=== PATIENT | female | born 1980 | race Caucasian/White ===

== ENCOUNTER 2016-07-14 12:12 | Emergency (ER) | payer OTHER ==
[2016-07-14 12:19] VITALS: BMI 37.7
[2016-07-14] MEDS ORDERED: AZITHROMYCIN 250 MG TABLET (FP) ONE (13:01)
[2016-07-14] MEDS ORDERED: ALBUTEROL SO4 2.5/IPRATROPIUM 0.5 INH SOL 3 ML VIAL.NEB. NEB ONE ×6 (13:28→14:53)
[2016-07-14] MEDS ORDERED: AZITHROMYCIN 250 MG TABLET (FP) PO ONE (13:28)
[2016-07-14] MEDS ORDERED: predniSONE 20 MG TABLET (UD) PO ONE (13:28)
[2016-07-14] MEDS ORDERED: predniSONE 20 MG TABLET (UD) ONE (13:31)
--- NOTE | 2016-07-14 13:31 | PDOC ---
History of Present Illness - General Chief Complaint: Shortness of Breath Stated Complaint: CHEST, SOB Time Seen by Provider: 07/14/16 12:35 History Source: Patient Exam Limitations: No Limitations - History of Present Illness Initial Comments: 07/14/16 13:27 Patient came to emergency department for evaluation of one week's coughing, she fevers and chills, and wheezing. States suffers from asthma ran out of inhaler some months ago. Was hoping the cold would improved but in fact has progressively become worse. Patient states has a moist nonproductive cough. 07/14/16 13:27 Timing/Duration: reports: constant, changing over time, getting worse Severity: reports: mild, moderate Associated Symptoms: reports: denies symptoms, cough, fever/chills, headache, nasal congestion, nasal drainage, shortness of breath Past History - Travel Traveled outside of the country in the last 30 days: No Close contact w/someone who was outside of country & ill: No - Past Medical History Allergies/Adverse Reactions: Allergies Allergy/AdvReac Type Severity Reaction Status Date / Time Penicillins Allergy Mild Swelling/it Verified 07/14/16 12:15 miguel Home Medications: Ambulatory Orders NK [No Known Home Medication] 07/14/16 Asthma: Yes Suicide Attempt (Hx): No - Surgical History Orthopedic Surgery: Yes (LT KNEE SX) - Reproductive History Cervical CA: No Dysfunctional Uterine Bleeding: No Ectopic : No Endometrial CA: No Polycystic Ovaries: No Spontaneous : 0 - Immunization History Td Vaccination: Yes TDAP Vaccination: Yes Immunization Up to Date: Yes - Psycho/Social/Smoking Cessation Hx Anxiety: No Suicidal Ideation: No Smoking Status: No Smoking History: Never smoked Have you smoked in the past 12 months: No Number of Cigarettes Smoked Daily: 0 Cigars Per Day: 0 Information on smoking cessation initiated: No Hx Alcohol Use: No Drug/Substance Use Hx: No Substance Use Type: None Hx Substance Use Treatment: No Review of Systems - Review of Systems Able to Perform ROS?: Yes Is the patient limited American proficient: Yes Constitutional: Yes: Symptoms Reported, See HPI, Chills, Fever, Loss of Appetite , Malaise HEENTM: Yes: Symptoms Reported, See HPI, Nose Congestion, Throat Pain Respiratory: Yes: Symptoms reported, See HPI, Cough, Shortness of Breath, Wheezing Cardiac (ROS): No: Symptoms Reported ABD/GI: Yes: See HPI. No: Symptoms Reported Musculoskeletal: Yes: Symptoms Reported, See HPI Integumentary: No: Symptoms Reported Neurological: Yes: Symptoms reported, See HPI, Headache All Other Systems: Reviewed and Negative *Physical Exam - Vital Signs Last Vital Signs Temp Pulse Resp BP Pulse Ox 98.3 F 85 20 113/81 97 07/14/16 12:15 07/14/16 12:15 07/14/16 12:15 07/14/16 12:15 07/14/16 12:15 - Physical Exam General Appearance: Yes: Nourished, Appropriately Dressed, Apparent Distress HEENT: positive: EOMI, BRITTANY, TMs Normal, Pharynx Normal, Tonsillar Erythema, Rhinorrhea, Sinus Tenderness. negative: Normal ENT Inspection Neck: positive: Supple. negative: Tender Respiratory/Chest: positive: Chest Tender, Rhonchi (course expiratory inspiratory rales), Wheezing (course inspiratory and expiratory wheezes bilaterally with poor air movement.). 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 Patient is outside window for Tamiflu treatment. Medical Decision Making - Medical Decision Making 07/14/16 14:43 Not much improvement after 2 duo nebs, prednisone and Zithromax approximately one hour ago. Will obtain chest x-ray and reevaluate 07/14/16 14:44 07/14/16 15:25 07/14/16 15:41 07/14/16 16;00 Continues course heavy cough with bilateral congestion and wheezing. Has received 3 DuoNeb's, prednisone, and Zithromax. Chest x-ray read is negative for infiltrates however patient is not improving therefore we will moved to main emergency department for further evaluation and possible admission for bronchitis/early pneumonia. case turned over to Miranda Hollingsworth NP evaluation and treatment. 07/14/16 18:31 *DC/Admit/Observation/Transfer Diagnosis at time of Disposition: Bronchitis - Discharge Dispostion Condition at time of disposition: Stable - Referrals Referrals: Brian Johns MD [Primary Care Provider] -
[2016-07-14] MEDS ORDERED: IBUPROFEN 600 MG TABLET (FP) PO ONE (13:55)
[2016-07-14 15:37] VITALS: TEMP 98.5
[2016-07-14 16:10] LABS: BASOPHIL 0.3 % (0-2.0); EOSINOPHIL 0.2 % (0-4.5); MCH 28.9 pg (25.7-33.7); MCHC 33.1 g/dl (32.0-36.0); MEAN CELL VOLUME 87.5 fl (80-96); MEAN PLT VOLUME 9.2 fl (7.5-11.1); NEUTROPHILS 89.6 % (42.8-82.8); PLATELET COUNT 200 K/MM3 (134-434); RDW 13.1 % (11.6-15.6); WHITE BLOOD COUNT 9.7 K/mm3 (4.0-10.0)
[2016-07-14 16:12] LABS: URINE APPEARANCE CLEAR; URINE BILIRUBIN NEGATIVE (NEGATIVE); URINE COLOR LTYELLOW; URINE GLUCOSE (UA) NEGATIVE (NEGATIVE); URINE KETONE NEGATIVE (NEGATIVE); URINE NITRITE NEGATIVE (NEGATIVE); URINE PROTEIN NEGATIVE (NEGATIVE); URINE UROBILINOGEN NEGATIVE E.U./dl (0.2-1.0)
[2016-07-14 16:13] LABS: URINE BLOOD 3+ (NEGATIVE); URINE LEUK ESTERASE 1+ (NEGATIVE)
[2016-07-14 16:15] LABS: URINE BACTERIA RARE /hpf (NONE SEEN); URINE MUCUS RARE; URINE RBC 18 /hpf (0-3); URINE WBC 5 /hpf (3-5)
[2016-07-14 16:38] LABS: ALK PHOS 84 U/L (45-117); ANION GAP 6 (8-16); BILIRUBIN,TOTAL 0.5 mg/dL (0.2-1.0); CALCIUM 8.2 mg/dL (8.5-10.1); CO2 27 mmol/L (21-32); CREATININE 0.5 mg/dL (0.55-1.02); GLUCOSE,RANDOM 117 mg/dL (74-106); SGOT/AST 17 U/L (15-37); SGPT/ALT 26 U/L (12-78); TOT PROT 7.1 g/dl (6.4-8.2)
[2016-07-14] MEDS ORDERED: guaiFENesin/CODEINE 10 ML UNIT-DOSE CUPS PO ONE (18:02)
--- NOTE | 2016-07-14 18:02 | PDOC ---
*Physical Exam - Vital Signs Last Vital Signs Temp Pulse Resp BP Pulse Ox 98.5 F 90 20 113/81 98 07/14/16 15:36 07/14/16 15:36 07/14/16 12:15 07/14/16 12:15 07/14/16 15:36 - Physical Exam Respiratory/Chest: positive: Accessory Muscle Use (intercostal), Wheezing ( scattered bilateral on expiration). negative: Decreased Breath Sounds Cardiovascular: positive: Tachycardia (116) ED Treatment Course - LABORATORY CBC & Chemistry Diagram: 07/14/16 16:00 07/14/16 16:00 - ADDITIONAL ORDERS Additional order review: Laboratory Results 07/14/16 07/14/16 07/14/16 16:00 16:00 16:00 Sodium 140 Potassium 3.5 Chloride 107 Carbon Dioxide 27 Anion Gap 6 L BUN 7 D Creatinine 0.5 L D Creat Clearance w eGFR > 60 Random Glucose 117 H Lactic Acid 1.635 Calcium 8.2 L Total Bilirubin 0.5 D AST 17 ALT 26 Alkaline Phosphatase 84 Total Protein 7.1 Albumin 4.0 Urine Color Ltyellow Urine Appearance Clear Urine pH 6.0 Ur Specific [place] 1.003 Urine Protein Negative Urine Glucose (UA) Negative Urine Ketones Negative Urine Blood 3+ H Urine Nitrite Negative Urine Bilirubin Negative Urine Urobilinogen Negative Ur Leukocyte Esterase 1+ H Urine RBC 18 Urine WBC 5 Ur Epithelial Cells Rare Urine Bacteria Rare Urine Mucus Rare 07/14/16 16:00 Influenza Types A,B Antigen (SONDRA) - Final Nasopharyngeal Swab - Final 07/14/16 16:00 RBC 4.57 MCV 87.5 MCHC 33.1 RDW 13.1 MPV 9.2 Neutrophils % 89.6 H D Lymphocytes % 8.2 D Monocytes % 1.7 L Eosinophils % 0.2 D Basophils % 0.3 - Medications Given in the ED: ED Medications Discontinued Medications Generic Name Dose Route Start Last Admin Trade Name Freq PRN Reason Stop Dose Admin Albuterol/Ipratropium 1 amp 07/14/16 13:28 07/14/16 13:33 Duoneb - NEB 07/14/16 13:29 1 amp ONCE ONE Administration Albuterol/Ipratropium 1 amp 07/14/16 13:33 07/14/16 13:48 Duoneb - NEB 07/14/16 13:34 1 amp ONCE ONE Administration Albuterol/Ipratropium 1 amp 07/14/16 14:43 07/14/16 14:45 Duoneb - NEB 07/14/16 14:44 1 amp ONCE ONE Administration Azithromycin 500 mg 07/14/16 13:28 07/14/16 13:30 Zithromax - PO 07/14/16 13:29 500 mg ONCE ONE Administration Prednisone 60 mg 07/14/16 13:28 07/14/16 13:33 Deltasone - PO 07/14/16 13:29 60 mg ONCE ONE Administration Medical Decision Making - Medical Decision Making 07/14/16 18:01 Received from fast track secondary to continual coughing wheezing and difficulty speaking full sentences secondary to the above. Patient had steroids DuoNeb lab work with no improvement. Patient's peak flow to my arrival was 260 at best of 3 . patient complaining of bronchial inflammation causing difficulty speaking and continual coughing. Pt will be given a dose robitussin and codeine 07/14/16 18:59 Patient states coughing has subsided moderately but still feels short of breath with minimal exertion. Patient revitalized and pulse is 107 while at rest O2 sat 97% on room air. Patient concerning for PE. Patient added for d-dimer. Will sign out. *DC/Admit/Observation/Transfer Diagnosis at time of Disposition: Bronchitis - Discharge Dispostion Disposition: HOME Condition at time of disposition: Stable - Prescriptions Prescriptions: Prednisone [Deltasone -] 20 mg PO DAILY #10 tablet Guaifenesin AC [Robitussin AC] 10 ml PO HS #60 ml MDD 10 Albuterol Sulfate Inhaler - [Ventolin HFA Inhaler -] 2 inh PO Q4H #1 inh - Referrals Referrals: Brian Johns MD [Primary Care Provider] - - Patient Instructions Printed Discharge Instructions: DI for Asthma -- Adult Additional Instructions: Your Discharge Instructions: You must call primary care physician within 24 hours to arrange follow-up. Return to the Emergency Department with any new, persistent or worsening symptoms, for fever, chills, SOB, dizziness or any other concerning changes that may occur. - Post Discharge Activity Work/School Note: Back to Work
[2016-07-14] MEDS ORDERED: guaiFENesin/CODEINE 10 ML UNIT-DOSE CUPS ONE (18:11)
--- NOTE | 2016-07-14 19:32 | PDOC ---
*Physical Exam - Vital Signs Last Vital Signs Temp Pulse Resp BP Pulse Ox 98.5 F 107 H 20 113/81 97 07/14/16 15:36 07/14/16 18:57 07/14/16 12:15 07/14/16 12:15 07/14/16 18:57 ED Treatment Course - LABORATORY CBC & Chemistry Diagram: 07/14/16 16:00 07/14/16 16:00 - ADDITIONAL ORDERS Additional order review: Laboratory Results 07/14/16 07/14/16 07/14/16 16:00 16:00 16:00 Sodium 140 Potassium 3.5 Chloride 107 Carbon Dioxide 27 Anion Gap 6 L BUN 7 D Creatinine 0.5 L D Creat Clearance w eGFR > 60 Random Glucose 117 H Lactic Acid 1.635 Calcium 8.2 L Total Bilirubin 0.5 D AST 17 ALT 26 Alkaline Phosphatase 84 Total Protein 7.1 Albumin 4.0 Urine Color Ltyellow Urine Appearance Clear Urine pH 6.0 Ur Specific [place] 1.003 Urine Protein Negative Urine Glucose (UA) Negative Urine Ketones Negative Urine Blood 3+ H Urine Nitrite Negative Urine Bilirubin Negative Urine Urobilinogen Negative Ur Leukocyte Esterase 1+ H Urine RBC 18 Urine WBC 5 Ur Epithelial Cells Rare Urine Bacteria Rare Urine Mucus Rare 07/14/16 16:00 Influenza Types A,B Antigen (SONDRA) - Final Nasopharyngeal Swab - Final 07/14/16 16:00 RBC 4.57 MCV 87.5 MCHC 33.1 RDW 13.1 MPV 9.2 Neutrophils % 89.6 H D Lymphocytes % 8.2 D Monocytes % 1.7 L Eosinophils % 0.2 D Basophils % 0.3 - Medications Given in the ED: ED Medications Discontinued Medications Generic Name Dose Route Start Last Admin Trade Name Freq PRN Reason Stop Dose Admin Albuterol/Ipratropium 1 amp 07/14/16 13:28 07/14/16 13:33 Duoneb - NEB 07/14/16 13:29 1 amp ONCE ONE Administration Albuterol/Ipratropium 1 amp 07/14/16 13:33 07/14/16 13:48 Duoneb - NEB 07/14/16 13:34 1 amp ONCE ONE Administration Albuterol/Ipratropium 1 amp 07/14/16 14:43 07/14/16 14:45 Duoneb - NEB 07/14/16 14:44 1 amp ONCE ONE Administration Azithromycin 500 mg 07/14/16 13:28 07/14/16 13:30 Zithromax - PO 07/14/16 13:29 500 mg ONCE ONE Administration Guaifenesin/Codeine Phosphate 10 ml 07/14/16 18:02 07/14/16 18:13 Robitussin Ac - PO 07/14/16 18:03 10 ml ONCE ONE Administration Prednisone 60 mg 07/14/16 13:28 07/14/16 13:33 Deltasone - PO 07/14/16 13:29 60 mg ONCE ONE Administration Medical Decision Making - Medical Decision Making 07/14/16 19:31 Patient was endorsed to me by TEE Orellana Seen and evaluated still c/o SOB. P/E Lungs clear. 07/14/16 21:22 PF 250 poor effort ambulatory with distress 07/14/16 21:32 Selected Entries 07/14/16 21:30 Pulse Rate [ 97 H Apical] Blood Pressure 105/60 [Right Arm] O2 Sat by Pulse 94 L Oximetry (%) I discussed the physical exam findings, ancillary test results and final diagnoses with the patient. I answered all of the patient's questions. The patient was satisfied with the care received and felt comfortable with the discharge plan and treatment plan. The Patient agrees to follow up with the primary care physician within 24-72 hours. Though he was doing the work in the 90 minute consciousness asthma he is regular and then with half an hour her not more year and was read by you know what kind of solids was well worse N latex every day come back of her exactly know that we'll u *DC/Admit/Observation/Transfer Diagnosis at time of Disposition: Bronchitis - Discharge Dispostion Disposition: HOME Condition at time of disposition: Stable - Prescriptions Prescriptions: Prednisone [Deltasone -] 20 mg PO DAILY #10 tablet Guaifenesin AC [Robitussin AC] 10 ml PO HS #60 ml MDD 10 Albuterol Sulfate Inhaler - [Ventolin HFA Inhaler -] 2 inh PO Q4H #1 inh - Referrals Referrals: Brian Johns MD [Primary Care Provider] - - Patient Instructions Printed Discharge Instructions: DI for Asthma -- Adult Additional Instructions: Your Discharge Instructions: You must call primary care physician within 24 hours to arrange follow-up. Return to the Emergency Department with any new, persistent or worsening symptoms, for fever, chills, SOB, dizziness or any other concerning changes that may occur. - Post Discharge Activity Work/School Note: Back to Work
[2016-07-14 21:31] VITALS: BP 105/60; PULSE 97
== END 2016-07-14 21:43 | disposition home or self-care (01) ==
LOC: JERFT 12:12 → JER 12:12
PROC: 3E0F7GC Introduction of Other Therapeutic Substance into Respiratory Tract, Via Natural or Artificial Opening (ICD-10-PCS; principal; 2016-07-14)
PROC: 3E0F7GC Introduction of Other Therapeutic Substance into Respiratory Tract, Via Natural or Artificial Opening (ICD-10-PCS; 2016-07-14)
PROC: 3E0F7GC Introduction of Other Therapeutic Substance into Respiratory Tract, Via Natural or Artificial Opening (ICD-10-PCS; 2016-07-14)
DX: J20.9 Acute bronchitis, unspecified (principal)
CPT/HCPCS: 36415; 71020-TC; 80053; 81003; 81015; 83605; 85025; 85379; 87040; 87804; 94640; 99282-25

== ENCOUNTER 2017-03-06 07:30 | Inpatient (IN) | payer OTHER ==
[2017-03-05 13:31] VITALS: BMI 36.3
--- NOTE | 2017-03-06 08:36 | HP ---
History & Physical Update - History History: No Change - Physical Physical: No Change - Assessment Assessment: No Change - Plan Plan: No Change Currently as noted:: Morbid Obesity- laparoscopic possible open vertical sleeve gastrectomy
[2017-03-06] MEDS ORDERED: PNEUMOC 13-VAL CONJ-DIP CRM/PF 0.5 ML DISP.SYRIN IM ONE (08:39)
[2017-03-06] MEDS ORDERED: LIDOCAINE HCL/PF 2% SDV 5ML VIAL ONE (10:49)
[2017-03-06] MEDS ORDERED: PROPOFOL 20 ML ONE (10:49)
[2017-03-06] MEDS ORDERED: ROCURONIUM BROMIDE 50 MG/5 ML VIAL ONE (10:49)
[2017-03-06] MEDS ORDERED: CLINDAMYCIN PHOSPHATE 600 MG/4 ML VIAL ONE ×2 (11:00→11:03)
[2017-03-06] MEDS ORDERED: CLINDAMYCIN PHOSPHATE 900 MG/6 ML VIAL IVPB ONE (11:05)
[2017-03-06] MEDS ORDERED: BUPIVACAINE HCL/PF 0.5% (5MG/ML) 10 ML VIAL IJ ONE (11:27)
[2017-03-06] MEDS ORDERED: KETOROLAC TROMETHAMINE 30 MG/1 ML VIAL ONE (11:52)
[2017-03-06] MEDS ORDERED: GLYCOPYRROLATE 0.2 MG/1 ML VIAL ONE (11:52)
[2017-03-06] MEDS ORDERED: DEXAMETHASONE SOD PHOSPHATE 4 MG/1 ML VIAL ONE (11:52)
[2017-03-06] MEDS ORDERED: NEOSTIGMINE METHYLSULFATE 0.5 MG/ML - 10 ML MDV ONE (11:53)
[2017-03-06] MEDS ORDERED: BUPIVACAINE HCL/PF 0.5% (5MG/ML) 10 ML VIAL ONE (12:05)
--- NOTE | 2017-03-06 12:23 | OP ---
Operative Note - Note: Operative Date: 03/06/17 Pre-Operative Diagnosis: Morbid obesity Operation: Laparoscopic vertical sleeve gastrectomy, EGD, wedge liver biopsy Findings: No leak/obstruction Hepatomegaly Post-Operative Diagnosis: Other (Morbid obesity, hepatomegaly) Surgeon: Ebenezer Manning Steam Table Associate: Sin Jones Anesthesia: General Specimens Removed: Greater curvature of the stomach, wedge liver biopsy Estimated Blood Loss (mls): 30 Drains & Tubes with Location: 36 Fr Bougie Operative Report Dictated: Yes
[2017-03-06] MEDS ORDERED: HYDROmorphone HCL CARPU-JECT 1 MG/1 ML DISP.SYRIN IVPB PRN (12:24)
[2017-03-06] MEDS ORDERED: MIDAZOLAM HCL 2 MG/2 ML SINGLE DOSE VIAL ONE (12:28)
[2017-03-06] MEDS ORDERED: SODIUM CHLORIDE 1,000 ML IV SCH (12:30)
[2017-03-06] MEDS ORDERED: ONDANSETRON 4 MG/2 ML VIAL IVPB SCH (12:30)
[2017-03-06] MEDS ORDERED: METOCLOPRAMIDE HCL INJECTION 10 MG/2 ML VIAL IVPB SCH (12:30)
[2017-03-06] MEDS ORDERED: ACETAMINOPHEN 1000 MG/100 ML VIAL (NON FORMULARY) IVPB SCH (12:30)
[2017-03-06] MEDS ORDERED: PROMETHAZINE HCL 25 MG/1 ML VIAL IVPUSH PRN (12:39)
[2017-03-06] MEDS ORDERED: ONDANSETRON 4 MG/2 ML VIAL IVPUSH PRN (12:39)
[2017-03-06] MEDS ORDERED: oxyCODONE HCL 5 MG TABLET PO PRN (12:39)
[2017-03-06 13:08] LABS: MCH 29.8 pg (25.7-33.7); MCHC 33.3 g/dl (32.0-36.0); MEAN CELL VOLUME 89.6 fl (80-96); MEAN PLT VOLUME 9.8 fl (7.5-11.1); PLATELET COUNT 222 K/MM3 (134-434); WHITE BLOOD COUNT 9.5 K/mm3 (4.0-10.0)
--- NOTE | 2017-03-06 13:26 | SPEC ---
DATE OF OPERATION: 03/06/2017 SURGEON: Ebenezer Manning MD SEARCH ENGINE MARKETING MANAGER: Sin Jones MD PREOPERATIVE DIAGNOSIS: Morbid obesity. POSTOPERATIVE DIAGNOSIS: Morbid obesity and hepatomegaly. PROCEDURE: Laparoscopic vertical sleeve gastrectomy, upper endoscopy, wedge liver biopsy of the left lobe of the liver. SPECIMEN: Greater curvature of the stomach, liver biopsy of the left lobe of the liver. ESTIMATED BLOOD LOSS: 30 mL. TUBES: A 36-[place] bougie. DRAINS: None. ANESTHESIA: General endotracheal. REASON FOR PROCEDURE: This is a 36-year-old female who presents to the office for weight loss options. After describing different options she decided to proceed with laparoscopic vertical sleeve gastrectomy possible open. The risks and benefits of the procedure were explained. These included bleeding, infection, hernia, ND, DVT, PE, injury to surrounding structures including the liver, colon, bowel, spleen, esophagus, vessel injury, nerve injury, weight regain, gastric leak, staple line leak, sleeve leak, obstruction, vitamin deficiency, hair loss, and as some of the possible complications. The patient understood and signed informed consent. DESCRIPTION OF PROCEDURE: The patient was placed supine on the operating room table. The patient underwent general endotracheal intubation. A Stewart catheter was inserted. The arms were brought out at 90 degrees and secured. A footboard was placed and the legs were secured laterally with padding. The abdomen was prepped and draped in the usual sterile fashion. A timeout was performed. An incision was made in the left upper quadrant and a Veress needle inserted. Pneumoperitoneum was established. Subsequently, the Veress needle was removed and a 12-mm trocar was placed. The laparoscopic camera was then inserted and inspection of the abdominal cavity was performed. An incision was then made in the supraumbilical area and a 15-mm trocar was placed under direct visualization. A 5-mm trocar was then placed in the right upper quadrant and a 5-mm trocar was placed below the left subcostal margin. A stab wound was made in the subxiphoid area and a Nat clamp inserted and removed to dilate the tract. A Roselyn liver retractor was inserted. The post was secured at the bedside by the nursing staff. The patient was placed in steep reverse Trendelenburg position and the Roselyn liver retractor was used to secure the liver towards the anterior abdominal wall. The pylorus was identified and 6 cm proximal to it, the lesser sac was entered using the LigaSure device. All lateral attachments to the greater curvature of the stomach, including the short gastric vessels, were ligated using the LigaSure device toward the gastrosplenic and gastrophrenic ligaments. Once this was done in its entirety, it was confirmed that all tubes within the nasal or oropharyngeal cavity, including a temperature probe, was removed by Anesthesia. The bougie was then inserted by Anesthesia. Transection of the stomach was then begun staying adjacent to the bougie but away from the angularis. Transection of the stomach was performed near the portion of the stomach where the lesser sac was entered. Two laparoscopic Endo-JOHAN black jennifer were used at this location. Laparoscopic Endo JOHAN purple staple loads were then used for the remainder of the transection until the greater curvature of the stomach was fully transected. This was done staying close to the bougie. Care was taken to stay away from the angle of His cephalad. The staple line was then inspected. Hemostasis was identified. A leak test was then performed. It was clamped distally to the staple line. Irrigation solution was placed in the left upper quadrant and air was insufflated by Anesthesia into the sleeve. No leaks were identified. No obstruction was identified. This was done through the entirety of the staple line. At this point, the irrigation solution was suctioned and again , hemostasis was noted. A wedge liver biopsy was then performed. The left lobe of the liver was identified and a portion of the edge was grasped. Using electrocautery, a wedge of the liver was excised. This was removed and sent off the field as specimen. Hemostasis at the site of the wedge liver biopsy was attained using electrocautery. The 15-mm supraumbilical trocar was then removed and the greater curvature specimen removed from the site using a sponge stick rand. The specimen was inspected and a Veress needle inserted. The specimen insufflated adequately and no leak was identified. The staple line was noted to be intact. At the end of the case a further leak test was performed with an upper endoscopy. The entirety of the sleeve was inspected and noted to be fully intact, no leak or obstruction was noted. The endoscope was slowly removed from the patient's mouth. A Matt-Honorio device was then used to temporarily close the fascia with a 0 Vicryl suture at the site. The 15-mm trocar was then reinserted and the 12-mm trocar in the left upper quadrant was removed. The fascia at this site was then closed using the Matt-Honorio device with a 0 Vicryl suture. Again, hemostasis was noted. The Roselyn liver retractor was then removed under direct visualization. Pneumoperitoneum was desufflated and the fascial sutures were secured. Hemostasis was noted at all incision sites and Marcaine was injected at all incision sites. All incision sites were closed using 4-0 Biosyn. Sterile dressings were applied. The patient tolerated the procedure well and was transferred to the recovery room in stable condition with the Stewart catheter intact. Cassidy SCOTT/[id number] MTDD
[2017-03-06] MEDS: METOCLOPRAMIDE HCL INJECTION 10 MG/2 ML VIAL IVPB SCH ×3 (13:30→21:06)
[2017-03-06 13:38] LABS: ALBUMIN 3.9 g/dl (3.4-5.0); ANION GAP 8 (8-16); CALCIUM 8.8 mg/dL (8.5-10.1); CO2 27 mmol/L (21-32); CREATININE 0.5 mg/dL (0.55-1.02); GLUCOSE,RANDOM 104 mg/dL (74-106); SGOT/AST 76 U/L (15-37); SGPT/ALT 75 U/L (12-78)
[2017-03-06 13:40] LABS: ALK PHOS 81 U/L (45-117); BILIRUBIN,TOTAL 1.3 mg/dL (0.2-1.0)
[2017-03-06] MEDS: ACETAMINOPHEN 1000 MG/100 ML VIAL (NON FORMULARY) IVPB SCH ×2 (14:00→20:09)
[2017-03-06] MEDS: SODIUM CHLORIDE 1,000 ML IV SCH (14:00)
[2017-03-06] MEDS ORDERED: HYDROmorphone HCL CARPU-JECT 2 MG/1 ML DISP.SYRIN ONE (14:57)
[2017-03-06] MEDS: HYDROmorphone HCL CARPU-JECT 1 MG/1 ML DISP.SYRIN IVPB PRN (15:00)
[2017-03-06] MEDS: ONDANSETRON 4 MG/2 ML VIAL IVPB SCH ×2 (19:30→22:59)
[2017-03-06] MEDS ORDERED: ENOXAPARIN NA (PORCINE) 40 MG/0.4 ML DISP.SYRIN SQ SCH (22:00)
[2017-03-06] MEDS ORDERED: FAMOTIDINE 20 MG/50 ML IVPB 50 ML IVPB SCH (22:00)
[2017-03-06] MEDS: FAMOTIDINE 20 MG/50 ML IVPB 50 ML IVPB SCH (22:10)
[2017-03-06] MEDS: ENOXAPARIN NA (PORCINE) 40 MG/0.4 ML DISP.SYRIN SQ SCH (22:11)
[2017-03-07] MEDS: ACETAMINOPHEN 1000 MG/100 ML VIAL (NON FORMULARY) IVPB SCH ×2 (01:01→06:11)
[2017-03-07] MEDS: ONDANSETRON 4 MG/2 ML VIAL IVPB SCH ×7 (01:13→21:58)
[2017-03-07] MEDS: METOCLOPRAMIDE HCL INJECTION 10 MG/2 ML VIAL IVPB SCH ×4 (03:52→21:54)
[2017-03-07 08:19] LABS: MCH 29.8 pg (25.7-33.7); MCHC 33.7 g/dl (32.0-36.0); MEAN CELL VOLUME 88.2 fl (80-96); MEAN PLT VOLUME 10.5 fl (7.5-11.1); PLATELET COUNT 211 K/MM3 (134-434); RDW 12.5 % (11.6-15.6); WHITE BLOOD COUNT 7.6 K/mm3 (4.0-10.0)
[2017-03-07] MEDS: HYDROmorphone HCL CARPU-JECT 1 MG/1 ML DISP.SYRIN IVPB PRN ×2 (08:34→19:32)
[2017-03-07 08:37] LABS: ALBUMIN 3.2 g/dl (3.4-5.0); ANION GAP 10 (8-16); CALCIUM 7.8 mg/dL (8.5-10.1); CO2 24 mmol/L (21-32); CREATININE 0.5 mg/dL (0.55-1.02); GLUCOSE,RANDOM 88 mg/dL (74-106); SGOT/AST 40 U/L (15-37); SGPT/ALT 58 U/L (12-78)
[2017-03-07 08:39] LABS: ALK PHOS 64 U/L (45-117); BILIRUBIN,TOTAL 0.8 mg/dL (0.2-1.0); TOT PROT 5.8 g/dl (6.4-8.2)
[2017-03-07] MEDS: ENOXAPARIN NA (PORCINE) 40 MG/0.4 ML DISP.SYRIN SQ SCH ×2 (10:07→21:54)
[2017-03-07] MEDS: FAMOTIDINE 20 MG/50 ML IVPB 50 ML IVPB SCH ×2 (10:07→21:54)
--- NOTE | 2017-03-07 11:51 | DS ---
Physical Examination Vital Signs: Vital Signs Temperature 98.6 F 03/07/17 06:00 Pulse Rate 72 03/07/17 06:00 Respiratory Rate 18 03/07/17 09:00 Blood Pressure 109/63 03/07/17 06:00 O2 Sat by Pulse Oximetry (%) 99 03/07/17 09:00 Constitutional: Yes: No Distress Eyes: Yes: WNL Neck: Yes: Supple Cardiovascular: Yes: Regular Rate and Rhythm Respiratory: Yes: CTA Bilaterally Gastrointestinal: Yes: Soft Wound/Incision: Yes: Dressing Dry and Intact Neurological: Yes: Alert, Oriented Labs: CBC, BMP 03/07/17 06:00 03/07/17 06:00 Discharge Summary Reason For Visit: OBESITY MORBID Morbid obesity, hepatomegaly Procedures: Principal: Laparoscopic vertical sleeve gastrectomy, wedge liver biopsy Condition: Stable - Instructions Diet, Activity, Other Instructions: [facility] Ebenezer Manning M.D. [address] [place] [address], [address] [facility] [address] [facility] [place] [address] Robotic, Bariatric and General Surgery Postoperative Instructions for Bariatric Surgery Activity: Resume normal everyday activity as tolerated. You may walk and climb stairs without any limitation. We encourage you to walk as often as you can Do not lift anything more than 10 pounds for 8 weeks. At that time, you can return to full activity, including the gym, without limitation. Do not drive a motor vehicle while taking prescribes narcotic pain medication. Wound Care: If you have a bandage in place, leave it on for 3 days. At that time you may remove the outer bandage. If there are strips of tape on the skin after removing the outer bandage, leave them in place. They will fall off by themselves. Do not remove them. If there is clear glue on the skin after removing the outer bandage, leave it in place. Do not pick at it or peel it off. You may shower after taking the outer bandage off, 3 days after your surgery. If incisions become red, warm or open, please call the office. Diet: Continue a sugar-free, non-carbonated Clear liquid diet three times a day for the first week-Stage I diet. In addition, you should drink 8 ounces of water every hour. When drinking, sips should be slow and steady, not large and quick. After the first week, call the office to be advanced to the next dietary stage. Do not advance stages until instructed. Your diet will be advanced over the phone each week. Medications/Pain Management: You may resume previous medications unless told otherwise. The pills may be swallowed whole or broken if scored. You may take the prescribed narcotic pain medication as needed. If the narcotic medication is not needed for pain control, you may take Tylenol. Avoid all other pain medications including Advil, Ibuprofen, Motrin, Aspirin, Naprosyn, Aleve, Celebrex. You will receive Pepcid. Please take this twice a day as prescribed. Dizziness,Headaches/Gas Pain: Make sure you are getting enough fluids daily. Patients on diuretics or water pills may need medication adjusted. Some fluids such as broth or Gatorade may help. Gas pains are common in the first few weeks after surgery. At times they can be worse than surgical pain. Walking can help. You can also use Mylanta, Maalox, or Gas-X. Vomiting/Nausea: This may occur if you eat too fast, don't chew, or eat too much. Go back to fluids. If the vomiting or nausea persists, call the office. Constipation/Diarrhea: You may experience a change in bowel habits. Many things affect this, including a decrease in food intake, not enough fluid and taking pain medication. Some people experience diarrhea after the barium swallow in x-ray. If either persist, call the office. Follow up: Call the office at [phone] for an appointment 2 weeks after your surgical procedure. Disposition: HOME - Home Medications Comprehensive Discharge Medication List: Ambulatory Orders Ibuprofen [Motrin -] 400 mg PO PRN PRN 03/05/17 Famotidine [Pepcid] 20 mg PO BID #60 tablet 03/06/17 Oxycodone HCl/Acetaminophen [Percocet 5-325 mg Tablet] 1 - 2 tab PO Q6H #28 tab MDD 4 03/06/17
[2017-03-07] MEDS: SODIUM CHLORIDE 1,000 ML IV SCH ×2 (12:38→13:32)
[2017-03-07] MEDS: oxyCODONE HCL 5 MG TABLET PO PRN ×3 (12:39→23:17)
[2017-03-07] MEDS: ACETAMINOPHEN 325 MG TABLET (FP) PO PRN ×3 (12:39→23:17)
--- NOTE | 2017-03-07 13:12 | PN ---
Progress Note (short form) - Note Progress Note: POD 1 Pain controlled No nausea Vital Signs Period Temp Pulse Resp BP Sys/Boucher Pulse Ox Last 24 Hr 98.1 F-98.8 F 68-89 14-22 109-161/60-76 99-100 Abd soft, incisional tenderness CBC,CMP WBC 7.6 K/mm3 (4.0-10.0) 03/07/17 06:00 RBC 3.96 M/mm3 (3.60-5.2) 03/07/17 06:00 Hgb 11.8 GM/dL (10.7-15.3) D 03/07/17 06:00 Hct 34.9 % (32.4-45.2) D 03/07/17 06:00 MCV 88.2 fl (80-96) 03/07/17 06:00 MCH 29.8 pg (25.7-33.7) 03/07/17 06:00 MCHC 33.7 g/dl (32.0-36.0) 03/07/17 06:00 RDW 12.5 % (11.6-15.6) 03/07/17 06:00 Plt Count 211 K/MM3 (134-434) 03/07/17 06:00 MPV 10.5 fl (7.5-11.1) 03/07/17 06:00 Sodium 141 mmol/L (136-145) 03/07/17 06:00 Potassium 3.8 mmol/L (3.5-5.1) 03/07/17 06:00 Chloride 107 mmol/L (98-107) 03/07/17 06:00 Carbon Dioxide 24 mmol/L (21-32) 03/07/17 06:00 Anion Gap 10 (8-16) 03/07/17 06:00 BUN 6 mg/dL (7-18) L D 03/07/17 06:00 Creatinine 0.5 mg/dL (0.55-1.02) L 03/07/17 06:00 Creat Clearance w eGFR > 60 (>60) 03/07/17 06:00 Random Glucose 88 mg/dL (74-106) 03/07/17 06:00 Calcium 7.8 mg/dL (8.5-10.1) L 03/07/17 06:00 Total Bilirubin 0.8 mg/dL (0.2-1.0) D 03/07/17 06:00 AST 40 U/L (15-37) H D 03/07/17 06:00 ALT 58 U/L (12-78) D 03/07/17 06:00 Alkaline Phosphatase 64 U/L (45-117) D 03/07/17 06:00 Total Protein 5.8 g/dl (6.4-8.2) L 03/07/17 06:00 Albumin 3.2 g/dl (3.4-5.0) L 03/07/17 06:00 Serum , Qual Negative 03/06/17 08:12 UGI- no leak/obstruction Clears OOB
--- NOTE | 2017-03-07 16:12 | PATH ---
Surgical Pathology Report Patient Name: DELMY ALVAREZ [facility] Rec. #: [id number] /Age/Gender: 1980 (Age: 36) / F Account: [id number] Location: 4 W TELEMETRY U Taken: 03/06/2017 Received: 03/06/2017 Reported: 03/07/2017 Physicians: Ebenezer Manning M.D. Specimen(s) Received A: STOMACH, GREATER CURVATURE B: LIVER BIOPSY Clinical History Morbid obesity Final Diagnosis A. STOMACH, GREATER CURVATURE, LAPAROSCOPIC VERTICAL SLEEVE RESECTION: PORTION OF STOMACH WITH PATCHY MILD CHRONIC GASTRITIS. IMMUNOSTAIN FOR H. PYLORI IS NEGATIVE FOR ORGANISMS. B. LIVER, WEDGE, BIOPSY: STEATOSIS (~25-30%), MINIMAL INFLAMMATORY ACTIVITY. MILD PERIVENULAR AND FOCAL MINIMAL PORTAL FIBROSIS (LIMITED ASSESSMENT IN THE SUBCAPSULAR LIVER TISSUE). SEE COMMENT. Comment: Although the tissue is subcapsular, the liver architecture appears preserved. The portal tracts show only focal minimal inflammation comprised of lymphocytes and histiocytes. No increased plasma cells are noted. No significant interface activity is seen. No significant bile duct injury is noted; focal ductular proliferation is seen. No portal granulomas are present. The lobules show patchy minimal inflammation comprised of lymphocytes, scattered eosinophils and neutrophils. No acidophil bodies are seen. No significant hepatocyte ballooning is seen. No Angie hyalin is identified. No lobular granulomas are seen. There is mixed macro- and microvesicular steatosis, present on approximately ~25-30% of the biopsy material. Trichrome stain highlights mild perivenular and focal minimal portal fibrosis. Iron stain shows no siderosis. Overall, the histologic findings are consistent steatosis (~25-30%) and minimal inflammatory activity; focal mild perivenular, and focal mild portal fibrosis (stage 0-1 of 4) with limited fibrosis assessment in the subcapsular liver tissue. The etiology of steatohepatitis may include alcohol and non-alcohol related liver injury, such as drugs/toxins and metabolic conditions. Clinical and serological correlations are suggested. Electronically Signed Chapo Barrios M.D. Gross Description A. Received in formalin, labeled "greater curvature of stomach" is a 91 gram, 16.0 x 4.0 x 3.3 cm. portion of stomach with a stapled margin of resection. The serosa is meraz-merrill with minimal attached fat. The mucosa is meraz-pink with normal folds. No mucosal masses are identified. Telecom Analyst sections are submitted in one cassette. B. Received in formalin labeled "liver biopsy" is a 1.5 x 1.2 x 0.4 cm meraz-brown, irregular portion of soft tissue. The specimen is bisected and entirely submitted in one cassette. 03/06/2017 [facility]
--- NOTE | 2017-03-07 17:15 | PN ---
Progress Note (short form) - Note Progress Note: Anesthesia postop note 36y/o F s/p GA for Gastric Sleeve POD#1, vss, aaox3, pain well controlled. No anesthesia complications.
[2017-03-08] MEDS: ONDANSETRON 4 MG/2 ML VIAL IVPB SCH ×3 (03:00→09:07)
[2017-03-08] MEDS: METOCLOPRAMIDE HCL INJECTION 10 MG/2 ML VIAL IVPB SCH ×3 (03:00→10:54)
[2017-03-08] MEDS: oxyCODONE HCL 5 MG TABLET PO PRN (07:33)
[2017-03-08] MEDS: ACETAMINOPHEN 325 MG TABLET (FP) PO PRN (07:33)
[2017-03-08 08:46] VITALS: BP 119/68; PULSE 78; TEMP 98.1
[2017-03-08] MEDS: ENOXAPARIN NA (PORCINE) 40 MG/0.4 ML DISP.SYRIN SQ SCH (09:06)
[2017-03-08] MEDS: FAMOTIDINE 20 MG/50 ML IVPB 50 ML IVPB SCH (09:07)
[2017-03-08] MEDS: SODIUM CHLORIDE 1,000 ML IV SCH (11:43)
[2017-03-08] MEDS: HYDROmorphone HCL CARPU-JECT 1 MG/1 ML DISP.SYRIN IVPB PRN (12:04)
== END 2017-03-08 12:41 | disposition home or self-care (01) | DRG 403 ==
LOC: JSAMEDAYSX 08:02 → EDSTATUS 10:30 → J4W 16:35
PROVIDERS: ADMIT Surgery; ATTEND Surgery
PROC: 0FB24ZX Excision of Left Lobe Liver, Percutaneous Endoscopic Approach, Diagnostic (ICD-10-PCS; 2017-03-06)
PROC: 0DB64Z3 Excision of Stomach, Percutaneous Endoscopic Approach, Vertical (ICD-10-PCS; principal; 2017-03-06 09:30)
DX: E66.01 Morbid (severe) obesity due to excess calories (principal); R16.0 Hepatomegaly, not elsewhere classified; Z68.36 Body mass index [BMI] 36.0-36.9, adult
CPT/HCPCS: 36415; 74241-TC; 80053; 84703; 85027; 86850; 86900; 86901; 88305-TC; 88307-TC; 94010; 94760

== ENCOUNTER 2018-09-18 11:18 | Emergency (ER) | payer OTHER ==
[2018-09-18 12:24] VITALS: BP 115/61; PULSE 64; TEMP 98.7; BMI 24.6
--- NOTE | 2018-09-18 13:46 | PDOC ---
History of Present Illness - General Chief Complaint: Ear Problem Stated Complaint: LT EAR PAIN Time Seen by Provider: 09/18/18 13:16 History Source: Patient Exam Limitations: No Limitations - History of Present Illness Initial Comments: 09/18/18 13:38 Patient here with complaints of left ear pain 3 days. Denies fever, denies drainage from ears, states uses Q-tips to clean her ears. Has taken no medication for relief of pain. States is severed with URI for the past few days and child is at home sick with same. Timing/Duration: unsure Severity: mild, moderate Associated Symptoms: reports: denies symptoms Past History - Travel Traveled outside of the country in the last 30 days: No Close contact w/someone who was outside of country & ill: No - Past Medical History Allergies/Adverse Reactions: Allergies Allergy/AdvReac Type Severity Reaction Status Date / Time Penicillins Allergy Mild Swelling/it Verified 09/18/18 12:22 miguel Home Medications: Ambulatory Orders Pseudoephedrine HCl 30 mg PO Q6H PRN #14 tablet 09/18/18 Anemia: No Asthma: Yes Cancer: No Cardiac Disorders: No CVA: No COPD: No CHF: No Dementia: No Diabetes: No GI Disorders: No Disorders: No HTN: No Hypercholesterolemia: No Liver Disease: No Seizures: No Thyroid Disease: No - Surgical History Orthopedic Surgery: Yes (LT KNEE SX) - Reproductive History Cervical CA: No Dysfunctional Uterine Bleeding: No Ectopic : No Endometrial CA: No Polycystic Ovaries: No Spontaneous : 0 - Immunization History Td Vaccination: Yes TDAP Vaccination: Yes Immunization Up to Date: Yes - Suicide/Smoking/Psychosocial Hx Smoking Status: No Smoking History: Never smoked Have you smoked in the past 12 months: No Number of Cigarettes Smoked Daily: 0 Cigars Per Day: 0 Hx Alcohol Use: No Drug/Substance Use Hx: No Substance Use Type: Alcohol Hx Substance Use Treatment: No Review of Systems - Review of Systems Able to Perform ROS?: Yes Is the patient limited Vietnamese proficient: Yes Constitutional: Yes: See HPI. No: Symptoms Reported, Fever, Malaise HEENTM: Yes: Symptoms Reported, See HPI, Nose Congestion Respiratory: Yes: See HPI. No: Symptoms reported ABD/GI: No: Symptoms Reported All Other Systems: Reviewed and Negative *Physical Exam - Vital Signs Last Vital Signs Temp Pulse Resp BP Pulse Ox 98.7 F 64 18 115/61 99 09/18/18 12:22 09/18/18 12:22 09/18/18 12:22 09/18/18 12:22 09/18/18 12:22 - Physical Exam General Appearance: Yes: Nourished, Appropriately Dressed. No: Apparent Distress HEENT: positive: BRITTANY, Rhinorrhea. negative: TMs Normal (bilateral ear congestion with fluid however no erythema or bulging. Landmarks easily visualized), Pharyngeal Erythema (with posterior sinus drainage looking white and clear in color), Tonsillar Exudate, Tonsillar Erythema, Sinus Tenderness Neck: positive: Supple. negative: Tender, Lymphadenopathy (R), Lymphadenopathy (L) Respiratory/Chest: positive: Lungs Clear, Normal Breath Sounds Extremity: positive: Normal Capillary Refill, Normal Inspection Integumentary: positive: Normal Color, Dry, Warm, Pale Neurologic: positive: car groomer II-XII NML intact, Fully Oriented, Alert, Normal Mood/ Affect, Normal Response Moderate Sedation - Procedure Monitoring Vital Signs: Procedure Monitoring Vital Signs Temperature 98.7 F 09/18/18 12:22 Pulse Rate 64 09/18/18 12:22 Respiratory Rate 18 09/18/18 12:22 Blood Pressure 115/61 09/18/18 12:22 O2 Sat by Pulse Oximetry (%) 99 09/18/18 12:22 *DC/Admit/Observation/Transfer Diagnosis at time of Disposition: Common cold virus - Discharge Dispostion Disposition: HOME Condition at time of disposition: Stable Decision to Admit order: No - Prescriptions Prescriptions: Pseudoephedrine HCl 30 mg PO Q6H PRN #14 tablet PRN Reason: decongestant - Referrals Referrals: Dakota Leon MD [Primary Care Provider] - - Patient Instructions Printed Discharge Instructions: DI for Nasal Congestion Additional Instructions: Rest, drink lots of fluids: Teas, water, soups Saltwater gargles. Consider humidifier in room at night Steamy showers/seem to face break up mucus Avoid contact with allergens, exposure to pollens, close windows on a windy day Lots of handwashing and good hygiene Continue [id number] medications for symptomatic relief- may use allergic eyedrops for itching I Continue antihistamines daily until pollen season is over; Zyrtec, Claritin, Cait during the daytime and Benadryl at nighttime as will make sleepy Tylenol or Motrin for fever and pain Followup with private physician in one to 2 days as needed Consider following up with an plant facilities technician/advanced practice professional for skin testing and possible allergy shots Return to emergency department for worsened symptoms, fevers, dehydration - Post Discharge Activity
== END 2018-09-18 14:13 | disposition home or self-care (01) ==
LOC: JERFT 11:18
DX: J00 Acute nasopharyngitis [common cold] (principal)
CPT/HCPCS: 99281-25

== ENCOUNTER 2018-10-14 11:27 | Emergency (ER) | payer OTHER ==
[2018-10-14 11:39] VITALS: BP 119/67; PULSE 70; TEMP 98.2; BMI 24.6
--- NOTE | 2018-10-14 12:31 | PDOC ---
History of Present Illness - General Chief Complaint: Urinary Problem Stated Complaint: URINARY PROBLEM Time Seen by Provider: 10/14/18 11:52 - History of Present Illness Initial Comments: 10/14/18 12:29 37-year-old female without comorbidities presents for evaluation of dysuria frequency and urgency times one day without systemic symptoms. She is also unsure if she is and she would like to find out. She states she is about 3 days late for her menstrual cycle Past History - Past Medical History Allergies/Adverse Reactions: Allergies Allergy/AdvReac Type Severity Reaction Status Date / Time Penicillins Allergy Mild Swelling/it Verified 10/14/18 12:17 miguel Home Medications: Ambulatory Orders Nitrofurantoin Monohyd/M-Cryst [Macrobid -] 100 mg PO BID #14 capsule 10/14/18 No122/Iron/Folic Acid [ Multi Tablet] 1 each PO DAILY #30 tablet 10/14/18 Anemia: No Asthma: Yes Cancer: No Cardiac Disorders: No CVA: No COPD: No CHF: No Dementia: No Diabetes: No GI Disorders: No Disorders: No HTN: No Hypercholesterolemia: No Liver Disease: No Seizures: No Thyroid Disease: No - Surgical History Orthopedic Surgery: Yes (LT KNEE SX) - Reproductive History Cervical CA: No Dysfunctional Uterine Bleeding: No Ectopic : No Endometrial CA: No Polycystic Ovaries: No Spontaneous : 0 - Immunization History Td Vaccination: Yes TDAP Vaccination: Yes Immunization Up to Date: Yes - Suicide/Smoking/Psychosocial Hx Smoking Status: No Smoking History: Never smoked Have you smoked in the past 12 months: No Number of Cigarettes Smoked Daily: 0 Cigars Per Day: 0 Information on smoking cessation initiated: No Hx Alcohol Use: No Drug/Substance Use Hx: No Substance Use Type: Alcohol Hx Substance Use Treatment: No Review of Systems - Review of Systems Constitutional: No: Fever : Yes: Burning, Dysuria, Frequency, Urgency *Physical Exam - Vital Signs Last Vital Signs Temp Pulse Resp BP Pulse Ox 98.2 F 70 18 119/67 100 10/14/18 11:37 10/14/18 11:37 10/14/18 11:37 10/14/18 11:37 10/14/18 11:37 - Physical Exam Comments: 10/14/18 12:30 HEAD: NC/AT EYES: Conjuntiva clear Ears: Canals and TM's normal NOSE: No d/c THROAT: Moist mucous membrances, oral pharanx clear, uvula midline NECK: Supple without adenopathy CARDIAC: S1 S2 LUNGS: CTA Full and Equal breath sounds ABDOMEN: Soft NT ND no CVAT MS: Full ROM in all joints without edema NEUROLOGIC: No gross sensory or motor deficits, NVID SKIN: Normal color and temperature no lesions or rashes Medical Decision Making - Medical Decision Making 10/14/18 13:21 Macrobid for UTI and prental vit written and sent to pharmacy, OB f/u discussed *DC/Admit/Observation/Transfer Diagnosis at time of Disposition: Urinary tract infection, - Discharge Dispostion Disposition: HOME Condition at time of disposition: Stable Decision to Admit order: No - Referrals Referrals: Dakota Leon MD [Primary Care Provider] - Nathan Gaines MD [Staff Physician] - - Patient Instructions Printed Discharge Instructions: Medications and , Urinary Tract Infection, DI for Urinary Tract Infection (UTI) Additional Instructions: Your test was positive. Return to the emergency room for worsening symptoms. You also have a urinary tract infection. Please take the antibiotics and finish the entire course as directed and given you a prescription for vitamin which is at your pharmacy and an antibiotic. Follow-up with OB/ UNDERLINER in one to 2 days for further evaluation and treatment of your and urinary tract infection - Post Discharge Activity
[2018-10-14 12:59] LABS: URINE APPEARANCE Clear; URINE BILIRUBIN Negative (NEGATIVE); URINE COLOR Yellow; URINE GLUCOSE (UA) Negative (NEGATIVE); URINE KETONE Negative (NEGATIVE); URINE LEUK ESTERASE 2+ (NEGATIVE); URINE NITRITE Negative (NEGATIVE); URINE PROTEIN 1+ (NEGATIVE); URINE UROBILINOGEN 0.2 mg/dL (0.2-1.0)
[2018-10-14 13:50] LABS: EPI CELLS 0.5 /HPF (0-5/HPF); URINE BACTERIA 64.8 /hpf (NEGATIVE); URINE WBC 62.5 /hpf (0-5)
[2018-10-14 13:51] LABS: URINE CASTS 7.89 /hpf (0-8)
== END 2018-10-14 13:30 | disposition home or self-care (01) ==
LOC: JERFT 11:27
DX: N39.0 Urinary tract infection, site not specified (principal); Z33.1 Pregnant state, incidental; J45.909 Unspecified asthma, uncomplicated
CPT/HCPCS: 81003; 84703; 87086; 87186; 99281-25

== ENCOUNTER 2018-10-26 14:29 | Emergency (ER) | payer OTHER ==
[2018-10-26 14:36] VITALS: BP 117/56; PULSE 60; TEMP 98.9; BMI 24.0
[2018-10-26] MEDS ORDERED: SODIUM CHLORIDE 1,000 ML IV STA (15:25)
[2018-10-26] MEDS ORDERED: ACETAMINOPHEN 1000 MG/100 ML VIAL (NON FORMULARY) IVPB ONE (15:25)
[2018-10-26] MEDS ORDERED: ONDANSETRON 4 MG/2 ML VIAL IVPUSH ONE (15:25)
--- NOTE | 2018-10-26 15:25 | PDOC ---
History of Present Illness - General Chief Complaint: Pain, Acute Stated Complaint: ABDOMINAL PAIN Time Seen by Provider: 10/26/18 15:21 History Source: Patient Exam Limitations: No Limitations Past History - Travel Traveled outside of the country in the last 30 days: No Close contact w/someone who was outside of country & ill: No - Past Medical History Allergies/Adverse Reactions: Allergies Allergy/AdvReac Type Severity Reaction Status Date / Time Penicillins Allergy Mild Swelling/it Verified 10/26/18 22:51 miguel Home Medications: Ambulatory Orders Nitrofurantoin Monohyd/M-Cryst [Macrobid -] 100 mg PO BID #14 capsule 10/14/18 No122/Iron/Folic Acid [ Multi Tablet] 1 each PO DAILY #30 tablet 10/14/18 Mag Hydrox/Al Hydrox/Simeth [Mylanta Suspension -] 30 ml PO Q6H #1 bottle Ranitidine HCl [Zantac] 150 mg PO BID PRN #20 tablet 10/26/18 Anemia: No Asthma: Yes Cancer: No Cardiac Disorders: No CVA: No COPD: No CHF: No Dementia: No Diabetes: No GI Disorders: No Disorders: No HTN: No Hypercholesterolemia: No Liver Disease: No Seizures: No Thyroid Disease: No - Surgical History Orthopedic Surgery: Yes (LT KNEE SX) - Reproductive History Cervical CA: No Dysfunctional Uterine Bleeding: No Ectopic : No Endometrial CA: No Polycystic Ovaries: No Spontaneous : 0 - Immunization History Td Vaccination: Yes TDAP Vaccination: Yes Immunization Up to Date: Yes - Suicide/Smoking/Psychosocial Hx Smoking Status: No Smoking History: Never smoked Have you smoked in the past 12 months: No Number of Cigarettes Smoked Daily: 0 Cigars Per Day: 0 Hx Alcohol Use: No Drug/Substance Use Hx: No Substance Use Type: Alcohol Hx Substance Use Treatment: No Review of Systems - Review of Systems Able to Perform ROS?: Yes Comments:: 10/26/18 19:01 CONSTITUTIONAL: Absent: fever, chills, diaphoresis, generalized weakness, malaise, loss of appetite HEENT: Absent: rhinorrhea, nasal congestion, throat pain, throat swelling, difficulty swallowing, mouth swelling, ear pain, eye pain, visual Changes CARDIOVASCULAR: Absent: chest pain, loss of consciousness, palpitations, irregular heart rate, peripheral edema RESPIRATORY: Absent: cough, shortness of breath, dyspnea with exertion, orthopnea, wheezing, stridor, hemoptysis GASTROINTESTINAL: Present: upper abdominal pain, nausea, vomiting Absent: abdominal distension, diarrhea, constipation, melena, hematochezia GENITOURINARY: Absent: dysuria, frequency, urgency, hesitancy, hematuria, flank pain, genital pain MUSCULOSKELETAL: Absent: myalgia, arthralgia, joint swelling SKIN: Absent: rash, itching, pallor HEMATOLOGIC/IMMUNOLOGIC: Absent: easy bleeding, easy bruising, lymphadenopathy, frequent infections ENDOCRINE: Absent: unexplained weight gain, unexplained weight loss, heat intolerance, cold intolerance NEUROLOGIC: Absent: headache, focal weakness or paresthesias, dizziness, unsteady gait, seizure, mental status changes, bladder or bowel incontinence PSYCHIATRIC: Absent: anxiety, depression, suicidal or homicidal ideation, hallucinations. Is the patient limited Italian proficient: No *Physical Exam - Vital Signs Last Vital Signs Temp Pulse Resp BP Pulse Ox 98.9 F 60 20 117/56 L 100 10/26/18 14:30 10/26/18 14:30 10/26/18 14:30 10/26/18 14:30 10/26/18 14:30 - Physical Exam Comments: 10/26/18 19:02 GENERAL: Well developed, well nourished. Awake and alert. No acute distress. HEENT: Normocephalic, atraumatic. PERRLA, EOMI. No conjunctival pallor. Sclera are non- icteric. Moist mucous membranes. Oropharynx is clear. NECK: Supple. Full ROM. No JVD. Carotid pulses 2+ and symmetric, without bruits. No thyromegaly. No lymphadenopathy. CARDIOVASCULAR: Regular rate and rhythm. No murmurs, rubs, or gallops. Distal pulses are 2+ and symmetric. PULMONARY: No evidence of respiratory distress. Lungs clear to auscultation bilaterally. No wheezing, rales or rhonchi. ABDOMINAL: Diffuse abdominal discomfort, with TTP at the LUQ and epigastric region. Soft. Non-distended. No rebound or guarding. No organomegaly. Normoactive bowel sounds. MUSCULOSKELETAL Normal range of motion at all joints. No bony deformities or tenderness. No CVA tenderness. EXTREMITIES: No cyanosis. No clubbing. No edema. No calf tenderness. SKIN: Warm and dry. Normal capillary refill. No rashes. No jaundice. NEUROLOGICAL: Alert, awake, appropriate. Cranial nerves 2-12 intact. No deficits to light touch and temperature in face, upper extremities and lower extremities. No motor deficits in the in face, upper extremities and lower extremities. Normoreflexic in the upper and lower extremities. Normal speech. Toes are down- going bilaterally. Gait is normal without ataxia. PSYCHIATRIC: Cooperative. Good eye contact. Appropriate mood and affect. ED Treatment Course - LABORATORY CBC & Chemistry Diagram: 10/26/18 17:30 10/26/18 17:30 Medical Decision Making - Medical Decision Making 10/26/18 19:02 The patient is a 38-year-old female, , currently 5 weeks by dates who presents to the emergency department today for abdominal pain, nausea and vomiting. Patient states she has history of reflux. She was given omeprazole by her doctor for her reflux. She took a today with no relief of her symptoms. She states that the pain is mostly in the upper left side. Also admits to nausea and vomiting. Denies lightheadedness, dizziness, fevers, chills, diarrhea, constipation, frequency, urgency and vaginal bleeding A/P: Left upper quadrant pain On exam patient is tender to palpation of the left upper quadrant/epigastric region. Given location of pain and history of reflux suspects an acute gastritis IV fluids, medications given Labs drawn No leukocytosis or gross electrolyte abnormalities Transvaginal ultrasound shows an IUP at this time Urine sent to the lab at this time. Currently pending results Sign out given to TEE Mary. Patient currently pending urine results. Distal dependent on urine and if antibiotics are needed. Otherwise recommend Maalox and symptomatic treatment for reflux. *DC/Admit/Observation/Transfer Diagnosis at time of Disposition: GERD (gastroesophageal reflux disease), Early stage of - Discharge Dispostion Disposition: HOME Condition at time of disposition: Stable - Referrals Referrals: Dakota Leon MD [Primary Care Provider] - - Patient Instructions Printed Discharge Instructions: Common Discomforts and Bodily Changes During Additional Instructions: drink plenty of fluids follow up with your shirt hemmer as soon as possible. Additional Instructions: * Please call your personal physician to report your Emergency Department visit and to report your progress, if any. * If there is no improvement in symptoms in 2 days call your physician. * Return to the Emergency Department for any worsening symptoms. - Post Discharge Activity Forms/Work/School Notes: Back to Work
[2018-10-26] MEDS ORDERED: ACETAMINOPHEN INJECTION 100 ML IVPB ONE (15:59)
[2018-10-26] MEDS ORDERED: ONDANSETRON 4 MG/2 ML VIAL ONE (15:59)
[2018-10-26 17:45] LABS: BASO % 0.8 % (0-2.0); EOS % 1.6 % (0-4.5); HEMATOCRIT 33.5 % (32.4-45.2); HEMOGLOBIN 11.2 GM/dL (10.7-15.3); MCH 28.2 pg (25.7-33.7); MCHC 33.5 g/dl (32.0-36.0); MEAN CELL VOLUME 84.1 fl (80-96); MEAN PLT VOLUME 9.3 fl (7.5-11.1); MONO % 4.4 % (3.8-10.2); NEUT % 74.2 % (42.8-82.8); PLATELET COUNT 231 K/MM3 (134-434); RBC 3.98 M/mm3 (3.60-5.2); RDW 15.6 % (11.6-15.6); WHITE BLOOD COUNT 7.9 K/mm3 (4.0-10.0)
[2018-10-26 18:27] LABS: ALBUMIN 3.8 g/dl (3.4-5.0); ALK PHOS 60 U/L (45-117); ANION GAP 7 MMOL/L (8-16); BILIRUBIN,TOTAL 0.4 mg/dL (0.2-1); BLOOD UREA NITROGEN 6 mg/dL (7-18); CALCIUM 9.1 mg/dL (8.5-10.1); CHLORIDE 105 mmol/L (98-107); CO2 25 mmol/L (21-32); CREATININE 0.5 mg/dL (0.55-1.3); GLUCOSE,RANDOM 80 mg/dL (74-106); SGOT/AST 36 U/L (15-37); SGPT/ALT 33 U/L (13-61); SODIUM 138 mmol/L (136-145); TOT PROT 7.1 g/dl (6.4-8.2)
[2018-10-26 19:32] LABS: EPI CELLS 5.8 /HPF (0-5/HPF); URINE APPEARANCE CLEAR; URINE BILIRUBIN NEGATIVE (NEGATIVE); URINE CASTS 3 /lpf (0-8); URINE COLOR YELLOW; URINE GLUCOSE (UA) NEGATIVE (NEGATIVE); URINE KETONE 1+ (NEGATIVE); URINE LEUK ESTERASE TRACE (NEGATIVE); URINE NITRITE NEGATIVE (NEGATIVE); URINE PROTEIN NEGATIVE (NEGATIVE); URINE RBC 1 /hpf (0-4); URINE UROBILINOGEN 0.2 mg/dL (0.2-1.0); URINE WBC 3 /hpf (0-5)
--- NOTE | 2018-10-26 20:22 | PDOC ---
*Physical Exam - Vital Signs Last Vital Signs Temp Pulse Resp BP Pulse Ox 98.9 F 60 20 117/56 L 100 10/26/18 14:30 10/26/18 14:30 10/26/18 14:30 10/26/18 14:30 10/26/18 14:30 - Physical Exam General Appearance: Yes: Appropriately Dressed ED Treatment Course - LABORATORY CBC & Chemistry Diagram: 10/26/18 17:30 10/26/18 17:30 - ADDITIONAL ORDERS Additional order review: Laboratory Results 10/26/18 10/26/18 10/26/18 18:40 17:30 17:30 Sodium 138 Potassium 4.0 Chloride 105 Carbon Dioxide 25 Anion Gap 7 L BUN 6 L Creatinine 0.5 L Creat Clearance w eGFR 138.83 Random Glucose 80 Calcium 9.1 Total Bilirubin 0.4 AST 36 ALT 33 Alkaline Phosphatase 60 Total Protein 7.1 Albumin 3.8 Beta HCG, Quant 04043.0 Urine Color Yellow Urine Appearance Clear Urine pH 7.0 Ur Specific [place] 1.018 Urine Protein Negative Urine Glucose (UA) Negative Urine Ketones 1+ H Urine Blood Negative Urine Nitrite Negative Urine Bilirubin Negative Urine Urobilinogen 0.2 Ur Leukocyte Esterase Trace Urine WBC (Auto) 3 Urine RBC (Auto) 1 Urine Casts (Auto) 3 U Epithel Cells (Auto) 5.8 Urine Bacteria (Auto) 138.0 Blood Type O POSITIVE Antibody Screen Negative 10/26/18 17:30 RBC 3.98 MCV 84.1 MCHC 33.5 RDW 15.6 D MPV 9.3 D Neutrophils % 74.2 Lymphocytes % 19.0 D Monocytes % 4.4 D Eosinophils % 1.6 D Basophils % 0.8 - Medications Given in the ED: ED Medications Discontinued Medications Generic Name Dose Route Start Last Admin Trade Name Freq PRN Reason Stop Dose Admin Acetaminophen 1,000 mg 10/26/18 15:25 10/26/18 16:01 Ofirmev Injection - IVPB 10/26/18 15:26 1,000 mg ONCE ONE Administration Sodium Chloride 1,000 mls @ 1,000 mls/hr 10/26/18 15:25 10/26/18 16:01 Normal Saline - IV 10/26/18 16:24 1,000 mls/hr ASDIR STA Administration Ondansetron HCl 4 mg 10/26/18 15:25 10/26/18 16:01 Zofran Injection IVPUSH 10/26/18 15:26 4 mg ONCE ONE Administration Medical Decision Making - Medical Decision Making 10/26/18 20:19 no abdominal pain at this time. TVUS no IUP. no lower abdominal pain. patient is pending OB/guyn outpatient appointment. will d/c home. *DC/Admit/Observation/Transfer Diagnosis at time of Disposition: Early stage of GERD (gastroesophageal reflux disease) Qualifiers: Esophagitis presence: without esophagitis Qualified Code(s): K21.9 - Gastro- esophageal reflux disease without esophagitis - Discharge Dispostion Disposition: HOME - Referrals Referrals: Dakota Leon MD [Primary Care Provider] - - Patient Instructions Printed Discharge Instructions: Common Discomforts and Bodily Changes During Additional Instructions: drink plenty of fluids follow up with your staff development nurse as soon as possible. Additional Instructions: * Please call your personal physician to report your Emergency Department visit and to report your progress, if any. * If there is no improvement in symptoms in 2 days call your physician. * Return to the Emergency Department for any worsening symptoms. - Post Discharge Activity Forms/Work/School Notes: Back to Work
== END 2018-10-26 22:01 | disposition home or self-care (01) ==
LOC: JER 14:29
PROC: 3E033NZ Introduction of Analgesics, Hypnotics, Sedatives into Peripheral Vein, Percutaneous Approach (ICD-10-PCS; principal; 2018-10-26)
PROC: 3E033GC Introduction of Other Therapeutic Substance into Peripheral Vein, Percutaneous Approach (ICD-10-PCS; 2018-10-26)
DX: O26.891 Other specified pregnancy related conditions, first trimester (principal); O99.611 Diseases of the digestive system complicating pregnancy, first trimester; K21.9 Gastro-esophageal reflux disease without esophagitis; Z3A.01 Less than 8 weeks gestation of pregnancy
CPT/HCPCS: 36415; 76817-TC; 80053; 81003; 84702; 85025; 86850; 86900; 86901; 87086; 87186; 96374; 96375; 99282-25; J0131; J7030

== ENCOUNTER 2018-10-26 22:18 | Emergency (ER) | payer OTHER ==
--- NOTE | 2018-10-26 22:46 | PDOC ---
History of Present Illness - General Stated Complaint: ABDOMINAL PAIN Time Seen by Provider: 10/26/18 22:30 - History of Present Illness Initial Comments: 10/26/18 23:18 38F G4, currently at 6w3d by LMP and TVUS and GERD s/p gastric sleeve placed in 2017, returns to to the ED with repeat burning epigastric pain and nausea since noon today. She was seen earlier today in our ED, lab work, TVUS, beta hcg were done, felt much better with fluids and tylenol. After going home, she had dinner around 8-9pm which brought back the same pain. She didn't try taking any medication for that. Denies shortness of breath, leg swelling or pain, recent surgeries or travel. Has a prescription form omeprazole for her chronic GERD, took one this morning. Past History - Past Medical History Allergies/Adverse Reactions: Allergies Allergy/AdvReac Type Severity Reaction Status Date / Time Penicillins Allergy Mild Swelling/it Verified 10/26/18 22:51 miguel Home Medications: Ambulatory Orders Nitrofurantoin Monohyd/M-Cryst [Macrobid -] 100 mg PO BID #14 capsule 10/14/18 No122/Iron/Folic Acid [ Multi Tablet] 1 each PO DAILY #30 tablet 10/14/18 Mag Hydrox/Al Hydrox/Simeth [Mylanta Suspension -] 30 ml PO Q6H #1 bottle Ranitidine HCl [Zantac] 150 mg PO BID PRN #20 tablet 10/26/18 Anemia: No Asthma: Yes Cancer: No Cardiac Disorders: No CVA: No COPD: No CHF: No Dementia: No Diabetes: No GI Disorders: No Disorders: No HTN: No Hypercholesterolemia: No Liver Disease: No Seizures: No Thyroid Disease: No - Surgical History Orthopedic Surgery: Yes (LT KNEE SX) - Reproductive History Cervical CA: No Dysfunctional Uterine Bleeding: No Ectopic : No Endometrial CA: No Polycystic Ovaries: No Spontaneous : 0 - Immunization History Td Vaccination: Yes TDAP Vaccination: Yes Immunization Up to Date: Yes - Suicide/Smoking/Psychosocial Hx Smoking Status: No Smoking History: Never smoked Have you smoked in the past 12 months: No Number of Cigarettes Smoked Daily: 0 Cigars Per Day: 0 Hx Alcohol Use: No Drug/Substance Use Hx: No Substance Use Type: Alcohol Hx Substance Use Treatment: No Review of Systems - Review of Systems Able to Perform ROS?: Yes Is the patient limited Kinyarwanda proficient: No Constitutional: No: Symptoms Reported HEENTM: No: Symptoms Reported Respiratory: No: Symptoms reported Cardiac (ROS): No: Symptoms Reported ABD/GI: Yes: See HPI : No: Symptoms Reported Musculoskeletal: No: Symptoms Reported Integumentary: No: Symptoms Reported Neurological: No: Symptoms reported All Other Systems: Reviewed and Negative *Physical Exam - Physical Exam General Appearance: Yes: Nourished, Appropriately Dressed. No: Apparent Distress HEENT: positive: EOMI, BRITTANY, Normal ENT Inspection Respiratory/Chest: positive: Lungs Clear, Normal Breath Sounds. negative: Chest Tender, Respiratory Distress Cardiovascular: positive: Regular Rhythm, Regular Rate, S1, S2 Gastrointestinal/Abdominal: positive: Normal Bowel Sounds, Tender (epigastric only), Flat, Soft Musculoskeletal: positive: Normal Inspection. negative: CVA Tenderness Integumentary: positive: Normal Color, Dry, Warm Neurologic: positive: Fully Oriented, Alert, Normal Mood/Affect, Normal Response , Motor Strength 5/5 Medical Decision Making - Medical Decision Making 10/26/18 23:36 GERD vs PE vs dyspepsia vs gallstone cholic This patient had complete relief from treatement in our ed eralier (tylenol and fluids) and the symptoms reappeared after she had dinner. This makes GERD/dyspesia/gallstone likely. Bedside U/S negative for stones, jurado's sign, stranding and thickened anterior wall. Will give maalox and zantaxc and reassess, likely discharge. *DC/Admit/Observation/Transfer Diagnosis at time of Disposition: GERD (gastroesophageal reflux disease) - Discharge Dispostion Disposition: HOME Condition at time of disposition: Fair Decision to Admit order: No - Prescriptions Prescriptions: Mag Hydrox/Al Hydrox/Simeth [Mylanta Suspension -] 30 ml PO Q6H #1 bottle Ranitidine HCl [Zantac] 150 mg PO BID PRN #20 tablet PRN Reason: Dyspepsia - Referrals - Patient Instructions Printed Discharge Instructions: GERD Diet, DI for Gastroesophageal Reflux Disease (GERD), Heartburn -- Overview Additional Instructions: pressure control supervisor prescription at the pharmacy. Follow up with your toy painter if symptoms do not resolve, which in that case could be due to a gastric ulcer. Come back to the emergency department for any new, worsening or concerning symptom. - Post Discharge Activity
[2018-10-26] MEDS ORDERED: FAMOTIDINE 20 MG/50 ML IVPB 20 MG/50 ML MG IVPB ONE (22:48)
[2018-10-26] MEDS ORDERED: MAG HYDROX/AL HYDROX/SIMETH 30 ML UNIT-DOSE CUP PO ONE (22:48)
[2018-10-26 22:52] VITALS: TEMP 97.8; BMI 24.0
[2018-10-26] MEDS ORDERED: RANITIDINE HCL 150 MG TABLET (FP) PO ONE (23:08)
[2018-10-26] MEDS ORDERED: RANITIDINE HCL 150 MG TABLET (FP) ONE (23:29)
[2018-10-26] MEDS ORDERED: MAG HYDROX/AL HYDROX/SIMETH 30 ML UNIT-DOSE CUP ONE (23:29)
--- NOTE | 2018-10-27 00:02 | PDOC ---
*Physical Exam - Vital Signs Last Vital Signs Temp Pulse Resp BP Pulse Ox 97.8 F 61 18 137/71 99 10/26/18 22:18 10/26/18 22:18 10/26/18 22:18 10/26/18 22:18 10/26/18 22:18 ED Treatment Course - Medications Given in the ED: ED Medications Discontinued Medications Generic Name Dose Route Start Last Admin Trade Name Freq PRN Reason Stop Dose Admin Al Hydroxide/Mg Hydroxide 30 ml 10/26/18 22:48 10/26/18 23:33 Mylanta Oral Suspension - PO 10/26/18 22:49 30 ml ONCE ONE Administration Famotidine/Sodium Chloride 20 mg in 50 mls @ 100 mls/hr 10/26/18 22:48 23:33 Pepcid 20 Mg Premixed Ivpb - IVPB 10/26/18 23:17 Not Given ONCE ONE Ranitidine HCl 300 mg 10/26/18 23:08 10/26/18 23:33 Zantac - PO 10/26/18 23:09 300 mg ONCE ONE Administration *DC/Admit/Observation/Transfer Diagnosis at time of Disposition: GERD (gastroesophageal reflux disease) - Discharge Dispostion Disposition: HOME Condition at time of disposition: Fair Decision to Admit order: No - Prescriptions Prescriptions: Mag Hydrox/Al Hydrox/Simeth [Mylanta Suspension -] 30 ml PO Q6H #1 bottle Ranitidine HCl [Zantac] 150 mg PO BID PRN #20 tablet PRN Reason: Dyspepsia - Referrals Referrals: ON STAFF,NOT [Primary Care Provider] - Sukhwinder Head MD [Staff Physician] - - Patient Instructions Printed Discharge Instructions: Heartburn -- Overview, DI for Gastroesophageal Reflux Disease (GERD), GERD Diet Additional Instructions: safety deposit supervisor prescription at the pharmacy. Follow up with your train starter if symptoms do not resolve, which in that case could be due to a gastric ulcer. Come back to the emergency department for any new, worsening or concerning symptom. - Post Discharge Activity
[2018-10-27 00:28] VITALS: BP 135/75; PULSE 65
== END 2018-10-27 00:20 | disposition home or self-care (01) ==
LOC: JER 22:18
DX: O26.891 Other specified pregnancy related conditions, first trimester (principal); O99.611 Diseases of the digestive system complicating pregnancy, first trimester; K29.50 Unspecified chronic gastritis without bleeding; K21.9 Gastro-esophageal reflux disease without esophagitis; Z3A.01 Less than 8 weeks gestation of pregnancy
CPT/HCPCS: 99282-25

== ENCOUNTER 2018-11-14 17:33 | Emergency (ER) | payer OTHER ==
[2018-11-14 17:42] VITALS: BMI 24.6
--- NOTE | 2018-11-14 17:52 | PDOC ---
History of Present Illness - General Chief Complaint: Vaginal Bleeding Stated Complaint: 8 W PREG/VAG BLEEDING Time Seen by Provider: 11/14/18 17:51 History Source: Patient - History of Present Illness Initial Comments: 11/14/18 18:09 The patient is a 38 year old female at a self-reported 7-8 weeks gestation and a PMH of GERD who presents to the ED c/o acute onset of vaginal bleeding. States she noticed the bleeding this afternoon following sexual intercourse with her . Mild associated abdominal cramping. No fevers/chills. Last OB-Clinic Office Assistant evaluation two weeks previous at which time there were no concerning findings. Has previously scheduled ultrasound on 12/03/18. The patient denies chest pain, shortness of breath, fevers, nausea/vomiting, diarrhea/constipation. Allergy: Penicillin As per EMR, patient is O+ Positive Blood Type. Past History - Past Medical History Allergies/Adverse Reactions: Allergies Allergy/AdvReac Type Severity Reaction Status Date / Time Penicillins Allergy Mild Swelling/it Verified 11/14/18 17:36 miguel Home Medications: Ambulatory Orders Nitrofurantoin Monohyd/M-Cryst [Macrobid -] 100 mg PO BID #14 capsule 10/14/18 No122/Iron/Folic Acid [ Multi Tablet] 1 each PO DAILY #30 tablet 10/14/18 Mag Hydrox/Al Hydrox/Simeth [Mylanta Suspension -] 30 ml PO Q6H #1 bottle Ranitidine HCl [Zantac] 150 mg PO BID PRN #20 tablet 10/26/18 Anemia: No Asthma: Yes Cancer: No Cardiac Disorders: No CVA: No COPD: No CHF: No Dementia: No Diabetes: No GI Disorders: No Disorders: No HTN: No Hypercholesterolemia: No Liver Disease: No Seizures: No Thyroid Disease: No - Surgical History Orthopedic Surgery: Yes (LT KNEE SX) - Reproductive History Cervical CA: No Dysfunctional Uterine Bleeding: No Ectopic : No Endometrial CA: No Polycystic Ovaries: No Spontaneous : 0 - Immunization History Td Vaccination: Yes TDAP Vaccination: Yes Immunization Up to Date: Yes - Suicide/Smoking/Psychosocial Hx Smoking Status: No Smoking History: Never smoked Have you smoked in the past 12 months: No Number of Cigarettes Smoked Daily: 0 Cigars Per Day: 0 Hx Alcohol Use: No Drug/Substance Use Hx: No Substance Use Type: Alcohol Hx Substance Use Treatment: No Review of Systems - Review of Systems Constitutional: No: Chills, Fever HEENTM: No: Recent change in vision Respiratory: No: Cough, Shortness of Breath Cardiac (ROS): No: Chest Pain, Lightheadedness, Palpitations, Syncope ABD/GI: Yes: Abdominal cramping. No: Constipated, Diarrhea, Nausea, Vomiting : Yes: Other (vaginal bleeding). No: Burning, Dysuria *Physical Exam - Vital Signs Last Vital Signs Temp Pulse Resp BP Pulse Ox 98 F 70 16 122/65 98 11/14/18 17:37 11/14/18 17:37 11/14/18 17:37 11/14/18 17:37 11/14/18 17:37 - Physical Exam General Appearance: Yes: Nourished, Appropriately Dressed HEENT: positive: Normal Voice, Hearing Grossly Normal Neck: positive: Trachea midline, Supple Respiratory/Chest: positive: Lungs Clear, Normal Breath Sounds Cardiovascular: positive: S1, S2. negative: JVD, Murmur Vascular Pulses: Dorsalis-Pedis (R): 2+, Doralis-Pedis (L): 2+ Female Pelvic Exam: positive: other (Open cervical os, with possible extruding tissue; no blood in vaginal vault; Bimanual: (-) CMT, non tender adenxa) Extremity: positive: Normal Capillary Refill, Normal Inspection Integumentary: positive: Normal Color, Dry, Warm Neurologic: positive: Fully Oriented, Alert ED Treatment Course - LABORATORY CBC & Chemistry Diagram: 11/14/18 18:47 Medical Decision Making - Medical Decision Making 11/14/18 18:39 38 year old female @ self reported 7-8 weeks gestation with post coital vaginal bleeding. VS unremarkable. Bedside pelvic exam shows open cervical os with possible tissue. Abdominal bedside U/S shows IUP +/- FHR. Frontal diagnosis: SAB vs Threatened AB. Less likely ovarian torsion, ectopic . Will obtain B-HCG, basic labs and TVUS. Patient requesting STI testing and oral consent for HIV test. Rhogam not indicated for vaginal bleed during as EMR indicates and patient confirms she is O positive. Reassess. 11/14/18 20:23 TVUS shows IUP w/no noted cardiac activity UA: 1+ blood, 1+ leukocyte esterase, 51 bacteria - given presumed demise + as per EMR, patient has E. Coli and Strep Agalactice with varying susceptibilities but no mutual susceptibilty (patient PCN allergic) will refrain from treating Asx bacteruria of . Urine Cx pending, order placed in EMR for follow-up call if Urine Cx positive HIV negative; order placed in EMR for f/u call with STI test results 11/14/18 20:34 Patient counseled on the importance of f/u within 48 with wash oil pump operator helper for repeat TVUS as well as repeat UA. Patient discharged home with return precautions. I discussed the physical exam findings, ancillary test results and final diagnoses with the patient. I answered all of the patient's questions. The patient was satisfied with the care received and felt comfortable with the discharge plan and treatment plan. The patient will return to the Emergency Department with any new, persistent or worsening symptoms. *DC/Admit/Observation/Transfer Diagnosis at time of Disposition: Vaginal bleeding - Discharge Dispostion Disposition: HOME Condition at time of disposition: Fair Decision to Admit order: No - Referrals Referrals: Dakota Leon MD [Primary Care Provider] - Иван Wiggins MD [Staff Physician] - - Patient Instructions Printed Discharge Instructions: Dealing With Miscarriage, DI for Miscarriage Additional Instructions: You were evaluated today for your vaginal bleeding. An ultrasound of your uterus showed possible demise. You must be evaluated by your OB-Clinic Office Assistant in the next 48 hours for repeat ultrasound and repeat test of your urine. You are being provided a copy of your ultrasound, please take this copy with you to your OB-Clinic Office Assistant appointment. Your care is not complete until you are evaluated by your OB-Clinic Office Assistant. Return immediately to the Emergency Department if you are unable to be evaluated by your wash oil pump operator helper and for any new/worsening/concerning symptoms. - Post Discharge Activity
[2018-11-14 18:51] LABS: BASO % 0.8 % (0-2.0); HEMATOCRIT 35.5 % (32.4-45.2); HEMOGLOBIN 11.7 GM/dL (10.7-15.3); LYMPH % 36.8 % (8-40); MCH 27.8 pg (25.7-33.7); MCHC 32.8 g/dl (32.0-36.0); MEAN CELL VOLUME 84.8 fl (80-96); MEAN PLT VOLUME 9.2 fl (7.5-11.1); MONO % 5.6 % (3.8-10.2); NEUT % 54.8 % (42.8-82.8); PLATELET COUNT 210 K/MM3 (134-434); RBC 4.19 M/mm3 (3.60-5.2); RDW 16.4 % (11.6-15.6); WHITE BLOOD COUNT 6.1 K/mm3 (4.0-10.0)
[2018-11-14 18:54] LABS: EPI CELLS 2.1 /HPF (0-5/HPF); PH,URINE 6.5 (5.0-8.0); URINE APPEARANCE CLEAR; URINE BILIRUBIN NEGATIVE (NEGATIVE); URINE CASTS 2 /lpf (0-8); URINE COLOR YELLOW; URINE GLUCOSE (UA) NEGATIVE (NEGATIVE); URINE KETONE NEGATIVE (NEGATIVE); URINE LEUK ESTERASE 1+ (NEGATIVE); URINE NITRITE NEGATIVE (NEGATIVE); URINE PROTEIN NEGATIVE (NEGATIVE); URINE RBC 5 /hpf (0-4); URINE UROBILINOGEN 0.2 mg/dL (0.2-1.0); URINE WBC 9 /hpf (0-5)
--- NOTE | 2018-11-14 18:54 | PDOC ---
Documentation entered by Verena Ch SCRIBE, acting as scribe for Martine Barksdale MD. Martine Barksdale MD: This documentation has been prepared by the Jing nunez Xhesika, SCRIBE, under my direction and personally reviewed by me in its entirety. I confirm that the documentation accurately reflects all work, treatment, procedures, and medical decision making performed by me. Attending Attestation - Resident Resident Name: KashifMisa - ED Attending Attestation I have performed the following: I have examined & evaluated the patient, The case was reviewed & discussed with the resident, I agree w/resident's findings & plan, Exceptions are as noted - HPI HPI: 11/14/18 18:24 The patient is a 38 year old female, , 8 weeks with no significant past medical history who presents to our ED for onset vaginal bleeding. The patient states the vaginal bleeding started this afternoon after having sexual intercourse with her . The patient states she endorses lower abdominal cramping and back pain, secondary to her symptoms. The patient denies chest pain, shortness of breath or dizziness. The patient denies fever, chills, nausea, diarrhea or constipation. Allergy:penicillins Surgical History: L knee Surgery Social History: Occasional alcohol use PCP: Dakota Tran - Physicial Exam PE: 11/14/18 18:08 GENERAL: The patient is in no acute distress. ENT: Ears normal, nares patent, oropharynx clear without exudates. Moist mucous membranes. NECK: Normal range of motion, supple LUNGS: Breath sounds equal, clear to auscultation bilaterally. No wheezes, and no crackles. HEART:Regular rate and rhythm, normal S1 and S2 without murmur, rub or gallop. ABDOMEN: Soft, nontender, normoactive bowel sounds. PELVIC: please see resident note EXTREMITIES: Normal range of motion, no edema. NEUROLOGICAL: Cranial nerves II through XII grossly intact. Normal speech. No focal neurological deficits. SKIN: Warm, Dry, normal turgor, no rashes or lesions noted. - Medical Decision Making 11/14/18 18:51 38 yo , approximately 7 weeks presenting to the ER due to complaint of post coital vaginal bleeding No dizziness or lightheadedness 11/14/18 18:51 Will do: Labs US 11/14/18 18:54 Laboratory Tests 10/26/18 17:30 Blood Type O POSITIVE Antibody Screen Negative 11/14/18 19:56 Laboratory Tests 11/14/18 11/14/18 11/14/18 18:47 18:47 18:47 WBC 6.1 Hgb 11.7 Hct 35.5 Plt Count 210 Beta HCG, Quant 23776.2 HIV 1&2 Antibody Screen Negative HIV P24 Antigen Negative 11/14/18 20:23 U/S Abnormal appearing intrauterine gestational sac possibly containing a yolk sac or pole at 6 weeks and 1 day. No cardiac activity is noted. Findings are suspicious for demise. Nabothian cysts in the cervix which appears closed. Small complex right ovarian cyst. Left maternal ovary appears normal. Inevitable AB Follow up with OB Pt given vaginal bleeding return precautions Clinical Impression: inevitable , initial presentation
[2018-11-14 21:12] VITALS: BP 118/67; PULSE 82; TEMP 98.1
== END 2018-11-14 21:10 | disposition home or self-care (01) ==
LOC: SUPCPDRO 17:33 → JER 17:33
DX: O26.891 Other specified pregnancy related conditions, first trimester (principal); Z3A.01 Less than 8 weeks gestation of pregnancy; N93.9 Abnormal uterine and vaginal bleeding, unspecified
CPT/HCPCS: 36415; 76817-TC; 81003; 84702; 85025; 87086; 87389; 87491; 87591; 99283-25

== ENCOUNTER 2018-11-23 17:05 | Emergency (ER) | payer OTHER ==
--- NOTE | 2018-11-23 18:21 | PDOC ---
Rapid Medical Evaluation Chief Complaint: Vaginal Bleeding Time Seen by Provider: 11/23/18 18:16 Medical Evaluation: Allergies Allergy/AdvReac Type Severity Reaction Status Date / Time Penicillins Allergy Mild Swelling/it Verified 11/23/18 18:15 miguel 11/23/18 18:17 I have performed a brief in-person evaluation of this patient. The patient presents with a chief complaint of: @12wks and found to have missed Ab by OB and found to have no FH on U/S. sent by OB to have U/S done today but started having vaginal bleeding worsening today and soaking 2 pads. Denies dizziness, palpitation, SOB Pertinent physical exam findings: A&O x 3 in NAD I have ordered the following: CBC, CMP, beta hcg, T&S The patient will proceed to the ED for further evaluation. Discharge Disposition - Diagnosis Vaginal bleeding during - Discharge Dispostion Condition at time of disposition: Stable - Referrals - Patient Instructions - Post Discharge Activity
[2018-11-23 18:26] VITALS: BMI 25.4
[2018-11-23 19:51] LABS: BASO % 0.9 % (0-2.0); EOS % 3.6 % (0-4.5); HEMATOCRIT 36.1 % (32.4-45.2); HEMOGLOBIN 12.1 GM/dL (10.7-15.3); LYMPH % 35.4 % (8-40); MCH 28.4 pg (25.7-33.7); MCHC 33.5 g/dl (32.0-36.0); MEAN CELL VOLUME 84.8 fl (80-96); MEAN PLT VOLUME 9.1 fl (7.5-11.1); MONO % 6.3 % (3.8-10.2); NEUT % 53.8 % (42.8-82.8); PLATELET COUNT 251 K/MM3 (134-434); RBC 4.26 M/mm3 (3.60-5.2); RDW 16.2 % (11.6-15.6); WHITE BLOOD COUNT 6.1 K/mm3 (4.0-10.0)
--- NOTE | 2018-11-23 20:23 | PDOC ---
History of Present Illness - General Chief Complaint: Vaginal Bleeding Stated Complaint: BLEEDING Time Seen by Provider: 11/23/18 18:16 History Source: Patient - History of Present Illness Initial Comments: 11/23/18 20:23 38 year old [id number] @12wks and found to have missed Ab in [place] TODAY reports that she was seen by nitroglycerin distributor at [address] [place] [address] advised to return to the ED if vaginal bleeding. patient reports vaginal bleeding since 3 pm now spotting. patient also reports cramping . denies NV, fever/ chills, urinary symptoms 11/23/18 20:24 Past History - Past Medical History Allergies/Adverse Reactions: Allergies Allergy/AdvReac Type Severity Reaction Status Date / Time Penicillins Allergy Mild Swelling/it Verified 11/23/18 18:15 miguel Home Medications: Ambulatory Orders Ferrous Sulfate [Iron] 325 mg PO DAILY 11/23/18 Anemia: No Asthma: Yes Cancer: No Cardiac Disorders: No CVA: No COPD: No CHF: No Dementia: No Diabetes: No GI Disorders: No Disorders: No HTN: No Hypercholesterolemia: No Liver Disease: No Seizures: No Thyroid Disease: No - Surgical History Orthopedic Surgery: Yes (LT KNEE SX) - Reproductive History Cervical CA: No Dysfunctional Uterine Bleeding: No Ectopic : No Endometrial CA: No Polycystic Ovaries: No Spontaneous : 0 - Immunization History Td Vaccination: Yes TDAP Vaccination: Yes Immunization Up to Date: Yes - Suicide/Smoking/Psychosocial Hx Smoking Status: No Smoking History: Never smoked Have you smoked in the past 12 months: No Number of Cigarettes Smoked Daily: 0 Cigars Per Day: 0 Hx Alcohol Use: No Drug/Substance Use Hx: No Substance Use Type: Alcohol Hx Substance Use Treatment: No Review of Systems - Review of Systems Able to Perform ROS?: Yes Is the patient limited Bangladeshi proficient: No ABD/GI: Yes: Other (vaginal bleeding) *Physical Exam - Vital Signs Last Vital Signs Temp Pulse Resp BP Pulse Ox 98.4 F 75 18 135/75 98 11/23/18 18:16 11/23/18 18:16 11/23/18 18:16 11/23/18 18:16 11/23/18 18:16 - Physical Exam General Appearance: Yes: Appropriately Dressed Respiratory/Chest: positive: Lungs Clear, Normal Breath Sounds Cardiovascular: positive: Regular Rhythm, Regular Rate Female Pelvic Exam: positive: normal external exam, vaginal bleeding (in vault. no CMT/ adnexal tenderness) Gastrointestinal/Abdominal: positive: Normal Bowel Sounds, Soft. negative: Tender Extremity: positive: Normal Capillary Refill, Normal Inspection, Normal Range of Motion Integumentary: positive: Normal Color, Dry, Warm Neurologic: positive: Fully Oriented, Alert, Normal Mood/Affect ED Treatment Course - LABORATORY CBC & Chemistry Diagram: 11/23/18 19:32 11/23/18 19:32 - ADDITIONAL ORDERS Additional order review: 11/23/18 19:32 RBC 4.26 MCV 84.8 MCHC 33.5 RDW 16.2 H MPV 9.1 Neutrophils % 53.8 Lymphocytes % 35.4 Monocytes % 6.3 Eosinophils % 3.6 Basophils % 0.9 - RADIOLOGY Radiology Studies Ordered: Category Date Time Status TRANSVAGINAL US PREG [US] Stat Ultrasound 11/23/18 19:37 Stop Req Progress Note - Progress Note Progress Note: Miscarriage P: cbc cmp ua Beta HC outpatient veterinary science teacher follow up. *DC/Admit/Observation/Transfer Diagnosis at time of Disposition: Miscarriage - Discharge Dispostion Disposition: HOME Condition at time of disposition: Stable - Referrals Referrals: Dakota Leon MD [Primary Care Provider] - - Patient Instructions Printed Discharge Instructions: Miscarriage Additional Instructions: Return to the emergency room if you're soaking through 2 pads per hour, severe abdominal pain, fever, or worsening symptoms. Please follow-up with the SENIOR RUBY DEVELOPER on as planned. Drink plenty of fluids. - Post Discharge Activity Forms/Work/School Notes: Back to Work
[2018-11-23 20:45] LABS: ALBUMIN 3.8 g/dl (3.4-5.0); BILIRUBIN,TOTAL 0.2 mg/dL (0.2-1); CALCIUM 8.8 mg/dL (8.5-10.1); CREATININE 0.5 mg/dL (0.55-1.3); POTASSIUM 3.7 mmol/L (3.5-5.1); TOT PROT 6.6 g/dl (6.4-8.2)
[2018-11-23 21:37] VITALS: BP 130/70; PULSE 70; TEMP 98.2
== END 2018-11-23 21:38 | disposition home or self-care (01) ==
LOC: JER 17:05
DX: O26.891 Other specified pregnancy related conditions, first trimester (principal); O02.1 Missed abortion; Z3A.12 12 weeks gestation of pregnancy
CPT/HCPCS: 36415; 80053; 84702; 85025; 86850; 86900; 86901; 99282-25

== ENCOUNTER 2019-01-17 15:48 | Emergency (ER) | payer OTHER ==
[2019-01-17 16:07] VITALS: TEMP 98.2; BMI 24.4
--- NOTE | 2019-01-17 17:37 | PDOC ---
History of Present Illness - General Chief Complaint: Pain Stated Complaint: ABD PAIN History Source: Patient Exam Limitations: No Limitations - History of Present Illness Initial Comments: 01/17/19 17:23 Patient is a 38 y.o old female out in pool epigastric pain since 1:30 pm after eating british virgin islander fries, (+) diarrhea, no nausea, no vomiting. Had this pain in and after gastric sleeve surgery. She is on omeprazole, but has not had this meds for few months. States she had the same problem with 3 months ago but had a miscarriage and with eating greasy foods and soda. Pain is constant, stabbing 10/10 radiates to the back. LMP 12/22/18 PMD: [facility]: will see one on 01/19/19 PMHX: as above PSOCHX: neg etoh, drug, cig ALL: PCN GENERAL/CONSTITUTIONAL: No fever or chills. No weakness. No weight change. HEAD, EYES, EARS, NOSE AND THROAT: No change in vision. No ear pain or discharge. No sore throat. CARDIOVASCULAR: No chest pain or shortness of breath. RESPIRATORY: No cough, wheezing, or hemoptysis. GASTROINTESTINAL: No nausea, vomiting, diarrhea or constipation. No rectal bleeding. GENITOURINARY: No dysuria, frequency, or change in urination. MUSCULOSKELETAL: No joint or muscle swelling or pain. No neck or back pain. SKIN AND BREASTS: No rash or easy bruising. NEUROLOGIC: No headache, vertigo, loss of consciousness, or loss of sensation. PSYCHIATRIC: No depression or anxiety. ENDOCRINE: No increased thirst. No abnormal weight change. HEMATOLOGIC/LYMPHATIC: No anemia, easy bleeding, or history of blood clots. ALLERGIC/IMMUNOLOGIC: No hives or skin allergy. No latex allergy. GENERAL: The patient is awake, alert, and fully oriented, in mild distress. HEAD: Normal with no signs of trauma. EYES: Pupils equal, round and reactive to light, extraocular movements intact, sclera anicteric, conjunctiva clear. ENT: Ears normal, nares patent, oropharynx clear without exudates. Moist mucous membranes. NECK: Normal range of motion, supple without lymphadenopathy, JVD, or masses. LUNGS: Breath sounds equal, clear to auscultation bilaterally. No wheezes, and no crackles. HEART: Regular rate and rhythm, normal S1 and S2 without murmur, rub. ABDOMEN: Soft, (+) tenderness epigastrum and LUQ, normoactive bowel sounds. No guarding, no rebound. No masses. EXTREMITIES: Normal range of motion, no edema. No clubbing or cyanosis. No cords, erythema, or tenderness. NEUROLOGICAL: Cranial nerves II through XII grossly intact. Normal speech, normal gait. PSYCH: Normal mood, normal affect. SKIN: Warm, Dry, normal turgor, no rashes or lesions noted. Past History - Past Medical History Allergies/Adverse Reactions: Allergies Allergy/AdvReac Type Severity Reaction Status Date / Time Penicillins Allergy Mild Swelling/it Verified 01/17/19 16:06 miguel Home Medications: Ambulatory Orders Omeprazole 20 mg PO PRN PRN 01/17/19 Anemia: No Asthma: Yes Cancer: No Cardiac Disorders: No CVA: No COPD: No CHF: No Dementia: No Diabetes: No GI Disorders: No Disorders: No HTN: No Hypercholesterolemia: No Liver Disease: No Seizures: No Thyroid Disease: No - Surgical History Orthopedic Surgery: Yes (LT KNEE SX) - Reproductive History (#): 4 Para: 3 Cervical CA: No Dysfunctional Uterine Bleeding: No Ectopic : No Endometrial CA: No Polycystic Ovaries: No Therapeutic (s) & number: No Tubal Ligation: No Spontaneous : 0 - Immunization History Td Vaccination: Yes TDAP Vaccination: Yes Immunization Up to Date: Yes - Suicide/Smoking/Psychosocial Hx Smoking Status: No Smoking History: Never smoked Have you smoked in the past 12 months: No Number of Cigarettes Smoked Daily: 0 Cigars Per Day: 0 Hx Alcohol Use: No Drug/Substance Use Hx: No Substance Use Type: Alcohol Hx Substance Use Treatment: No *Physical Exam - Vital Signs Last Vital Signs Temp Pulse Resp BP Pulse Ox 98.2 F 66 18 119/66 99 01/17/19 16:04 01/17/19 16:04 01/17/19 16:04 01/17/19 16:04 01/17/19 16:04 ED Treatment Course - LABORATORY CBC & Chemistry Diagram: 01/17/19 18:30 01/17/19 18:30 Medical Decision Making - Medical Decision Making 01/17/19 17:23 Patient is a 38 y.o old female out in pool epigastric pain since 1:30 pm after eating [place] island[place] fries, (+) diarrhea, no nausea, no vomiting. Had this pain in and after gastric sleeve surgery. She is on omeprazole, but has not had this meds for few months. States she had the same problem with 3 months ago but had a miscarriage and with eating greasy foods and soda. Pain is constant, stabbing 10/10 radiates to the back. Patient Full Name: KIM BROCK Patient Accession No: [id number] Patient : 1980 Reason for Exam: epigastric pain,elevated liver enzymes Referring Physician: Patient Name: DELMY ALVAREZ THIS IS A PRELIMINARY REPORT FROM IMAGING MANAGER E LEARNING EXAM: Right upper quadrant ultrasound IMAGES: 36 DATE OF EXAM: 2019-01-17 20:10:21 REASON FOR EXAM: Epigastric pain and elevated liver enzymes COMPARISON: None. FINDINGS: 3 mm gallbladder polyp. No sonographic evidence for cholelithiasis or acute cholecystitis. No evidence of biliary obstruction. Limited evaluation of the pancreatic head and body is grossly unremarkable. The liver is unremarkable and without enlargement. The right kidney is within normal limits without hydronephrosis. THIS DOCUMENT HAS BEEN ELECTRONICALLY SIGNED Jeremi See MD 01/17/2019 21:36 EST M.D. Please call Imaging Orthodontist Small Business Owner [phone] ([phone]) with questions. INTERPRETING RADIOLOGIST: Jeremi See MD Electronically Signed: Jan 17, 2019 09:38PM EDT I discussed the physical exam findings, ancillary test results and final diagnoses with the patient. I answered all of the patient's questions. The patient was satisfied with the care received and felt comfortable with the discharge plan and treatment plan. The Patient agrees to follow up with the primary care physician within 24-72 hours. *DC/Admit/Observation/Transfer Diagnosis at time of Disposition: Epigastric abdominal pain - Discharge Dispostion Disposition: HOME Condition at time of disposition: Stable - Referrals Referrals: Kranthi Guzmán MD [Primary Care Provider] - - Patient Instructions Printed Discharge Instructions: DI for Epigastric Pain Additional Instructions: Your Discharge Instructions: You must call primary care physician within 24 hours to arrange follow-up. Return to the Emergency Department with any new, persistent or worsening symptoms, for fever, chills, SOB, dizziness or any other concerning changes that may occur. We have provided to with copies of your lab work and your ultrasound to present to the gastroenterologists. - Post Discharge Activity
[2019-01-17] MEDS ORDERED: ONDANSETRON 4 MG/2 ML VIAL IVPUSH ONE (17:38)
[2019-01-17] MEDS ORDERED: FAMOTIDINE 20 MG/50 ML IVPB 20 MG/50 ML MG IVPB ONE ×2 (17:38→17:53)
[2019-01-17] MEDS ORDERED: SODIUM CHLORIDE 0.9% 500 ML INFUS.BAG IV ONE (17:38)
[2019-01-17] MEDS ORDERED: KETOROLAC TROMETHAMINE 30 MG/1 ML VIAL IVPUSH ONE (17:38)
[2019-01-17] MEDS ORDERED: KETOROLAC TROMETHAMINE 30 MG/1 ML VIAL ONE (17:53)
[2019-01-17] MEDS ORDERED: ONDANSETRON 4 MG/2 ML VIAL ONE (17:53)
[2019-01-17 18:49] LABS: HEMATOCRIT 37.4 % (32.4-45.2); HEMOGLOBIN 12.8 GM/dL (10.7-15.3); MCH 29.5 pg (25.7-33.7); MCHC 34.1 g/dl (32.0-36.0); MEAN CELL VOLUME 86.6 fl (80-96); PLATELET COUNT 253 K/MM3 (134-434); RBC 4.32 M/mm3 (3.60-5.2); WHITE BLOOD COUNT 9.3 K/mm3 (4.0-10.0)
[2019-01-17 19:12] LABS: ALBUMIN 4.4 g/dl (3.4-5.0); BILIRUBIN,TOTAL 0.5 mg/dL (0.2-1); CALCIUM 8.7 mg/dL (8.5-10.1); CREATININE 0.6 mg/dL (0.55-1.3); POTASSIUM 4.2 mmol/L (3.5-5.1); TOT PROT 7.8 g/dl (6.4-8.2)
[2019-01-17] MEDS ORDERED: LIDOCAINE VISCOUS 2% ORAL/TOP 20 ML UNIT-DOSE CUP MM ONE (21:53)
[2019-01-17] MEDS ORDERED: MAG HYDROX/AL HYDROX/SIMETH 30 ML UNIT-DOSE CUP PO ONE (21:53)
[2019-01-17] MEDS ORDERED: LIDOCAINE VISCOUS 2% ORAL/TOP 20 ML UNIT-DOSE CUP ONE (22:12)
[2019-01-17] MEDS ORDERED: MAG HYDROX/AL HYDROX/SIMETH 30 ML UNIT-DOSE CUP ONE (22:13)
[2019-01-17 22:26] VITALS: BP 137/79; PULSE 76
== END 2019-01-17 22:24 | disposition home or self-care (01) ==
LOC: JER 15:48
PROC: 3E033GC Introduction of Other Therapeutic Substance into Peripheral Vein, Percutaneous Approach (ICD-10-PCS; principal; 2019-01-17)
PROC: 3E0333Z Introduction of Anti-inflammatory into Peripheral Vein, Percutaneous Approach (ICD-10-PCS; 2019-01-17)
PROC: 3E033GC Introduction of Other Therapeutic Substance into Peripheral Vein, Percutaneous Approach (ICD-10-PCS; 2019-01-17)
DX: R10.13 Epigastric pain (principal)
CPT/HCPCS: 36415; 76705-TC; 80053; 82150; 83690; 84703; 85027; 96365; 96375; 99283-25

== ENCOUNTER 2019-01-20 05:59 | Inpatient (IN) | payer OTHER ==
[2019-01-20] MEDS ORDERED: LACTATED RINGERS SOLUTION 1,000 ML/1,000 ML INFUS.BAG IV STA ×2 (07:41→08:45)
[2019-01-20] MEDS ORDERED: FAMOTIDINE 20 MG/50 ML IVPB 20 MG/50 ML MG IVPB ONE ×2 (07:41→08:18)
[2019-01-20] MEDS ORDERED: ONDANSETRON 4 MG/2 ML VIAL IVPUSH ONE (07:42)
[2019-01-20] MEDS ORDERED: morphine CARPU-JECT 4 MG/1 ML DISP.SYRIN IVPUSH ONE ×2 (07:42→10:42)
[2019-01-20 08:11] LABS: BASO % 0.5 % (0-2.0); EOS % 0.6 % (0-4.5); HEMOGLOBIN 11.6 GM/dL (10.7-15.3); LYMPH % 14.8 % (8-40); MCH 29.4 pg (25.7-33.7); MCHC 34.1 g/dl (32.0-36.0); MEAN CELL VOLUME 86.2 fl (80-96); MEAN PLT VOLUME 9.4 fl (7.5-11.1); NEUT % 77.1 % (42.8-82.8); PLATELET COUNT 211 K/MM3 (134-434); RBC 3.94 M/mm3 (3.60-5.2); RDW 13.9 % (11.6-15.6); WHITE BLOOD COUNT 7.8 K/mm3 (4.0-10.0)
[2019-01-20] MEDS ORDERED: ONDANSETRON 4 MG/2 ML VIAL ONE (08:18)
[2019-01-20] MEDS ORDERED: morphine SULFATE 4 MG/ML VIAL ONE ×2 (08:18→10:44)
[2019-01-20 08:34] LABS: ALBUMIN 3.8 g/dl (3.4-5.0); ALK PHOS 246 U/L (45-117); ANION GAP 5 MMOL/L (8-16); BILIRUBIN,TOTAL 1.7 mg/dL (0.2-1); BLOOD UREA NITROGEN 6.7 mg/dL (7-18); CALCIUM 8.6 mg/dL (8.5-10.1); CHLORIDE 109 mmol/L (98-107); CO2 27 mmol/L (21-32); CREATININE 0.6 mg/dL (0.55-1.3); GLUCOSE,RANDOM 91 mg/dL (74-106); LIPASE > 30000 U/L (73-393); POTASSIUM 3.7 mmol/L (3.5-5.1); SGOT/AST 673 U/L (15-37); SGPT/ALT 687 U/L (13-61); SODIUM 141 mmol/L (136-145); TOT PROT 6.8 g/dl (6.4-8.2)
--- NOTE | 2019-01-20 09:24 | PDOC ---
Documentation entered by Sherice Neves SCRIBE, acting as scribe for Robert Guillen MD. Robert Guillen MD: This documentation has been prepared by the Pura nunez Adrianna, SCRIBE, under my direction and personally reviewed by me in its entirety. I confirm that the documentation accurately reflects all work, treatment, procedures, and medical decision making performed by me. History of Present Illness - General Chief Complaint: Pain Stated Complaint: abdominal pain Time Seen by Provider: 01/20/19 07:26 - History of Present Illness Initial Comments: Patient is a 38 Y F with no past medical history, presents with epigastric and right-sided abdominal pain since last night. Pain is intermittent, stabbing, sharp, 10\10, radiates to the right side of the low back, with associated nausea and chills. LBM was yesterday and normal. Patient was seen in [facility] 3 days ago for the same complaint, and followed up with Dr. Head without any relief of symptoms. Denies vomit, fever, diarrhea. Allergy: Penicillins Surgical History: Gastric sleeve (2 years ago at [facility] with Dr. Manning), L knee Surgery Social History: Occasional EtOH use PCP: Dakota Tran 01/20/19 08:32 Past History - Past Medical History Allergies/Adverse Reactions: Allergies Allergy/AdvReac Type Severity Reaction Status Date / Time Penicillins Allergy Mild Swelling/it Verified 01/20/19 06:59 miguel Home Medications: Ambulatory Orders Omeprazole 20 mg PO PRN PRN 01/17/19 Anemia: No Asthma: Yes Cancer: No Cardiac Disorders: No CVA: No COPD: No CHF: No Dementia: No Diabetes: No GI Disorders: No Disorders: No HTN: No Hypercholesterolemia: No Liver Disease: No Seizures: No Thyroid Disease: No - Surgical History Orthopedic Surgery: Yes (LT KNEE SX) - Reproductive History (#): 4 Para: 3 Cervical CA: No Dysfunctional Uterine Bleeding: No Ectopic : No Endometrial CA: No Polycystic Ovaries: No Therapeutic (s) & number: No Tubal Ligation: No Spontaneous : 0 - Immunization History Td Vaccination: Yes TDAP Vaccination: Yes Immunization Up to Date: Yes - Suicide/Smoking/Psychosocial Hx Smoking Status: No Smoking History: Never smoked Have you smoked in the past 12 months: No Number of Cigarettes Smoked Daily: 0 Cigars Per Day: 0 Information on smoking cessation initiated: No Hx Alcohol Use: Yes (social) Drug/Substance Use Hx: No Substance Use Type: Alcohol Hx Substance Use Treatment: No Review of Systems - Review of Systems Comments:: CONSTITUTIONAL: +Chills. No fever, no fatigue EYES: No visual changes ENT: No ear pain, no sore throat CARDIOVASCULAR: No chest pain, no palpitations RESPIRATORY: No cough, no SOB GI: +Epigastric and right-sided abdominal pain. +Nausea. No vomiting, no constipation, no diarrhea GENITOURINARY: No dysuria, no frequency, no hematuria MUSKULOSKELETAL: +Right-sided low back pain. No joint pain, no myalgias SKIN: No rash NEURO: No headache 01/20/19 08:32 *Physical Exam - Vital Signs Last Vital Signs Temp Pulse Resp BP Pulse Ox 97.9 F 72 18 127/78 100 01/20/19 06:00 01/20/19 06:00 01/20/19 06:00 01/20/19 06:00 01/20/19 06:00 - Physical Exam Comments: CONSTITUTIONAL: Well-appearing; well-nourished; in no apparent distress HEAD: Normocephalic; atraumatic EYES: PERRL; EOM intact. No sclera icterus. ENMT: +Dry mucous membranes. External appears normal; normal oropharynx NECK: Supple; non-tender; no cervical lymphadenopathy CARD: Normal S1, S2; no murmurs, rubs, or gallops RESP: Normal chest excursion with respiration; breath sounds clear and equal bilaterally; no wheezes, rhonchi, or rales ABD: +Extensive epigastric and right-sided abdominal pain, which is most severe in the epigastric region. +Voluntary guarding. +Decreased bowel sounds. Soft, non-distended; no palpable organomegaly, no palpable hernias EXT: Normal ROM in all four extremities; non-tender to palpation; distal pulses intact SKIN: Warm, dry, no rash NEURO: No focal neurological deficiencies. 01/20/19 08:32 ED Treatment Course - LABORATORY CBC & Chemistry Diagram: 01/20/19 07:55 01/20/19 07:55 - ADDITIONAL ORDERS Additional order review: Laboratory Results 01/20/19 07:55 Sodium 141 Potassium 3.7 Chloride 109 H Carbon Dioxide 27 Anion Gap 5 L BUN 6.7 L Creatinine 0.6 Est GFR (CKD-EPI)AfAm 134.96 Est GFR (CKD-EPI)NonAf 116.44 Random Glucose 91 Calcium 8.6 Total Bilirubin 1.7 H Direct Bilirubin 1.0 H AST 673 H ALT 687 H Alkaline Phosphatase 246 H Total Protein 6.8 Albumin 3.8 Lipase > 99619 H 01/20/19 07:55 RBC 3.94 MCV 86.2 MCHC 34.1 RDW 13.9 MPV 9.4 Neutrophils % 77.1 D Lymphocytes % 14.8 D Monocytes % 7.0 Eosinophils % 0.6 D Basophils % 0.5 - RADIOLOGY Radiology Studies Ordered: Category Date Time Status ABDOMEN & PELVIS CT WITH CONTR [CT] Stat CT Scan 01/20/19 08:29 Ordered Radiograph Interpretation: EXAM#: TYPE/EXAM: RESULT: [id number] US/ABDOMEN US -LIMITED HISTORY PROVIDED: Right upper quadrant pain. IMPRESSION: Slightly thickened gallbladder with trace pericholecystic fluid and biliary sludge. No definite evidence of cholelithiasis. Positive Dickens's sign suggesting acute cholecystitis. Clinical correlation and follow-up HIDA scan recommended. Please see above discussion. Reported By: Norman Condon MD 01/20/19 12:45 EXAM#: TYPE/EXAM: RESULT: [id number] CT/ABDOMEN PELVIS CT WITH CONTR HISTORY PROVIDED: Right sided abdominal pain. IMPRESSION: 1. Thick walled gallbladder with pericholecystic fluid. The possibility of acute cholecystitis cannot be excluded and follow-up studies are now recommended. 2. Large right ovarian cyst and free pelvic fluid. 3. No evidence of acute appendicitis. Reported By: Norman Condon MD 01/20/19 14:21 - Medications Given in the ED: ED Medications Discontinued Medications Generic Name Dose Route Start Last Admin Trade Name Freq PRN Reason Stop Dose Admin Lactated Ringer's 1,000 ml in 1,000 mls @ 1,000 mls/hr 01/20/19 07:41 08:25 Lactated Ringers Solution IV 01/20/19 08:40 1,000 mls/hr ONCE STA Administration Famotidine/Sodium Chloride 20 mg in 50 mls @ 100 mls/hr 01/20/19 07:41 08:25 Pepcid 20 Mg Premixed Ivpb - IVPB 01/20/19 08:10 100 mls/hr ONCE ONE Administration Morphine Sulfate 4 mg 01/20/19 07:42 01/20/19 08:25 Morphine Injection - IVPUSH 01/20/19 07:43 4 mg ONCE ONE Administration Ondansetron HCl 4 mg 01/20/19 07:42 01/20/19 08:25 Zofran Injection IVPUSH 01/20/19 07:43 4 mg ONCE ONE Administration - Consult/PCP Time Called: 09:25 (spoke with Dr. Silveira concerning patient) Case discussed with personal care physician: Selena Silveira Case Discussed with Personal Care Physician Not on Staff:: 9:30 am- paged Dr. El. 10:25am- spoke with Dr. El. Case discussed with consulting physician: Sukhwinder Head (9:11am-paged. 9:53am- spoke with Dr. Head. ) Medical Decision Making - Medical Decision Making 01/20/19 09:23 Patient is a 38-year-old female who presents with severe epigastric and right- sided abdominal pain. Patient is afebrile and nontoxic appearing on initial evaluation with maximum point tenderness in the epigastrium. I suspect pancreatitis. CBC is within normal limit. CMP reveals transaminitis with elevated bilirubin and alkaline phosphatase, as well as elevated lipase. Gallstone pancreatitis is suspected. We'll continue to resuscitate with IV fluids. Will obtain CT of abdomen and pelvis with by mouth and IV contrast. Will consult GI and surgery. *DC/Admit/Observation/Transfer Diagnosis at time of Disposition: Acute gallstone pancreatitis, Choledocholithiasis - Discharge Dispostion Condition at time of disposition: Fair Decision to Admit order: Yes - Referrals - Patient Instructions - Post Discharge Activity - Attestations Physician Attestion: 01/20/19 09:22 The documentation was prepared by the scribe under my direct supervision. I have reviewed the documentation which correctly represents the findings, medical decision-making and critical action taken by me.
[2019-01-20 09:26] LABS: INR 1.01 (0.83-1.09); PROTHROMBIN TIME (PATIENT) 11.9 SEC (9.7-13.0)
[2019-01-20 10:30] LABS: PH,URINE 5.5 (5.0-8.0); URINE APPEARANCE CLEAR; URINE BILIRUBIN NEGATIVE (NEGATIVE); URINE COLOR YELLOW; URINE GLUCOSE (UA) NEGATIVE (NEGATIVE); URINE KETONE NEGATIVE (NEGATIVE); URINE LEUK ESTERASE NEGATIVE (NEGATIVE); URINE NITRITE NEGATIVE (NEGATIVE); URINE PROTEIN NEGATIVE (NEGATIVE)
[2019-01-20] MEDS ORDERED: LACTATED RINGERS SOLUTION 1,000 ML/1,000 ML INFUS.BAG IV SCH (11:15)
--- NOTE | 2019-01-20 16:10 | CONSULT ---
Consult Consult Specialty:: Surgery Reason for Consultation:: gallstone pancreatitis - History of Present Illness Chief Complaint: abdominal pain History of Present Illness: Patient is a 38 Y F with history of laparoscopic sleeve gastrectomy, presents with epigastric and right-sided abdominal pain since last night. Pain is intermittent, stabbing, sharp, 10\10, radiates to the right side of the low back, with associated nausea and chills. Patient was seen in [facility] 3 days ago for the same complaint, and followed up with Dr. Head without any relief of symptoms. Denies vomit, fever, diarrhea. Noted to have elevated pancreatic enzymes and abnormal LFT's. - History Source History Provided By: Patient - Past Medical History [employer]: Yes: Other ...LMP: 12/16/18 - Past Surgical History Additional Surgical History: sleeve gastrectomy - Alcohol/Substance Use Hx Alcohol Use: Yes (social) History of Substance Use: reports: None - Smoking History Smoking history: Never smoked Have you smoked in the past 12 months: No Aproximately how many cigarettes per day: 0 - Social History Usual Living Arrangement: With Spouse Home Medications - Allergies Allergies/Adverse Reactions: Allergies Allergy/AdvReac Type Severity Reaction Status Date / Time Penicillins Allergy Mild Swelling/it Verified 01/20/19 06:59 miguel - Home Medications Home Medications: Ambulatory Orders Omeprazole 20 mg PO PRN PRN 01/17/19 Review of Systems - Review of Systems Neck: reports: No Symptoms Cardiovascular: reports: No Symptoms Respiratory: reports: No Symptoms Gastrointestinal: reports: Abdominal Pain Physical Exam Vital Signs: Vital Signs Temperature 98.5 F 01/20/19 10:04 Pulse Rate 55 L 01/20/19 10:04 Respiratory Rate 18 01/20/19 06:00 Blood Pressure 129/68 01/20/19 10:04 O2 Sat by Pulse Oximetry (%) 100 01/20/19 10:04 Constitutional: Yes: Well Nourished, No Distress Eyes: Yes: Conjunctiva Clear HENT: Yes: Normocephalic Neck: Yes: Supple Cardiovascular: Yes: Regular Rate and Rhythm Respiratory: Yes: CTA Bilaterally Gastrointestinal: Yes: Soft, Tenderness, Epigastrium ...Rectal Exam: Yes: Deferred Renal/: Yes: WNL Musculoskeletal: Yes: WNL Extremities: Yes: WNL Edema: No Integumentary: Yes: WNL Neurological: Yes: Alert, Oriented Labs: CBC, BMP 01/20/19 07:55 01/20/19 07:55 Imaging - Results Cat Scan: Report Reviewed, Image Reviewed Ultrasound: Report Reviewed, Image Reviewed Problem List - Problems (1) Acute gallstone pancreatitis Assessment/Plan: Mildly dilated CBD on US MRCP to r/o choledocholithiasis monitor LFT's and pancreatic enzymes Advised cholecystectomy during this hospital stay Code(s): K85.10 - BILIARY ACUTE PANCREATITIS WITHOUT NECROSIS OR INFECTION
[2019-01-20] MEDS ORDERED: ONDANSETRON 4 MG/2 ML VIAL IVPUSH PRN (17:40)
[2019-01-20] MEDS: DEXTROSE 5%-0.45% SALINE 1,000 ML IV SCH (18:26)
[2019-01-20 20:52] VITALS: BMI 24.2
[2019-01-20] MEDS: HEPARIN NA (PORCINE) 5,000 UNITS/ML 1ML VIAL SQ SCH (22:00)
[2019-01-20] MEDS: MORPHINE SULFATE 2 MG/ML VIAL IVPUSH PRN (23:49)
--- NOTE | 2019-01-20 23:56 | PN ---
Progress Note, Physician - Current Medication List Current Medications: Active Medications Heparin Sodium (Porcine) (Heparin -) 5,000 unit SQ BID VERA Last Admin: 01/20/19 22:00 Dose: 5,000 unit Dextrose/Sodium Chloride (D5-1/2ns -) 1,000 mls @ 75 mls/hr IV ASDIR VERA Last Admin: 01/20/19 18:26 Dose: 75 mls/hr Metronidazole (Flagyl 500mg Premixed Ivpb -) 500 mg in 100 mls @ 100 mls/hr IVPB Q8H-IV VERA Last Admin: 01/20/19 18:26 Dose: 100 mls/hr Levofloxacin (Levaquin 500 Mg Premixed Ivpb -) 500 mg in 100 mls @ 100 mls/hr IVPB DAILY [facility]; Protocol Morphine Sulfate (Morphine Sulfate) 4 mg IVPUSH Q6H PRN PRN Reason: pain 4-10 Last Admin: 01/20/19 23:49 Dose: 4 mg Ondansetron HCl (Zofran Injection) 4 mg IVPUSH Q6H PRN PRN Reason: NAUSEA AND/OR VOMITING - Objective Vital Signs: Vital Signs Temperature 98.4 F 01/20/19 20:29 Pulse Rate 60 01/20/19 20:29 Respiratory Rate 18 01/20/19 20:29 Blood Pressure 119/69 01/20/19 20:29 O2 Sat by Pulse Oximetry (%) 99 01/20/19 20:29 Labs: CBC, BMP 01/20/19 07:55 01/20/19 07:55 INR, PTT INR 1.01 (0.83-1.09) 01/20/19 07:55
--- NOTE | 2019-01-20 23:56 | HP ---
Admitting History and Physical - Past Medical History [employer]: Yes: Other ...LMP: 12/22/18 ...: No - Smoking History Smoking history: Never smoked Have you smoked in the past 12 months: No Aproximately how many cigarettes per day: 0 - Alcohol/Substance Use Hx Alcohol Use: Yes (social) History of Substance Use: reports: None Home Medications - Allergies Allergies/Adverse Reactions: Allergies Allergy/AdvReac Type Severity Reaction Status Date / Time Penicillins Allergy Mild Swelling/it Verified 01/20/19 06:59 miguel - Home Medications Home Medications: Ambulatory Orders Omeprazole 20 mg PO PRN PRN 01/17/19 Physical Examination Vital Signs: Vital Signs Temperature 98.4 F 01/20/19 20:29 Pulse Rate 60 01/20/19 20:29 Respiratory Rate 18 01/20/19 20:29 Blood Pressure 119/69 01/20/19 20:29 O2 Sat by Pulse Oximetry (%) 99 01/20/19 20:29 Labs: CBC, BMP 01/20/19 07:55 01/20/19 07:55 Problem List - Problems (1) Acute gallstone pancreatitis Code(s): K85.10 - BILIARY ACUTE PANCREATITIS WITHOUT NECROSIS OR INFECTION
[2019-01-21 07:25] LABS: BASO % 0.5 % (0-2.0); EOS % 3.1 % (0-4.5); HEMATOCRIT 27.9 % (32.4-45.2); HEMOGLOBIN 9.4 GM/dL (10.7-15.3); LYMPH % 39.1 % (8-40); MCH 29.1 pg (25.7-33.7); MCHC 33.7 g/dl (32.0-36.0); MEAN CELL VOLUME 86.5 fl (80-96); MEAN PLT VOLUME 9.7 fl (7.5-11.1); MONO % 8.9 % (3.8-10.2); NEUT % 48.4 % (42.8-82.8); RBC 3.23 M/mm3 (3.60-5.2); RDW 13.8 % (11.6-15.6); WHITE BLOOD COUNT 3.5 K/mm3 (4.0-10.0)
[2019-01-21 07:44] LABS: ALBUMIN 2.8 g/dl (3.4-5.0); BILIRUBIN,TOTAL 0.6 mg/dL (0.2-1); CREATININE 0.5 mg/dL (0.55-1.3); POTASSIUM 3.6 mmol/L (3.5-5.1)
--- NOTE | 2019-01-21 07:45 | CON.GI ---
Consult Consult Specialty:: GI Referred by:: Dr. Selena Silveira Reason for Consultation:: Gallstone Pancreatitis - History of Present Illness Chief Complaint: Epigastric pain with nausea History of Present Illness: Patient is a 38 y/o female with no significant past medical history. Patient presented to ER after worsening epigastric pain radiating to RUQ accompanied with nausea. Patient states that "for years" she would have intermittent epigastric pain that would worsen with food but would be alleviated with OTC GI medication. Patient had gastric sleeve done in 02/2017 and then developed heartburn soon after surgery, she was started on Omeprazole. On Friday patient states she had a meal with hot sauce and a few sips of liquir and then complain of burning epigastric pain radiating to RUQ accompanied with nausea. Patient states having dysphagia as well. She says while in ER had 2 episodes of non- bloody diarrhea accompanied with chills, denies night awakening or recent travel. Recently antibiotic use of Ciprofloxacin. CT scan in ER shows thickened wall gallbladder with pericholecystic fluid. Abdominal US shows mildly dilated CBD at 8mm with silightly thickened gallbladder with trace pericholecystic fluid and biliary sludge. Labs from ER show no leukocytosis noted, markedly elevated LFTs, Total Bili 1.7 and Direct Bili 1.0, Lipase >30, 000. Denies blood in stool, melena, or abnormal weight loss. 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 ...LMP: 12/22/18 ...: No - Past Surgical History Past Surgical History: Yes: Bariatric Surgery (gastric sleeve 02/2017), Additional Surgical History: sleeve gastrectomy - Alcohol/Substance Use Hx Alcohol Use: Yes (social) History of Substance Use: reports: None - Smoking History Smoking history: Never smoked Have you smoked in the past 12 months: No Aproximately how many cigarettes per day: 0 - Social History Usual Living Arrangement: With Spouse ADL: Independent History of Recent Travel: No Home Medications - Allergies Allergies/Adverse Reactions: Allergies Allergy/AdvReac Type Severity Reaction Status Date / Time Penicillins Allergy Mild Swelling/it Verified 01/20/19 06:59 miguel - Home Medications Home Medications: Ambulatory Orders Omeprazole 20 mg PO PRN PRN 01/17/19 Review of Systems - Review of Systems Constitutional: reports: No Symptoms Eyes: reports: No Symptoms HENT: reports: Difficult Swallowing Neck: reports: No Symptoms Cardiovascular: reports: No Symptoms Respiratory: reports: No Symptoms Gastrointestinal: reports: Abdominal Pain, Diarrhea, Nausea Genitourinary: reports: No Symptoms Breasts: reports: No Symptoms Reported Musculoskeletal: reports: No Symptoms Integumentary: reports: No Symptoms Neurological: reports: No Symptoms Endocrine: reports: No Symptoms Hematology/Lymphatic: reports: No Symptoms Psychiatric: reports: No Symptoms Physical Exam-GI Vital Signs: Vital Signs Temperature 98.4 F 01/20/19 20:29 Pulse Rate 60 01/20/19 20:29 Respiratory Rate 18 01/20/19 20:29 Blood Pressure 119/69 01/20/19 20:29 O2 Sat by Pulse Oximetry (%) 99 01/20/19 20:29 Constitutional: Yes: No Distress, Calm Eyes: Yes: Conjunctiva Clear HENT: Yes: Atraumatic Cardiovascular: Yes: Regular Rate and Rhythm Respiratory: Yes: Regular, CTA Bilaterally Gastrointestinal Inspection: Yes: WNL. No: Ascites, Distention, Hernia, Scars, Other ...Auscultate: Yes: Normoactive Bowel Sounds. No: Hyperactive Bowel Sounds, Hypoactive Bowel Sounds, No Bowel Sounds, Other ...Palpate: Yes: Soft, Tenderness (RUQ and LUQ), Tenderness, Epigastium. No: Firm/Rigid, Guarding, Hepatomegaly, Mass, Pulsatile Mass, Splenomegaly, Tenderness, Rebound, Other ...Percussion: Yes: Tympanitic. No: Dullness, Fluid Wave, Other Neurological: Yes: Alert, Oriented Psychiatric: Yes: Alert, Oriented Labs: INR, PTT INR 1.01 (0.83-1.09) 01/20/19 07:55 Active Medications Generic Name Dose Route Start Last Admin Trade Name Freq PRN Reason Stop Dose Admin Heparin Sodium (Porcine) 5,000 unit 01/20/19 22:00 01/20/19 22:00 Heparin - SQ 5,000 unit BID VERA Administration Dextrose/Sodium Chloride 1,000 mls @ 75 mls/hr 01/20/19 17:45 01/20/19 18:26 D5-1/2ns - IV 75 mls/hr ASDIR VERA Administration Metronidazole 500 mg in 100 mls @ 100 mls/hr 01/20/19 18:00 01/21/19 02:43 Flagyl 500mg Premixed Ivpb - IVPB 100 mls/hr Q8H-IV VERA Administration Levofloxacin 500 mg in 100 mls @ 100 mls/hr 01/21/19 10:00 Levaquin 500 Mg Premixed Ivpb - IVPB DAILY [facility]A Protocol Morphine Sulfate 4 mg 01/20/19 17:39 01/20/19 23:49 Morphine Sulfate IVPUSH 4 mg Q6H PRN Administration pain 4-10 Ondansetron HCl 4 mg 01/20/19 17:40 Zofran Injection IVPUSH Q6H PRN NAUSEA AND/OR VOMITING Imaging - Results Cat Scan: Report Reviewed Ultrasound: Report Reviewed MRI: Pending Problem List - Problems (1) Acute gallstone pancreatitis Assessment/Plan: >pending ABdominal MRI result >possible ERCP pending MRI results >Surgery recommendations reviewed and appreciated >NPO >IV hydration >continue Levaquin and Metronidazole Code(s): K85.10 - BILIARY ACUTE PANCREATITIS WITHOUT NECROSIS OR INFECTION (2) Choledocholithiasis Assessment/Plan: >pending Abdominal MRI result >possible ERCP pending MRI results >Surgery recommendations reviewed and appreciated Code(s): K80.50 - CALCULUS OF BILE DUCT W/O CHOLANGITIS OR CHOLECYST W/O OBST
[2019-01-21] MEDS: MORPHINE SULFATE 2 MG/ML VIAL IVPUSH PRN ×2 (07:59→22:15)
[2019-01-21 08:23] LABS: PLATELET COUNT 164 K/MM3 (134-434)
[2019-01-21] MEDS: HEPARIN NA (PORCINE) 5,000 UNITS/ML 1ML VIAL SQ SCH ×2 (09:47→22:15)
[2019-01-21] MEDS: DEXTROSE 5%-0.45% SALINE 1,000 ML IV SCH ×2 (10:18→17:56)
[2019-01-21] MEDS ORDERED: ACETAMINOPHEN/CAFFEINE/BUTALBITAL 1 TAB PO ONE (10:45)
--- NOTE | 2019-01-21 19:34 | PN ---
Progress Note, Physician Chief Complaint: abdominal pain History of Present Illness: Abdominal painis less. MRCP - mildy dilated CBD without filling defect. - Current Medication List Current Medications: Active Medications Heparin Sodium (Porcine) (Heparin -) 5,000 unit SQ BID [facility]A Last Admin: 01/21/19 09:47 Dose: Not Given Dextrose/Sodium Chloride (D5-1/2ns -) 1,000 mls @ 75 mls/hr IV ASDIR VERA Last Admin: 01/21/19 17:56 Dose: Not Given Metronidazole (Flagyl 500mg Premixed Ivpb -) 500 mg in 100 mls @ 100 mls/hr IVPB Q8H-IV [facility] Last Admin: 01/21/19 17:42 Dose: 100 mls/hr Levofloxacin (Levaquin 500 Mg Premixed Ivpb -) 500 mg in 100 mls @ 100 mls/hr IVPB DAILY [facility]; Protocol Last Admin: 01/21/19 09:46 Dose: 100 mls/hr Morphine Sulfate (Morphine Sulfate) 4 mg IVPUSH Q6H PRN PRN Reason: pain 4-10 Last Admin: 01/21/19 07:59 Dose: 4 mg Ondansetron HCl (Zofran Injection) 4 mg IVPUSH Q6H PRN PRN Reason: NAUSEA AND/OR VOMITING - Objective Vital Signs: Vital Signs Temperature 98.6 F 01/21/19 10:00 Pulse Rate 69 01/21/19 10:00 Respiratory Rate 20 01/21/19 10:00 Blood Pressure 104/69 01/21/19 10:00 O2 Sat by Pulse Oximetry (%) 100 01/21/19 09:00 Constitutional: Yes: No Distress Eyes: Yes: Conjunctiva Clear HENT: Yes: Normocephalic Neck: Yes: Supple Cardiovascular: Yes: Regular Rate and Rhythm Respiratory: Yes: CTA Bilaterally Gastrointestinal: Yes: Soft, Tenderness, Epigastrium (mild) ...Rectal Exam: Yes: Deferred Labs: CBC, BMP 01/21/19 06:43 01/21/19 06:43 INR, PTT INR 1.01 (0.83-1.09) 01/20/19 07:55 Problem List - Problems (1) Acute gallstone pancreatitis Assessment/Plan: For laparoscopic cholecystectomy in am Code(s): K85.10 - BILIARY ACUTE PANCREATITIS WITHOUT NECROSIS OR INFECTION
--- NOTE | 2019-01-21 22:36 | PN ---
Progress Note, Physician History of Present Illness: Pt still complains of epigastric pain - Current Medication List Current Medications: Active Medications Heparin Sodium (Porcine) (Heparin -) 5,000 unit SQ BID [facility] Last Admin: 01/21/19 22:15 Dose: Not Given Dextrose/Sodium Chloride (D5-1/2ns -) 1,000 mls @ 75 mls/hr IV ASDIR VERA Last Admin: 01/21/19 17:56 Dose: Not Given Metronidazole (Flagyl 500mg Premixed Ivpb -) 500 mg in 100 mls @ 100 mls/hr IVPB Q8H-IV [facility]A Last Admin: 01/21/19 17:42 Dose: 100 mls/hr Levofloxacin (Levaquin 500 Mg Premixed Ivpb -) 500 mg in 100 mls @ 100 mls/hr IVPB DAILY [facility]; Protocol Last Admin: 01/21/19 09:46 Dose: 100 mls/hr Morphine Sulfate (Morphine Sulfate) 4 mg IVPUSH Q6H PRN PRN Reason: pain 4-10 Last Admin: 01/21/19 22:15 Dose: 4 mg Ondansetron HCl (Zofran Injection) 4 mg IVPUSH Q6H PRN PRN Reason: NAUSEA AND/OR VOMITING - Objective Vital Signs: Vital Signs Temperature 98.4 F 01/21/19 20:24 Pulse Rate 53 L 01/21/19 20:24 Respiratory Rate 20 01/21/19 20:24 Blood Pressure 129/69 01/21/19 20:24 O2 Sat by Pulse Oximetry (%) 100 01/21/19 20:28 Eyes: Yes: WNL HENT: Yes: WNL Neck: Yes: WNL, Supple Cardiovascular: Yes: WNL, Regular Rate and Rhythm Respiratory: Yes: WNL, Regular, CTA Bilaterally Gastrointestinal: Yes: Normal Bowel Sounds, Other ((+) epigastric tenderness on palpation (-) guarding/rebound) Labs: CBC, BMP 01/21/19 06:43 01/21/19 06:43 INR, PTT INR 1.01 (0.83-1.09) 01/20/19 07:55 Problem List - Problems (1) Acute gallstone pancreatitis Assessment/Plan: Cont IVF Cont IV antibxs Amylase/lipase/LFT's are decreasing Cont to monitor Pt is medically cleared for lap choley in am Code(s): K85.10 - BILIARY ACUTE PANCREATITIS WITHOUT NECROSIS OR INFECTION
[2019-01-22] MEDS: DEXTROSE 5%-0.45% SALINE 1,000 ML IV SCH ×2 (02:08→14:45)
[2019-01-22] MEDS ORDERED: PANTOPRAZOLE SODIUM 40 MG VIAL IVPB ONE (03:30)
[2019-01-22] MEDS ORDERED: PANTOPRAZOLE SODIUM 40 MG VIAL IVPUSH ONE ×3 (03:30→13:00)
[2019-01-22 07:51] LABS: BASO % 0.7 % (0-2.0); EOS % 2.9 % (0-4.5); HEMATOCRIT 30.4 % (32.4-45.2); HEMOGLOBIN 10.4 GM/dL (10.7-15.3); LYMPH % 34.4 % (8-40); MCH 29.4 pg (25.7-33.7); MCHC 34.1 g/dl (32.0-36.0); MEAN CELL VOLUME 86.3 fl (80-96); MEAN PLT VOLUME 9.6 fl (7.5-11.1); MONO % 7.5 % (3.8-10.2); NEUT % 54.5 % (42.8-82.8); RBC 3.52 M/mm3 (3.60-5.2); RDW 13.4 % (11.6-15.6); WHITE BLOOD COUNT 3.3 K/mm3 (4.0-10.0)
[2019-01-22 08:14] LABS: ALBUMIN 3.4 g/dl (3.4-5.0); BILIRUBIN,TOTAL 0.6 mg/dL (0.2-1); CALCIUM 8.6 mg/dL (8.5-10.1); CREATININE 0.5 mg/dL (0.55-1.3); POTASSIUM 3.5 mmol/L (3.5-5.1); TOT PROT 5.9 g/dl (6.4-8.2)
[2019-01-22 08:32] LABS: PLATELET COUNT 192 K/MM3 (134-434)
[2019-01-22] MEDS ORDERED: PROPOFOL 20 ML ONE (08:45)
[2019-01-22] MEDS ORDERED: MIDAZOLAM HCL 2 MG/2 ML SINGLE DOSE VIAL ONE (08:45)
[2019-01-22] MEDS ORDERED: ROCURONIUM BROMIDE 50 MG/5 ML SYRINGE ONE (08:45)
[2019-01-22] MEDS ORDERED: fentaNYL CITRATE 250 MCG/5 ML VIAL ONE (08:45)
[2019-01-22] MEDS ORDERED: DEXAMETHASONE SOD PHOSPHATE 4 MG/1 ML VIAL ONE (08:46)
[2019-01-22] MEDS ORDERED: LIDOCAINE HCL/PF 2% SDV 5ML VIAL ONE (08:46)
--- NOTE | 2019-01-22 08:58 | PN ---
Progress Note, Physician History of Present Illness: GI FOLLOW UP NOTE Patient examined and case discussed with Dr Head Patient states having nausea but states abdominal pain is improving. She had 2 episodes of non-bloody diarrhea yesterday and 1 episode this morning. Patient is NPO sceduled for cholecystectomy this morning. - Current Medication List Current Medications: Active Medications Heparin Sodium (Porcine) (Heparin -) 5,000 unit SQ BID [facility] Last Admin: 01/21/19 22:15 Dose: Not Given Dextrose/Sodium Chloride (D5-1/2ns -) 1,000 mls @ 75 mls/hr IV ASDIR VERA Last Admin: 01/22/19 02:08 Dose: 75 mls/hr Metronidazole (Flagyl 500mg Premixed Ivpb -) 500 mg in 100 mls @ 100 mls/hr IVPB Q8H-IV [facility] Last Admin: 01/22/19 08:49 Dose: 100 mls/hr Levofloxacin (Levaquin 500 Mg Premixed Ivpb -) 500 mg in 100 mls @ 100 mls/hr IVPB DAILY [facility]; Protocol Last Admin: 01/21/19 09:46 Dose: 100 mls/hr Morphine Sulfate (Morphine Sulfate) 4 mg IVPUSH Q6H PRN PRN Reason: pain 4-10 Last Admin: 01/21/19 22:15 Dose: 4 mg Ondansetron HCl (Zofran Injection) 4 mg IVPUSH Q6H PRN PRN Reason: NAUSEA AND/OR VOMITING Last Admin: 01/22/19 08:19 Dose: 4 mg - Objective Vital Signs: Vital Signs Temperature 98.4 F 01/22/19 08:49 Pulse Rate 62 01/22/19 08:49 Respiratory Rate 18 01/22/19 08:49 Blood Pressure 127/82 01/22/19 08:49 O2 Sat by Pulse Oximetry (%) 100 01/21/19 20:28 Constitutional: Yes: No Distress, Calm Eyes: Yes: Conjunctiva Clear HENT: Yes: Atraumatic Cardiovascular: Yes: Regular Rate and Rhythm Respiratory: Yes: Regular, CTA Bilaterally Gastrointestinal: Yes: Normal Bowel Sounds, Soft, Tenderness (RUQ, LUQ), Tenderness, Epigastrium Neurological: Yes: Alert, Oriented Psychiatric: Yes: Alert, Oriented Labs: CBC, BMP 01/22/19 07:15 01/22/19 07:15 INR, PTT INR 1.01 (0.83-1.09) 01/20/19 07:55 Problem List - Problems (1) Acute gallstone pancreatitis Assessment/Plan: -NPO -scheduled for cholecystectomy this morning -IV hydration -Lipase 208, Amylase 139 -LFTs improving showing down trend Code(s): K85.10 - BILIARY ACUTE PANCREATITIS WITHOUT NECROSIS OR INFECTION
[2019-01-22] MEDS ORDERED: BUPIVACAINE HCL/PF 0.5% (5MG/ML) 10 ML VIAL ONE (09:29)
[2019-01-22] MEDS ORDERED: BUPIVACAINE HCL/PF 0.5% (5MG/ML) 10 ML VIAL IJ ONE ×2 (10:20→10:30)
[2019-01-22] MEDS ORDERED: GLYCOPYRROLATE 0.2 MG/1 ML VIAL ONE (10:52)
[2019-01-22] MEDS ORDERED: NEOSTIGMINE METHYLSULFATE 0.5 MG/ML - 10 ML MDV ONE (10:52)
--- NOTE | 2019-01-22 11:04 | OP ---
Operative Note - Note: Operative Date: 01/22/19 Pre-Operative Diagnosis: gallstone pancreatitis Operation: laparoscopic cholecystectomy Findings: mildly edematous and distended GB and prominent CBD Post-Operative Diagnosis: Same as Pre-op Surgeon: Chriss El Mails Supervisor: Yareli Knox Anesthesia: General Specimens Removed: gallbladder Estimated Blood Loss (mls): 5 Operative Report Dictated: Yes
[2019-01-22] MEDS ORDERED: oxyCODONE HCL 5 MG TABLET PO PRN (11:20)
[2019-01-22] MEDS ORDERED: PANTOPRAZOLE 20 MG TABLET (FP) PO PRN (11:20)
--- NOTE | 2019-01-22 11:25 | SURG ---
Surgery Missileman Note Missileman: Yareli Knox PA-C Date of Service: 01/22/19 Diagnosis: gallstone pancreatitis Procedure: laparoscopic cholecystectomy I was present for the entirety of the operative procedure. For further detail, please refer to operative report. Visit type - Case Type Case Type: ED Admission - Emergency Emergency Visit: Yes ED Registration Date: 01/20/19 Care time: The patient presented to the Emergency Department on the above date and was hospitalized for further evaluation of their emergent condition. - New patient This patient is new to me today: Yes Date on this admission: 01/22/19
[2019-01-22] MEDS ORDERED: LIDOCAINE HCL 2% JELLY (5 ML/TUBE) ONE (11:37)
[2019-01-22] MEDS ORDERED: ONDANSETRON 4 MG/2 ML VIAL ONE (13:07)
[2019-01-22] MEDS ORDERED: ONDANSETRON 4 MG/2 ML VIAL IVPUSH ONE (13:12)
[2019-01-22] MEDS: oxyCODONE HCL 5 MG TABLET PO PRN (14:44)
[2019-01-22] MEDS: ACETAMINOPHEN 325 MG TABLET (FP) PO PRN (17:58)
--- NOTE | 2019-01-22 20:49 | OP ---
DATE OF OPERATION: 01/22/2019 PROCEDURE: Laparoscopic cholecystectomy. PREOPERATIVE DIAGNOSIS: Gallstone pancreatitis. POSTOPERATIVE DIAGNOSIS: Gallstone pancreatitis. SURGEON: Chriss El M.D. TRAIL CONSTRUCTION WORKER: Varsha Lino ANESTHESIA: General endotracheal anesthesia FINDINGS ON PROCEDURE: This is a 38-year-old female who presents with 3-day history of epigastric pain radiating to the back, associated with nausea upon evaluation in ED. Patient was found to have elevated pancreatic enzymes and abnormal liver function tests. So patient was admitted with admitting diagnosis of gallstone pancreatitis. Ultrasound revealed gallbladder with sludge, possible polyps, and 8-mm common bile duct. MRCP, CT scan showed no evidence of inflamed pancreas or dilated common bile duct. The MRCP did not show any filling defect in the common bile duct. So patient was admitted and started on antibiotics and bowel rest, and with monitoring of pancreatic enzymes and the LFT's. With a downward trend and normalization of the lipase levels, patient was then advised cholecystectomy. Prior to discharge, consent was obtained after discussing the risks, benefits, and alternatives of the procedure. DESCRIPTION OF PROCEDURE: Patient was brought to the operating room and placed in supine position. General endotracheal anesthesia was administered. The abdomen was prepped and draped in the usual sterile fashion. Using 0.5% Marcaine, local anesthesia was administered to the proposed incision sites. The peritoneal cavity was entered using the Optiview technique with a 5-mm umbilical incision using a 5-mm, 0-degree scope inserted in a 5-mm umbilical port. Pneumoperitoneum was established. Patient was then placed in the reverse Trendelenburg, left side down position. A 12-mm bladeless trocar was inserted into the subxiphoid region to the right of the midline. The two other 5-mm ports were inserted at the midclavicular and anterior axillary lines in the right subcostal region. The gallbladder was noted to be mildly edematous and distended. The gallbladder fundus was grasped and retracted superiorly, and the infundibulum was retracted inferolaterally. The visceral peritoneum covering the hepatocystic triangle was then explored using the hook dissector connected to monopolar cautery, and a window was created behind the presumed cystic artery in between the other. Prior to that, the proximal gallbladder bed was lifted from its liver attachment, and a window was created behind the cystic artery close to the gallbladder wall, to create the critical view of safety. Cystic duct and cystic artery were carefully isolated using the [place] dissector. This was followed by applying 3 clips at the cystic duct and cystic artery, followed by transection leaving 2 clips at the cystic duct and cystic artery stump. The gallbladder was then transected on its side in antegrade fashion using the hook dissector connected to monopolar cautery. The small amount of blood in the Morison pouch and the right hepatic gutter was suctioned. The gallbladder was placed in endobag and extracted via the subxiphoid port. Pneumoperitoneum was evacuated, and the ports were removed. The wounds were closed with 1 [id number] Vicryl 0 suture for the fascia of the subxiphoid port and subcuticular Biosyn 4 sutures for the skin. Wound closure was reinforced with Dermabond. Patient was successfully extubated and transferred to the post anesthesia care unit in satisfactory condition. Estimated blood loss was about 5 mL. Wound class clean, contaminated. The patient was already on Levaquin and Flagyl upon admission. Cassidy [id number] MTDD
--- NOTE | 2019-01-22 21:42 | PN ---
Progress Note, Physician - Current Medication List Current Medications: Active Medications Acetaminophen (Tylenol -) 650 mg PO Q6H PRN PRN Reason: PAIN OR FEVER Last Admin: 01/22/19 17:58 Dose: 650 mg Heparin Sodium (Porcine) (Heparin -) 5,000 unit SQ BID [facility]A Dextrose/Sodium Chloride (D5-1/2ns -) 1,000 mls @ 75 mls/hr IV ASDIR VERA Last Admin: 01/22/19 14:45 Dose: Not Given Metronidazole (Flagyl 500mg Premixed Ivpb -) 500 mg in 100 mls @ 100 mls/hr IVPB Q8H-IV [facility] Last Admin: 01/22/19 17:55 Dose: 100 mls/hr Levofloxacin (Levaquin 500 Mg Premixed Ivpb -) 500 mg in 100 mls @ 100 mls/hr IVPB DAILY [facility]; Protocol Ondansetron HCl (Zofran Injection) 4 mg IVPUSH Q6H PRN PRN Reason: NAUSEA AND/OR VOMITING Oxycodone HCl (Roxicodone -) 5 mg PO Q4H PRN PRN Reason: PAIN LEVEL 1-5 Last Admin: 01/22/19 14:44 Dose: 5 mg Oxycodone HCl (Roxicodone -) 10 mg PO Q4H PRN PRN Reason: PAIN LEVEL 6-10 Pantoprazole Sodium (Protonix -) 20 mg PO PRN PRN PRN Reason: GERD - Objective Vital Signs: Vital Signs Temperature 98 F 01/22/19 13:25 Pulse Rate 66 01/22/19 13:25 Respiratory Rate 16 01/22/19 13:25 Blood Pressure 108/64 01/22/19 13:25 O2 Sat by Pulse Oximetry (%) 100 01/22/19 13:25 Labs: CBC, BMP 01/22/19 07:15 01/22/19 07:15 INR, PTT INR 1.01 (0.83-1.09) 01/20/19 07:55 Problem List - Problems (1) Acute gallstone pancreatitis Code(s): K85.10 - BILIARY ACUTE PANCREATITIS WITHOUT NECROSIS OR INFECTION
[2019-01-23] MEDS: HEPARIN NA (PORCINE) 5,000 UNITS/ML 1ML VIAL SQ SCH ×3 (01:03→21:13)
[2019-01-23] MEDS: oxyCODONE HCL 5 MG TABLET PO PRN ×3 (01:04→17:02)
[2019-01-23] MEDS: ONDANSETRON 4 MG/2 ML VIAL IVPUSH PRN ×3 (01:04→20:02)
[2019-01-23] MEDS: DEXTROSE 5%-0.45% SALINE 1,000 ML IV SCH ×4 (01:06→15:00)
[2019-01-23] MEDS: ACETAMINOPHEN 325 MG TABLET (FP) PO PRN ×2 (02:28→09:11)
[2019-01-23] MEDS ORDERED: MAG HYDROX/AL HYDROX/SIMETH 30 ML UNIT-DOSE CUP PO ONE (09:15)
--- NOTE | 2019-01-23 13:46 | PN ---
Progress Note, Physician Chief Complaint: abdominal pain History of Present Illness: patient is s/p laparoscopic cholecsytectomy Pod # 1 Had 2 episodes of vomiting this am. Tolerated regular diet for lunch and is not nauseated. C/O heartburn - Current Medication List Current Medications: Active Medications Acetaminophen (Tylenol -) 650 mg PO Q6H PRN PRN Reason: PAIN OR FEVER Last Admin: 01/23/19 09:11 Dose: 650 mg Heparin Sodium (Porcine) (Heparin -) 5,000 unit SQ BID [facility] Last Admin: 01/23/19 09:13 Dose: 5,000 unit Dextrose/Sodium Chloride (D5-1/2ns -) 1,000 mls @ 75 mls/hr IV ASDIR VERA Last Admin: 01/23/19 12:35 Dose: Not Given Metronidazole (Flagyl 500mg Premixed Ivpb -) 500 mg in 100 mls @ 100 mls/hr IVPB Q8H-IV [facility] Last Admin: 01/23/19 09:12 Dose: 100 mls/hr Levofloxacin (Levaquin 500 Mg Premixed Ivpb -) 500 mg in 100 mls @ 100 mls/hr IVPB DAILY [facility]; Protocol Last Admin: 01/23/19 09:12 Dose: 100 mls/hr Ondansetron HCl (Zofran Injection) 4 mg IVPUSH Q6H PRN PRN Reason: NAUSEA AND/OR VOMITING Last Admin: 01/23/19 10:47 Dose: 4 mg Oxycodone HCl (Roxicodone -) 5 mg PO Q4H PRN PRN Reason: PAIN LEVEL 1-5 Last Admin: 01/23/19 09:11 Dose: 5 mg Oxycodone HCl (Roxicodone -) 10 mg PO Q4H PRN PRN Reason: PAIN LEVEL 6-10 Pantoprazole Sodium (Protonix -) 20 mg PO PRN PRN PRN Reason: GERD Last Admin: 01/23/19 09:10 Dose: 20 mg - Objective Vital Signs: Vital Signs Temperature 98.2 F 01/23/19 06:00 Pulse Rate 58 L 01/23/19 09:34 Respiratory Rate 16 01/23/19 09:34 Blood Pressure 113/68 01/23/19 09:34 O2 Sat by Pulse Oximetry (%) 100 01/22/19 21:00 Constitutional: Yes: Calm Gastrointestinal: Yes: Soft, Tenderness (over subxyphoid port site, dressing intact, no RUQ tenderness) Labs: INR, PTT INR 1.01 (0.83-1.09) 01/20/19 07:55 Problem List - Problems (1) Acute gallstone pancreatitis Assessment/Plan: Doing well May d/c home today if LABS are WNL or LFT's continues to be on downward trend F/U at the office in 2 weeks. Code(s): K85.10 - BILIARY ACUTE PANCREATITIS WITHOUT NECROSIS OR INFECTION
[2019-01-23 13:54] LABS: BASO % 0.4 % (0-2.0); EOS % 0.6 % (0-4.5); HEMATOCRIT 28.9 % (32.4-45.2); HEMOGLOBIN 9.9 GM/dL (10.7-15.3); MCH 29.4 pg (25.7-33.7); MCHC 34.2 g/dl (32.0-36.0); MEAN PLT VOLUME 9.6 fl (7.5-11.1); PLATELET COUNT 175 K/MM3 (134-434); RBC 3.35 M/mm3 (3.60-5.2); RDW 13.8 % (11.6-15.6); WHITE BLOOD COUNT 4.3 K/mm3 (4.0-10.0)
[2019-01-23 14:23] LABS: ALBUMIN 3.1 g/dl (3.4-5.0); BILIRUBIN,TOTAL 1.5 mg/dL (0.2-1); CALCIUM 7.9 mg/dL (8.5-10.1); CREATININE 0.6 mg/dL (0.55-1.3); TOT PROT 5.7 g/dl (6.4-8.2)
[2019-01-23 14:39] LABS: BLOOD UREA NITROGEN 2.8 mg/dL (7-18)
--- NOTE | 2019-01-23 19:11 | PN ---
Progress Note, Physician History of Present Illness: Pt w/ some epigastric pain - Current Medication List Current Medications: Active Medications Acetaminophen (Tylenol -) 650 mg PO Q6H PRN PRN Reason: PAIN OR FEVER Last Admin: 01/23/19 09:11 Dose: 650 mg Heparin Sodium (Porcine) (Heparin -) 5,000 unit SQ BID [facility] Last Admin: 01/23/19 09:13 Dose: 5,000 unit Metronidazole (Flagyl 500mg Premixed Ivpb -) 500 mg in 100 mls @ 100 mls/hr IVPB Q8H-IV [facility] Last Admin: 01/23/19 17:54 Dose: 100 mls/hr Levofloxacin (Levaquin 500 Mg Premixed Ivpb -) 500 mg in 100 mls @ 100 mls/hr IVPB DAILY [facility]; Protocol Last Admin: 01/23/19 09:12 Dose: 100 mls/hr Dextrose/Sodium Chloride (D5-1/2ns -) 1,000 mls @ 125 mls/hr IV ASDIR VERA Last Admin: 01/23/19 15:00 Dose: 125 mls/hr Ondansetron HCl (Zofran Injection) 4 mg IVPUSH Q6H PRN PRN Reason: NAUSEA AND/OR VOMITING Last Admin: 01/23/19 10:47 Dose: 4 mg Oxycodone HCl (Roxicodone -) 5 mg PO Q4H PRN PRN Reason: PAIN LEVEL 1-5 Last Admin: 01/23/19 17:02 Dose: 5 mg Oxycodone HCl (Roxicodone -) 10 mg PO Q4H PRN PRN Reason: PAIN LEVEL 6-10 Pantoprazole Sodium (Protonix -) 20 mg PO PRN PRN PRN Reason: GERD Last Admin: 01/23/19 09:10 Dose: 20 mg - Objective Vital Signs: Vital Signs Temperature 98.4 F 01/23/19 14:00 Pulse Rate 64 01/23/19 14:00 Respiratory Rate 18 01/23/19 14:00 Blood Pressure 118/65 01/23/19 14:00 O2 Sat by Pulse Oximetry (%) 100 01/23/19 09:00 Neck: Yes: WNL, Supple Cardiovascular: Yes: WNL, Regular Rate and Rhythm Respiratory: Yes: WNL, Regular, CTA Bilaterally Gastrointestinal: Yes: Normal Bowel Sounds, Soft, Other ((+) incisional tenderness on palpation) Labs: CBC, BMP 01/23/19 13:20 01/23/19 13:20 INR, PTT INR 1.01 (0.83-1.09) 01/20/19 07:55 Problem List - Problems (1) Acute gallstone pancreatitis Assessment/Plan: S/P lap choely Increased abnormalities in labs NPO Increase IVF Cont IV antibxs Amylase/lipase/LFT's increased Code(s): K85.10 - BILIARY ACUTE PANCREATITIS WITHOUT NECROSIS OR INFECTION
[2019-01-24] MEDS: DEXTROSE 5%-0.45% SALINE 1,000 ML IV SCH (01:43)
[2019-01-24 07:26] LABS: HEMATOCRIT 29.4 % (32.4-45.2); HEMOGLOBIN 9.9 GM/dL (10.7-15.3); MCH 29.4 pg (25.7-33.7); MCHC 33.6 g/dl (32.0-36.0); MEAN CELL VOLUME 87.3 fl (80-96); MEAN PLT VOLUME 9.9 fl (7.5-11.1); PLATELET COUNT 185 K/MM3 (134-434); RBC 3.37 M/mm3 (3.60-5.2); WHITE BLOOD COUNT 3.6 K/mm3 (4.0-10.0)
[2019-01-24 08:06] LABS: BILIRUBIN,DIRECT 0.2 mg/dL (0.0-0.2); BILIRUBIN,TOTAL 0.4 mg/dL (0.2-1); CALCIUM 8.1 mg/dL (8.5-10.1); CREATININE 0.5 mg/dL (0.55-1.3); POTASSIUM 3.2 mmol/L (3.5-5.1); TOT PROT 5.4 g/dl (6.4-8.2)
[2019-01-24 08:49] LABS: BLOOD UREA NITROGEN 1.4 mg/dL (7-18)
[2019-01-24] MEDS: HEPARIN NA (PORCINE) 5,000 UNITS/ML 1ML VIAL SQ SCH ×2 (09:16→21:00)
--- NOTE | 2019-01-24 13:57 | PN ---
Progress Note, Physician Chief Complaint: gallstone pancreatitis, s/p laparoscopic cholecystectomy History of Present Illness: Had elevation of pancreatic liver enzymes yesterday Currently NPO and denies pain Had BM yesterday and feels hungry - Current Medication List Current Medications: Active Medications Acetaminophen (Tylenol -) 650 mg PO Q6H PRN PRN Reason: PAIN OR FEVER Last Admin: 01/23/19 09:11 Dose: 650 mg Heparin Sodium (Porcine) (Heparin -) 5,000 unit SQ BID [facility] Last Admin: 01/24/19 09:16 Dose: 5,000 unit Metronidazole (Flagyl 500mg Premixed Ivpb -) 500 mg in 100 mls @ 100 mls/hr IVPB Q8H-IV [facility] Last Admin: 01/24/19 09:15 Dose: 100 mls/hr Levofloxacin (Levaquin 500 Mg Premixed Ivpb -) 500 mg in 100 mls @ 100 mls/hr IVPB DAILY [facility]; Protocol Last Admin: 01/24/19 09:16 Dose: 100 mls/hr Potassium Chloride (Potassium Chloride 10 Meq Premix Ivpb -) 10 meq in 100 mls @ 100 mls/hr IVPB Q60M VERA Stop: 01/24/19 15:59 Potassium Chloride/Dextrose/Sod Cl (D5-1/2ns+20 Meq Kcl -) 20 meq in 1,000 mls @ 42 mls/hr IV ASDIR VERA Ondansetron HCl (Zofran Injection) 4 mg IVPUSH Q6H PRN PRN Reason: NAUSEA AND/OR VOMITING Last Admin: 01/23/19 20:02 Dose: 4 mg Oxycodone HCl (Roxicodone -) 5 mg PO Q4H PRN PRN Reason: PAIN LEVEL 1-5 Last Admin: 01/23/19 17:02 Dose: 5 mg Oxycodone HCl (Roxicodone -) 10 mg PO Q4H PRN PRN Reason: PAIN LEVEL 6-10 Pantoprazole Sodium (Protonix -) 20 mg PO PRN PRN PRN Reason: GERD Last Admin: 01/23/19 09:10 Dose: 20 mg - Objective Vital Signs: Vital Signs Temperature 98.1 F 01/24/19 10:00 Pulse Rate 67 01/24/19 10:00 Respiratory Rate 18 01/24/19 10:00 Blood Pressure 119/71 01/24/19 10:00 O2 Sat by Pulse Oximetry (%) 99 01/24/19 09:00 Constitutional: Yes: No Distress Eyes: Yes: Conjunctiva Clear Cardiovascular: Yes: Regular Rate and Rhythm Respiratory: Yes: CTA Bilaterally Gastrointestinal: Yes: Soft, Tenderness, Epigastrium Labs: CBC, BMP 01/24/19 06:45 01/24/19 06:45 INR, PTT INR 1.01 (0.83-1.09) 01/20/19 07:55 Problem List - Problems (1) Acute gallstone pancreatitis Assessment/Plan: Patient may have passed sludge resume clear liquid diet and advance as tolerated f/u liver function test and pancreatic enzymes in am If above remain abnormal, will repeat MRCP Code(s): K85.10 - BILIARY ACUTE PANCREATITIS WITHOUT NECROSIS OR INFECTION
[2019-01-24] MEDS: KCL 10 MEQ IVPB 10 MEQ/100 ML INFUS.BAG IVPB SCH ×3 (14:00→17:36)
[2019-01-24] MEDS: D5-1/2NS+20 MEQ KCL - 20 MEQ/1,000 ML INFUS.BAG IV SCH (14:05)
--- NOTE | 2019-01-24 20:50 | PN ---
Progress Note, Physician History of Present Illness: No new complaints - Current Medication List Current Medications: Active Medications Acetaminophen (Tylenol -) 650 mg PO Q6H PRN PRN Reason: PAIN OR FEVER Last Admin: 01/23/19 09:11 Dose: 650 mg Heparin Sodium (Porcine) (Heparin -) 5,000 unit SQ BID VERA Last Admin: 01/24/19 09:16 Dose: 5,000 unit Metronidazole (Flagyl 500mg Premixed Ivpb -) 500 mg in 100 mls @ 100 mls/hr IVPB Q8H-IV VERA Last Admin: 01/24/19 17:36 Dose: 100 mls/hr Levofloxacin (Levaquin 500 Mg Premixed Ivpb -) 500 mg in 100 mls @ 100 mls/hr IVPB DAILY VERA; Protocol Last Admin: 01/24/19 09:16 Dose: 100 mls/hr Potassium Chloride/Dextrose/Sod Cl (D5-1/2ns+20 Meq Kcl -) 20 meq in 1,000 mls @ 42 mls/hr IV ASDIR VERA Last Admin: 01/24/19 14:05 Dose: 42 mls/hr Ondansetron HCl (Zofran Injection) 4 mg IVPUSH Q6H PRN PRN Reason: NAUSEA AND/OR VOMITING Last Admin: 01/23/19 20:02 Dose: 4 mg Oxycodone HCl (Roxicodone -) 5 mg PO Q4H PRN PRN Reason: PAIN LEVEL 1-5 Last Admin: 01/23/19 17:02 Dose: 5 mg Oxycodone HCl (Roxicodone -) 10 mg PO Q4H PRN PRN Reason: PAIN LEVEL 6-10 Pantoprazole Sodium (Protonix -) 20 mg PO PRN PRN PRN Reason: GERD Last Admin: 01/23/19 09:10 Dose: 20 mg - Objective Vital Signs: Vital Signs Temperature 98.3 F 01/24/19 18:00 Pulse Rate 59 L 01/24/19 18:00 Respiratory Rate 18 01/24/19 18:00 Blood Pressure 115/69 01/24/19 18:00 O2 Sat by Pulse Oximetry (%) 99 01/24/19 09:00 Neck: Yes: WNL, Supple Cardiovascular: Yes: WNL, Regular Rate and Rhythm Respiratory: Yes: WNL, Regular, CTA Bilaterally Gastrointestinal: Yes: Soft, Other ((+) incisional tenderness on palpation) Labs: CBC, BMP 01/24/19 06:45 01/24/19 06:45 INR, PTT INR 1.01 (0.83-1.09) 01/20/19 07:55 Problem List - Problems (1) Acute gallstone pancreatitis Assessment/Plan: S/P lena sanders Check labs in am Advance diet Cont IVF Cont IV antibxs Code(s): K85.10 - BILIARY ACUTE PANCREATITIS WITHOUT NECROSIS OR INFECTION
[2019-01-25] MEDS: D5-1/2NS+20 MEQ KCL - 20 MEQ/1,000 ML INFUS.BAG IV SCH (06:59)
[2019-01-25 07:21] LABS: BASO % 0.6 % (0-2.0); EOS % 4.4 % (0-4.5); HEMATOCRIT 30.3 % (32.4-45.2); HEMOGLOBIN 10.1 GM/dL (10.7-15.3); LYMPH % 34.2 % (8-40); MCH 29.3 pg (25.7-33.7); MCHC 33.4 g/dl (32.0-36.0); MEAN CELL VOLUME 87.8 fl (80-96); MEAN PLT VOLUME 9.6 fl (7.5-11.1); MONO % 8.8 % (3.8-10.2); PLATELET COUNT 190 K/MM3 (134-434); RBC 3.45 M/mm3 (3.60-5.2); RDW 13.7 % (11.6-15.6); WHITE BLOOD COUNT 2.7 K/mm3 (4.0-10.0)
[2019-01-25 07:37] LABS: CALCIUM 8.3 mg/dL (8.5-10.1); CREATININE 0.5 mg/dL (0.55-1.3); POTASSIUM 3.6 mmol/L (3.5-5.1)
[2019-01-25 07:43] LABS: ALBUMIN 3.3 g/dl (3.4-5.0); BILIRUBIN,DIRECT 0.2 mg/dL (0.0-0.2); BILIRUBIN,TOTAL 0.4 mg/dL (0.2-1); TOT PROT 5.8 g/dl (6.4-8.2)
[2019-01-25 07:51] LABS: BLOOD UREA NITROGEN 1.8 mg/dL (7-18)
[2019-01-25] MEDS: HEPARIN NA (PORCINE) 5,000 UNITS/ML 1ML VIAL SQ SCH (09:59)
[2019-01-25] MEDS: ACETAMINOPHEN 325 MG TABLET (FP) PO PRN (11:33)
[2019-01-25 13:46] VITALS: BP 117/66; PULSE 61; TEMP 97.9
--- NOTE | 2019-01-25 17:36 | PATH ---
Surgical Pathology Report Patient Name: DELMY ALVAREZ Med. Rec. #: [id number] /Age/Gender: 1980 (Age: 38) / F Account: [id number] Location: [facility] MED/SURG Taken: 01/22/2019 Received: 01/22/2019 Reported: 01/25/2019 Physicians: Selena Silveira M.D. Specimen(s) Received GALLBLADDER Clinical History Acute gallstones Final Diagnosis GALLBLADDER, LAPAROSCOPIC CHOLECYSTECTOMY: CHRONIC CHOLECYSTITIS, CHOLESTEROLOSIS, ADENOMYOSIS, AND CHOLELITHIASIS. Electronically Signed Liza Yancey M.D. Gross Description Received in formalin, labeled "gallbladder," is a 6.5 x 2.3 x 2.0 cm. gallbladder with a 0.2 cm. in length portion of cystic duct attached. The outer surface is meraz-pink and varies from smooth to shaggy. The lumen contains green, tenacious bile. There are 4 meraz choleliths present averaging 0.1 cm in greatest dimension. The mucosa is green with gold cholesterol stippling. The fundus displays submucosal cystic spaces. The wall of the gallbladder measures 0.1 cm. in thickness. Mold Filling Operator sections are submitted in 2 cassettes as follows: 1-cystic duct margin and customer development representative mucosa; 2-fundus. /01/22/2019 [facility]01/22/2019
== END 2019-01-25 14:50 | disposition home or self-care (01) | DRG 263 ==
LOC: JER 05:59 → JERBED 09:56 → J7W 20:04
PROVIDERS: ADMIT Internal Medicine; ATTEND Internal Medicine
PROC: 0FT44ZZ Resection of Gallbladder, Percutaneous Endoscopic Approach (ICD-10-PCS; principal; 2019-01-22 09:30)
DX: K85.10 Biliary acute pancreatitis without necrosis or infection (principal); K80.50 Calculus of bile duct without cholangitis or cholecystitis without obstruction; Z98.84 Bariatric surgery status; R10.13 Epigastric pain; R94.5 Abnormal results of liver function studies; R11.0 Nausea
CPT/HCPCS: 36415; 74177-TC; 74181-TC; 76705-TC; 80048; 80053; 80076; 81003; 82150; 82248; 83690; 84703; 85025; 85027; 85610; 86850; 86900; 86901; 87086; 88304-TC; 94760; 99284-25; J1644

== ENCOUNTER 2019-08-08 07:30 | Emergency (ER) | payer OTHER ==
[2019-08-08 07:36] VITALS: TEMP 98.2; BMI 24.4
--- NOTE | 2019-08-08 08:02 | PDOC ---
History of Present Illness - General Chief Complaint: Vaginal Sxs Stated Complaint: VAGINAL SXS Time Seen by Provider: 08/08/19 07:58 - History of Present Illness Initial Comments: 08/08/19 08:01 HPI: 38 y/o F with no chronic medical problems presenting with vaginal itching that started 2 days ago in the morning. Later that afternoon her symptoms got worse and included external and internal vaginal itchiness. She tried OTC vagisil with no improvement. She also now complains of burning on urination and clear vaginal discharge. She reports chills, but no fever. She also now has BL low back pain. LMP 07/18/19 and sexually active with ; reports hx of UTI but no STIs. Denies fever, chest pain, SOB, abd pain, n/v. PMHx: as noted above ROS: as noted SHx: Denies tobacco use; occasional alcohol use; no rec drugs Allergies: NKDA ROS: GENERAL/CONSTITUTIONAL: No fever; +chills. No weakness. HEAD, EYES, EARS, NOSE AND THROAT: No change in vision. No ear pain or discharge. No sore throat. CARDIOVASCULAR: No chest pain or shortness of breath RESPIRATORY: No cough, wheezing, or hemoptysis. GASTROINTESTINAL: No nausea, vomiting, diarrhea or constipation. GENITOURINARY: No dysuria, frequency, or change in urination. MUSCULOSKELETAL:+back pain SKIN: No rash NEUROLOGIC: No headache, vertigo, loss of consciousness, or change in strength/ sensation. ENDOCRINE: No increased thirst. No abnormal weight change HEMATOLOGIC/LYMPHATIC: No anemia, easy bleeding, or history of blood clots. ALLERGIC/IMMUNOLOGIC: No hives or skin allergy. PE: GENERAL: Awake, alert, and fully oriented, no acute distress HEAD: No signs of trauma, normocephalic, atraumatic EYES: EOMI, sclera anicteric, conjunctiva clear ENT: Auricles normal inspection, hearing grossly normal, nares patent, oropharynx clear without exudates. Moist mucosa NECK: Normal ROM, no lymphadenopathy LUNGS: No increased work of breathing, symmetrical chest rise, clear to auscultation bilaterally, no wheezes, crackles or rhonchi HEART: Regular rate, regular rhythm, normal S1 and S2, no murmur, peripheral pulses 2+ and equal bilaterally. ABDOMEN: Soft, nondistended, nontender, normoactive bowel sounds. No guarding, no rebound. No masses. +BL CVAT MUSCULOSKELETAL: FROM NEUROLOGICAL: Cranial nerves II through XII grossly intact. Normal speech, normal gait, no focal sensorimotor deficits SKIN: Warm, Dry, normal turgor, no rashes or lesions noted Past History - Past Medical History Allergies/Adverse Reactions: Allergies Allergy/AdvReac Type Severity Reaction Status Date / Time Penicillins Allergy Mild Swelling/it Verified 08/08/19 07:35 miguel Home Medications: Ambulatory Orders Omeprazole 20 mg PO PRN PRN 01/17/19 Acetaminophen [Tylenol .Regular Strength -] 650 mg PO Q6H PRN #90 tablet Sulfamethoxazole/Trimethoprim [Bactrim Ds -] 1 tab PO BID #14 tablet 08/08/19 Anemia: No Asthma: Yes Cancer: No Cardiac Disorders: No CVA: No COPD: No CHF: No Dementia: No Diabetes: No GI Disorders: No Disorders: No HTN: No Hypercholesterolemia: No Liver Disease: No Seizures: No Thyroid Disease: No - Surgical History Orthopedic Surgery: Yes (LT KNEE SX) - Reproductive History (#): 4 Para: 3 Cervical CA: No Dysfunctional Uterine Bleeding: No Ectopic : No Endometrial CA: No Polycystic Ovaries: No Therapeutic (s) & number: No Tubal Ligation: No Spontaneous : 0 - Immunization History Td Vaccination: Yes TDAP Vaccination: Yes Immunization Up to Date: Yes - Psycho Social/Smoking Cessation Hx Smoking Status: No Smoking History: Never smoked Have you smoked in the past 12 months: No Number of Cigarettes Smoked Daily: 0 Cigars Per Day: 0 Hx Alcohol Use: Yes (social) Drug/Substance Use Hx: No Substance Use Type: None Hx Substance Use Treatment: No *Physical Exam - Vital Signs Last Vital Signs Temp Pulse Resp BP Pulse Ox 98.2 F 63 18 104/66 99 08/08/19 07:33 08/08/19 07:33 08/08/19 07:33 08/08/19 07:33 08/08/19 07:33 Medical Decision Making - Medical Decision Making 08/08/19 08:26 38 y/o F with no chronic medical problems presenting with vaginal itching that started 2 days ago in the morning associated with burning on urination and BL low back pain. VSS, AF. PE with BL CVAT -ua, ucx, gc urine, vaginal cx 08/08/19 09:48 will treat with 1 time dose fluc for empiric candidiasis coverage ua consistent with uti; will give 1st dose bactrim here and DC with 7 days worth discussed results with patient and will followup with pcp; all questions asnwered Discharge - Discharge Information Problems reviewed: Yes Clinical Impression/Diagnosis: Vaginal itching UTI (urinary tract infection) Qualifiers: Urinary tract infection type: site unspecified Hematuria presence: with hematuria Qualified Code(s): N39.0 - Urinary tract infection, site not specified ; R31.9 - Hematuria, unspecified Condition: Stable Disposition: HOME - Additional Discharge Information Prescriptions: Sulfamethoxazole/Trimethoprim [Bactrim Ds -] 1 tab PO BID #14 tablet - Follow up/Referral Referrals: Kranthi Guzmán MD [Primary Care Provider] - Shawnee Stephens MD [Staff Physician] - - Patient Discharge Instructions Patient Printed Discharge Instructions: DI for Vaginal Itching, DI for Urinary Tract Infection (UTI) Additional Instructions: Additional Instructions: Please return to the emergency department with any new or worsening symptoms or concerns including fever, worsening pain, persistent vomiting. Please follow up with your primary care physician in 1 week. A referral for a Street Vendor has been provided, please schedule an appointment within 2-3 days for re-evaluation. You may taken over the counter ibuprofen or tyelnol as needed for pain control; see packaging for instructions Please take Bactrim antibiotics twice a day for 1 week and followup with your doctor - Post Discharge Activity
--- NOTE | 2019-08-08 08:48 | PDOC ---
Attending Attestation - Resident Resident Name: Seun Carbajal - ED Attending Attestation I have performed the following: I have examined & evaluated the patient, The case was reviewed & discussed with the resident, I agree w/resident's findings & plan, Exceptions are as noted - HPI HPI: 08/08/19 08:45 38 F with no PMH presents to ED with vaginal itching and pain x 2 days. Pt reports hat she has had yeast infections in the past. This feels similar. Pt used OTC vagisil with no improvement. Endorses some burning with urination and white vaginal discharge. No F/C. Denies abdominal pain/flank pain. Pt is sexually active with only. No h/o STDs. - Physicial Exam PE: 08/08/19 08:47 "GENERAL: Awake, alert, and fully oriented, in no acute distress. HEAD: No signs of trauma EYES: PERRLA, EOMI, sclera anicteric, conjunctiva clear ENT: Auricles normal inspection, hearing grossly normal, nares patent, oropharynx clear without exudates. Moist mucosa NECK: Nontender, no stepoffs, Normal ROM, supple, no lymphadenopathy, JVD, or masses LUNGS: Breath sounds equal, clear to auscultation bilaterally. No wheezes, and no crackles HEART: Regular rate and rhythm, normal S1 and S2, no murmurs, rubs or gallops ABDOMEN: Soft, nontender, normoactive bowel sounds. No guarding, no rebound. No masses EXTREMITIES: Normal range of motion, no edema. No clubbing or cyanosis. No cords, erythema, or tenderness NEUROLOGICAL: Cranial nerves II through XII intact. 5/5 strength and sensation in all extremities, Normal speech, normal gait, normal cerebellar function SKIN: Warm, Dry, normal turgor, no rashes or lesions noted. : + copious white discharge, no CMT, no adnexal masses/tenderness - Medical Decision Making 08/08/19 08:47 38 F with vaginal itching and burning. Found to have copious white discharge. Likely candidiasis. - GC/CT - UA/UCx - Diflucan 08/08/19 10:02 UA consistent with UTI Will tx with keflex based on prior sensitivities Pt is well appearing, with normal vitals. Clinically stable for DC at this time. I discussed the physical exam findings, ancillary test results and final diagnoses with the patient. I answered all of the patient's questions. The patient was satisfied with the care received and felt comfortable with the discharge plan and treatment plan. The patient agrees to follow up with the primary care physician within 24-72 hours.
[2019-08-08 09:21] LABS: EPI CELLS 1.9 /HPF (0-5/HPF); HYALINE CASTS 8 /lpf (0-8); URINE APPEARANCE CLOUDY; URINE BACTERIA 107.2 /hpf (NEGATIVE); URINE BILIRUBIN NEGATIVE (NEGATIVE); URINE COLOR YELLOW; URINE GLUCOSE (UA) NEGATIVE (NEGATIVE); URINE KETONE NEGATIVE (NEGATIVE); URINE LEUK ESTERASE 3+ (NEGATIVE); URINE NITRITE NEGATIVE (NEGATIVE); URINE PROTEIN NEGATIVE (NEGATIVE); URINE RBC 11 /hpf (0-4); URINE UROBILINOGEN 0.2 mg/dL (0.2-1.0); URINE WBC 165 /hpf (0-5)
[2019-08-08] MEDS ORDERED: FLUCONAZOLE 150 MG TABLET PO ONE ×2 (09:41→09:46)
[2019-08-08] MEDS ORDERED: SULFAMETHOXAZOLE/TRIMETHOPRIM 800MG/160MG D.S. TABLET PO ONE (09:43)
[2019-08-08] MEDS ORDERED: SULFAMETHOXAZOLE/TRIMETHOPRIM 800MG/160MG D.S. TABLET ONE (09:46)
[2019-08-08 10:02] VITALS: BP 110/70; PULSE 64
[2019-08-08 15:01] LABS: YEAST RARE (NEGATIVE)
== END 2019-08-08 09:58 | disposition home or self-care (01) ==
LOC: JER 07:30
DX: N39.0 Urinary tract infection, site not specified (principal)
CPT/HCPCS: 36415; 81003; 84703; 87070; 87077; 87086; 87205; 87491; 87591; 99282-25

== ENCOUNTER 2019-08-30 13:43 | Emergency (ER) | payer OTHER ==
[2019-08-30 13:55] VITALS: BP 114/61; PULSE 80; TEMP 98; BMI 25.4
--- NOTE | 2019-08-30 13:57 | PDOC ---
Rapid Medical Evaluation Medical Evaluation: Allergies Allergy/AdvReac Type Severity Reaction Status Date / Time Penicillins Allergy Mild Swelling/it Verified 08/08/19 07:35 miguel I have performed a brief in-person evaluation of this patient. The patient presents with a chief complaint of: tingling of tongue/lips and face from 4 AM; states lower lip was swollen this AM but went away after taking Motrin; denies use of new meds/products; denies other complaints; hx of asthma, GERD Pertinent physical exam findings: In nad, no angioedema, oropharynx unremarkable , no focal deficits I have ordered the following: Labs The patient will proceed to the ED for further evaluation. 08/30/19 13:53
[2019-08-30 16:43] LABS: HEMATOCRIT 29.4 % (32.4-45.2); HEMOGLOBIN 9.5 GM/dL (10.7-15.3); MEAN CELL VOLUME 76.3 fl (80-96); RBC 3.86 M/mm3 (3.60-5.2); WHITE BLOOD COUNT 5.4 K/mm3 (4.0-10.0)
[2019-08-30 16:44] LABS: BASO % 0.8 % (0-2.0); EOS % 2.1 % (0-4.5); LYMPH % 32.3 % (8-40); MCH 24.6 pg (25.7-33.7); MCHC 32.3 g/dl (32.0-36.0); MEAN PLT VOLUME 8.8 fl (7.5-11.1); MONO % 6.9 % (3.8-10.2); NEUT % 57.9 % (42.8-82.8); PLATELET COUNT 218 K/MM3 (134-434); RDW 15.2 % (11.6-15.6)
[2019-08-30] MEDS ORDERED: FOLIC ACID INJECTION - 1 MG, THIAMINE HCL 100 MG, MULTIVIT INJECTION ADULT 10 ML in SOD... IVPB ONE (16:50)
[2019-08-30 17:12] LABS: ALBUMIN 3.6 g/dl (3.4-5.0); ALK PHOS 73 U/L (45-117); ANION GAP 9 MMOL/L (8-16); BILIRUBIN,TOTAL 0.4 mg/dL (0.2-1); BLOOD UREA NITROGEN 12.3 mg/dL (7-18); CHLORIDE 108 mmol/L (98-107); CO2 22 mmol/L (21-32); CREATININE 0.6 mg/dL (0.55-1.3); GLUCOSE,RANDOM 106 mg/dL (74-106); SGOT/AST 14 U/L (15-37); SGPT/ALT 16 U/L (13-61); SODIUM 140 mmol/L (136-145); TOT PROT 6.7 g/dl (6.4-8.2)
--- NOTE | 2019-08-30 19:30 | PDOC ---
History of Present Illness - General Stated Complaint: NAUSEA/FACE NUMBNESS Time Seen by Provider: 08/30/19 13:53 - History of Present Illness Initial Comments: 08/30/19 19:28 38-year-old female without comorbidities presents for evaluation of headache and lip swelling x1 day. She states she drank with some friends yesterday and developed the symptoms overnight. She states her lip swelling went away with some Motrin however her headache remains she also complains of intermittent nausea Past History - Past Medical History Allergies/Adverse Reactions: Allergies Allergy/AdvReac Type Severity Reaction Status Date / Time Penicillins Allergy Mild Swelling/it Verified 08/30/19 13:55 miguel Home Medications: Ambulatory Orders Omeprazole 40 mg PO PRN PRN 01/17/19 Acetaminophen [Tylenol .Regular Strength -] 650 mg PO Q6H PRN #90 tablet Cephalexin Monohydrate [Keflex -] 500 mg PO Q8H 10 Days #30 capsule 08/08/19 Anemia: No Asthma: Yes Cancer: No Cardiac Disorders: No CVA: No COPD: No CHF: No Dementia: No Diabetes: No GI Disorders: No Disorders: No HTN: No Hypercholesterolemia: No Liver Disease: No Seizures: No Thyroid Disease: No - Surgical History Orthopedic Surgery: Yes (LT KNEE SX) - Reproductive History (#): 4 Para: 3 Cervical CA: No Dysfunctional Uterine Bleeding: No Ectopic : No Endometrial CA: No Polycystic Ovaries: No Therapeutic (s) & number: No Tubal Ligation: No Spontaneous : 0 - Immunization History Td Vaccination: Yes TDAP Vaccination: Yes Immunization Up to Date: Yes - Psycho Social/Smoking Cessation Hx Smoking Status: No Smoking History: Never smoked Have you smoked in the past 12 months: No Number of Cigarettes Smoked Daily: 0 Cigars Per Day: 0 Information on smoking cessation initiated: No Hx Alcohol Use: Yes (social) Drug/Substance Use Hx: No Substance Use Type: None Hx Substance Use Treatment: No Review of Systems - Review of Systems Constitutional: No: Fever ABD/GI: Yes: Nausea. No: Vomiting Neurological: Yes: Headache *Physical Exam - Vital Signs Last Vital Signs Temp Pulse Resp BP Pulse Ox 98 F 80 18 114/61 98 08/30/19 13:52 08/30/19 13:52 08/30/19 13:52 08/30/19 13:52 08/30/19 13:52 - Physical Exam 08/30/19 19:29 GENERAL: The patient is awake, alert, and fully oriented, in no acute distress. HEAD: Normal with no signs of trauma. EYES: sclera anicteric, conjunctiva clear. ENT: Ears normal tympanic membranes normal oropharynx clear uvula midline NECK: Normal range of motion LUNGS: Breath sounds equal, clear to auscultation bilaterally. No wheezes, and no crackles. HEART: S1 and S2 without murmur, rub or gallop. ABDOMEN: Soft, nontender, normoactive bowel sounds. No guarding, no rebound. No masses. EXTREMITIES: Normal range of motion, no edema. No clubbing or cyanosis. No cords, erythema, or tenderness. NEUROLOGICAL: Cranial nerves II through XII grossly intact. PSYCH: Normal mood, normal affect. SKIN: Warm, Dry, normal turgor, no rashes or lesions noted. ED Treatment Course - LABORATORY CBC & Chemistry Diagram: 08/30/19 16:23 08/30/19 16:09 - ADDITIONAL ORDERS Additional order review: Laboratory Results 08/30/19 08/30/19 16:23 16:09 Sodium 140 Potassium 4.0 Chloride 108 H Carbon Dioxide 22 Anion Gap 9 BUN 12.3 Creatinine 0.6 Est GFR (CKD-EPI)AfAm 134.96 Est GFR (CKD-EPI)NonAf 116.44 Random Glucose 106 Calcium 9.0 Total Bilirubin 0.4 AST 14 L ALT 16 Alkaline Phosphatase 73 Total Protein 6.7 Albumin 3.6 Urine HCG, Qual Negative Alcohol, Quantitative < 3 08/30/19 16:23 RBC 3.86 MCV 76.3 L MCHC 32.3 RDW 15.2 MPV 8.8 Neutrophils % 57.9 Lymphocytes % 32.3 Monocytes % 6.9 Eosinophils % 2.1 Basophils % 0.8 Medical Decision Making - Medical Decision Making 08/30/19 19:29 Symptoms resolved after IV fluids and hydration follow-up with primary care physician diagnosis is adverse effects of alcohol Discharge - Discharge Information Problems reviewed: Yes Clinical Impression/Diagnosis: Headache, Adverse effect of alcohol product Condition: Stable Disposition: HOME - Admission No - Follow up/Referral Referrals: Kranthi Guzmán MD [Primary Care Provider] - - Patient Discharge Instructions Additional Instructions: Maintain hydration with Pedialyte. Return to the emergency room for worsening or return of symptoms. Tylenol and Motrin for headaches as directed. Without fail follow-up with your primary care physician in 1 to 2 days for further evaluation and treatment options. - Post Discharge Activity
== END 2019-08-30 19:44 | disposition home or self-care (01) ==
LOC: JERFT 13:43
PROC: 3E033GC Introduction of Other Therapeutic Substance into Peripheral Vein, Percutaneous Approach (ICD-10-PCS; principal; 2019-08-30)
DX: T51.91XA Toxic effect of unspecified alcohol, accidental (unintentional), initial encounter (principal); R51 Headache; Y92.89 Other specified places as the place of occurrence of the external cause
CPT/HCPCS: 36415; 80053; 80307; 84703; 85025; 96365; 96366; 99284-25; J7030

== ENCOUNTER 2020-02-21 22:15 | Emergency (ER) | payer OTHER ==
[2020-02-21 22:25] VITALS: BP 115/64; PULSE 79; TEMP 98.5; BMI 26.4
--- NOTE | 2020-02-21 22:33 | PDOC ---
History of Present Illness - General Chief Complaint: Vaginal Bleeding Stated Complaint: 7 WKS /BLEEDING Time Seen by Provider: 02/21/20 22:28 History Source: Patient - History of Present Illness Initial Comments: 02/22/20 00:04 39-year-old female complaining of lower abdominal cramping and vaginal spotting for the last 2 to 3 days. Patient reports today is worse than the other days. Patient is G6, P3 most recent miscarriage in October 2019. Denies nausea, vomiting, diarrhea, urinary symptoms. LMP December 2019 Past History - Medical History Allergies/Adverse Reactions: Allergies Allergy/AdvReac Type Severity Reaction Status Date / Time Penicillins Allergy Mild Swelling/it Verified 02/21/20 22:22 miguel Home Medications: Ambulatory Orders Omeprazole 40 mg PO PRN PRN 01/17/19 Acetaminophen [Tylenol .Regular Strength -] 650 mg PO Q6H PRN #90 tablet 01/25/19 Anemia: No Asthma: Yes Cancer: No Cardiac Disorders: No CVA: No COPD: No CHF: No Dementia: No Diabetes: No GI Disorders: No Disorders: No HTN: No Hypercholesterolemia: No Liver Disease: No Seizures: No Thyroid Disease: No - Surgical History Orthopedic Surgery: Yes (LT KNEE SX) - Reproductive History Is Patient Now?: Yes (#): 5 Para: 3 Cervical CA: No Dysfunctional Uterine Bleeding: No Ectopic : No Endometrial CA: No Polycystic Ovaries: No Therapeutic (s) & number: No Tubal Ligation: No Spontaneous : 0 - Immunization History Td Vaccination: Yes TDAP Vaccination: Yes Immunization Up to Date: Yes - Psycho-Social/Smoking History Smoking Status: No Smoking History: Never smoked Have you smoked in the past 12 months: No Number of Cigarettes Smoked Daily: 0 Cigars Per Day: 0 - Substance Abuse Hx (Audit-C & DAST Scrn) How often the patient has a drink containing alcohol: Never Score: In Men: 4 or > Positive; In Women: 3 or > Positive: 0 Screen Result (Pos requires Nsg. Audit-10AR): Negative *Physical Exam - Vital Signs Last Vital Signs Temp Pulse Resp BP Pulse Ox 98.5 F 79 18 115/64 99 02/21/20 22:22 02/21/20 22:22 02/21/20 22:22 02/21/20 22:22 02/21/20 22:22 - Physical Exam General Appearance: Yes: Appropriately Dressed Respiratory/Chest: positive: Lungs Clear, Normal Breath Sounds Cardiovascular: positive: Regular Rhythm, Regular Rate Female Pelvic Exam: positive: normal external exam, cervical os closed, adnexal tenderness, vaginal bleeding (in vault) Gastrointestinal/Abdominal: positive: Normal Bowel Sounds, Soft. negative: Tender Musculoskeletal: positive: Normal Inspection. negative: CVA Tenderness Extremity: positive: Normal Capillary Refill, Normal Inspection, Normal Range of Motion Integumentary: positive: Normal Color, Dry, Warm Neurologic: positive: Fully Oriented, Alert, Normal Mood/Affect ED Treatment Course - LABORATORY CBC & Chemistry Diagram: 02/21/20 22:33 - RADIOLOGY Radiology Studies Ordered: Category Date Time Status TRANSVAGINAL US PREG [US] Stat Ultrasound 02/21/20 22:29 Ordered ED Progress Note - Progress Note Progress Note: 02/22/20 04:24 A: vaginal bleeding. PL labs type and screen beta hcg TVUS Discharge - Discharge Information Problems reviewed: Yes Clinical Impression/Diagnosis: Vaginal bleeding affecting early , Threatened in early Disposition: HOME - Follow up/Referral Referrals: Kranthi Guzmán MD [Primary Care Provider] - Bina England MD [Staff Physician] - Call tomorrow - Patient Discharge Instructions Patient Printed Discharge Instructions: DI for Vaginal Bleeding Additional Instructions: Please follow-up with your instructor ground services as soon as possible Return to the ER if you are soaking 2 pads per hour, severe abdominal pain, or worsening symptoms. - Post Discharge Activity
[2020-02-21 22:57] LABS: EOS % 2.4 % (0-4.5); HEMATOCRIT 35.8 % (32.4-45.2); HEMOGLOBIN 11.8 GM/dL (10.7-15.3); LYMPH % 41.1 % (8-40); MCH 27.4 pg (25.7-33.7); MCHC 32.9 g/dl (32.0-36.0); MEAN PLT VOLUME 9.3 fl (7.5-11.1); MONO % 7.6 % (3.8-10.2); NEUT % 47.9 % (42.8-82.8); PLATELET COUNT 241 K/MM3 (134-434); RBC 4.31 M/mm3 (3.60-5.2); RDW 13.4 % (11.6-15.6); WHITE BLOOD COUNT 5.7 K/mm3 (4.0-10.0)
[2020-02-22] MEDS ORDERED: ACETAMINOPHEN 325 MG TABLET (FP) PO ONE (00:07)
[2020-02-22] MEDS ORDERED: ACETAMINOPHEN 325 MG TABLET (FP) ONE (00:15)
[2020-02-22 02:02] LABS: URINE APPEARANCE Clear; URINE BILIRUBIN Negative (NEGATIVE); URINE COLOR Yellow; URINE GLUCOSE (UA) Negative (NEGATIVE); URINE KETONE Negative (NEGATIVE); URINE LEUK ESTERASE Negative (NEGATIVE); URINE NITRITE Negative (NEGATIVE); URINE PROTEIN Negative (NEGATIVE); URINE UROBILINOGEN 0.2 mg/dL (0.2-1.0)
[2020-02-22 02:08] LABS: EPI CELLS 20.4 /uL (0-25.1); HYALINE CASTS 0.89 /uL (0-3.1); URINE BACTERIA 1015.5 /uL (0-1359); URINE WBC 4.4 /uL (0-25.8)
--- NOTE | 2020-02-22 03:05 | PDOC ---
*Physical Exam - Vital Signs Last Vital Signs Temp Pulse Resp BP Pulse Ox 98.5 F 79 18 115/64 99 02/21/20 22:22 02/21/20 22:22 02/21/20 22:22 02/21/20 22:22 02/21/20 22:22 ED Treatment Course - LABORATORY CBC & Chemistry Diagram: 02/21/20 22:33 - ADDITIONAL ORDERS Additional order review: Laboratory Results 02/22/20 02/21/20 02/21/20 01:48 22:33 22:33 Beta HCG, Quant 3662.7 Urine Color Yellow Urine Appearance Clear Urine pH 6.0 Ur Specific [place] 1.025 Urine Protein Negative Urine Glucose (UA) Negative Urine Ketones Negative Urine Blood 3+ H Urine Nitrite Negative Urine Bilirubin Negative Urine Urobilinogen 0.2 Ur Leukocyte Esterase Negative Urine WBC (Auto) 4.4 Urine RBC (Auto) 75.0 Urine Casts (Auto) 0.89 U Epithel Cells (Auto) 20.4 Urine Bacteria (Auto) 1015.5 Blood Type O POSITIVE Antibody Screen Negative 02/21/20 22:33 RBC 4.31 MCV 83.0 MCHC 32.9 RDW 13.4 MPV 9.3 Neutrophils % 47.9 D Lymphocytes % 41.1 H D Monocytes % 7.6 Eosinophils % 2.4 Basophils % 1.0 - Medications Given in the ED: ED Medications Discontinued Medications Generic Name Dose Route Start Last Admin Trade Name Sharla PRN Reason Stop Dose Admin Acetaminophen 650 mg 02/22/20 00:07 02/22/20 00:18 Tylenol - PO 02/22/20 00:08 650 mg ONCE ONE Administration Medical Decision Making - Medical Decision Making 02/22/20 03:04 Patient seen by the advanced practice provider under my supervision. Ancillary testing reviewed as necessary. I agree with plan as outlined by the advanced practice provider. Discharge - Discharge Information Problems reviewed: Yes Clinical Impression/Diagnosis: Vaginal bleeding affecting early , Threatened in early Disposition: HOME - Follow up/Referral Referrals: Bina England MD [Staff Physician] - Call tomorrow Kranthi Guzmán MD [Primary Care Provider] - - Patient Discharge Instructions Patient Printed Discharge Instructions: DI for Vaginal Bleeding Additional Instructions: Please follow-up with your tip length checker as soon as possible Return to the ER if you are soaking 2 pads per hour, severe abdominal pain, or worsening symptoms. - Post Discharge Activity
== END 2020-02-22 03:03 | disposition home or self-care (01) ==
LOC: JER 22:15
DX: O26.859 Spotting complicating pregnancy, unspecified trimester (principal); O20.0 Threatened abortion
CPT/HCPCS: 36415; 76817-TC; 81003; 84702; 85025; 86850; 86900; 86901; 99284-25

== ENCOUNTER 2020-02-23 19:05 | Emergency (ER) | payer OTHER ==
[2020-02-23 19:24] VITALS: PULSE 77; BMI 26.4
--- NOTE | 2020-02-23 19:47 | PDOC ---
*Physical Exam - Vital Signs Last Vital Signs Temp Pulse Resp BP Pulse Ox 98.6 F 77 19 116/68 99 02/23/20 19:21 02/23/20 19:21 02/23/20 19:21 02/23/20 19:21 02/23/20 19:21 - Physical Exam 02/23/20 19:46 HPI: ROS: GENERAL/CONSTITUTIONAL: No fever/chills. No weakness. HEAD, EYES, EARS, NOSE AND THROAT: No change in vision. No ear pain or discharge. No sore throat. CARDIOVASCULAR: No chest pain or shortness of breath. RESPIRATORY: No cough, wheezing, or hemoptysis. GASTROINTESTINAL: No nausea, vomiting, diarrhea or constipation. GENITOURINARY: No dysuria, frequency, or change in urination. MUSCULOSKELETAL: No joint or muscle swelling or pain. No neck or back pain. SKIN: No rash NEUROLOGIC: No headache, vertigo, loss of consciousness, or change in strength/sensation. ENDOCRINE: No increased thirst. No abnormal weight change. HEMATOLOGIC/LYMPHATIC: No anemia, easy bleeding, or history of blood clots. ALLERGIC/IMMUNOLOGIC: No hives or skin allergy. PMH: PSx: Social Hx: Meds: Allergies: PE: GENERAL: Awake, alert, and fully oriented, in no acute distress HEAD: No signs of trauma EYES: PERRLA, EOMI, sclera anicteric, conjunctiva clear ENT: Auricles normal inspection, hearing grossly normal, nares patent, oropharynx clear without exudates. Moist mucosa NECK: Normal ROM, supple, no lymphadenopathy, JVD, or masses LUNGS: Breath sounds equal, clear to auscultation bilaterally. No wheezes, and no crackles HEART: Regular rate and rhythm, normal S1 and S2, no murmurs, rubs or gallops ABDOMEN: Soft, nontender, normoactive bowel sounds. No guarding, no rebound. No masses EXTREMITIES: Normal range of motion, no edema. No clubbing or cyanosis. No cords, erythema, or tenderness NEUROLOGICAL: Cranial nerves II through XII grossly intact. Normal speech, normal gait SKIN: Warm, Dry, normal turgor, no rashes or lesions noted. MDM: Discharge - Follow up/Referral Referrals: Kranthi Guzmán MD [Primary Care Provider] - - Patient Discharge Instructions - Post Discharge Activity
--- NOTE | 2020-02-23 19:48 | PDOC ---
History of Present Illness - General Chief Complaint: Vaginal Bleeding Stated Complaint: 7 WKS PREG/VAGINAL BLEEDING Time Seen by Provider: 02/23/20 19:45 History Source: Patient Exam Limitations: No Limitations - History of Present Illness Initial Comments: 02/23/20 19:48 HPI: This is a 39 y/o female w/ no PMH presenting to the ED because of vaginal bleeding with passage of clots that began this morning. It progressed to lower abdominal cramping later in the evening, and she reports the passage of large amount of blood in the toilet. She said that she felt something dropping and thought she was having a miscarriage. She was previously seen in the ED on Friday due to light vaginal spotting, and a transvaginal US was done showing a closed cervix and a sac in the uterus (approx 5.5 weeks). The patient is currently complaining of continued cramping, and nausea with no vomiting. ROS: GENERAL/CONSTITUTIONAL: No fever/chills. No weakness. CARDIOVASCULAR: No chest pain or shortness of breath. RESPIRATORY: No cough, wheezing GASTROINTESTINAL: Yes nausea, no vomiting. Lower abdominal cramping GENITOURINARY: No dysuria, frequency. Yes vaginal bleeding with clots MUSCULOSKELETAL: No joint or muscle swelling or pain. No neck or back pain. NEUROLOGIC: No headache, or change in strength/sensation. ALLERGIC/IMMUNOLOGIC: No hives or skin allergy. OBGYN: Women to women PMH: Hx of repeated miscarriages PSx: Gastric sleeve Social Hx: Denied etoh and tobacco Meds: Currently on nitrofurantoin, metronidazole, and fluconazole Allergies: Penicillins PE: GENERAL: Awake, alert, and fully oriented, in no acute distress. Patient is non- toxic, conversing normally. HEAD: No signs of trauma EYES: EOMI, sclera anicteric NECK: Normal ROM, supple LUNGS: Breath sounds equal, clear to auscultation bilaterally. HEART: Regular rate and rhythm, normal S1 and S2 ABDOMEN: Soft, nontender. No guarding, no rebound. No masses EXTREMITIES: Normal range of motion, no edema. NEUROLOGICAL: Normal speech, normal gait PELVIC: External genitalia normal without lesions. Pooling of blood in vaginal vault. Cervix is closed. Uterus is non-tender. MDM: 02/23/20 20:19 This is a 39 y/o female w/ no PMH presenting to the ED because of vaginal bleeding with passage of clots that began this morning. It progressed to lower abdominal cramping later in the evening, and she reports the passage of large amount of blood in the toilet. She was previously seen in the ED on Friday due to light vaginal spotting, and a transvaginal US was done showing a closed cervix and a sac in the uterus (approx 5.5 weeks). - Patient most likely having a miscarriage. - Will do pelvic exam, TVUS - Repeat CBC, BMP, bHCG - Pelvic exam with blood in the vaginal vault, closed cervical oz TVUS: Impression: In comparison to an exam performed on 02/21/2020 a previously iden tified 1 cm spherical fluid structure within the endometrial canal now demonstrates an elliptical configuration with a 0.6 cm mean diameter. As on the previous exam no yolk sac or embryonic pole is identified. A possible small amount of debris is seen within this fluid structure. The appearance is s uggestive of an anembryonic gestation/blighted ovum, and less likely representing a pseudogestational sac on the basis of ectopic . No gross adnexal pathology is identified. Clinical/laboratory correlation is suggested. Continued close follow up sonography may be performed. 02/23/20 22:13 - Signed out to Dr. Torrez Past History - Medical History Allergies/Adverse Reactions: Allergies Allergy/AdvReac Type Severity Reaction Status Date / Time Penicillins Allergy Mild Swelling/it Verified 02/21/20 22:22 miguel Home Medications: Ambulatory Orders Omeprazole 40 mg PO PRN PRN 01/17/19 Acetaminophen [Tylenol .Regular Strength -] 650 mg PO Q6H PRN #90 tablet 01/25/19 Anemia: No Asthma: Yes Cancer: No Cardiac Disorders: No CVA: No COPD: No CHF: No Dementia: No Diabetes: No GI Disorders: No Disorders: No HTN: No Hypercholesterolemia: No Liver Disease: No Seizures: No Thyroid Disease: No - Surgical History Orthopedic Surgery: Yes (LT KNEE SX) - Reproductive History Is Patient Now?: Yes (#): 5 Para: 3 Cervical CA: No Dysfunctional Uterine Bleeding: No Ectopic : No Endometrial CA: No Polycystic Ovaries: No Therapeutic (s) & number: No Tubal Ligation: No Spontaneous : 0 - Immunization History Td Vaccination: Yes TDAP Vaccination: Yes Immunization Up to Date: Yes - Psycho-Social/Smoking History Smoking Status: No Smoking History: Never smoked Have you smoked in the past 12 months: No Number of Cigarettes Smoked Daily: 0 Cigars Per Day: 0 - Substance Abuse Hx (Audit-C & DAST Scrn) How often the patient has a drink containing alcohol: Never Score: In Men: 4 or > Positive; In Women: 3 or > Positive: 0 Screen Result (Pos requires Nsg. Audit-10AR): Negative In the last yr the pt used illegal drug/Rx for NonMed reason: No Score: Yes response is considered Positive: 0 Screen Result (Positive result requires Nsg. DAST-10): Negative *Physical Exam - Vital Signs Last Vital Signs Temp Pulse Resp BP Pulse Ox 98.6 F 77 19 116/68 99 02/23/20 19:21 02/23/20 19:21 02/23/20 19:21 02/23/20 19:21 02/23/20 19:21 ED Treatment Course - LABORATORY CBC & Chemistry Diagram: 02/23/20 21:00 02/23/20 21:00 Discharge - Discharge Information Problems reviewed: Yes Clinical Impression/Diagnosis: Miscarriage, Blighted ovum, Vaginal bleeding affecting early Condition: Stable Disposition: HOME - Admission No - Follow up/Referral Referrals: Bina England MD [Staff Physician] - Kranthi Guzmán MD [Primary Care Provider] - - Patient Discharge Instructions Patient Printed Discharge Instructions: DI for Miscarriage Additional Instructions: Today you were evaluated for vaginal bleeding. Your ultrasound shows that you have unfortunately suffered a miscarriage. Over the next few days, you will experience more pain and bleeding and your miscarriage completes. Take Tylenol as instructed on the bottle for pain. You need to see your OBGYN in the next 2 d ays for further care. Your beta HCG is 2960, and oyu need to get this test repeated in 2 days. At home, rest and do not over exert yourself. If you experience worsening bleeding (over 4 pads an hour for multiple hours), difficulty bleeding, shortness of breath, or any other new or concerning symptom s, please return to the emergency room. - Post Discharge Activity
[2020-02-23] MEDS ORDERED: ONDANSETRON 4 MG TABLET PO ONE (20:18)
[2020-02-23] MEDS ORDERED: ACETAMINOPHEN 325 MG TABLET (FP) PO ONE (20:23)
--- NOTE | 2020-02-23 20:33 | PDOC ---
Documentation entered by Maggie Fontanez SCRIBE, acting as scribe for Skylar Gumzan DO. Skylar Guzman DO: This documentation has been prepared by the sladeibe, Maggie Fontanez SCRIBE, under my direction and personally reviewed by me in its entirety. I confirm that the documentation accurately reflects all work, treatment, procedures, and medical decision making performed by me. Attending Attestation - Resident Resident Name: Sangeeta Suarze - ED Attending Attestation I have performed the following: I have examined & evaluated the patient, The case was reviewed & discussed with the resident, I agree w/resident's findings & plan, Exceptions are as noted - HPI HPI: 02/23/20 20:41 The patient is a 39-year-old female with a past medical history significant for asthma who presents to the emergency department with vaginal bleeding. The patient presents with increased vaginal bleeding since this morning with clot passing. The patient reports she went through one pad today but she bleeds more when she uses the bathroom. The patient reports she was sitting down eating and felt something in her stomach, she went to the bathroom and she felt something drop. The patient reports she felt like she had a miscarriage. The patient reports associated symptoms of lower abdominal cramping and nausea. Denies urinary symptoms. The patient reports her recent miscarriage was in October 2019, prior October 2018. LMP: December 2019 Surgical history: Gastric sleeve [employer] SECTION: Women to women - Physicial Exam PE: 02/23/20 20:52 Constitutional: Awake, alert, oriented. No acute distress. Head: Normocephalic. Atraumatic Eyes: PERRL. EOMI. Conjunctivae are not pale. ENT: Mucous membranes are moist and intact. Posterior pharynx without exudate or erythema. Uvula midline. Neck: Supple. Full ROM. No lymphadenopathy. Cardiovascular: Regular rate. Regular rhythm. S1, S2 regular. Distal pulses are 2+ and symmetric. Pulmonary/Chest: No evidence of respiratory distress. Clear to auscultation bilaterally No wheezing, rales or rhonchi. Abdominal: Soft and nondistended. There is no tenderness. No rebound, guarding or rigidity. Good bowel sounds. Pelvic exam per Dr. Suarez Back: No CVA tenderness. Musculoskeletal: No edema. No cyanosis. No clubbing. Full range of motion in all extremities. No calf tenderness. Radial/pedal pulses are intact and 2+ bilaterally Skin: Skin is warm and dry. No petechiae. No purpura. Neurological: Alert and oriented to person, place, and time. Cranial nerves II-XII are grossly intact. Normal speech. Strength is grossly symmetric. No sensory deficits. Psychiatric: Good eye contact. Normal interaction, affect and behavior. - Medical Decision Making 02/23/20 20:30 a/p: 39yo female with vaginal bleeding -seen 2 days ago -beta around 3000 and 5w5d poss iup on ultrasound -cramping today, heavier bleeding, passing clots -only bleeding when she uses the bathroom and had a gush of blood -concern for miscarriage, her last 2 preg resulted in early miscarriages -will repeat labs -was Rh + 2 days ago -will repeat ultrasound -pelvic exam 02/23/20 22:38 pt with decreasing beta and blighted ovum on ultrasound cbc pending 02/23/20 23:11 cbc stable stable for dc to home with expectant management of a miscarriage Discharge - Discharge Information Problems reviewed: Yes Clinical Impression/Diagnosis: Miscarriage, Blighted ovum, Vaginal bleeding affecting early Condition: Stable Disposition: HOME - Follow up/Referral Referrals: Bina England MD [Staff Physician] - Kranthi Guzmán MD [Primary Care Provider] - - Patient Discharge Instructions Patient Printed Discharge Instructions: DI for Miscarriage Additional Instructions: Today you were evaluated for vaginal bleeding. Your ultrasound shows that you have unfortunately suffered a miscarriage. Over the next few days, you will experience more pain and bleeding and your miscarriage completes. Take Tylenol as instructed on the bottle for pain. You need to see your OBGYN in the next 2 days for further care. Your beta HCG is 2960, and oyu need to get this test repeated in 2 days. At home, rest and do not over exert yourself. If you experience worsening bleeding (over 4 pads an hour for multiple hours), difficulty bleeding, shortness of breath, or any other new or concerning symptoms, please return to the emergency room. - Post Discharge Activity
[2020-02-23] MEDS ORDERED: ACETAMINOPHEN 325 MG TABLET (FP) ONE (20:40)
[2020-02-23] MEDS ORDERED: ONDANSETRON *ODT* 4 MG TABLET ONE (20:40)
[2020-02-23 22:10] LABS: ALBUMIN 3.8 g/dl (3.4-5.0); BILIRUBIN,TOTAL 0.2 mg/dL (0.2-1); BLOOD UREA NITROGEN 9.7 mg/dL (7-18); CALCIUM 9.1 mg/dL (8.5-10.1); CREATININE 0.7 mg/dL (0.55-1.3); POTASSIUM 4.5 mmol/L (3.5-5.1); TOT PROT 6.8 g/dl (6.4-8.2)
[2020-02-23 22:26] LABS: EPI CELLS 7 /uL (0-25.1); HYALINE CASTS 0 /uL (0-3.1); URINE APPEARANCE CLEAR; URINE BACTERIA 51 /uL (0-1359); URINE BILIRUBIN NEGATIVE (NEGATIVE); URINE COLOR DK YELLOW; URINE GLUCOSE (UA) NEGATIVE (NEGATIVE); URINE KETONE NEGATIVE (NEGATIVE); URINE LEUK ESTERASE NEGATIVE (NEGATIVE); URINE NITRITE NEGATIVE (NEGATIVE); URINE PROTEIN NEGATIVE (NEGATIVE); URINE RBC 1353 /uL (0-23.9); URINE UROBILINOGEN 0.2 mg/dL (0.2-1.0); URINE WBC 3 /uL (0-25.8)
[2020-02-23 22:47] LABS: BASO % 0.8 % (0-2.0); EOS % 2.2 % (0-4.5); HEMATOCRIT 33.3 % (32.4-45.2); LYMPH % 32.9 % (8-40); MCH 27.3 pg (25.7-33.7); MEAN CELL VOLUME 82.7 fl (80-96); MEAN PLT VOLUME 9.8 fl (7.5-11.1); MONO % 6.7 % (3.8-10.2); NEUT % 57.4 % (42.8-82.8); PLATELET COUNT 237 K/MM3 (134-434); RBC 4.03 M/mm3 (3.60-5.2); RDW 13.6 % (11.6-15.6); WHITE BLOOD COUNT 6.7 K/mm3 (4.0-10.0)
--- NOTE | 2020-02-23 22:47 | PDOC ---
*Physical Exam - Vital Signs Last Vital Signs Temp Pulse Resp BP Pulse Ox 98.6 F 77 19 116/68 99 02/23/20 19:21 02/23/20 19:21 02/23/20 19:21 02/23/20 19:21 02/23/20 19:21 ED Treatment Course - LABORATORY CBC & Chemistry Diagram: 02/23/20 21:00 02/23/20 21:00 - ADDITIONAL ORDERS Additional order review: Laboratory Results 02/23/20 02/23/20 21:00 20:43 Sodium 139 Potassium 4.5 Chloride 108 H Carbon Dioxide 25 Anion Gap 6 L BUN 9.7 Creatinine 0.7 Est GFR (CKD-EPI)AfAm 127.39 Est GFR (CKD-EPI)NonAf 109.91 Random Glucose 81 Calcium 9.1 Total Bilirubin 0.2 AST 16 ALT 14 Alkaline Phosphatase 70 Total Protein 6.8 Albumin 3.8 Beta HCG, Quant 2960.3 Urine Color Dk yellow Urine Appearance Clear Urine pH 7.0 Ur Specific [place] 1.014 Urine Protein Negative Urine Glucose (UA) Negative Urine Ketones Negative Urine Blood 3+ H Urine Nitrite Negative Urine Bilirubin Negative Urine Urobilinogen 0.2 Ur Leukocyte Esterase Negative Urine WBC (Auto) 3 Urine RBC (Auto) 1353 Urine Casts (Auto) 0 U Epithel Cells (Auto) 7 Urine Bacteria (Auto) 51 02/23/20 20:43 RBC Cancelled MCV Cancelled MCHC Cancelled RDW Cancelled MPV Cancelled Neutrophils % Cancelled Lymphocytes % Cancelled Monocytes % Cancelled Eosinophils % Cancelled Basophils % Cancelled - Medications Given in the ED: ED Medications Discontinued Medications Generic Name Dose Route Start Last Admin Trade Name Sharla PRN Reason Stop Dose Admin Acetaminophen 650 mg 02/23/20 20:23 02/23/20 21:23 Tylenol - PO 02/23/20 20:24 650 mg ONCE ONE Administration Ondansetron HCl 4 mg 02/23/20 20:18 02/23/20 21:23 Zofran - PO 02/23/20 20:19 4 mg ONCE ONE Administration Medical Decision Making - Medical Decision Making 02/23/20 22:00 Signed out to me by Dr. Suarez. 7 weeks here for vaginal bleeding. Here 2 days prior for scant spotting, now clots. Has had 3 miscarriages and 3 viable pregnancies. Nauseated without vomiting. Blood Type O+, no Rhogam needed. 02/23/20 22:35 Getting CBC/CMP/Beta with TVUS. CMP WNL Beta 2960 down from 3662. CBC hemolyzed, pending repeat. 02/23/20 22:58 TVUS suggestive of blighted ovum, no yolk sac or embryonic pole, no FHR. Likely missed . Pending CBC repeat and can discharge home with expectant management. OBGYN Tomás. 02/23/20 23:04 Repeat CBC WNL, Hgb 11.0. Discussed results with patient and given precautions regarding miscarriage. Understands need to f/u with Dr. England in the next few days. Requesting tubal ligation, advised to speak with Dr. England for further planning. Discharge - Discharge Information Problems reviewed: Yes Clinical Impression/Diagnosis: Miscarriage, Blighted ovum, Vaginal bleeding affecting early Condition: Stable Disposition: HOME - Follow up/Referral Referrals: Kranthi Guzmán MD [Primary Care Provider] - Bina England MD [Staff Physician] - - Patient Discharge Instructions Patient Printed Discharge Instructions: DI for Miscarriage Additional Instructions: Today you were evaluated for vaginal bleeding. Your ultrasound shows that you have unfortunately suffered a miscarriage. Over the next few days, you will experience more pain and bleeding and your miscarriage completes. Take Tylenol as instructed on the bottle for pain. You need to see your OBGYN in the next 2 days for further care. Your beta HCG is 2960, and o[facility] need to get this test repeated in 2 days. At home, rest and do not over exert yourself. If you experience worsening bleeding (over 4 pads an hour for multiple hours), difficulty bleeding, shortness of breath, or any other new or concerning symptoms, please return to the emergency room. - Post Discharge Activity
[2020-02-24 00:04] VITALS: BP 103/77; TEMP 98.1
== END 2020-02-24 00:05 | disposition home or self-care (01) ==
LOC: JER 19:05
DX: O03.9 Complete or unspecified spontaneous abortion without complication (principal); O02.0 Blighted ovum and nonhydatidiform mole; O20.9 Hemorrhage in early pregnancy, unspecified
CPT/HCPCS: 36415; 76817-TC; 80053; 81003; 84702; 85025; 87077; 87086; 99284-25

== ENCOUNTER 2020-02-29 21:42 | Inpatient (IN) | payer OTHER ==
[2020-02-29] MEDS ORDERED: SODIUM CHLORIDE 1,000 ML IV SCH (22:15)
[2020-02-29 22:54] LABS: BASO % 1.2 % (0-2.0); EOS % 3.7 % (0-4.5); HEMATOCRIT 33.6 % (32.4-45.2); HEMOGLOBIN 11.1 GM/dL (10.7-15.3); LYMPH % 40.9 % (8-40); MCH 27.2 pg (25.7-33.7); MEAN CELL VOLUME 82.4 fl (80-96); MEAN PLT VOLUME 9.5 fl (7.5-11.1); NEUT % 46.2 % (42.8-82.8); PLATELET COUNT 265 K/MM3 (134-434); RBC 4.08 M/mm3 (3.60-5.2); RDW 13.7 % (11.6-15.6); WHITE BLOOD COUNT 5.1 K/mm3 (4.0-10.0)
[2020-02-29] MEDS ORDERED: ACETAMINOPHEN 1000 MG/100 ML VIAL (NON FORMULARY) IVPB ONE (23:21)
[2020-02-29 23:24] LABS: ALBUMIN 3.7 g/dl (3.4-5.0); ALK PHOS 58 U/L (45-117); BILIRUBIN,TOTAL 0.2 mg/dL (0.2-1); BLOOD UREA NITROGEN 7.2 mg/dL (7-18); CALCIUM 8.6 mg/dL (8.5-10.1); CHLORIDE 108 mmol/L (98-107); CHOLESTEROL 146 mg/dL (50-200); CREATININE 0.6 mg/dL (0.55-1.3); GLUCOSE,RANDOM 78 mg/dL (74-106); HDL CHOLESTEROL 53 mg/dL (40-60); LDL CHOLESTEROL (ONLY SJRH) 81 mg/dL (5-100); POTASSIUM 3.8 mmol/L (3.5-5.1); SGOT/AST 21 U/L (15-37); SGPT/ALT 17 U/L (13-61); SODIUM 141 mmol/L (136-145); TOT PROT 6.7 g/dl (6.4-8.2); TRIGLYCERIDES 90 mg/dL (0-150)
[2020-02-29 23:33] LABS: ANION GAP 6 MMOL/L (8-16); CO2 27 mmol/L (21-32)
--- NOTE | 2020-02-29 23:37 | PDOC ---
Documentation entered by Verena Ch SCRIBE, acting as scribe for Rula Bedolla MD. Rula Bedolla MD: This documentation has been prepared by the Jing nunez Xhesika, SCRIBE, under my direction and personally reviewed by me in its entirety. I confirm that the documentation accurately reflects all work, treatment, procedures, and medical decision making performed by me. History of Present Illness - General Chief Complaint: Weakness Stated Complaint: ARM/LEG NUMBNESS Time Seen by Provider: 02/29/20 22:10 History Source: Patient Exam Limitations: No Limitations - History of Present Illness Initial Comments: 02/29/20 22:12 The patient is a 39y/o F with a PMH of asthma and seasonal allergies who presents to the ED with onset of BLE pain and tingling at 9:40pm tonight, followed by RUE pain and heaviness, followed by gradual onset of diffuse frontal NEVAREZ and sweats. The patient states she has been anxious since the time of the onset but denies any other symptoms. Denies f/c/n/v/d/c, imbalance, vision or speech difficulties. States the NEVAREZ was gradual onset and she has had these symptoms before. Allergies: Penicillins tPA Exclusion Checklist 0-3hr - Time Elapsed Date last known well: 02/29/20 Time last known well: 21:40 Elaspsed time: 2 Day(s) and 23 Hour(s) and 26 Minutes - Thrombolytic Therapy Candidate Is the patient eligible for Thrombolytic Therapy?: No - Exclusion Criteria 0-3hr SBP greater than 185 or DBP greater than 110mmHg despite tx: No Recent IC/spinal surgery,head trauma or stroke w/in last 3mo: No Hx of previous IC hemorrhage, IC neoplasm, AVM or aneurysm: No Active internal bleeding: No Blding diathesis(low plt ct, inc PTT,INR>1.7 or use of NOAC): No Symptoms suggest subarachnoid hemorrhage: No CT demonstrates multilobar infarct(>1/3 cerebral hemiphere): No Arterial puncture at noncompressible site in previous 7 days: No Blood glucose concentration less than 50mg/dL (2.7mmol/L): No - Relative Exclusion Criteria 0-3h Care team unable to determine eligibility: No IV/IA thrombolysis/thrombectomy @ another hosp prior arrival: No Life expectancy <1yr/severe co-morbid illness/CUSTOMS EXAMINER on admit: No : No Patient/family refused: No Stroke severity too mild (non-disabling): Yes Recent acute WA (w/in previous 3 months): No Seizure at onset with postictal residual neuro impairments: No Major surgery or serious trauma w/in previous 14 days: No Recent GI or hemorrhage (w/in previous 21 days): No - Ineligibility reason(s) Reasons No tPA given: See reason(s) noted above NIH Stroke Scale - Last Known Well Date/Time & Onset Date Last Known Well: 02/29/20 Time Last Known Well: 21:40 - Initial Evaluation Level of consciousness: Alert Ask patient the month and their age: Answers both correctly Ask patient to open & close eyes; make fist and let go: Obeys both correctly Best gaze (horizontal eye movement): Normal Visual field testing: No visual field loss Facial paresis (Show teeth/raise eyebrows/close eyes tight): Normal symmetrical movement Motor Function: Left Arm: Normal Motor Function: Right Arm: Drift Motor Function: Left Leg: Normal (extends leg 30 degrees for 5 seconds without drift) Motor Function: Right Leg: Normal (extends leg 30 degrees for 5 seconds without drift) Limb Ataxia: No ataxia Sensory(Use pinprick test arms,legs,trunk,face/side to side): Normal Best language (Describe picture, name items, read sentences): No Aphasia Dysarthria (read several words): Normal articulation Extinction and Inattention: No abnormality - Total Score NIH Stroke Scale Score: 1 Past History - Medical History Allergies/Adverse Reactions: Allergies Allergy/AdvReac Type Severity Reaction Status Date / Time shrimp Allergy Severe Difficulty Verified 03/01/20 21:01 Breathing Penicillins Allergy Mild Swelling/it Verified 02/21/20 22:22 miguel mushroom Allergy Unknown Unverified 03/03/20 13:15 Home Medications: Ambulatory Orders Omeprazole 40 mg PO DAILY 01/17/19 Acetaminophen [Tylenol .Regular Strength -] 650 mg PO Q6H PRN #30 tablet 03/03/20 Aspirin [ASA -] 81 mg PO DAILY #30 tab.chew 03/03/20 Atorvastatin Ca [Lipitor] 20 mg PO HS #30 tablet 03/03/20 Anemia: No Asthma: Yes Cancer: No Cardiac Disorders: No CVA: No COPD: No CHF: No Dementia: No Diabetes: No GI Disorders: No Disorders: No HTN: No Hypercholesterolemia: No Liver Disease: No Seizures: No Thyroid Disease: No - Surgical History Orthopedic Surgery: Yes (LT KNEE SX) - Reproductive History Is Patient Now?: No (#): 5 Para: 3 Cervical CA: No Dysfunctional Uterine Bleeding: No Ectopic : No Endometrial CA: No Polycystic Ovaries: No Therapeutic (s) & number: No Tubal Ligation: No Spontaneous : 0 - Immunization History Td Vaccination: Yes TDAP Vaccination: Yes Immunization Up to Date: Yes - Psycho-Social/Smoking History Smoking Status: No Smoking History: Never smoked Have you smoked in the past 12 months: No Number of Cigarettes Smoked Daily: 0 Cigars Per Day: 0 - Substance Abuse Hx (Audit-C & DAST Scrn) How often the patient has a drink containing alcohol: Never Score: In Men: 4 or > Positive; In Women: 3 or > Positive: 0 Screen Result (Pos requires Nsg. Audit-10AR): Negative Review of Systems - Review of Systems Able to Perform ROS?: Yes Comments:: 02/29/20 22:15 GEN: sweats, no fever, chills, malaise, or generalized weakness HEENT: no ear pain, congestion, sore throat, vision change, or eye pain CV: no chest pain, palpitations, lightheadedness, syncope, or edema RESP: no SOB, wheezing, or cough GI: no abdominal pain, nausea, vomiting, diarrhea, constipation, or rectal bleed : no dysuria, hematuria, or discharge MSK: right arm weakness, right arm and BLE pain and tingling NEURO: headache, tingling, vertigo, numbness, or focal weakness PSYCH: anxiety, no SI, HI, or behavior change SKIN: no jaundice, rash, lesions, or unexplained bruises ROS otherwise negative except as noted in HPI *Physical Exam - Vital Signs Last Vital Signs Temp Pulse Resp BP Pulse Ox 98.4 F 67 20 125/82 99 02/29/20 21:52 02/29/20 21:52 02/29/20 21:52 02/29/20 21:52 02/29/20 21:52 - Physical Exam 02/29/20 23:24 GENERAL: Well appearing adult female, A/Ox4, occasionally tearful, answers questions appropriately HEENT: PERRLA, EOMI, moist mucous membranes NECK/BACK: no midline ttp, no spinal step-off or deformity, no hematoma, full ROM, neck supple CARDIOVASCULAR: regular rate/rhythm, no MGR, strong peripheral pulses, capillary refill <2 seconds, extremities wwp, no edema LUNGS/RESPIRATORY: no respiratory distress, CTAB GI/ABDOMEN: symmetric [id number], normoactive BS, soft, no ttp, no midline pulsatile masses : no CVA tenderness MSK/EXTREMITIES: no muscle atrophy, no acute deformity SKIN: warm and dry, no pallor, no jaundice, no rash, no pathologic-appearing bruising, no skin breakdown, no cuts, no lesions NEUROLOGICAL: RUE pronator drift and 4/5 rn appeals strength, patient unable to stand unassisted, GCS 15, CN II-XII grossly intact, no facial droop Heart Score/ECG Review #1 Sinus rhythm, rate 61, normal axis and intervals, no ischemic ST-T changes ED Treatment Course - LABORATORY CBC & Chemistry Diagram: 03/02/20 06:33 02/29/20 22:30 - ADDITIONAL ORDERS Additional order review: Laboratory Results 02/29/20 22:05 POC Glucometer 78 02/29/20 22:05 POC Glucometer 78 Medical Decision Making - Medical Decision Making 02/29/20 23:00 39YOF p/w acute onset BLE pain and tingling, and RUE weakness, as well as gr adual onset frontal NEVAREZ. Initial Vital Signs Temp Pulse Resp BP Pulse Ox 98.4 F 67 20 125/82 99 02/29/20 21:52 02/29/20 21:52 02/29/20 21:52 02/29/20 21:52 02/29/20 21:52 Most likely complex migraine or effect of anxiety however these are diagnoses of exclusion and the patient did have a transient RUE weakness with drift on exam, now resolved. There is c/f TIA at this point and she needs admission to tele and neurology consult. Provider Orders Category Date Time Status TYPE AND SCREEN Stat Blood Bank 02/29/20 22:[address] (STROKE) [CT] Stat CT Scan 02/29/20 22:11 Completed ELECTROCARDIOGRAM [CARD] Stat Cardiology 02/29/20 22:11 Ordered Cardiac Monitoring Continuous Care 02/29/20 22:11 Active EKG needed NOW Care 02/29/20 22:11 Active HOB Elevated 30-45 Degrees NOW Care 02/29/20 22:11 Active IV - Insert 2 lines NOW Care 02/29/20 22:11 Active Insert Saline Lock NOW Care 02/29/20 22:11 Active Vital Signs Q30M Care 02/29/20 22:11 Active Weight NOW Care 02/29/20 22:11 Active Consult [Physician Consultation] Physician 1 Cons 02/29/20 23:45 Ordered CARDIAC PROFILE ([facility]) Stat Lab 02/29/20 22:30 Completed CBC WITH DIFFERENTIAL Stat Lab 02/29/20 22:30 Completed COMP METABOLIC PANEL Stat Lab 02/29/20 22:30 Completed LIPID PROFILE ([facility] ONLY) Stat Lab 02/29/20 22:30 Completed POC GLUCOSE TESTING Routine Lab 02/29/20 22:05 Completed PT & APTT Stat Lab 02/29/20 22:11 Ordered UA ([facility]) ONLY Stat Lab 02/29/20 22:11 Uncollected Acetaminophen Injection [Ofirmev Injection -] Medication 02/29/20 23:21 Discontinued 1,000 mg IVPB ONCE ONE Sodium Chloride [Normal Saline -] 1,000 ml Medication 02/29/20 22:15 Active IV ASDIR Continuous Pulse Oximetry NOW Phy Order 02/29/20 22:11 Active CHEST - PA [RAD] Stat Radiology 02/29/20 23:36 Ordered Reminder: new phy cons See Order Reminders 02/29/20 23:46 Ordered Medications Generic Name Dose Route Start Last Admin Trade Name Freq PRN Reason Stop Dose Admin Sodium Chloride 1,000 mls @ 42 mls/hr 02/29/20 22:15 02/29/20 22:33 Normal Saline - IV 42 mls/hr ASDIR VERA Administration Discontinued Medications Generic Name Dose Route Start Last Admin Trade Name Freq PRN Reason Stop Dose Admin Acetaminophen 1,000 mg 02/29/20 23:21 Ofirmev Injection - IVPB 02/29/20 23:22 ONCE ONE Lab Results WBC 5.1 K/mm3 (4.0-10.0) 02/29/20 22:30 RBC 4.08 M/mm3 (3.60-5.2) 02/29/20 22:30 Hgb 11.1 GM/dL (10.7-15.3) 02/29/20 22:30 Hct 33.6 % (32.4-45.2) 02/29/20 22:30 MCV 82.4 fl (80-96) 02/29/20 22:30 MCH 27.2 pg (25.7-33.7) 02/29/20 22: MCHC 33.0 g/dl (32.0-36.0) 02/29/20: RDW 13.7 % (11.6-15.6) 02/29/20 22:30 Plt Count 265 K/MM3 (134-434) 02/29/20 22:30 MPV 9.5 fl (7.5-11.1) 02/29/20: Absolute Neuts (auto) 2.4 K/mm3 (1.5-8.0) 02/29/20 22: Neutrophils % 46.2 % (42.8-82.8) 02/29/20 22: Lymphocytes % 40.9 % (8-40) H D 02/29/20: Monocytes % 8.0 % (3.8-10.2) 02/29/20 22: Eosinophils % 3.7 % (0-4.5) 02/29/20: Basophils % 1.2 % (0-2.0) 02/29/20: Nucleated RBC % 0 % (0-0) 02/29/20 22:30 Sodium 141 mmol/L (136-145) 02/29/20 22:30 Potassium 3.8 mmol/L (3.5-5.1) 02/29/20: Chloride 108 mmol/L (98-107) H 02/29/20 22:30 Carbon Dioxide 27 mmol/L (21-32) 02/29/20 22:30 Anion Gap 6 MMOL/L (8-16) L 02/29/20 22:30 BUN 7.2 mg/dL (7-18) 02/29/20 22:30 Creatinine 0.6 mg/dL (0.55-1.3) 02/29/20 22:30 Est GFR (CKD-EPI)AfAm 134.01 02/29/20 22:30 Est GFR (CKD-EPI)NonAf 115.63 02/29/20 22:30 POC Glucometer 78 UNITS (80-120) 02/29/20 22:05 Random Glucose 78 mg/dL (74-106) 02/29/20 22:30 Calcium 8.6 mg/dL (8.5-10.1) 02/29/20 22:30 Total Bilirubin 0.2 mg/dL (0.2-1) 02/29/20 22:30 AST 21 U/L (15-37) 02/29/20 22:30 ALT 17 U/L (13-61) 02/29/20 22:30 Alkaline Phosphatase 58 U/L (45-117) 02/29/20 22:30 Creatine Kinase 88 U/L (26-192) 02/29/20 22:30 Troponin I < 0.02 ng/ml (0.00-0.05) 02/29/20 22:30 Total Protein 6.7 g/dl (6.4-8.2) 02/29/20:30 Albumin 3.7 g/dl (3.4-5.0) 02/29/20 22:30 Triglycerides 90 mg/dL (0-150) 02/29/20 22:30 Cholesterol 146 mg/dL (50-200) 02/29/20 22:30 Total LDL Cholesterol 81 mg/dL (5-100) 02/29/20 22:30 HDL Cholesterol 53 mg/dL (40-60) 02/29/20 22:30 HCT with nothing acute. 02/29/20 23:49 I have spoken with Dr. Barrera and Dr. Silveira. Consult order placed to Dr. Barrera, ASA and statin orders placed per his recommendation. Decision to Admit order placed to Dr. Silveira's service. Discharge - Discharge Information Problems reviewed: Yes Clinical Impression/Diagnosis: Right arm weakness Condition: Guarded - Admission Yes - Follow up/Referral - Patient Discharge Instructions - Post Discharge Activity
[2020-03-01] MEDS ORDERED: ACETAMINOPHEN INJECTION 100 ML IVPB ONE (00:06)
[2020-03-01 00:45] LABS: EPI CELLS 25 /uL (0-25.1); HYALINE CASTS 1 /uL (0-3.1); PH,URINE 5.5 (5.0-8.0); URINE APPEARANCE CLEAR; URINE BACTERIA 41 /uL (0-1359); URINE BILIRUBIN NEGATIVE (NEGATIVE); URINE COLOR YELLOW; URINE GLUCOSE (UA) NEGATIVE (NEGATIVE); URINE KETONE NEGATIVE (NEGATIVE); URINE LEUK ESTERASE NEGATIVE (NEGATIVE); URINE NITRITE NEGATIVE (NEGATIVE); URINE PROTEIN NEGATIVE (NEGATIVE); URINE RBC 26 /uL (0-23.9); URINE UROBILINOGEN 0.2 mg/dL (0.2-1.0); URINE WBC 8 /uL (0-25.8)
[2020-03-01] MEDS ORDERED: ATORVASTATIN CA 40 MG TABLET (FP) PO ONE (01:37)
[2020-03-01] MEDS ORDERED: ATORVASTATIN CA 40 MG TABLET (FP) ONE (02:37)
--- NOTE | 2020-03-01 08:46 | CON.NEURO ---
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 ...LMP: 12/29/19 ...: No (pt seen in ED last week for miscarriage) - Past Surgical History Past Surgical History: Yes: Bariatric Surgery (gastric sleeve 02/2017), - Alcohol/Substance Use Hx Alcohol Use: No History of Substance Use: reports: None - Smoking History Smoking history: Never smoked Have you smoked in the past 12 months: No Aproximately how many cigarettes per day: 0 - Social History Usual Living Arrangement: With Spouse ADL: Independent History of Recent Travel: No Home Medications - Allergies Allergies/Adverse Reactions: Allergies Allergy/AdvReac Type Severity Reaction Status Date / Time Penicillins Allergy Mild Swelling/it Verified 02/21/20 22:22 miguel - Home Medications Home Medications: Ambulatory Orders Omeprazole 40 mg PO DAILY 01/17/19 Physical Exam-Neuro Vital Signs: Vital Signs Temperature 98.2 F 03/01/20 05:14 Pulse Rate 70 03/01/20 05:14 Respiratory Rate 20 03/01/20 05:14 Blood Pressure 138/90 03/01/20 05:14 O2 Sat by Pulse Oximetry (%) 100 03/01/20 05:23 Labs: CBC, BMP 02/29/20 22:30 02/29/20 22:30 Assessment/Plan cc Transient right sided weakness HPI 39 year old female history of asthma, allergies, 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 Her symptoms started with both leg pain and suddenly she experienced that right arm, leg and speech disturbances. She came to hospital with NIH score of 1 ( right arm drift was noted). Lisa has ct head and tpa was not given. She denies any htn,hld,cad,smoking or stroke in past. Her symptoms resolved in half hour. She also experiencing headhace on february 28, she did have history of migraine , but she has not has any migraine in a long time. PMH as above Allergy : pcn SH, ROS,FH,SH reviewed in chart NEUROLOGICAL EXAMINATION Alert oriented x 3 neck is supple, vss, afebrile eomi, pupils reactive no face asymmetry moving all ext sensation is normal gait and coordination is normal ct head is normal Assessment/Plan 1.Transient right arm, leg and speech difficulty, no prior risk factor including migraine and recurrent ( 3 ) miscarriages. Now recovered, ct head is noraml - most likley tia vs complicated migraine. -continue aspirin and statin - carotid ultrasound, mri , rule out dvt - may need hypercoagubaility work up , hematology consult - echo , may need sally or loop recorder Thanking you so much Jt Barrera MD
--- NOTE | 2020-03-01 08:52 | CON.CARD ---
Consult Consult Specialty:: Cardiology - History of Present Illness History of Present Illness: The patient is a 39y/o F with a PMH of asthma and seasonal allergies who presents to the ED with onset of BLE pain and tingling at 9:40pm tonight, followed by RUE pain and heaviness, followed by gradual onset of diffuse frontal NEVAREZ and sweats. The patient states she has been anxious since the time of the onset but denies any other symptoms. Denies f/c/n/v/d/c, imbalance, vision or speech difficulties. States the NEVAREZ was gradual onset and she has had these symptoms before. 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 ...LMP: 12/29/19 ...: No (pt seen in ED last week for miscarriage) - Past Surgical History Past Surgical History: Yes: Bariatric Surgery (gastric sleeve 02/2017), - Alcohol/Substance Use Hx Alcohol Use: No History of Substance Use: reports: None - Smoking History Smoking history: Never smoked Have you smoked in the past 12 months: No Aproximately how many cigarettes per day: 0 - Social History Usual Living Arrangement: With Spouse ADL: Independent History of Recent Travel: No Home Medications - Allergies Allergies/Adverse Reactions: Allergies Allergy/AdvReac Type Severity Reaction Status Date / Time Penicillins Allergy Mild Swelling/it Verified 02/21/20 22:22 miguel - Home Medications Home Medications: Ambulatory Orders Omeprazole 40 mg PO DAILY 01/17/19 Review of Systems - Review of Systems Constitutional: reports: No Symptoms Eyes: reports: No Symptoms HENT: reports: No Symptoms Neck: reports: No Symptoms Cardiovascular: reports: No Symptoms Gastrointestinal: reports: No Symptoms Genitourinary: reports: No Symptoms Breasts: reports: No Symptoms Reported Musculoskeletal: reports: No Symptoms Integumentary: reports: No Symptoms Neurological: reports: Parasthesia Endocrine: reports: No Symptoms Hematology/Lymphatic: reports: No Symptoms Psychiatric: reports: No Symptoms Vital Signs: Vital Signs Temperature 98.2 F 03/01/20 05:14 Pulse Rate 70 03/01/20 05:14 Respiratory Rate 03/01/20 05:14 Blood Pressure 138/90 03/01/20 05:14 O2 Sat by Pulse Oximetry (%) 100 03/01/20 05:23 Constitutional: Yes: Well Nourished, No Distress, Calm Eyes: Yes: WNL, Conjunctiva Clear, EOM Intact HENT: Yes: WNL, Atraumatic, Normocephalic Neck: Yes: WNL, Supple, Trachea Midline Respiratory: Yes: WNL, Regular, CTA Bilaterally Gastrointestinal: Yes: WNL, Normal Bowel Sounds Renal/: Yes: WNL Cardiovascular: Yes: WNL, Regular Rate and Rhythm Musculoskeletal: Yes: WNL Extremities: Yes: WNL Integumentary: Yes: WNL Neurological: Yes: WNL, Alert, Oriented ...Motor Strength: WNL Psychiatric: Yes: WNL, Alert, Oriented - Other Data Labs, Other Data: CBC, BMP 02/29/20 22:30 02/29/20 22:30 Troponin, BNP 02/29/20 22:30 Troponin I < 0.02 Troponin, BNP 02/29/20 22:30 Troponin I < 0.02 Imaging - Results Chest X-ray: Image Reviewed (no i/e) EKG: Image Reviewed (sr wnl) Problem List - Problems (1) Right arm weakness Code(s): R29.898 - OT SYMPTOMS AND SIGNS INVOLVING THE MUSCULOSKELETAL SYSTEM (2) Abdominal pain complicating Code(s): O26.899 - OTH RELATED CONDITIONS, UNSPECIFIED TRIMESTER; R10.9 - UNSPECIFIED ABDOMINAL PAIN (3) Acute gallstone pancreatitis Code(s): K85.10 - BILIARY ACUTE PANCREATITIS WITHOUT NECROSIS OR INFECTION (4) Adverse effect of alcohol product Code(s): RJE0197 - (5) Asthma exacerbation Code(s): J45.901 - UNSPECIFIED ASTHMA WITH (ACUTE) EXACERBATION (6) Blighted ovum Code(s): O02.0 - BLIGHTED OVUM AND NONHYDATIDIFORM MOLE (7) Bronchitis Code(s): J40 - BRONCHITIS, NOT SPECIFIED ACUTE OR CHRONIC (8) Chest pain Code(s): R07.9 - CHEST PAIN, UNSPECIFIED (9) Choledocholithiasis Code(s): K80.50 - CALCULUS OF BILE DUCT W/O CHOLANGITIS OR CHOLECYST W/O OBST (10) Common cold virus Code(s): J00 - ACUTE NASOPHARYNGITIS [COMMON COLD] (11) Early stage of Code(s): Z34.90 - ENCNTR FOR SUPRVSN OF NORMAL , UNSP, UNSP TRIMESTER (12) Epigastric abdominal pain Code(s): R10.13 - EPIGASTRIC PAIN (13) Flu-like symptoms Code(s): R68.89 - OTHER GENERAL SYMPTOMS AND SIGNS (14) GERD (gastroesophageal reflux disease) Code(s): K21.9 - GASTRO-ESOPHAGEAL REFLUX DISEASE WITHOUT ESOPHAGITIS (15) Headache Code(s): R51 - HEADACHE (16) Hepatomegaly Code(s): R16.0 - HEPATOMEGALY, NOT ELSEWHERE CLASSIFIED (17) Influenza B Code(s): J10.1 - FLU DUE TO OTH IDENT INFLUENZA VIRUS W OTH RESP MANIFEST (18) Miscarriage Code(s): O03.9 - COMPLETE OR UNSP SPONTANEOUS WITHOUT COMPLICATION (19) Morbid obesity due to excess calories Code(s): E66.01 - MORBID (SEVERE) OBESITY DUE TO EXCESS CALORIES (20) Peptic ulcer Code(s): K27.9 - PEPTIC ULC, SITE UNSP, UNSP AC OR CHR, W/O HEMOR OR PERF (21) Code(s): Z33.1 - STATE, INCIDENTAL (22) -related examination Code(s): Z34.90 - ENCNTR FOR SUPRVSN OF NORMAL , UNSP, UNSP TRIMESTER (23) Previous section Code(s): Z98.89 - OTHER SPECIFIED POSTPROCEDURAL STATES * DO NOT USE * (24) Threatened in early Code(s): O20.0 - THREATENED (25) Urinary tract infection Code(s): N39.0 - URINARY TRACT INFECTION, SITE NOT SPECIFIED Qualifiers: Urinary tract infection type: site unspecified Hematuria presence: with hematuria Qualified Code(s): N39.0 - Urinary tract infection, site not specified; R31.9 - Hematuria, unspecified (26) Vaginal bleeding Code(s): N93.9 - ABNORMAL UTERINE AND VAGINAL BLEEDING, UNSPECIFIED (27) Vaginal bleeding affecting early Code(s): O20.9 - HEMORRHAGE IN EARLY , UNSPECIFIED (28) Vaginal bleeding during Code(s): O46.90 - ANTEPARTUM HEMORRHAGE, UNSPECIFIED, UNSPECIFIED TRIMESTER (29) Vaginal bleeding, abnormal Code(s): N93.9 - ABNORMAL UTERINE AND VAGINAL BLEEDING, UNSPECIFIED (30) Vaginal itching Code(s): N89.8 - OTHER SPECIFIED NONINFLAMMATORY DISORDERS OF VAGINA (31) Vaginitis Code(s): N76.0 - ACUTE VAGINITIS Qualifiers: Chronicity: acute Qualified Code(s): N76.0 - Acute vaginitis (32) Vomiting Code(s): R11.10 - VOMITING, UNSPECIFIED Assessment/Plan The patient is a 39y/o F with a PMH of asthma and seasonal allergies who presents to the ED with onset of BLE pain and tingling at 9:40pm tonight, followed by RUE pain and heaviness, followed by gradual onset of diffuse frontal NEVAREZ and sweats. TIA Plan; ECHO Carotids Telemetry DVT plx
[2020-03-01] MEDS: HEPARIN NA (PORCINE) 5,000 UNITS/ML 1ML VIAL SQ SCH ×2 (09:21→21:00)
[2020-03-01] MEDS: ASPIRIN 81 MG CHEWABLE TABLETS PO SCH (09:22)
[2020-03-01] MEDS: ACETAMINOPHEN 325 MG TABLET (FP) PO PRN (09:23)
[2020-03-01] MEDS ORDERED: ASPIRIN COATED 81 MG TABLET.EC PO SCH (10:00)
--- NOTE | 2020-03-01 10:04 | EKG ---
Test Reason : Blood Pressure : / mmHG Vent. Rate : 061 BPM Atrial Rate : 061 BPM P-R Int : 182 ms QRS Dur : 094 ms QT Int : 442 ms P-R-T Axes : 061 012 033 degrees QTc Int : 444 ms NORMAL SINUS RHYTHM NORMAL ECG WHEN COMPARED WITH ECG OF 07-OCT-2016 08:21, NON-SPECIFIC CHANGE IN ST SEGMENT IN ANTERIOR LEADS Confirmed by MD [place], Keyon ([id number]) on 03/01/2020 10:03:48 AM Referred By: Confirmed By:Keyon Boyle MD
--- NOTE | 2020-03-01 10:42 | ECHO ---
Version: 1 Name: DELMY ALVAREZ Exam: Adult Echocardiogram Study Date: 03/01/2020, 10:05 AM Age: 39 Years MMode/2D Measurements & Calculations IVSd: 1.03 cm LVIDs: 2.44 cm LVIDd: 3.9 cm LVPWd: 0.99 cm LAV (MOD-bp): 34.4 ml LVOT diam: 1.98 cm Ao root diam: 2.8 cm LA dimension: 3.0 cm Doppler Measurements & Calculations MV E max ralph: 92.4 cm/sec Med E/e': 7.9 MV A max ralph: 63.0 cm/sec Med Peak E' Ralph: 11.6 cm/sec MV E/A: 1.47 Lat E/e': 5.0 Lat Peak E' Ralph: 18.4 cm/sec Ao max P.8 mmHg Ao V2 max: 148.0 cm/sec TR max ralph: 194.9 cm/sec TR max P.3 mmHg Left Ventricle The left ventricular size, thickness and function are normal. EF 68%. Right Ventricle The right ventricle is normal in size and function. Atria Normal left and right atrial size and function. Mitral Valve The mitral valve is normal in structure and function. Tricuspid Valve The tricuspid valve is normal in structure and function. Mild TR. Aortic Valve The aortic valve is normal in structure and function. Pulmonic Valve The pulmonic valve is normal in structure and function. Great Vessels The aortic root is normal size. Pericardium/Pleura There is no pericardial effusion. Summary Statements The left ventricular size, thickness and function are normal The right ventricle is normal in size and function. Normal left and right atrial size and function. The mitral valve is normal in structure and function. The tricuspid valve is normal in structure and function. Mild TR The aortic valve is normal in structure and function. The pulmonic valve is normal in structure and function. The aortic root is normal size. EF 68% MD Keyon Boyle 03/01/2020, 10:42 AM Ordering Physician: Selena Silveira Performed By: Shawanda Foy
--- NOTE | 2020-03-01 13:36 | PN ---
Progress Note, Physician History of Present Illness: The patient is a 39y/o F with a PMH of asthma and seasonal allergies who presents to the ED with onset of BLE pain and tingling at 9:40pm tonight, followed by RUE pain and heaviness, followed by gradual onset of diffuse frontal NEVAREZ and sweats. The patient states she has been anxious since the time of the onset but denies any other symptoms. Denies f/c/n/v/d/c, imbalance, vision or speech difficulties. States the NEVAREZ was gradual onset and she has had these symptoms before. - Current Medication List Current Medications: Active Medications Acetaminophen (Tylenol -) 650 mg PO Q6H PRN PRN Reason: PAIN LEVEL 6-10 Last Admin: 03/01/20 09:23 Dose: 650 mg Documented by: Aspirin (Asa -) 81 mg PO DAILY COUNTS INCLUDE 234 BEDS AT THE [facility] Last Admin: 03/01/20 09:22 Dose: 81 mg Documented by: Atorvastatin Calcium (Lipitor -) 20 mg PO HS COUNTS INCLUDE 234 BEDS AT THE [facility] Heparin Sodium (Porcine) (Heparin -) 5,000 unit SQ BID COUNTS INCLUDE 234 BEDS AT THE [facility] Last Admin: 03/01/20 09:21 Dose: 5,000 unit Documented by: Sodium Chloride (Normal Saline -) 1,000 mls @ 42 mls/hr IV ASDIR COUNTS INCLUDE 234 BEDS AT THE [facility] Last Admin: 02/29/20 22:33 Dose: 42 mls/hr Documented by: - Objective Vital Signs: Vital Signs Temperature 98 F 03/01/20 09:22 Pulse Rate 67 03/01/20 09:22 Respiratory Rate 20 03/01/20 09:22 Blood Pressure 122/75 03/01/20 09:22 O2 Sat by Pulse Oximetry (%) 100 03/01/20 09:22 Eyes: Yes: WNL, Conjunctiva Clear, EOM Intact HENT: Yes: WNL, Atraumatic, Normocephalic Neck: Yes: WNL, Supple, Trachea Midline Cardiovascular: Yes: WNL, Regular Rate and Rhythm Respiratory: Yes: WNL, Regular, CTA Bilaterally Gastrointestinal: Yes: WNL, Normal Bowel Sounds Genitourinary: Yes: WNL Musculoskeletal: Yes: WNL Extremities: Yes: WNL Edema: No Integumentary: Yes: WNL Neurological: Yes: WNL, Alert, Oriented ...Motor Strength: WNL Psychiatric: Yes: WNL Labs: CBC, BMP 02/29/20 22:30 08/25/20 22:30 Problem List - Problems (1) Right arm weakness Code(s): R29.898 - OTH SYMPTOMS AND SIGNS INVOLVING THE MUSCULOSKELETAL SYSTEM (2) Abdominal pain complicating Code(s): O26.899 - OTH RELATED CONDITIONS, UNSPECIFIED TRIMESTER; R10.9 - UNSPECIFIED ABDOMINAL PAIN (3) Acute gallstone pancreatitis Code(s): K85.10 - BILIARY ACUTE PANCREATITIS WITHOUT NECROSIS OR INFECTION (4) Adverse effect of alcohol product Code(s): [id number] - (5) Asthma exacerbation Code(s): J45.901 - UNSPECIFIED ASTHMA WITH (ACUTE) EXACERBATION (6) Blighted ovum Code(s): O02.0 - BLIGHTED OVUM AND NONHYDATIDIFORM MOLE (7) Bronchitis Code(s): J40 - BRONCHITIS, NOT SPECIFIED ACUTE OR CHRONIC (8) Chest pain Code(s): R07.9 - CHEST PAIN, UNSPECIFIED (9) Choledocholithiasis Code(s): K80.50 - CALCULUS OF BILE DUCT W/O CHOLANGITIS OR CHOLECYST W/O OBST (10) Common cold virus Code(s): J00 - ACUTE NASOPHARYNGITIS [COMMON COLD] (11) Early stage of Code(s): Z34.90 - ENCNTR FOR SUPRVSN OF NORMAL , UNSP, UNSP TRIMESTER (12) Epigastric abdominal pain Code(s): R10.13 - EPIGASTRIC PAIN (13) Flu-like symptoms Code(s): R68.89 - OTHER GENERAL SYMPTOMS AND SIGNS (14) GERD (gastroesophageal reflux disease) Code(s): K21.9 - GASTRO-ESOPHAGEAL REFLUX DISEASE WITHOUT ESOPHAGITIS (15) Headache Code(s): R51 - HEADACHE (16) Hepatomegaly Code(s): R16.0 - HEPATOMEGALY, NOT ELSEWHERE CLASSIFIED (17) Influenza B Code(s): J10.1 - FLU DUE TO OTH IDENT INFLUENZA VIRUS W OTH RESP MANIFEST (18) Miscarriage Code(s): O03.9 - COMPLETE OR UNSP SPONTANEOUS WITHOUT COMPLICATION (19) Morbid obesity due to excess calories Code(s): E66.01 - MORBID (SEVERE) OBESITY DUE TO EXCESS CALORIES (20) Peptic ulcer Code(s): K27.9 - PEPTIC ULC, SITE UNSP, UNSP AC OR CHR, W/O HEMOR OR PERF (21) Code(s): Z33.1 - STATE, INCIDENTAL (22) -related examination Code(s): Z34.90 - ENCNTR FOR SUPRVSN OF NORMAL , UNSP, UNSP TRIMESTER (23) Previous section Code(s): Z98.89 - OTHER SPECIFIED POSTPROCEDURAL STATES * DO NOT USE * (24) Threatened in early Code(s): O20.0 - THREATENED (25) Urinary tract infection Code(s): N39.0 - URINARY TRACT INFECTION, SITE NOT SPECIFIED Qualifiers: Urinary tract infection type: site unspecified Hematuria presence: with hematuria Qualified Code(s): N39.0 - Urinary tract infection, site not specified; R31.9 - Hematuria, unspecified (26) Vaginal bleeding Code(s): N93.9 - ABNORMAL UTERINE AND VAGINAL BLEEDING, UNSPECIFIED (27) Vaginal bleeding affecting early Code(s): O20.9 - HEMORRHAGE IN EARLY , UNSPECIFIED (28) Vaginal bleeding during Code(s): O46.90 - ANTEPARTUM HEMORRHAGE, UNSPECIFIED, UNSPECIFIED TRIMESTER (29) Vaginal bleeding, abnormal Code(s): N93.9 - ABNORMAL UTERINE AND VAGINAL BLEEDING, UNSPECIFIED (30) Vaginal itching Code(s): N89.8 - OTHER SPECIFIED NONINFLAMMATORY DISORDERS OF VAGINA (31) Vaginitis Code(s): N76.0 - ACUTE VAGINITIS Qualifiers: Chronicity: acute Qualified Code(s): N76.0 - Acute vaginitis (32) Vomiting Code(s): R11.10 - VOMITING, UNSPECIFIED Assessment/Plan The patient is a 39y/o F with a PMH of asthma and seasonal allergies who pres ents to the ED with onset of BLE pain and tingling at 9:40pm tonight, followed by RUE pain and heaviness, followed by gradual onset of diffuse frontal NEVAREZ and sweats. TIA ECHO/carotids/ EKG/ telemetry WNL Plan; Cardiac reed stable 24 holter DVT plx
--- NOTE | 2020-03-01 15:11 | CONSULT ---
Consultation: Heme-Onc Resident Note REQUESTING PROVIDER: Dr. Barrera CONSULT REQUEST: We have been asked to medically evaluate this patient for hypercoagulability workup. HISTORY OF PRESENT ILLNESS: Patient is a 39 year old female with past medical history of asthma, migraine and 3 recent miscarriages, presented to the ED with sudden onset b/l LE pain and numbness, RUE weakness and numbness, and headache. Upon arrival at the ED, NIHSS was 1. Head CT was negative, TPA was not given. Patient was admitted for further management of possible TIA vs complicated migraine. Today, patient reports feeling better, with no pain or weakness of her right arm, but still reports b/l leg pain. Of note, patient is [age], with the last 3 pregnancies ending in spontaneous abortions (2018, 10/2019, 02/2020). She does not take any OCPs, nor have any family history of blood disorders. She has some lower abdominal discomfort from the miscarriage last week, but denies any recent illness or sick contacts. Denies fevers, chills, headache, nausea, vomiting, chest pain, SOB, diarrhea, urinary symptoms. No oral ulcers or photosensitivity. PMHx: asthma, migraines, acid reflux, 3 pregnancies resulted in early miscarriages PSHx: C section x1 Allergies: penicillins SHx: denies smoking, occasional etoh use, denies illicit drug use Family Hx: no history of cancer or blood disorders in the family REVIEW OF SYSTEMS: CONSTITUTIONAL: Absent: fever, chills, diaphoresis, generalized weakness, malaise, loss of appetite, weight change HEENT: Absent: rhinorrhea, nasal congestion, throat pain, throat swelling, difficulty swallowing, mouth swelling, ear pain, eye pain, visual changes CARDIOVASCULAR: Absent: chest pain, syncope, palpitations, irregular heart rate, lightheadedness, peripheral edema RESPIRATORY: Absent: cough, shortness of breath, dyspnea with exertion, orthopnea, wheezing, stridor, hemoptysis GASTROINTESTINAL: Absent: abdominal pain, abdominal distension, nausea, vomiting, diarrhea, constipation, melena, hematochezia GENITOURINARY: Absent: dysuria, frequency, urgency, hesitancy, hematuria, flank pain, genital pain MUSCULOSKELETAL: B/L leg pain Absent: myalgia, arthralgia, joint swelling, back pain, neck pain SKIN: Absent: rash, itching, pallor HEMATOLOGIC/IMMUNOLOGIC: Absent: easy bleeding, easy bruising, lymphadenopathy, frequent infections ENDOCRINE: Absent: unexplained weight gain, unexplained weight loss, heat intolerance, cold intolerance NEUROLOGIC: Absent: headache, focal weakness or paresthesias, dizziness, unsteady gait, seizure, mental status changes, bladder or bowel incontinence PSYCHIATRIC: Absent: anxiety, depression, suicidal or homicidal ideation, hallucinations. PHYSICAL EXAMINATION Vital Signs - 24 hr 02/29/20 03/01/20 03/01/20 21:52 01:53 03:18 Temperature 98.4 F 98.1 F Pulse Rate 67 Pulse Rate [ 60 Apical] Respiratory 20 18 Rate Blood Pressure 125/82 Blood Pressure 116/65 [Left] O2 Sat by Pulse 99 99 99 Oximetry (%) 03/01/20 03/01/20 03/01/20 05:14 05:23 09:00 Temperature 98.2 F Pulse Rate 70 Pulse Rate [ Apical] Respiratory 20 Rate Blood Pressure 138/90 Blood Pressure [Left] O2 Sat by Pulse 100 100 100 Oximetry (%) 03/01/20 03/01/20 09:22 14:16 Temperature 98 F 98.9 F Pulse Rate 67 80 Pulse Rate [ Apical] Respiratory 20 14 Rate Blood Pressure 122/75 104/56 L Blood Pressure [Left] O2 Sat by Pulse 100 Oximetry (%) GENERAL: Awake, alert, and fully oriented, in no acute distress. HEAD: Normal with no signs of trauma. EYES: PERRLA, EOMI, sclera anicteric, conjunctiva clear. EARS, NOSE, THROAT: Moist mucous membranes. NECK: Normal range of motion, supple LUNGS: Breath sounds equal, clear to auscultation bilaterally. HEART: Regular rate and rhythm, normal S1 and S2 BREAST: symmetrical, +tattoo on LUQ of left breast, no masses or axillary LN palpated, no discharge ABDOMEN: Soft, nontender, not distended, normoactive bowel sounds. MUSCULOSKELETAL: Normal range of motion at all joints. LOWER EXTREMITIES: 2+ pulses, warm, well-perfused. + bilateral calf tenderness. No peripheral edema. NEUROLOGICAL: Cranial nerves II-XII intact. Normal speech. Motor 5/5 and sensation intact on all extremities PSYCHIATRIC: Cooperative. Good eye contact. Appropriate mood and affect. SKIN: Warm, dry, normal turgor Laboratory Results - last 24 hr 0802/29/20 02/29/20 22:05 22:30 22:30 WBC 5.1 RBC 4.08 Hgb 11.1 Hct 33.6 MCV 82.4 MCH 27.2 MCHC 33.0 RDW 13.7 Plt Count 265 MPV 9.5 Absolute Neuts (auto) 2.4 Neutrophils % 46.2 Lymphocytes % 40.9 H D Monocytes % 8.0 Eosinophils % 3.7 Basophils % 1.2 Nucleated RBC % 0 Sodium 141 Potassium 3.8 Chloride 108 H Carbon Dioxide 27 Anion Gap 6 L BUN 7.2 Creatinine 0.6 Est GFR (CKD-EPI)AfAm 134.01 Est GFR (CKD-EPI)NonAf 115.63 POC Glucometer 78 Random Glucose 78 Calcium 8.6 Total Bilirubin 0.2 AST 21 ALT 17 Alkaline Phosphatase 58 Creatine Kinase 88 Troponin I < 0.02 Total Protein 6.7 Albumin 3.7 Triglycerides 90 Cholesterol 146 Total LDL Cholesterol 81 HDL Cholesterol 53 Urine Color Urine Appearance Urine pH Ur Specific Dudley Urine Protein Urine Glucose (UA) Urine Ketones Urine Blood Urine Nitrite Urine Bilirubin Urine Urobilinogen Ur Leukocyte Esterase Urine WBC (Auto) Urine RBC (Auto) Urine Casts (Auto) U Epithel Cells (Auto) Urine Bacteria (Auto) Blood Type Antibody Screen 02/29/20 03/01/20 22:30 00:01 WBC RBC Hgb Hct MCV MCH MCHC RDW Plt Count MPV Absolute Neuts (auto) Neutrophils % Lymphocytes % Monocytes % Eosinophils % Basophils % Nucleated RBC % Sodium Potassium Chloride Carbon Dioxide Anion Gap BUN Creatinine Est GFR (CKD-EPI)AfAm Est GFR (CKD-EPI)NonAf POC Glucometer Random Glucose Calcium Total Bilirubin AST ALT Alkaline Phosphatase Creatine Kinase Troponin I Total Protein Albumin Triglycerides Cholesterol Total LDL Cholesterol HDL Cholesterol Urine Color Yellow Urine Appearance Clear Urine pH 5.5 D Ur Specific Dudley 1.013 Urine Protein Negative Urine Glucose (UA) Negative Urine Ketones Negative Urine Blood 2+ H Urine Nitrite Negative Urine Bilirubin Negative Urine Urobilinogen 0.2 Ur Leukocyte Esterase Negative Urine WBC (Auto) 8 Urine RBC (Auto) 26 Urine Casts (Auto) 1 U Epithel Cells (Auto) 25 Urine Bacteria (Auto) 41 Blood Type O POSITIVE Antibody Screen Negative Active Medications Generic Name Dose Route Start Last Admin Trade Name Freq PRN Reason Stop Dose Admin Acetaminophen 650 mg 03/01/20 09:14 03/01/20 09:23 Tylenol - PO 650 mg Q6H PRN Administration PAIN LEVEL 6-10 Aspirin 81 mg 03/01/20 10:00 03/01/20 09:22 Asa - PO 81 mg DAILY VERA Administration Atorvastatin Calcium 20 mg 03/01/20 22:00 Lipitor - PO HS VERA Heparin Sodium (Porcine) 5,000 unit 03/01/20 10:00 03/01/20 09:21 Heparin - SQ 5,000 unit BID VERA Administration Sodium Chloride 1,000 mls @ 42 mls/hr 02/29/20 22:15 02/29/20 22:33 Normal Saline - IV 42 mls/hr ASDIR VERA Administration ASSESSMENT/PLAN: Patient is a 39 year old female with past medical history of asthma, migraine and 3 recent miscarriages, presented to the ED with sudden onset b/l LE pain and numbness, RUE weakness and numbness, and headache. We have been asked to medically evaluate this patient for hypercoagulability workup. #r/o Hypercoagulability -?TIA vs complex migraine, hx of 3 early miscarriages -Head CT - no intracranial pathology -echo - normal LV/RV function -r/o antiphospholipid syndrome/SLE, thrombophilia -Coags, HIV test, Hgb electrophoresis, NORA -will send thrombophilia work up - Prothrombin [id number], Factor V Leiden, Protein C&S Ag and Activity, Antithrombin III Ag and activity, antiphospholipid panel, Lupus anticoagulant panel -TSH -Duplex b/l LE : no evidence of DVT bilaterally Dispo: We will continue to follow the patient. Thank you for this consultative opportunity. Visit type - Emergency Visit Emergency Visit: Yes ED Registration Date: 03/02/20 Care time: The patient presented to the Emergency Department on the above date and was hospitalized for further evaluation of their emergent condition. - New Patient This patient is new to me today: Yes Date on this admission: 03/03/20 - Critical Care Critical Care patient: No ATTENDING PHYSICIAN STATEMENT I saw and evaluated the patient. I reviewed the resident's note and discussed the case with the resident. I agree with the resident's findings and plan as documented. SUBJECTIVE: OBJECTIVE: ASSESSMENT AND PLAN:
[2020-03-01 17:11] LABS: INR 1.03 (0.83-1.09); PROTHROMBIN TIME (PATIENT) 12.2 SEC (9.7-13.0)
[2020-03-01 17:14] LABS: ACTIVATED PTT 31.7 SECONDS (25.2-36.5)
--- NOTE | 2020-03-01 17:48 | HP ---
Admitting History and Physical - Admission History of Present Illness: Pt is a 39 year old female w/ PMH significant for asthma, seasonal allergies, Migraine NEVAREZ's, and recurrent miscarriages.Her symptoms started with B/L leg pain and suddenly she experienced that right arm, leg and speech disturbances. She came to hospital with NIH score of 1 ( right arm drift was noted). Patient had ct head wc was normal and tpa was not given. Her symptoms resolved in half hour. She also was experiencing headaches. - Past Medical History CLIENT TECHNICAL SUPPORT ASSOCIATE: Yes: Migraine Pulmonary: Yes: Asthma Reproductive: Yes: Other (Miscarriages) ...LMP: 12/29/19 ...: No (pt seen in ED last week for miscarriage) - Past Surgical History Past Surgical History: Yes: Bariatric Surgery (gastric sleeve 02/2017), - Smoking History Smoking history: Never smoked Have you smoked in the past 12 months: No Aproximately how many cigarettes per day: 0 - Alcohol/Substance Use Hx Alcohol Use: No History of Substance Use: reports: None - Social History ADL: Independent History of Recent Travel: No Home Medications - Allergies Allergies/Adverse Reactions: Allergies Allergy/AdvReac Type Severity Reaction Status Date / Time shrimp Allergy Severe Difficulty Verified 03/01/20 21:01 Breathing Penicillins Allergy Mild Swelling/it Verified 02/21/20 22:22 miguel - Home Medications Home Medications: Ambulatory Orders Omeprazole 40 mg PO DAILY 01/17/19 Family Medical History Family History: Unremarkable Review of Systems - Review of Systems Constitutional: reports: No Symptoms Eyes: reports: No Symptoms HENT: reports: No Symptoms Neck: reports: No Symptoms Cardiovascular: reports: No Symptoms Respiratory: reports: No Symptoms Gastrointestinal: reports: No Symptoms Genitourinary: reports: No Symptoms Physical Examination Vital Signs: Vital Signs Temperature 98.9 F 03/01/20 14:16 Pulse Rate 80 03/01/20 14:16 Respiratory Rate 14 03/01/20 14:16 Blood Pressure 104/56 L 03/01/20 14:16 O2 Sat by Pulse Oximetry (%) 100 03/01/20 09:22 Constitutional: Yes: No Distress Eyes: Yes: WNL HENT: Yes: WNL Neck: Yes: WNL, Supple Cardiovascular: Yes: WNL, Regular Rate and Rhythm Respiratory: Yes: WNL, Regular, CTA Bilaterally Gastrointestinal: Yes: WNL, Normal Bowel Sounds, Soft Musculoskeletal: Yes: WNL Extremities: Yes: WNL Edema: No Neurological: Yes: WNL, Alert, Oriented ...Motor Strength: WNL Labs: CBC, BMP 02/29/20 22:30 02/29/20 22:30 Problem List - Problems (1) Paresthesia Assessment/Plan: R/O CVA Neuro consult/Cardio consult noted Check echo/carotid doppler Will get MRI brain Code(s): R20.2 - PARESTHESIA OF SKIN (2) Headache Code(s): R51 - HEADACHE
[2020-03-01] MEDS ORDERED: ACETAMINOPHEN/CAFFEINE/BUTALBITAL 1 TAB PO ONE (20:00)
[2020-03-01] MEDS: ATORVASTATIN CA 20 MG TABLET (FP) PO SCH (21:00)
[2020-03-02 07:28] LABS: BASO % 0.9 % (0-2.0); EOS % 3.8 % (0-4.5); HEMATOCRIT 32.9 % (32.4-45.2); HEMOGLOBIN 10.7 GM/dL (10.7-15.3); LYMPH % 49.8 % (8-40); MCH 26.7 pg (25.7-33.7); MCHC 32.4 g/dl (32.0-36.0); MEAN CELL VOLUME 82.1 fl (80-96); MEAN PLT VOLUME 9.4 fl (7.5-11.1); MONO % 7.7 % (3.8-10.2); NEUT % 37.8 % (42.8-82.8); PLATELET COUNT 242 K/MM3 (134-434); RBC 4.01 M/mm3 (3.60-5.2); RDW 13.4 % (11.6-15.6); WHITE BLOOD COUNT 3.9 K/mm3 (4.0-10.0)
[2020-03-02 07:32] LABS: INR 1.08 (0.83-1.09); PROTHROMBIN TIME (PATIENT) 12.7 SEC (9.7-13.0)
[2020-03-02 07:35] LABS: ACTIVATED PTT 32.2 SECONDS (25.2-36.5)
[2020-03-02] MEDS: ASPIRIN 81 MG CHEWABLE TABLETS PO SCH (09:37)
[2020-03-02] MEDS: HEPARIN NA (PORCINE) 5,000 UNITS/ML 1ML VIAL SQ SCH ×2 (09:37→22:22)
--- NOTE | 2020-03-02 11:24 | PN ---
Progress Note (short form) - Note Progress Note: c Transient right sided weakness HPI 39 year old female history of asthma, allergies, 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 Her symptoms started with both leg pain and suddenly she experienced that right arm, leg and speech disturbances. She came to hospital with NIH score of 1 ( right arm drift was noted). Lisa has ct head and tpa was not given. She denies any htn,hld,cad,smoking or stroke in past. Her symptoms resolved in half hour. She also experiencing headhace on february 28, she did have history of migraine , but she has not has any migraine in a long time. chart reviewd, event noted and discused with nursing. No new sympotms. spent 25 minute answering questions. Patient is waiting for mri and hypercoagubility work up NEUROLOGICAL EXAMINATION Alert oriented x 3 neck is supple, vss, afebrile eomi, pupils reactive no face asymmetry moving all ext sensation is normal gait and coordination is normal ct head is normal mri of brain is pending supervisor electric motor testing consult pending Assessment/Plan 1.Transient right arm, leg and speech difficulty, no prior risk factor including migraine and recurrent ( 3 ) miscarriages. Now recovered, ct head is noraml - most likley tia vs complicated migraine. -continue aspirin and statin - may need hypercoagubaility work up , hematology consult - echo , may need sally or loop recorder Thanking you so much Jt Barrera MD
--- NOTE | 2020-03-02 14:15 | PN ---
Physical Exam: SUBJECTIVE: Patient seen and examined. No acute events overnight. Patient reports feeling better with very minimal bilateral lower leg pain. OBJECTIVE: Vital Signs Temperature 98.8 F 03/02/20 09:30 Pulse Rate 75 03/02/20 09:30 Respiratory Rate 18 03/02/20 09:30 Blood Pressure 128/68 03/02/20 09:30 O2 Sat by Pulse Oximetry (%) 98 03/02/20 12:16 GENERAL: Awake, alert, and fully oriented, in no acute distress. HEAD: Normal with no signs of trauma. EYES: PERRLA, EOMI, sclera anicteric, conjunctiva clear. EARS, NOSE, THROAT: Moist mucous membranes. NECK: Normal range of motion, supple LUNGS: Breath sounds equal, clear to auscultation bilaterally. HEART: Regular rate and rhythm, normal S1 and S2 ABDOMEN: Soft, nontender, not distended, normoactive bowel sounds. MUSCULOSKELETAL: Normal range of motion at all joints. LOWER EXTREMITIES: 2+ pulses, warm, well-perfused. No peripheral edema. NEUROLOGICAL: Cranial nerves II-XII intact. Normal speech. Motor 5/5 and sensation intact on all extremities PSYCHIATRIC: Cooperative. Good eye contact. Appropriate mood and affect. SKIN: Warm, dry, normal turgor Laboratory Results - last 24 hr 03/01/20 03/01/20 03/01/20 03:01 16:15 16:15 WBC RBC Hgb Hct MCV MCH MCHC RDW Plt Count MPV Absolute Neuts (auto) Neutrophils % Lymphocytes % Monocytes % Eosinophils % Basophils % Nucleated RBC % PT with INR 12.20 INR 1.03 PTT (Actin FS) 31.7 Creatine Kinase 64 Troponin I < 0.02 TSH COVID-19 ([facility]) Not detected HIV Ag/Ab Combo Qual 03/02/20 03/02/20 03/02/20 06:33 06:33 06:33 WBC 3.9 L RBC 4.01 Hgb 10.7 Hct 32.9 MCV 82.1 MCH 26.7 MCHC 32.4 RDW 13.4 Plt Count 242 MPV 9.4 Absolute Neuts (auto) 1.5 Neutrophils % 37.8 L Lymphocytes % 49.8 H D Monocytes % 7.7 Eosinophils % 3.8 Basophils % 0.9 Nucleated RBC % 0 PT with INR 12.70 INR 1.08 PTT (Actin FS) 32.2 Creatine Kinase 50 Troponin I < 0.02 TSH 1.26 COVID-19 ([facility]) HIV Ag/Ab Combo Qual 03/02/20 06:33 WBC RBC Hgb Hct MCV MCH MCHC RDW Plt Count MPV Absolute Neuts (auto) Neutrophils % Lymphocytes % Monocytes % Eosinophils % Basophils % Nucleated RBC % PT with INR INR PTT (Actin FS) Creatine Kinase Troponin I TSH COVID-19 ([facility]) HIV Ag/Ab Combo Qual Negative Active Medications Generic Name Dose Route Start Last Admin Trade Name Freq PRN Reason Stop Dose Admin Acetaminophen 650 mg 03/01/20 09:14 03/01/20 09:23 Tylenol - PO 650 mg Q6H PRN Administration PAIN LEVEL 6-10 Aspirin 81 mg 03/01/20 10:00 03/02/20 09:37 Asa - PO 81 mg DAILY VERA Administration Atorvastatin Calcium 20 mg 03/01/20 22:00 03/01/20 21:00 Lipitor - PO 20 mg HS VERA Administration Heparin Sodium (Porcine) 5,000 unit 03/01/20 10:00 03/02/20 09:37 Heparin - SQ 5,000 unit BID VERA Administration ASSESSMENT/PLAN: Patient is a 39 year old female with past medical history of asthma, migraine and 3 recent miscarriages, presented to the ED with sudden onset b/l LE pain and numbness, RUE weakness and numbness, and headache. We have been asked to medically evaluate this patient for hypercoagulability workup. #TIA vs complex migraine, r/o Thrombophilia -?TIA vs complex migraine, hx of 3 early miscarriages -Head CT - no intracranial pathology -echo - normal LV/RV function -Duplex b/l LE : no evidence of DVT bilaterally -MRI pending -r/o antiphospholipid syndrome/SLE, thrombophilia -Coags normal, HIV test negative, TSH normal -Hgb electrophoresis, NORA pending -thrombophilia work up - Prothrombin 29943V, Factor V Leiden, Protein C&S Ag and Activity, Antithrombin III Ag and activity, antiphospholipid panel, Lupus anticoagulant panel pending Visit type - Emergency Visit Emergency Visit: Yes ED Registration Date: 03/02/20 Care time: The patient presented to the Emergency Department on the above date and was hospitalized for further evaluation of their emergent condition. - New Patient This patient is new to me today: Yes Date on this admission: 03/01/20 - Critical Care Critical Care patient: No ATTENDING PHYSICIAN STATEMENT I saw and evaluated the patient. I reviewed the resident's note and discussed the case with the resident. I agree with the resident's findings and plan as documented. SUBJECTIVE: OBJECTIVE: ASSESSMENT AND PLAN:
--- NOTE | 2020-03-02 14:21 | PN ---
Teaching Attending Note Name of Resident: Emperatriz Pryor ATTENDING PHYSICIAN STATEMENT I saw and evaluated the patient. I reviewed the resident's note and discussed the case with the resident. I agree with the resident's findings and plan as documented. ASSESSMENT AND PLAN: Transient right arm, leg and speech difficulty, h/o migraine and recurrent ( 3 ) miscarriages ( 2 1st trimester, 1 2nd trimester). Now recovered, CT head is gabby fuchs tia vs complicated migraine per neurology MRI pending On aspirin and statin will check hypercoagubaility work up , NORA/RF/HIV/ Hgb electrophoresis echo , may need sally or loop recorder, per neurology discussed with house staff
--- NOTE | 2020-03-02 17:39 | PN ---
Progress Note, Physician - Current Medication List Current Medications: Active Medications Acetaminophen (Tylenol -) 650 mg PO Q6H PRN PRN Reason: PAIN LEVEL 6-10 Last Admin: 03/01/20 09:23 Dose: 650 mg Documented by: Aspirin (Asa -) 81 mg PO DAILY [facility] Last Admin: 03/02/20 09:37 Dose: 81 mg Documented by: Atorvastatin Calcium (Lipitor -) 20 mg PO HS [facility] Last Admin: 03/01/20 21:00 Dose: 20 mg Documented by: Heparin Sodium (Porcine) (Heparin -) 5,000 unit SQ BID [facility] Last Admin: 03/02/20 09:37 Dose: 5,000 unit Documented by: Pantoprazole Sodium (Protonix -) 40 mg PO ONCE ONE Stop: 03/02/20 17:46 - Objective Vital Signs: Vital Signs Temperature 98.4 F 03/02/20 14:12 Pulse Rate 71 03/02/20 14:12 Respiratory Rate 18 03/02/20 14:12 Blood Pressure 109/71 03/02/20 14:12 O2 Sat by Pulse Oximetry (%) 100 03/02/20 14:12 Constitutional: Yes: No Distress HENT: Yes: Atraumatic Neck: Yes: Supple Cardiovascular: Yes: Regular Rate and Rhythm Respiratory: Yes: CTA Bilaterally Gastrointestinal: Yes: Normal Bowel Sounds Extremities: Yes: WNL Neurological: Yes: Alert, Oriented Labs: CBC, BMP 03/02/20 06:33 02/29/20 22:30 INR, PTT INR 1.08 (0.83-1.09) 03/02/20 06:33 Problem List - Problems (1) Paresthesia Assessment/Plan: doing well h/o migraine walking well moving all extremeties Code(s): R20.2 - PARESTHESIA OF SKIN (2) Right arm weakness Assessment/Plan: resolved Code(s): R29.898 - OTH SYMPTOMS AND SIGNS INVOLVING THE MUSCULOSKELETAL SYSTEM (3) Headache Code(s): R51 - HEADACHE Assessment/Plan MRI NEGATIVE PT DOING WELL PT
[2020-03-02] MEDS ORDERED: PANTOPRAZOLE 40 MG TABLET PO ONE (17:45)
[2020-03-02] MEDS: ATORVASTATIN CA 20 MG TABLET (FP) PO SCH (22:22)
--- NOTE | 2020-03-02 22:28 | PN ---
Progress Note, Physician Chief Complaint: Pt A&OX3; sitting up in bed;right-sided numbness has resolved. History of Present Illness: The patient is a 39y/o woman (b. [place]) with a PMH of asthma and seasonal allergies, s/p morbid obesity (once weighed 200 lbs)-->gastric sleeve in 2018, hyperlipidemia prior to gastric sleeve, periods of anxiety/depression (hx 3 miscarriages), who presented to the ED with onset of BLE pain and tingling at 9:40pm night of admission while a passenger in car driven by , followed by RUE pain and heaviness, gradual onset of diffuse frontal NEVAREZ and sweats. The patient states she has been anxious since the time of the onset but denies any other symptoms. Denies fever, chest pain,dyspnea, nausea, vomiting, diarrhea, imbalance, vision or speech difficulties. States the NEVAREZ was gradual onset, and she has had these symptoms before. Pt used to exercise regularly, but has not done so for months. Menses are monthly but irregular - Current Medication List Current Medications: Active Medications - Current Medication List Current Medications: Active Medications Acetaminophen (Tylenol -) 650 mg PO Q6H PRN PRN Reason: PAIN LEVEL 6-10 Last Admin: 03/01/20 09:23 Dose: 650 mg Documented by: Aspirin (Asa -) 81 mg PO DAILY [facility] Last Admin: 03/02/20 09:37 Dose: 81 mg Documented by: Atorvastatin Calcium (Lipitor -) 20 mg PO HS [facility] Last Admin: 03/02/20 22:22 Dose: 20 mg Documented by: Heparin Sodium (Porcine) (Heparin -) 5,000 unit SQ BID [facility] Last Admin: 03/02/20 22:22 Dose: 5,000 unit Documented by: - Objective Vital Signs: Vital Signs Temperature 98.5 F 03/02/20 18:00 Pulse Rate 79 03/02/20 18:00 Respiratory Rate 18 03/02/20 18:00 Blood Pressure 128/77 03/02/20 18:00 O2 Sat by Pulse Oximetry (%) 99 03/02/20 18:00 Constitutional: Yes: Calm Eyes: Yes: WNL HENT: Yes: WNL Neck: Yes: WNL Cardiovascular: Yes: WNL, S1, S2 Respiratory: Yes: WNL Gastrointestinal: Yes: WNL ...Rectal Exam: Yes: Deferred Genitourinary: No: Anuria Breast(s): Yes: WNL Musculoskeletal: Yes: WNL Extremities: Yes: WNL Edema: No Peripheral Pulses WNL: Yes Integumentary: Yes: Tattoos Neurological: Yes: WNL ...Motor Strength: WNL Psychiatric: Yes: Alert, Oriented, Other (hx anxiety/depression) Labs: CBC, BMP 03/02/20 06:33 02/29/20 22:30 INR, PTT INR 1.08 (0.83-1.09) 03/02/20 06:33 Abnormal Lab Results 03/02/20 06:33 WBC 3.9 L Neutrophils % 37.8 L Lymphocytes % 49.8 H D - ....Imaging Chest X-ray: Image Reviewed EKG: Image Reviewed Assessment/Plan PMH of asthma and seasonal allergies who presented to the ED with onset of BLE pain and tingling, followed by RUE pain and heaviness, and gradual onset of diffuse frontal NEVAREZ and sweats. ?TIA: resolved. ECHO/carotids/ EKG/ telemetry WNL TNI < 0.02 x 3 TSH, lipids WNL. hx gastric sleeve episodes of anxiety/depression associated with miscarriages Plan; Cardiac reed remains stable. 24 holter: results pending. Neurologic workup in progress. DVT plx
[2020-03-03] MEDS: MAG HYDROX/AL HYDROX/SIMETH 30 ML UNIT-DOSE CUP PO PRN (02:00)
--- NOTE | 2020-03-03 07:48 | PN ---
Progress Note, Physician History of Present Illness: The patient is a 39y/o F with a PMH of asthma and seasonal allergies who presents to the ED with onset of BLE pain and tingling at 9:40pm tonight, followed by RUE pain and heaviness, followed by gradual onset of diffuse frontal NEVAREZ and sweats. The patient states she has been anxious since the time of the onset but denies any other symptoms. Denies f/c/n/v/d/c, imbalance, vision or speech difficulties. States the NEVAREZ was gradual onset and she has had these symptoms before. - Current Medication List Current Medications: Active Medications Acetaminophen (Tylenol -) 650 mg PO Q6H PRN PRN Reason: PAIN LEVEL 6-10 Last Admin: 03/01/20 09:23 Dose: 650 mg Documented by: Al Hydroxide/Mg Hydroxide (Mylanta Oral Suspension -) 30 ml PO Q6H PRN PRN Reason: INDIGESTION Last Admin: 03/03/20 02:00 Dose: 30 ml Documented by: Aspirin (Asa -) 81 mg PO DAILY [facility] Last Admin: 03/02/20 09:37 Dose: 81 mg Documented by: Atorvastatin Calcium (Lipitor -) 20 mg PO HS [facility] Last Admin: 03/02/20 22:22 Dose: 20 mg Documented by: Heparin Sodium (Porcine) (Heparin -) 5,000 unit SQ BID [facility] Last Admin: 03/02/20 22:22 Dose: 5,000 unit Documented by: - Objective Vital Signs: Vital Signs Temperature 98.2 F 03/03/20 02:00 Pulse Rate 60 03/03/20 05:58 Respiratory Rate 20 03/03/20 05:58 Blood Pressure 107/67 03/03/20 05:58 O2 Sat by Pulse Oximetry (%) 99 03/03/20 05:58 Eyes: Yes: WNL, Conjunctiva Clear, EOM Intact HENT: Yes: WNL, Atraumatic, Normocephalic Neck: Yes: WNL, Supple, Trachea Midline Cardiovascular: Yes: WNL, Regular Rate and Rhythm Respiratory: Yes: WNL, Regular, CTA Bilaterally Gastrointestinal: Yes: WNL, Normal Bowel Sounds Genitourinary: Yes: WNL Musculoskeletal: Yes: WNL Extremities: Yes: WNL Edema: No Integumentary: Yes: WNL Neurological: Yes: WNL, Alert, Oriented ...Motor Strength: WNL Psychiatric: Yes: WNL Labs: CBC, BMP 03/02/20 06:33 02/29/20 22:30 INR, PTT INR 1.08 (0.83-1.09) 03/02/20 06:33 Problem List - Problems (1) Right arm weakness Code(s): R29.898 - OTH SYMPTOMS AND SIGNS INVOLVING THE MUSCULOSKELETAL SYSTEM (2) Abdominal pain complicating Code(s): O26.899 - OTH RELATED CONDITIONS, UNSPECIFIED TRIMESTER; R10.9 - UNSPECIFIED ABDOMINAL PAIN (3) Acute gallstone pancreatitis Code(s): K85.10 - BILIARY ACUTE PANCREATITIS WITHOUT NECROSIS OR INFECTION (4) Adverse effect of alcohol product Code(s): PLQ9339 - (5) Asthma exacerbation Code(s): J45.901 - UNSPECIFIED ASTHMA WITH (ACUTE) EXACERBATION (6) Blighted ovum Code(s): O02.0 - BLIGHTED OVUM AND NONHYDATIDIFORM MOLE (7) Bronchitis Code(s): J40 - BRONCHITIS, NOT SPECIFIED ACUTE OR CHRONIC (8) Chest pain Code(s): R07.9 - CHEST PAIN, UNSPECIFIED (9) Choledocholithiasis Code(s): K80.50 - CALCULUS OF BILE DUCT W/O CHOLANGITIS OR CHOLECYST W/O OBST (10) Common cold virus Code(s): J00 - ACUTE NASOPHARYNGITIS [COMMON COLD] (11) Early stage of Code(s): Z34.90 - ENCNTR FOR SUPRVSN OF NORMAL , UNSP, UNSP TRIMESTER (12) Epigastric abdominal pain Code(s): R10.13 - EPIGASTRIC PAIN (13) Flu-like symptoms Code(s): R68.89 - OTHER GENERAL SYMPTOMS AND SIGNS (14) GERD (gastroesophageal reflux disease) Code(s): K21.9 - GASTRO-ESOPHAGEAL REFLUX DISEASE WITHOUT ESOPHAGITIS (15) Headache Code(s): R51 - HEADACHE (16) Hepatomegaly Code(s): R16.0 - HEPATOMEGALY, NOT ELSEWHERE CLASSIFIED (17) Influenza B Code(s): J10.1 - FLU DUE TO OTH IDENT INFLUENZA VIRUS W OTH RESP MANIFEST (18) Miscarriage Code(s): O03.9 - COMPLETE OR UNSP SPONTANEOUS WITHOUT COMPLICATION (19) Morbid obesity due to excess calories Code(s): E66.01 - MORBID (SEVERE) OBESITY DUE TO EXCESS CALORIES (20) Peptic ulcer Code(s): K27.9 - PEPTIC ULC, SITE UNSP, UNSP AC OR CHR, W/O HEMOR OR PERF (21) Code(s): Z33.1 - STATE, INCIDENTAL (22) -related examination Code(s): Z34.90 - ENCNTR FOR SUPRVSN OF NORMAL , UNSP, UNSP TRIMESTER (23) Previous section Code(s): Z98.89 - OTHER SPECIFIED POSTPROCEDURAL STATES * DO NOT USE * (24) Threatened in early Code(s): O20.0 - THREATENED (25) Urinary tract infection Code(s): N39.0 - URINARY TRACT INFECTION, SITE NOT SPECIFIED Qualifiers: Urinary tract infection type: site unspecified Hematuria presence: with hematuria Qualified Code(s): N39.0 - Urinary tract infection, site not specified; R31.9 - Hematuria, unspecified (26) Vaginal bleeding Code(s): N93.9 - ABNORMAL UTERINE AND VAGINAL BLEEDING, UNSPECIFIED (27) Vaginal bleeding affecting early Code(s): O20.9 - HEMORRHAGE IN EARLY , UNSPECIFIED (28) Vaginal bleeding during Code(s): O46.90 - ANTEPARTUM HEMORRHAGE, UNSPECIFIED, UNSPECIFIED TRIMESTER (29) Vaginal bleeding, abnormal Code(s): N93.9 - ABNORMAL UTERINE AND VAGINAL BLEEDING, UNSPECIFIED (30) Vaginal itching Code(s): N89.8 - OTHER SPECIFIED NONINFLAMMATORY DISORDERS OF VAGINA (31) Vaginitis Code(s): N76.0 - ACUTE VAGINITIS Qualifiers: Chronicity: acute Qualified Code(s): N76.0 - Acute vaginitis (32) Vomiting Code(s): R11.10 - VOMITING, UNSPECIFIED Assessment/Plan PMH of asthma and seasonal allergies who presented to the ED with onset of BLE pain and tingling, followed by RUE pain and heaviness, and gradual onset of diffuse frontal NEVAREZ and sweats. ?TIA: resolved. ECHO/carotids/ EKG/ telemetry WNL TNI < 0.02 x 3 TSH, lipids WNL. hx gastric sleeve episodes of anxiety/depression associated with miscarriages 24 holter:negative Telemetry negative Plan; Cardiac reed remains stable. Will arrange for SUZANNE and evaluation for loop recorder placement. DVT plx
[2020-03-03] MEDS: HEPARIN NA (PORCINE) 5,000 UNITS/ML 1ML VIAL SQ SCH ×2 (09:21→21:07)
[2020-03-03] MEDS: ASPIRIN 81 MG CHEWABLE TABLETS PO SCH (09:22)
--- NOTE | 2020-03-03 09:41 | PN ---
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 Her symptoms started with both leg pain and suddenly she experienced that right arm, leg and speech disturbances. She came to hospital with NIH score of 1 ( right arm drift was noted). Lisa has ct head and tpa was not given. She denies any htn,hld,cad,smoking or stroke in past. Her symptoms resolved in half hour. She also experiencing headhace on february 28, she did have history of migraine , but she has not has any migraine in a long time. --chart reviewd, event noted and discused with nursing. no new symptoms, holter report pending. Mri of brain is unremarkable. NEUROLOGICAL EXAMINATION Alert oriented x 3 neck is supple, vss, afebrile eomi, pupils reactive no face asymmetry moving all ext sensation is normal gait and coordination is normal ct head is normal mri of brain is normal Assessment/Plan 1.Transient right arm, leg and speech difficulty, no prior risk factor including migraine and recurrent ( 3 ) miscarriages. Now recovered, ct head is blancaaml - likley tia vs complicated migraine. -continue aspirin and statin -- hypercoagubility work up - follow up outpatient - echo , may need sally or loop recorder Thanking you so much Jt Barrera MD
--- NOTE | 2020-03-03 10:54 | HOL ---
Hook-up date: 2020-03-01 15:17:00 Duration: 24:00:00 Test Indications: TIA Medications: 78479 QRS complexes * Ventricular ectopics which represent % of total QRS comp. * Supraventricular ectopics which represent % of total QRS comp. * Paced QRS complexs which represent % of total QRS comp. * % of Time Classified as Noise VENTRICULAR ECTOPY * Isolated * Bigeminal Cycles * Couplets * Runs * Beats in Runs * Beats LONGEST at * BPM at :: -- * Beats FASTEST at * BPM at :: -- SUPRAVENTRICULAR ECTOPY * Isolated * Couplets * Runs * Beats in Runs * Beats LONGEST at * BPM at :: -- * Beats FASTEST at * BPM at :: -- HEART RATES 47 MIN at 05:01:51 2020-03-02 68 AVG 115 MAX at 12:57:33 2020-03-02 LONGEST RR 1.424 secs at 07:17:27 2020-03-02 1. The underlying rhythm was normal sinus with a minimum rate of 47bpm and a max of 115bpm, average rate = 68bpm. 2. Mild occasional sinus tachycardia and periods of nocturnal mild sinus bradycardia. 3. No ventricular arrhythmias; no evidence of SVT or atrial fibrillation. 4. There were no significant pauses. 5. No diary entries. Confirmed by PAGE JUDGE MD ([id number]) on 03/03/2020 10:54:09 AM Referred By: BARAK SAULMOLINA Overread By: PAGE JUDGE MD
--- NOTE | 2020-03-03 14:10 | PN ---
Progress Note, Physician - Current Medication List Current Medications: Active Medications Acetaminophen (Tylenol -) 650 mg PO Q6H PRN PRN Reason: PAIN LEVEL 6-10 Last Admin: 03/01/20 09:23 Dose: 650 mg Documented by: Al Hydroxide/Mg Hydroxide (Mylanta Oral Suspension -) 30 ml PO Q6H PRN PRN Reason: INDIGESTION Last Admin: 03/03/20 02:00 Dose: 30 ml Documented by: Aspirin (Asa -) 81 mg PO DAILY [facility] Last Admin: 03/03/20 09:22 Dose: 81 mg Documented by: Atorvastatin Calcium (Lipitor -) 20 mg PO HS [facility] Last Admin: 03/02/20 22:22 Dose: 20 mg Documented by: Heparin Sodium (Porcine) (Heparin -) 5,000 unit SQ BID [facility] Last Admin: 03/03/20 09:21 Dose: 5,000 unit Documented by: - Objective Vital Signs: Vital Signs Temperature 98.3 F 03/03/20 09:18 Pulse Rate 72 03/03/20 09:18 Respiratory Rate 18 03/03/20 09:18 Blood Pressure 114/62 03/03/20 09:18 O2 Sat by Pulse Oximetry (%) 98 03/03/20 12:00 Constitutional: Yes: No Distress HENT: Yes: Atraumatic Neck: Yes: Supple Cardiovascular: Yes: Regular Rate and Rhythm Respiratory: Yes: CTA Bilaterally Gastrointestinal: Yes: Normal Bowel Sounds Extremities: Yes: WNL Neurological: Yes: Alert, Oriented Labs: CBC, BMP 03/02/20 06:33 02/29/20 22:30 INR, PTT INR 1.08 (0.83-1.09) 03/02/20 06:33 Problem List - Problems (1) Paresthesia Assessment/Plan: doing well h/o migraine walking well moving all extremeties Code(s): R20.2 - PARESTHESIA OF SKIN (2) Right arm weakness Assessment/Plan: resolved Code(s): R29.898 - OTH SYMPTOMS AND SIGNS INVOLVING THE MUSCULOSKELETAL SYSTEM (3) Headache Code(s): R51 - HEADACHE Assessment/Plan awaiting cardiology for further work up COVERING FOR DR AUGUSTE TODAY
[2020-03-03] MEDS: ATORVASTATIN CA 20 MG TABLET (FP) PO SCH (21:07)
--- NOTE | 2020-03-04 06:25 | PN ---
Progress Note (short form) - Note Progress Note: Coverage for Dr. Gene Rendon Chief Complaint: Events noted, notes reviewed, feels well does not report any neurologic symptoms or deficits History of Present Illness: Seen and examined on telemetry. Events noted, notes reviewed, feels well does not report any neurologic symptoms or deficits Results of CT scan of the head and MRI of the brain were noted, no evidence of embolic disease- I feel clinically unlikely to be related to cardioembolic phenomena, presentation could be related to migraine aura, transesophageal echocardiography is scheduled for this coming week for evaluation of potential congenital defects i.e. ASD/VSD/atrial septal aneurysm, above was reviewed and discussed in detail with the patient and a family member Misty who was contacted via telephone Medications: Current Medications Generic Name Dose Route Start Last Admin Trade Name Freq PRN Reason Stop Dose Admin Acetaminophen 650 mg 03/01/20 09:14 03/01/20 09:23 Tylenol - PO 650 mg Q6H PRN Administration PAIN LEVEL 6-10 Al Hydroxide/Mg Hydroxide 30 ml 03/03/20 02:49 03/03/20 02:00 Mylanta Oral Suspension - PO 30 ml Q6H PRN Administration INDIGESTION Aspirin 81 mg 03/01/20 10:00 03/03/20 09:22 Asa - PO 81 mg DAILY [facility] Administration Atorvastatin Calcium 20 mg 03/01/20 22:00 03/03/20 21:07 Lipitor - PO 20 mg HS [facility] Administration Heparin Sodium (Porcine) 5,000 unit 03/01/20 10:00 03/03/20 21:07 Heparin - SQ 5,000 unit BID [facility] Administration Review of Systems Constitutional: denies Chills or Fever Respiratory: denies: Dyspnea Cardiovascular: As noted above Gastrointestinal: denies Nausea, Vomiting, Diarrhea or Constipation or Abdominal Discomfort Genitourinary: No Symptoms Reported Musculoskeletal: No Symptoms Reported Vital Signs: Last Vital Signs Temp Pulse Resp BP Pulse Ox 98.6 F 78 17 94/63 98 03/04/20 02:00 03/04/20 02:00 03/04/20 02:00 03/04/20 02:00 03/04/20 02:00 Intake & Output 03/01/20 03/02/20 03/03/20 03/04/20 23:59 23:59 23:59 23:59 Intake Total 8654 584 5759 Output Total 4 Balance 7381 588 6820 Weight 137 lb 6.4 oz Neck: Supple Negative JVD Respiratory: Clear to A&P Bilaterally Cardiovascular: S1 S2 Regular Rate Rhythm Gastrointestinal: Soft Benign Normal Bowel Sounds Ext: Negative Edema Labs: CBC, BMP 03/02/20 06:33 02/29/20 22:30 Hepatic Panel Total Bilirubin 0.2 mg/dL (0.2-1) 02/29/20 22:30 AST 21 U/L (15-37) 02/29/20 22:30 ALT 17 U/L (13-61) 02/29/20 22:30 Alkaline Phosphatase 58 U/L (45-117) 02/29/20 22:30 Albumin 3.7 g/dl (3.4-5.0) 02/29/20 22:30 INR, PTT INR 1.08 (0.83-1.09) 03/02/20 06:33 Assessment/Plan ASSESSMENT: 1. Transient neuromuscular presentation/bilateral lower extremity discomfort/paresthesia- followed by right upper extremity discomfort and heaviness, clinically resolved- transient ischemic attack suspected versus 2. Migrainous aura known history of migraine headaches 3. History of bronchial asthma 4. Recent miscarriages 5. History of anxiety disorder/clinical depression PLAN: 1. Continue Ecotrin therapy pending completion of evaluation 2. Continue Lipitor therapy 3. Plan to proceed with transesophageal echocardiography for evaluation of potential congenital heart defects as outlined above 4. No clear indication for implantation of an implantable loop monitor Ena Joseph MD
--- NOTE | 2020-03-04 09:32 | CON.CARD ---
Consult Consult Specialty:: Cardiac Electrophysiology Referred by:: Dr. Rendon Reason for Consultation:: TIA - History of Present Illness Chief Complaint: dysarthria, leg pain, arm weakness History of Present Illness: Ms. Massey is a pleasant 39 year old female with a pmh of asthma and seasonal allergies, prior bariatric surgery who presented to the ER with sudden onset complains of b/l LE pain, tingling followed by RUE pain, weakness and dysarthria. Symptoms subsequently resolved. LE venous duplex negative. EKG and echo unremarkable, normal LVEF. normal LA size. Holter and telemetry unremarkable. She denies prior similar symptoms. She does note recurrent headaches. She has been 6 times. She has three children with range upto 18 years. Her most recent three pregnancies have resulted in miscarriages over the past 1.5 years. She is undergoing Heme evaluation. She denies any chest pain, dyspnea, palpitations, near or true syncope. She is scheduled for a SUZANNE on Friday. 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 Pulmonary: Yes: Asthma ...LMP: 12/29/19 ...: No - Past Surgical History Past Surgical History: Yes: Bariatric Surgery (gastric sleeve 02/2017), - Alcohol/Substance Use Hx Alcohol Use: No History of Substance Use: reports: None - Smoking History Smoking history: Never smoked Have you smoked in the past 12 months: No Aproximately how many cigarettes per day: 0 - Social History Usual Living Arrangement: With Spouse ADL: Independent History of Recent Travel: No Home Medications - Allergies Allergies/Adverse Reactions: Allergies Allergy/AdvReac Type Severity Reaction Status Date / Time shrimp Allergy Severe Difficulty Verified 03/01/20 21:01 Breathing Penicillins Allergy Mild Swelling/it Verified 02/21/20 22:22 miguel mushroom Allergy Unknown Unverified 03/03/20 13:15 - Home Medications Home Medications: Ambulatory Orders Omeprazole 40 mg PO DAILY 01/17/19 Acetaminophen [Tylenol .Regular Strength -] 650 mg PO Q6H PRN #30 tablet 03/03/20 Aspirin [ASA -] 81 mg PO DAILY #30 tab.chew 03/03/20 Atorvastatin Ca [Lipitor] 20 mg PO HS #30 tablet 03/03/20 Family Medical History Family History: Unremarkable (no fam hx of scd) Review of Systems - Review of Systems Constitutional: denies: Chills, Fever Eyes: denies: Blurred Vision HENT: denies: No Symptoms Neck: denies: Decreased ROM Cardiovascular: denies: Chest Pain, Edema, Palpitations, Shortness of Breath Respiratory: denies: SOB on Exertion, Wheezing Gastrointestinal: denies: Abdominal Pain, Melena, Nausea, Rectal Bleeding, Vomiting Musculoskeletal: denies: Decreased ROM Neurological: reports: Other (as in hpi) Hematology/Lymphatic: denies: Easily Bruised Psychiatric: denies: Anxiety, Depression Vital Signs: Vital Signs Temperature 98.0 F 03/04/20 06:00 Pulse Rate 73 03/04/20 06:00 Respiratory Rate 16 03/04/20 06:00 Blood Pressure 97/60 03/04/20 06:00 O2 Sat by Pulse Oximetry (%) 98 03/04/20 06:00 Constitutional: Yes: Well Nourished, No Distress, Calm Eyes: Yes: Conjunctiva Clear, EOM Intact HENT: Yes: Atraumatic, Normocephalic Neck: Yes: Supple, Trachea Midline Respiratory: Yes: Regular, CTA Bilaterally Gastrointestinal: Yes: Normal Bowel Sounds, Soft Cardiovascular: Yes: Regular Rate and Rhythm JVD: No Carotid Bruit: No PMI: Non-Displaced Extremities: Yes: WNL Edema: No Peripheral Pulses WNL: Yes Neurological: Yes: Alert, Oriented Psychiatric: Yes: Alert, Oriented - Other Data Labs, Other Data: CBC, BMP 03/02/20 06:33 02/29/20 22:30 INR, PTT INR 1.08 (0.83-1.09) 03/02/20 06:33 Echo: Report Reviewed Holter: Report Reviewed Ejection Fraction %: LVEF > or = 40 % Imaging - Results EKG: Image Reviewed Problem List - Problems (1) TIA (transient ischemic attack) Code(s): G45.9 - TRANSIENT CEREBRAL ISCHEMIC ATTACK, UNSPECIFIED (2) PVC (premature ventricular contraction) Code(s): I49.3 - VENTRICULAR PREMATURE DEPOLARIZATION (3) Paresthesia Code(s): R20.2 - PARESTHESIA OF SKIN (4) Right arm weakness Code(s): R29.898 - OTH SYMPTOMS AND SIGNS INVOLVING THE MUSCULOSKELETAL SYSTEM (5) Headache Code(s): R51 - HEADACHE Assessment/Plan TIA vs complex migraines, recent three miscarriages. holter/telemetry unremarkable. carotid us, LE venous duplex, brain mri and head ct unremarkable. echo normal LVEF with normal LA size. PVC seen on telemetry, no apc's. denies hx of palpitations, near or true syncope. no known fam hx of AF. given above, it is very unlikely for arrhythmia to be the explanation for her symptoms. no indication for ILR at this time, pt in agreement with this. would plan for outpt event monitor. pt is awaiting SUZANNE on Friday to evaluate for possible ASD/PFO. - no indication for ILR at this time - keep k 4-4.5, mg 2-2.5 - will arrange for event monitor as outpt - SUZANNE scheduled for Friday - care as per primary services - case d/w Dr. Rendon and Dr. Joseph Time spent: 53 minutes Thank you for allowing me to participate in the care of this patient. Please call with any questions. Will sign off for now but available upon request. Will follow as outpt.
[2020-03-04] MEDS: HEPARIN NA (PORCINE) 5,000 UNITS/ML 1ML VIAL SQ SCH ×2 (10:45→21:36)
[2020-03-04] MEDS: ASPIRIN 81 MG CHEWABLE TABLETS PO SCH (10:45)
[2020-03-04] MEDS: MAG HYDROX/AL HYDROX/SIMETH 30 ML UNIT-DOSE CUP PO PRN (12:02)
--- NOTE | 2020-03-04 20:35 | PN ---
Progress Note, Physician History of Present Illness: No new complaints - Current Medication List Current Medications: Active Medications Acetaminophen (Tylenol -) 650 mg PO Q6H PRN PRN Reason: PAIN LEVEL 6-10 Last Admin: 03/01/20 09:23 Dose: 650 mg Documented by: Al Hydroxide/Mg Hydroxide (Mylanta Oral Suspension -) 30 ml PO Q6H PRN PRN Reason: INDIGESTION Last Admin: 03/04/20 12:02 Dose: 30 ml Documented by: Aspirin (Asa -) 81 mg PO DAILY [facility] Last Admin: 03/04/20 10:45 Dose: 81 mg Documented by: Atorvastatin Calcium (Lipitor -) 20 mg PO HS [facility] Last Admin: 03/03/20 21:07 Dose: 20 mg Documented by: Heparin Sodium (Porcine) (Heparin -) 5,000 unit SQ BID [facility] Last Admin: 03/04/20 10:45 Dose: 5,000 unit Documented by: Pantoprazole Sodium (Protonix Iv) 40 mg IVPUSH DAILY [facility] - Objective Vital Signs: Vital Signs Temperature 98.2 F 03/04/20 18:00 Pulse Rate 82 03/04/20 18:00 Respiratory Rate 16 03/04/20 18:00 Blood Pressure 103/66 03/04/20 18:00 O2 Sat by Pulse Oximetry (%) 99 03/04/20 18:00 Neck: Yes: WNL, Supple Cardiovascular: Yes: WNL, Regular Rate and Rhythm Respiratory: Yes: WNL, Regular, CTA Bilaterally Gastrointestinal: Yes: WNL, Normal Bowel Sounds, Soft Labs: CBC, BMP 03/02/20 06:33 02/29/20 22:30 INR, PTT INR 1.08 (0.83-1.09) 03/02/20 06:33 Problem List - Problems (1) TIA (transient ischemic attack) Assessment/Plan: MRI brain was normal However pt will need SUZANNE to r/o structural defect for evaluation of TIA Code(s): G45.9 - TRANSIENT CEREBRAL ISCHEMIC ATTACK, UNSPECIFIED (2) Paresthesia Assessment/Plan: Neuro consult/Cardio consult noted Echo/carotid dopplers were normal MRI brain unremarkable Pt awaiting SUZANNE to r/o defect for possible TIA Transvaginal US was negative for gestational sac Pt cleared by PROGRAM COORDINATOR SUZANNE in am Code(s): R20.2 - PARESTHESIA OF SKIN (3) Headache Assessment/Plan: Resolved Code(s): R51 - HEADACHE
[2020-03-04] MEDS: PANTOPRAZOLE SODIUM 40 MG VIAL IVPUSH SCH (20:36)
[2020-03-04] MEDS: ATORVASTATIN CA 20 MG TABLET (FP) PO SCH (21:36)
--- NOTE | 2020-03-05 06:25 | PN ---
Progress Note (short form) - Note Progress Note: Coverage for Dr. Gene Rendon Chief Complaint: Events noted, notes reviewed, reporting a beginning of a migraine headache, no reported prodromal symptoms, does not report any additional neurologic symptoms or deficits History of Present Illness: Seen and examined on telemetry. Events noted, notes reviewed, reporting a beginning of a migraine headache, no reported prodromal symptoms, does not report any additional neurologic symptoms or deficits As outlined in yesterday's note results of CT scan of the head and MRI of the brain were noted, no evidence of embolic disease- I feel clinically unlikely to be related to cardioembolic phenomena, presentation could be related to migraine aura, transesophageal echocardiography is scheduled for this coming week for evaluation of potential congenital defects i.e. ASD/VSD/atrial septal aneurysm, above was reviewed and discussed in detail with the patient Medications: Current Medications Generic Name Dose Route Start Last Admin Trade Name Freq PRN Reason Stop Dose Admin Acetaminophen 650 mg 03/01/20 09:14 03/01/20 09:23 Tylenol - PO 650 mg Q6H PRN Administration PAIN LEVEL 6-10 Al Hydroxide/Mg Hydroxide 30 ml 03/03/20 02:49 03/04/20 12:02 Mylanta Oral Suspension - PO 30 ml Q6H PRN Administration INDIGESTION Aspirin 81 mg 03/01/20 10:00 03/04/20 10:45 Asa - PO 81 mg DAILY VERA Administration Atorvastatin Calcium 20 mg 03/01/20 22:00 03/04/20 21:36 Lipitor - PO 20 mg HS VERA Administration Heparin Sodium (Porcine) 5,000 unit 03/01/20 10:00 03/04/20 21:36 Heparin - SQ 5,000 unit BID VERA Administration Pantoprazole Sodium 40 mg 03/04/20 20:15 03/04/20 20:36 Protonix Iv IVPUSH 40 mg DAILY [facility]A Administration Review of Systems Constitutional: denies Chills or Fever Respiratory: denies: Dyspnea Cardiovascular: As noted above Gastrointestinal: denies Nausea, Vomiting, Diarrhea or Constipation or Abdominal Discomfort Genitourinary: No Symptoms Reported Musculoskeletal: No Symptoms Reported Vital Signs: Last Vital Signs Temp Pulse Resp BP Pulse Ox 98.1 F 72 18 95/61 100 03/05/20 02:00 03/05/20 02:00 03/05/20 02:00 03/05/20 02:00 03/04/20 22:00 Intake & Output 03/02/20 03/03/20 03/04/20 03/05/20 23:59 23:59 23:59 23:59 Intake Total 240 2150 270 Balance 240 2150 270 Neck: Supple Negative JVD Respiratory: Clear to A&P Bilaterally Cardiovascular: S1 S2 Regular Rate Rhythm Gastrointestinal: Soft Benign Normal Bowel Sounds Ext: Negative Edema Labs: CBC, BMP 03/02/20 06:33 02/29/20 22:30 Hepatic Panel Total Bilirubin 0.2 mg/dL (0.2-1) 02/29/20 22:30 AST 21 U/L (15-37) 02/29/20 22:30 ALT 17 U/L (13-61) 02/29/20 22:30 Alkaline Phosphatase 58 U/L (45-117) 02/29/20 22:30 Albumin 3.7 g/dl (3.4-5.0) 02/29/20 22:30 INR, PTT INR 1.08 (0.83-1.09) 03/02/20 06:33 Assessment/Plan ASSESSMENT: 1. Transient neuromuscular presentation/bilateral lower extremity discomfort/paresthesia- followed by right upper extremity discomfort and heaviness, clinically resolved- transient ischemic attack suspected versus 2. Migrainous aura known history of migraine headaches- recurrent headache this morning 3. History of bronchial asthma 4. Recent miscarriages 5. History of anxiety disorder/clinical depression PLAN: 1. Continue Ecotrin therapy pending completion of evaluation 2. Continue Lipitor therapy 3. Plan to proceed with transesophageal echocardiography for evaluation of potential congenital heart defects as outlined above, risks, benefits and alternatives were reviewed in detail with the patient 4. No clear indication for implantation of an implantable loop monitor Ena Joseph MD
[2020-03-05] MEDS: ASPIRIN 81 MG CHEWABLE TABLETS PO SCH (10:10)
[2020-03-05] MEDS: HEPARIN NA (PORCINE) 5,000 UNITS/ML 1ML VIAL SQ SCH ×2 (10:10→21:41)
[2020-03-05] MEDS: PANTOPRAZOLE SODIUM 40 MG VIAL IVPUSH SCH (10:10)
[2020-03-05 16:07] LABS: PROTEIN S, FREE 53 % (57-157)
[2020-03-05] MEDS: ATORVASTATIN CA 20 MG TABLET (FP) PO SCH (21:28)
--- NOTE | 2020-03-05 22:25 | PN ---
Progress Note, Physician History of Present Illness: No new complaints - Current Medication List Current Medications: Active Medications Acetaminophen (Tylenol -) 650 mg PO Q6H PRN PRN Reason: PAIN LEVEL 6-10 Last Admin: 03/01/20 09:23 Dose: 650 mg Documented by: Al Hydroxide/Mg Hydroxide (Mylanta Oral Suspension -) 30 ml PO Q6H PRN PRN Reason: INDIGESTION Last Admin: 03/04/20 12:02 Dose: 30 ml Documented by: Aspirin (Asa -) 81 mg PO DAILY [facility] Last Admin: 03/05/20 10:10 Dose: 81 mg Documented by: Atorvastatin Calcium (Lipitor -) 20 mg PO HS [facility] Last Admin: 03/05/20 21:28 Dose: 20 mg Documented by: Heparin Sodium (Porcine) (Heparin -) 5,000 unit SQ BID [facility] Last Admin: 03/05/20 21:41 Dose: 5,000 unit Documented by: Pantoprazole Sodium (Protonix Iv) 40 mg IVPUSH DAILY [facility] Last Admin: 03/05/20 10:10 Dose: 40 mg Documented by: - Objective Vital Signs: Vital Signs Temperature 97.8 F 03/05/20 22:00 Pulse Rate 84 03/05/20 22:00 Respiratory Rate 20 03/05/20 22:00 Blood Pressure 101/60 03/05/20 22:00 O2 Sat by Pulse Oximetry (%) 99 03/05/20 22:00 Neck: Yes: WNL, Supple Cardiovascular: Yes: WNL, Regular Rate and Rhythm Respiratory: Yes: WNL, Regular, CTA Bilaterally Gastrointestinal: Yes: WNL, Normal Bowel Sounds, Soft Labs: CBC, BMP 03/02/20 06:33 02/29/20 22:30 INR, PTT INR 1.08 (0.83-1.09) 03/02/20 06:33 Problem List - Problems (1) TIA (transient ischemic attack) Assessment/Plan: MRI brain unremarkable Pt for SUZANNE to r/o structural defect Cont ASA/lipitor Code(s): G45.9 - TRANSIENT CEREBRAL ISCHEMIC ATTACK, UNSPECIFIED (2) Paresthesia Assessment/Plan: Neuro consult/Cardio consult noted Echo/carotid dopplers were normal MRI brain unremarkable Pt awaiting SUZANNE to r/o defect for possible TIA Code(s): R20.2 - PARESTHESIA OF SKIN (3) Headache Assessment/Plan: Resolved Code(s): R51 - HEADACHE
[2020-03-05] MEDS: ACETAMINOPHEN 325 MG TABLET (FP) PO PRN (22:45)
[2020-03-05 23:06] LABS: DRVVT - 32.3 sec (0.0-47.0)
[2020-03-06] MEDS: HEPARIN NA (PORCINE) 5,000 UNITS/ML 1ML VIAL SQ SCH ×2 (09:02→21:27)
[2020-03-06] MEDS: PANTOPRAZOLE SODIUM 40 MG VIAL IVPUSH SCH (09:02)
[2020-03-06] MEDS: ASPIRIN 81 MG CHEWABLE TABLETS PO SCH (09:02)
[2020-03-06] MEDS ORDERED: LIDOCAINE VISCOUS 2% ORAL/TOP 100 ML BOTTLE ONE (10:32)
--- NOTE | 2020-03-06 10:35 | PN ---
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 Her symptoms started with both leg pain and suddenly she experienced that right arm, leg and speech disturbances. She came to hospital with NIH score of 1 ( right arm drift was noted). Lisa has ct head and tpa was not given. She denies any htn,hld,cad,smoking or stroke in past. Her symptoms resolved in half hour. She also experiencing headhace on february 28, she did have history of migraine , but she has not has any migraine in a long time. --chart reviewd, event noted and discused with nursing. no new complain. npo today for SALLY today, may be discharged after word NEUROLOGICAL EXAMINATION Alert oriented x 3 neck is supple, vss, afebrile eomi, pupils reactive no face asymmetry moving all ext sensation is normal gait and coordination is normal -- exam unchanged today ct head is normal mri of brain is normal sally pending Assessment/Plan 1.Transient right arm, leg and speech difficulty, no prior risk factor including migraine and recurrent ( 3 ) miscarriages. Now recovered, ct head is gabby - likroc tia vs complicated migraine. -continue aspirin and statin -- hypercoagubility work up outpatient - follow up outpatient - sally today Thanking you so much Jt Barrera MD
--- NOTE | 2020-03-06 12:36 | PN ---
Progress Note, Physician History of Present Illness: The patient is a 39y/o F with a PMH of asthma and seasonal allergies who presents to the ED with onset of BLE pain and tingling at 9:40pm tonight, followed by RUE pain and heaviness, followed by gradual onset of diffuse frontal NEVAREZ and sweats. The patient states she has been anxious since the time of the onset but denies any other symptoms. Denies f/c/n/v/d/c, imbalance, vision or speech difficulties. States the NEVAREZ was gradual onset and she has had these symptoms before. - Current Medication List Current Medications: Active Medications Acetaminophen (Tylenol -) 650 mg PO Q6H PRN PRN Reason: PAIN LEVEL 6-10 Last Admin: 03/05/20 22:45 Dose: 650 mg Documented by: Al Hydroxide/Mg Hydroxide (Mylanta Oral Suspension -) 30 ml PO Q6H PRN PRN Reason: INDIGESTION Last Admin: 03/04/20 12:02 Dose: 30 ml Documented by: Aspirin (Asa -) 81 mg PO DAILY [facility] Last Admin: 03/06/20 09:02 Dose: Not Given Documented by: Atorvastatin Calcium (Lipitor -) 20 mg PO HS [facility] Last Admin: 03/05/20 21:28 Dose: 20 mg Documented by: Heparin Sodium (Porcine) (Heparin -) 5,000 unit SQ BID [facility] Last Admin: 03/06/20 09:02 Dose: 5,000 unit Documented by: Pantoprazole Sodium (Protonix Iv) 40 mg IVPUSH DAILY [facility] Last Admin: 03/06/20 09:02 Dose: 40 mg Documented by: - Objective Vital Signs: Vital Signs Temperature 98.4 F 03/06/20 09:18 Pulse Rate 68 03/06/20 09:18 Respiratory Rate 18 03/06/20 09:18 Blood Pressure 94/56 L 03/06/20 09:18 O2 Sat by Pulse Oximetry (%) 97 03/06/20 10:00 Eyes: Yes: WNL, Conjunctiva Clear, EOM Intact HENT: Yes: WNL, Atraumatic, Normocephalic Neck: Yes: WNL, Supple, Trachea Midline Cardiovascular: Yes: WNL, Regular Rate and Rhythm Respiratory: Yes: WNL, Regular, CTA Bilaterally Gastrointestinal: Yes: WNL, Normal Bowel Sounds Genitourinary: Yes: WNL Musculoskeletal: Yes: WNL Extremities: Yes: WNL Edema: No Integumentary: Yes: WNL Neurological: Yes: WNL, Alert, Oriented ...Motor Strength: WNL Psychiatric: Yes: WNL Labs: CBC, BMP 03/02/20 06:33 02/29/20 22:30 INR, PTT INR 1.08 (0.83-1.09) 03/02/20 06:33 Problem List - Problems (1) Right arm weakness Code(s): R29.898 - OTH SYMPTOMS AND SIGNS INVOLVING THE MUSCULOSKELETAL SYSTEM (2) Abdominal pain complicating Code(s): O26.899 - OTH RELATED CONDITIONS, UNSPECIFIED TRIMESTER; R10.9 - UNSPECIFIED ABDOMINAL PAIN (3) Acute gallstone pancreatitis Code(s): K85.10 - BILIARY ACUTE PANCREATITIS WITHOUT NECROSIS OR INFECTION (4) Adverse effect of alcohol product Code(s): OXZ6052 - (5) Asthma exacerbation Code(s): J45.901 - UNSPECIFIED ASTHMA WITH (ACUTE) EXACERBATION (6) Blighted ovum Code(s): O02.0 - BLIGHTED OVUM AND NONHYDATIDIFORM MOLE (7) Bronchitis Code(s): J40 - BRONCHITIS, NOT SPECIFIED ACUTE OR CHRONIC (8) Chest pain Code(s): R07.9 - CHEST PAIN, UNSPECIFIED (9) Choledocholithiasis Code(s): K80.50 - CALCULUS OF BILE DUCT W/O CHOLANGITIS OR CHOLECYST W/O OBST (10) Common cold virus Code(s): J00 - ACUTE NASOPHARYNGITIS [COMMON COLD] (11) Early stage of Code(s): Z34.90 - ENCNTR FOR SUPRVSN OF NORMAL , UNSP, UNSP TRIMESTER (12) Epigastric abdominal pain Code(s): R10.13 - EPIGASTRIC PAIN (13) Flu-like symptoms Code(s): R68.89 - OTHER GENERAL SYMPTOMS AND SIGNS (14) GERD (gastroesophageal reflux disease) Code(s): K21.9 - GASTRO-ESOPHAGEAL REFLUX DISEASE WITHOUT ESOPHAGITIS (15) Headache Code(s): R51 - HEADACHE (16) Hepatomegaly Code(s): R16.0 - HEPATOMEGALY, NOT ELSEWHERE CLASSIFIED (17) Influenza B Code(s): J10.1 - FLU DUE TO OTH IDENT INFLUENZA VIRUS W OTH RESP MANIFEST (18) Miscarriage Code(s): O03.9 - COMPLETE OR UNSP SPONTANEOUS WITHOUT COMPLICATION (19) Morbid obesity due to excess calories Code(s): E66.01 - MORBID (SEVERE) OBESITY DUE TO EXCESS CALORIES (20) Peptic ulcer Code(s): K27.9 - PEPTIC ULC, SITE UNSP, UNSP AC OR CHR, W/O HEMOR OR PERF (21) Code(s): Z33.1 - STATE, INCIDENTAL (22) -related examination Code(s): Z34.90 - ENCNTR FOR SUPRVSN OF NORMAL , UNSP, UNSP TRIMESTER (23) Previous section Code(s): Z98.89 - OTHER SPECIFIED POSTPROCEDURAL STATES * DO NOT USE * (24) Threatened in early Code(s): O20.0 - THREATENED (25) Urinary tract infection Code(s): N39.0 - URINARY TRACT INFECTION, SITE NOT SPECIFIED Qualifiers: Urinary tract infection type: site unspecified Hematuria presence: with hematuria Qualified Code(s): N39.0 - Urinary tract infection, site not specified; R31.9 - Hematuria, unspecified (26) Vaginal bleeding Code(s): N93.9 - ABNORMAL UTERINE AND VAGINAL BLEEDING, UNSPECIFIED (27) Vaginal bleeding affecting early Code(s): O20.9 - HEMORRHAGE IN EARLY , UNSPECIFIED (28) Vaginal bleeding during Code(s): O46.90 - ANTEPARTUM HEMORRHAGE, UNSPECIFIED, UNSPECIFIED TRIMESTER (29) Vaginal bleeding, abnormal Code(s): N93.9 - ABNORMAL UTERINE AND VAGINAL BLEEDING, UNSPECIFIED (30) Vaginal itching Code(s): N89.8 - OTHER SPECIFIED NONINFLAMMATORY DISORDERS OF VAGINA (31) Vaginitis Code(s): N76.0 - ACUTE VAGINITIS Qualifiers: Chronicity: acute Qualified Code(s): N76.0 - Acute vaginitis (32) Vomiting Code(s): R11.10 - VOMITING, UNSPECIFIED Assessment/Plan PMH of asthma and seasonal allergies who presented to the ED with onset of BLE pain and tingling, followed by RUE pain and heaviness, and gradual onset of diffuse frontal NEVAREZ and sweats. ?TIA: resolved. ECHO/carotids/ EKG/ telemetry WNL TNI < 0.02 x 3 TSH, lipids WNL. hx gastric sleeve episodes of anxiety/depression associated with miscarriages 24 holter:negative Telemetry negative Plan; Cardiac reed remains stable. 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 EP note re loop recorder appreciated. DVT plx
[2020-03-06] MEDS: ACETAMINOPHEN 325 MG TABLET (FP) PO PRN (12:42)
--- NOTE | 2020-03-06 17:30 | CON.OBG ---
Consult Consult Specialty:: obstetric/ gynecology Referred by:: george Reason for Consultation:: 39 yo known to myself seen in office and usg done confirmed spontaneous with sac no longer seen - History of Present Illness Chief Complaint: positive beta History of Present Illness: 39 yo seen in [facility] office for on 02/06 pt had vaginal bleeding since and confirmation of conplete ab done in office. images reviewed showed sac at [facility] usg done showed normal endo - History Source History Provided By: Patient - Past Medical History MILL SET UP: Yes: Migraine Pulmonary: Yes: Asthma ...LMP: 12/29/19 ...: No - Past Surgical History Past Surgical History: Yes: Bariatric Surgery (gastric sleeve 02/2017), - Alcohol/Substance Use Hx Alcohol Use: No History of Substance Use: reports: None - Smoking History Smoking history: Never smoked Have you smoked in the past 12 months: No Aproximately how many cigarettes per day: 0 - Social History Usual Living Arrangement: With Spouse ADL: Independent History of Recent Travel: No Home Medications - Allergies Allergies/Adverse Reactions: Allergies Allergy/AdvReac Type Severity Reaction Status Date / Time shrimp Allergy Severe Difficulty Verified 03/01/20 21:01 Breathing Penicillins Allergy Mild Swelling/it Verified 02/21/20 22:22 miguel mushroom Allergy Unknown Unverified 03/03/20 13:15 - Home Medications Home Medications: Ambulatory Orders Omeprazole 40 mg PO DAILY 01/17/19 Acetaminophen [Tylenol .Regular Strength -] 650 mg PO Q6H PRN #30 tablet 03/03/20 Aspirin [ASA -] 81 mg PO DAILY #30 tab.chew 03/03/20 Atorvastatin Ca [Lipitor] 20 mg PO HS #30 tablet 03/03/20 Family Medical History Family History: Unremarkable (no fam hx of scd) 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
[2020-03-06] MEDS: ATORVASTATIN CA 20 MG TABLET (FP) PO SCH (21:28)
--- NOTE | 2020-03-06 22:38 | PN ---
Progress Note, Physician History of Present Illness: No new complaints - Current Medication List Current Medications: Active Medications Acetaminophen (Tylenol -) 650 mg PO Q6H PRN PRN Reason: PAIN LEVEL 6-10 Last Admin: 03/06/20 12:42 Dose: 650 mg Documented by: Al Hydroxide/Mg Hydroxide (Mylanta Oral Suspension -) 30 ml PO Q6H PRN PRN Reason: INDIGESTION Last Admin: 03/04/20 12:02 Dose: 30 ml Documented by: Aspirin (Asa -) 81 mg PO DAILY [facility] Last Admin: 03/06/20 09:02 Dose: Not Given Documented by: Atorvastatin Calcium (Lipitor -) 20 mg PO HS [facility] Last Admin: 03/06/20 21:28 Dose: 20 mg Documented by: Heparin Sodium (Porcine) (Heparin -) 5,000 unit SQ BID [facility] Last Admin: 03/06/20 21:27 Dose: 5,000 unit Documented by: Pantoprazole Sodium (Protonix Iv) 40 mg IVPUSH DAILY [facility] Last Admin: 03/06/20 09:02 Dose: 40 mg Documented by: - Objective Vital Signs: Vital Signs Temperature 97.7 F 03/06/20 18:00 Pulse Rate 90 03/06/20 18:00 Respiratory Rate 20 03/06/20 18:00 Blood Pressure 101/54 L 03/06/20 18:00 O2 Sat by Pulse Oximetry (%) 100 03/06/20 18:00 Neck: Yes: WNL, Supple Cardiovascular: Yes: WNL, Regular Rate and Rhythm Respiratory: Yes: WNL, Regular, CTA Bilaterally Neurological: Yes: WNL, Alert, Oriented, Other (Nonfocal) Labs: CBC, BMP 03/02/20 06:33 02/29/20 22:30 INR, PTT INR 1.08 (0.83-1.09) 03/02/20 06:33 Problem List - Problems (1) Paresthesia Assessment/Plan: R/O CVA Neuro consult/Cardio consult noted Echo/carotid dopplers were normal MRI brain unremarkable Pt awaiting SUZANNE to r/o defect for possible CVATransvaginal US was negative for gestational sac Pt cleared by FLIGHT TEACHER SUZANNE in am Code(s): R20.2 - PARESTHESIA OF SKIN (2) Headache Code(s): R51 - HEADACHE
[2020-03-07 10:07] LABS: HGB SOLUBILITY Negative (Negative); Hgb C 0 % (0.0); Hgb F 0 % (0.0-2.0); Hgb S 0 % (0.0)
[2020-03-07] MEDS: ASPIRIN 81 MG CHEWABLE TABLETS PO SCH (10:38)
[2020-03-07] MEDS: PANTOPRAZOLE SODIUM 40 MG VIAL IVPUSH SCH (10:39)
--- NOTE | 2020-03-07 10:53 | PN ---
Progress Note, Physician History of Present Illness: The patient is a 39y/o F with a PMH of asthma and seasonal allergies who presents to the ED with onset of BLE pain and tingling at 9:40pm tonight, followed by RUE pain and heaviness, followed by gradual onset of diffuse frontal NEVAREZ and sweats. The patient states she has been anxious since the time of the onset but denies any other symptoms. Denies f/c/n/v/d/c, imbalance, vision or speech difficulties. States the NEVAREZ was gradual onset and she has had these symptoms before. - Current Medication List Current Medications: Active Medications Acetaminophen (Tylenol -) 650 mg PO Q6H PRN PRN Reason: PAIN LEVEL 6-10 Last Admin: 03/06/20 12:42 Dose: 650 mg Documented by: Al Hydroxide/Mg Hydroxide (Mylanta Oral Suspension -) 30 ml PO Q6H PRN PRN Reason: INDIGESTION Last Admin: 03/04/20 12:02 Dose: 30 ml Documented by: Aspirin (Asa -) 81 mg PO DAILY [facility] Last Admin: 03/07/20 10:38 Dose: Not Given Documented by: Atorvastatin Calcium (Lipitor -) 20 mg PO HS [facility] Last Admin: 03/06/20 21:28 Dose: 20 mg Documented by: Heparin Sodium (Porcine) (Heparin -) 5,000 unit SQ BID [facility] Last Admin: 03/06/20 21:27 Dose: 5,000 unit Documented by: Pantoprazole Sodium (Protonix Iv) 40 mg IVPUSH DAILY [facility] Last Admin: 03/07/20 10:39 Dose: 40 mg Documented by: - Objective Vital Signs: Vital Signs Temperature 98.4 F 03/07/20 10:15 Pulse Rate 67 03/07/20 10:15 Respiratory Rate 03/07/20 10:15 Blood Pressure 100/62 03/07/20 10:15 O2 Sat by Pulse Oximetry (%) 99 03/07/20 10:15 Eyes: Yes: WNL, Conjunctiva Clear, EOM Intact HENT: Yes: WNL, Atraumatic, Normocephalic Neck: Yes: WNL, Supple, Trachea Midline Cardiovascular: Yes: WNL, Regular Rate and Rhythm Respiratory: Yes: WNL, Regular, CTA Bilaterally Gastrointestinal: Yes: WNL, Normal Bowel Sounds Genitourinary: Yes: WNL Musculoskeletal: Yes: WNL Extremities: Yes: WNL Edema: No Integumentary: Yes: WNL Neurological: Yes: WNL, Alert, Oriented ...Motor Strength: WNL Psychiatric: Yes: WNL Labs: CBC, BMP 03/02/20 06:33 02/29/20 22:30 INR, PTT INR 1.08 (0.83-1.09) 03/02/20 06:33 Problem List - Problems (1) Right arm weakness Code(s): R29.898 - OTH SYMPTOMS AND SIGNS INVOLVING THE MUSCULOSKELETAL SYSTEM (2) Abdominal pain complicating Code(s): O26.899 - OTH RELATED CONDITIONS, UNSPECIFIED TRIMESTER; R10.9 - UNSPECIFIED ABDOMINAL PAIN (3) Acute gallstone pancreatitis Code(s): K85.10 - BILIARY ACUTE PANCREATITIS WITHOUT NECROSIS OR INFECTION (4) Adverse effect of alcohol product Code(s): FEL4384 - (5) Asthma exacerbation Code(s): J45.901 - UNSPECIFIED ASTHMA WITH (ACUTE) EXACERBATION (6) Blighted ovum Code(s): O02.0 - BLIGHTED OVUM AND NONHYDATIDIFORM MOLE (7) Bronchitis Code(s): J40 - BRONCHITIS, NOT SPECIFIED ACUTE OR CHRONIC (8) Chest pain Code(s): R07.9 - CHEST PAIN, UNSPECIFIED (9) Choledocholithiasis Code(s): K80.50 - CALCULUS OF BILE DUCT W/O CHOLANGITIS OR CHOLECYST W/O OBST (10) Common cold virus Code(s): J00 - ACUTE NASOPHARYNGITIS [COMMON COLD] (11) Early stage of Code(s): Z34.90 - ENCNTR FOR SUPRVSN OF NORMAL , UNSP, UNSP TRIMESTER (12) Epigastric abdominal pain Code(s): R10.13 - EPIGASTRIC PAIN (13) Flu-like symptoms Code(s): R68.89 - OTHER GENERAL SYMPTOMS AND SIGNS (14) GERD (gastroesophageal reflux disease) Code(s): K21.9 - GASTRO-ESOPHAGEAL REFLUX DISEASE WITHOUT ESOPHAGITIS (15) Headache Code(s): R51 - HEADACHE (16) Hepatomegaly Code(s): R16.0 - HEPATOMEGALY, NOT ELSEWHERE CLASSIFIED (17) Influenza B Code(s): J10.1 - FLU DUE TO OTH IDENT INFLUENZA VIRUS W OTH RESP MANIFEST (18) Miscarriage Code(s): O03.9 - COMPLETE OR UNSP SPONTANEOUS WITHOUT COMPLICATION (19) Morbid obesity due to excess calories Code(s): E66.01 - MORBID (SEVERE) OBESITY DUE TO EXCESS CALORIES (20) Peptic ulcer Code(s): K27.9 - PEPTIC ULC, SITE UNSP, UNSP AC OR CHR, W/O HEMOR OR PERF (21) Code(s): Z33.1 - STATE, INCIDENTAL (22) -related examination Code(s): Z34.90 - ENCNTR FOR SUPRVSN OF NORMAL , UNSP, UNSP TRIMESTER (23) Previous section Code(s): Z98.89 - OTHER SPECIFIED POSTPROCEDURAL STATES * DO NOT USE * (24) Threatened in early Code(s): O20.0 - THREATENED (25) Urinary tract infection Code(s): N39.0 - URINARY TRACT INFECTION, SITE NOT SPECIFIED Qualifiers: Urinary tract infection type: site unspecified Hematuria presence: with hematuria Qualified Code(s): N39.0 - Urinary tract infection, site not specified; R31.9 - Hematuria, unspecified (26) Vaginal bleeding Code(s): N93.9 - ABNORMAL UTERINE AND VAGINAL BLEEDING, UNSPECIFIED (27) Vaginal bleeding affecting early Code(s): O20.9 - HEMORRHAGE IN EARLY , UNSPECIFIED (28) Vaginal bleeding during Code(s): O46.90 - ANTEPARTUM HEMORRHAGE, UNSPECIFIED, UNSPECIFIED TRIMESTER (29) Vaginal bleeding, abnormal Code(s): N93.9 - ABNORMAL UTERINE AND VAGINAL BLEEDING, UNSPECIFIED (30) Vaginal itching Code(s): N89.8 - OTHER SPECIFIED NONINFLAMMATORY DISORDERS OF VAGINA (31) Vaginitis Code(s): N76.0 - ACUTE VAGINITIS Qualifiers: Chronicity: acute Qualified Code(s): N76.0 - Acute vaginitis (32) Vomiting Code(s): R11.10 - VOMITING, UNSPECIFIED Assessment/Plan PMH of asthma and seasonal allergies who presented to the ED with onset of BLE pain and tingling, followed by RUE pain and heaviness, and gradual onset of diffuse frontal NEVAREZ and sweats. ?TIA: resolved. ECHO/carotids/ EKG/ telemetry WNL TNI < 0.02 x 3 TSH, lipids WNL. hx gastric sleeve episodes of anxiety/depression associated with miscarriages 24 holter:negative Telemetry negative Plan; Cardiac reed remains stable. SUZANNE pending EP note re loop recorder appreciated. DVT plx
[2020-03-07] MEDS: HEPARIN NA (PORCINE) 5,000 UNITS/ML 1ML VIAL SQ SCH (11:10)
[2020-03-07] MEDS ORDERED: LIDOCAINE HCL 2% JELLY 10 ML CARTRIDGE ONE (11:16)
[2020-03-07] MEDS ORDERED: LIDOCAINE VISCOUS 2% ORAL/TOP 20 ML UNIT-DOSE CUP ONE (11:39)
[2020-03-07] MEDS ORDERED: LIDOCAINE VISCOUS 2% ORAL/TOP 20 ML UNIT-DOSE CUP MM ONE (12:00)
--- NOTE | 2020-03-07 12:23 | PN ---
Progress Note (short form) - Note Progress Note: SUZANNE (Procdure Note) Risks and benefits discussed. Consent was obtained Preliminary result: 1. Normal LV systolic function 2. Trace MR 3. Mild TR 4. No evidence of thrombus in LA appendage 5. Small PFO with right to left flow of bubbles (agitated saline injection). No obvious left to right flow and opening size likely small 6. Interatrial septum is redundant 7. No atherosclerotic plaque in thoracic aorta or aortic arch 8. No pericardial effusion Official report to follow Discussed with Dr. Justice Garza MD
--- NOTE | 2020-03-07 13:08 | ECHO ---
Name: ALVAREZ, DELMY Exam:Transesophageal Echocardiogram Study Date: 03/07/2020 11:57 AM Age: 39 yrs Reason For Study: TIA Height: 60 in Weight: 137 lb BSA: 1.6 m2 Procedure: A 2D transesophageal echocardiogram with Doppler and color flow Doppler was performed. Informed conse nt for Transesophageal Echocardiogram, and use of a contrast agent as needed, was obtained prior to the proc edure. The patient was brought to the endoscopy suite in a fasting state. An intravenous line was placed. A topical anesthetic agent was used for oropharangeal anesthesia. A bite block was inserted. IV concious sedati on was administered using propafol. A multifrequency, multiplane transesopheageal echocardiographic endoscop e was inserted and manipulated in the standard fashion to achieve multiplane views. The usual views were ob tained; basal, mid-esophageal, transgastric and aortic views. The patient's vital signs, including blood pres sure, heart rate, pulse oximetry and cardiac rhythm were monitored throughout the procedure and remained st able. The patient tolerated the procedure well without evidence of orophangeal or esophageal trauma. There were no complications. The patient was in normal sinus rhythm during the exam. Left Ventricle The left ventricle is normal in size. Left ventricular systolic function is normal. No regional wall motion abnormalities noted. Atria The left atrial size is normal. No thrombus is detected in the left atrial appendage. No left atrial mass or thrombus visualized. Injection of contrast documented an interatrial shunt. A patent foramen ovale is present. Color Doppler suggests possible small left to right flow. Mitral Valve The mitral valve is normal in structure and function. There is trace mitral regurgitation. Tricuspid Valve The tricuspid valve is normal in structure and function. There is mild tricuspid regurgitation. Aortic Valve The aortic valve is normal in structure and function. The aortic valve opens well. The aortic valve i s trileaflet. No aortic regurgitation is present. Pulmonic Valve The pulmonic valve is not well seen, but is grossly normal. There is no pulmonic valvular regurgitati on. Great Vessels No atherosclerotic plaques in thoracic aorta or aortic arch. Pericardium/Pluera There is no pericardial effusion. Interpretation Summary The left ventricle is normal in size. Left ventricular systolic function is normal. No regional wall motion abnormalities noted. The left atrial size is normal. No thrombus is detected in the left atrial appendage. No left atrial mass or thrombus visualized. Injection of contrast documented an interatrial shunt. A patent foramen ovale is present. Color Doppler suggests possible small left to right flow There is trace mitral regurgitation. There is mild tricuspid regurgitation. No atherosclerotic plaques in thoracic aorta or aortic arch There is no pericardial effusion. Octaviano Garza MD 03/07/2020 01:08 PM
[2020-03-07 14:28] VITALS: PULSE 75
[2020-03-07 15:29] VITALS: BMI 26.7
--- NOTE | 2020-03-07 16:10 | PN ---
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 Her symptoms started with both leg pain and suddenly she experienced that right arm, leg and speech disturbances. She came to hospital with NIH score of 1 ( right arm drift was noted). Lisa has ct head and tpa was not given. She denies any htn,hld,cad,smoking or stroke in past. Her symptoms resolved in half hour. --pateint has sally and hypercoagubility work up in progress . chart reviewd, event noted , no new complain . feeling better. NEUROLOGICAL EXAMINATION Alert oriented x 3 neck is supple, vss, afebrile eomi, pupils reactive no face asymmetry moving all ext sensation is normal gait and coordination is normal -- exam unchanged today ct head is normal mri of brain is normal sally done today Assessment/Plan 1.Transient right arm, leg and speech difficulty, no prior risk factor including migraine and recurrent ( 3 ) miscarriages. Now recovered, ct head is noraml - most likley tia vs complicated migraine. -continue aspirin and statin -- hypercoagubility work up in progress - follow up outpatient - sally today Thanking you so much Jt Barrera MD
[2020-03-07 19:03] VITALS: BP 107/73; TEMP 97.4
--- NOTE | 2020-03-20 00:41 | DS ---
Physical Examination Vital Signs: Vital Signs Temperature 97.4 F L 03/07/20 18:00 Pulse Rate 75 03/07/20 18:00 Respiratory Rate 18 03/07/20 18:00 Blood Pressure 107/73 03/07/20 18:00 O2 Sat by Pulse Oximetry (%) 98 03/07/20 18:00 Labs: CBC, BMP 03/02/20 06:33 02/29/20 22:30 Discharge Summary Problems reviewed: Yes Reason For Visit: HEADACHE,WEAKNESS OF RIGHT UPPER EXTREMITY TIA PFO Paresthesia Migraine NEVAREZ Hospital Course: Pt is a 39 year old female w/ PMH significant for asthma, seasonal allergies, Migraine NEVAREZ's, and recurrent miscarriages. Her symptoms started with B/L leg pain and suddenly she experienced that right arm, leg and speech disturbances. She came to hospital with NIH score of 1 ( right arm drift was noted). Patient had ct head wc was normal and tpa was not given. Her symptoms resolved in half hour. She also was experiencing headaches. Pt had ct scan head and MRI brain wc did not show any acute pathology Echo/carotid doppler were also normal. Pt was followed by neuro/cardio. Pt was also followed by heme due to h/o TIA/miscarriages and hypercoaguable w/u is pending. Pt also had SUZANNE wc showed PFO and pt was transferred to [facility] for further w/u and management of PFO. Condition: Stable - Instructions Diet, Activity, Other Instructions: Regular diet See Dr Kranthi Guzmán in 1 week Referrals: Kranthi Guzmán MD [Primary Care Provider] - Disposition: TRANSFER ACUTE CARE/OTHER HOSP - Home Medications Comprehensive Discharge Medication List: Ambulatory Orders Omeprazole 40 mg PO DAILY 01/17/19 Acetaminophen [Tylenol .Regular Strength -] 650 mg PO Q6H PRN #30 tablet 03/03/20 Aspirin [ASA -] 81 mg PO DAILY #30 tab.chew 03/03/20 Atorvastatin Ca [Lipitor] 20 mg PO HS #30 tablet 03/03/20
[2020-03-20 14:01] LABS: HEXAGONAL PHOSPHOLIPID NEUTRAL 4
[2020-03-20 14:02] LABS: CARDIOLIPIN AB IGA <10
[2020-03-20 14:05] LABS: B2-GLYCOPROTEIN IGA <10; B2-GLYCOPROTEIN IGG <10; B2-GLYCOPROTEIN IGM <10
== END 2020-03-07 18:15 | disposition short-term general hospital (02) | DRG 47 ==
LOC: JER 21:42 → JERBED 23:51 → UNDOADMOB 23:51 → INTOOBSV 23:51 → J4S 03-01 04:55 → JERBED 03-01 04:55 → J4S 03-02 12:15 → OBSVTOIN 03-07 09:49
PROVIDERS: ADMIT Internal Medicine; ATTEND Internal Medicine
PROC: B246ZZ4 Ultrasonography of Right and Left Heart, Transesophageal (ICD-10-PCS; principal; 2020-03-07 12:30)
DX: G45.9 Transient cerebral ischemic attack, unspecified (principal); J30.2 Other seasonal allergic rhinitis; I49.3 Ventricular premature depolarization; F41.8 Other specified anxiety disorders; G43.909 Migraine, unspecified, not intractable, without status migrainosus; R20.2 Paresthesia of skin; R29.898 Other symptoms and signs involving the musculoskeletal system; Z98.84 Bariatric surgery status; I07.1 Rheumatic tricuspid insufficiency; Q21.1 Atrial septal defect
CPT/HCPCS: 36415; 70450-TC; 70551-TC; 71045-TC-FY; 76700-TC; 76817-TC; 80053; 80061; 81003; 81240; 81241; 82550; 82962; 83021; 83721; 84443; 84484; 84703; 85025; 85300; 85303; 85305; 85306; 85597; 85610; 85613; 85660; 85730; 85732; 86038; 86146; 86147; 86850; 86900; 86901; 87389; 93005; 93010; 93225; 93226; 93306-TC; 93312; 93325; 93880-TC; 93970-TC; 97116-GP; 97161-GP; 99285-25; G0378; J0131; J1644; U0003

== ENCOUNTER 2020-03-23 15:01 | Emergency (ER) | payer OTHER ==
[2020-03-23 15:16] VITALS: BP 112/68; PULSE 84; TEMP 98.2; BMI 26.4
[2020-03-23] MEDS ORDERED: IBUPROFEN 400 MG TABLET (FP) PO ONE ×2 (15:47→15:48)
--- NOTE | 2020-03-23 15:54 | PDOC ---
History of Present Illness - General Chief Complaint: Injury Stated Complaint: INJURY Time Seen by Provider: 03/23/20 15:13 History Source: Patient Exam Limitations: Clinical Condition - History of Present Illness Initial Comments: 03/23/20 16:10 Patient with no significant past medical history present with complaint of pain to right great toe status post slip on rug at home and hitting great toe on the wall over an hour prior to arrival. Patient reported increased pain to right great toe with ambulation. Patient also reported mild pain to lateral aspect of right lower leg. Denies any other symptoms Occurred: reports: just prior to arrival Past History - Medical History Allergies/Adverse Reactions: Allergies Allergy/AdvReac Type Severity Reaction Status Date / Time shrimp Allergy Severe Difficulty Verified 03/01/20 21:01 Breathing Penicillins Allergy Mild Swelling/it Verified 02/21/20 22:22 miguel mushroom Allergy Unknown Unverified 03/03/20 13:15 Home Medications: Ambulatory Orders Omeprazole 40 mg PO DAILY 01/17/19 Acetaminophen [Tylenol .Regular Strength -] 650 mg PO Q6H PRN #30 tablet 03/03/20 Aspirin [ASA -] 81 mg PO DAILY #30 tab.chew 03/03/20 Atorvastatin Ca [Lipitor] 20 mg PO HS #30 tablet 03/03/20 Ibuprofen 600 mg PO Q8H PRN #20 tablet 03/23/20 Anemia: No Asthma: Yes Cancer: No Cardiac Disorders: No CVA: No COPD: No CHF: No Dementia: No Diabetes: No GI Disorders: No Disorders: No HTN: No Hypercholesterolemia: No Liver Disease: No Seizures: No Thyroid Disease: No - Surgical History Abdominal Surgery: Yes (gastric sleeve, lap choly) Orthopedic Surgery: Yes (LT KNEE SX) - Reproductive History Is Patient Now?: No (#): 5 Para: 3 Cervical CA: No Dysfunctional Uterine Bleeding: No Ectopic : No Endometrial CA: No Polycystic Ovaries: No Therapeutic (s) & number: No Tubal Ligation: No Spontaneous : 0 - Immunization History Td Vaccination: Yes TDAP Vaccination: Yes Immunization Up to Date: Yes - Psycho-Social/Smoking History Smoking Status: No Smoking History: Never smoked Have you smoked in the past 12 months: No Number of Cigarettes Smoked Daily: 0 Cigars Per Day: 0 Information on smoking cessation initiated: No - Substance Abuse Hx (Audit-C & DAST Scrn) How often the patient has a drink containing alcohol: Never Score: In Men: 4 or > Positive; In Women: 3 or > Positive: 0 Screen Result (Pos requires Nsg. Audit-10AR): Negative In the last yr the pt used illegal drug/Rx for NonMed reason: No Score: Yes response is considered Positive: 0 Screen Result (Positive result requires Nsg. DAST-10): Negative Review of Systems - Review of Systems Able to Perform ROS?: Yes Is the patient limited Omani proficient: No Constitutional: No: Chills, Fever, Malaise HEENTM: No: Symptoms Reported, See HPI, Eye Pain, Blurred Vision, Tearing, Recent change in vision, Double Vision, Cataracts, Ear Pain, Ocular Prothesis, Ear Discharge, Nose Pain, Nose Congestion, Tinnitus, Nose Bleeding, Hearing Loss, Throat Pain, Throat Swelling, Mouth Pain, Dental Problems, Difficulty Swallowing, Mouth Swelling, Other Respiratory: No: Symptoms reported, See HPI, Cough, Orthopnea, Shortness of Breath, SOB with Exertion, SOB at Rest, Stridor, Wheezing, Productive cough, Hemoptysis, Other Cardiac (ROS): No: Symptoms Reported, See HPI, Chest Pain, Edema, Irregular Heart Rate, Lightheadedness, Palpitations, Syncope, Chest Tightness, Other ABD/GI: No: Symptoms Reported Musculoskeletal: Yes: Symptoms Reported, See HPI, Joint Pain (right great toe), Joint Swelling (right great toe), Muscle Pain (right lowe leg and great toe) Neurological: No: Symptoms reported, Numbness, Paresthesia, Weakness, Dizziness All Other Systems: Reviewed and Negative *Physical Exam - Vital Signs Last Vital Signs Temp Pulse Resp BP Pulse Ox 98.2 F 84 18 112/68 99 03/23/20 15:12 03/23/20 15:12 03/23/20 15:12 03/23/20 15:12 03/23/20 15:12 - Physical Exam 03/23/20 16:13 GENERAL: Well developed, well nourished. Awake and alert in mild acute distress. PULMONARY: No evidence of respiratory distress. MUSCULOSKELETAL : mild tenderness over lateral aspect of right lower leg with no tenderness to medial aspect of barnett of right lower leg. No bony deformities EXTREMITIES: No cyanosis. No clubbing. No edema. No calf tenderness.moderate tenderness to right great toe with mild ecchymosis to right great toe. No visible deformity to right great toe. Mild tenderness to lateral aspect of right lower leg with no visible swelling, ecchymosis or deformity to right leg. No tenderness to medial aspect of right lower leg or barnett right lower leg. SKIN: Warm and dry. Normal capillary refill. NEUROLOGICAL: Alert, awake, appropriate. No motor deficits in the lower extremities. Gait is normal without ataxia. PSYCHIATRIC: Cooperative. Good eye contact. Appropriate mood and affect. General Appearance: Yes: Nourished, Appropriately Dressed, Mild Distress ED Treatment Course - RADIOLOGY Radiology Studies Ordered: Category Date Time Status FOOT-RIGHT [RAD] Stat Radiology 03/23/20 15:18 Completed Medical Decision Making - Medical Decision Making 03/23/20 16:11 Patient with no significant past medical history present with complaint of pain to right great toe status post slip on rug at home and hitting great toe on the wall over an hour prior to arrival. Patient reported increased pain to right great toe with ambulation. Patient also reported mild pain to lateral aspect of right lower leg. Denies any other symptoms Exam significant for moderate tenderness to right great toe with mild ecchymosis to right great toe. No visible deformity to right great toe. Mild tenderness to lateral aspect of right lower leg with no visible swelling, ecchymosis or deformity to right leg. No tenderness to medial aspect of right lower leg or barnett right lower leg. X-ray of right foot shows nondisplaced oblique fracture to proximal phalange of right great toe. Right great toe lena taped to second toe to help with support healing and help with pain. Motrin 800 mg given for pain. Postop shoe given patient. Patient advised to wear open toe shoes to prevent compression to great toe. Patient stable for discharge with podiatry follow-up Discharge - Discharge Information Problems reviewed: Yes Clinical Impression/Diagnosis: Fracture of right great toe Qualifiers: Encounter type: initial encounter Fracture type: closed Phalanx: distal Fracture alignment: nondisplaced Qualified Code(s): S92.424A - Nondisplaced fr acture of distal phalanx of right great toe, initial encounter for closed fracture Condition: Stable Disposition: HOME - Admission No - Additional Discharge Information Prescriptions: Ibuprofen 600 mg PO Q8H PRN #20 tablet PRN Reason: toe pain - Follow up/Referral Referrals: Selena Hernandez MD [Staff Physician] - Leonardo Everett MD [Staff Physician] - - Patient Discharge Instructions Patient Printed Discharge Instructions: DI for Toe Fracture Additional Instructions: X-ray of your foot shows fracture of the right great toe. Your right great toe was lena taped to the second toe. There is nothing to do for the toe fracture. Keep using lena tape for the next 1 to 2 weeks to help support great toe healing. Follow-up referred podiatry. Take prescribe Motrin as needed for pain - Post Discharge Activity
== END 2020-03-23 15:57 | disposition home or self-care (01) ==
LOC: JERFT 15:01
DX: S92.424A Nondisplaced fracture of distal phalanx of right great toe, initial encounter for closed fracture (principal)
CPT/HCPCS: 73630-TC-RT-FY; 99283-25

== ENCOUNTER 2020-04-10 06:43 | Day surgery (SDC) | payer OTHER ==
--- OUTSIDE RECORDS SUMMARY | 2020-04-10 06:47 | XMS ---
:1980 Author Organization [facility] Support Name Relationship Address Phone UE, UNEMPLOYED Unavailable Unavailable FAROOQ FARAH PARTNER [address] [facility], [address] [place] [address] UE Unavailable Unavailable [place] [address] FAROOQ FARAH Unavailable [address] [address] Re-disclosure Warning The records that you are about to access may contain information from federally- assisted alcohol or drug abuse programs. If such information is present, then the following federally mandated warning applies: This information has been disclosed to you from records protected by federal confidentiality rules (42 CFR part 2). The federal rules prohibit you from making any further disclosure of this information unless further disclosure is expressly permitted by the written consent of the person to whom it pertains or as otherwise permitted by 42 CFR part 2. A general authorization for the release of medical or other information is NOT sufficient for this purpose. The Federal rules restrict any use of the information to criminally investigate or prosecute any alcohol or drug abuse patient.The records that you are about to access may contain highly sensitive health information, the redisclosure of which is protected by Article 27-F of the [facility] Public Health law. If you continue you may haveaccess to information: Regarding HIV / AIDS; Provided by facilities licensed or operated by the [facility] Office of Mental Health; or Provided by the [facility] Office for People With Developmental Disabilities. If such information is present, then the following [facility] mandated warning applies: This information has been disclosed to you from confidential records which are protected by state law. State law prohibits you from making any further disclosure of this information without the specific written consent of the person to whom it pertains, or as otherwise permitted by law. Any unauthorized further disclosure in violation of state law may result in a fine or nursing home sentence or both. A general authorization for the release of medical or other information is NOT sufficient authorization for further disclosure. Allergies and Adverse Reactions Type Description Substance Reaction Status Data Source(s ) Drug allergy Penicillin Drug allergy itchy/hives Active eCW3 ([facility]) Drug allergy Penicillin Drug allergy itchy/hives Active eCW3 ([facility]) Drug allergy Penicillin Drug allergy itchy/hives Active eCW3 ([facility]) Drug allergy Penicillin Drug allergy itchy/hives Active eCW3 ([facility]) Drug allergy Penicillin Drug allergy itchy/hives Active eCW3 ([facility]) Drug allergy Penicillin Drug allergy itchy/hives Active eCW3 ([facility]) Drug allergy Penicillin Drug allergy itchy/hives Active eCW3 ([facility]) Drug allergy Penicillin Drug allergy itchy/hives Active eCW3 ([facility]) Drug allergy Penicillin Drug allergy itchy/hives Active eCW3 ([facility]) Drug allergy Penicillin Drug allergy itchy/hives Active eCW3 ([facility]) Drug allergy Penicillin Drug allergy itchy/hives Active eCW3 ([facility]) Drug allergy Penicillin Drug allergy itchy/hives Active eCW3 ([facility]) Drug allergy Penicillin Drug allergy itchy/hives Active eCW3 ([facility]) Encounters Encounter Providers Location Date Indications Data Source(s ) Outpatient [facility] 04/30/2019 eCW3 ([facility] A[facility] 12:00:00 AM Health Care) EDT - 04/30/2019 12:00:00 AM EDT Outpatient [facility] 04/06/2019 eCW3 ([facility] 12:00:00 AM Health Care) EDT - 04/06/2019 12:00:00 AM EDT Outpatient [facility] 12/08/2018 eCW3 ([facility] 12:00:00 AM Health Care) EDT - 12/08/2018 12:00:00 AM EDT Outpatient [facility] 12/01/2018 eCW3 ([facility] A28 12:00:00 AM Health Care) EDT - 12/01/2018 12:00:00 AM EDT Outpatient [facility] 11/26/2018 eCW3 ([facility] A28 12:00:00 AM Health Care) EDT - 11/26/2018 12:00:00 AM EDT Outpatient [facility] 11/23/2018 eCW3 ([facility] 12:00:00 AM Health Care) EDT - 11/23/2018 12:00:00 AM EDT Outpatient [facility] 11/19/2018 eCW3 ([facility] 12:00:00 AM Health Care) EDT - 11/19/2018 12:00:00 AM EDT Outpatient [facility] 11/17/2018 eCW3 ([facility] 12:00:00 AM Health Care) EDT - 11/17/2018 12:00:00 AM EDT Outpatient [facility] 11/16/2018 eCW3 ([facility] 12:00:00 AM Health Care) EDT - 11/16/2018 12:00:00 AM EDT Outpatient [facility] 10/29/2018 eCW3 ([facility] 12:00:00 AM Health Care) EDT - 10/29/2018 12:00:00 AM EDT Outpatient [facility] 10/16/2018 eCW3 ([facility] 12:00:00 AM Health Care) EDT - 10/16/2018 12:00:00 AM EDT Outpatient [facility] 10/15/2018 eCW3 ([facility] 12:00:00 AM Health Care) EDT - 10/15/2018 12:00:00 AM EDT Outpatient [facility] 10/15/2018 eCW3 ([facility] 12:00:00 AM Health Care) EDT - 10/15/2018 12:00:00 AM EDT Immunizations Vaccine Date Status Description Data Source(s) Tdap 12/17/2010 02:00:40 PM completed eCW3 ([facility]) Tdap 12/17/2010 02:00:40 PM completed eCW3 ([facility]) Medications Medication Brand Start Product Dose Route Administrative Pharmacy tonia Indications Reaction Description Data Name Date Form Instructions Instructions Source(s) Loestrin Fe Loestr 1.0 active Loestri n Fe eCW3 07/26- in 2018 {tabl 07/26- ([facility] 07/26 12:00: et} [facility] 07-[facility] 00 AM [facility] EDT Care) Loestrin Fe Loestr 1.0 active Loestri n Fe eCW3 07/26 in 2018 {tabl 07/26- ([facility] 07/26 12:00: et} [facility] 07-26 00 AM [facility] EDT Care) Loestrin Fe Loestr 1.0 active Loestri n Fe eCW3 07/26 in 2018 {tabl 07/26 ([facility] 07/26 12:00: et} [facility] 07-26 00 AM Health [facility] EDT Care) Loestrin Fe Loestr 1.0 active Loestri n Fe eCW3 07/26- in 2018 {tabl 07/26- ([facility] 07/26 12:00: et} [facility] 07-26 00 AM [facility] EDT Care) Loestrin Fe Loestr 1.0 active Loestri n Fe eCW3 07/26 in 2018 {tabl 07/26- ([facility] 07/26 12:00: et} [facility] 07-26 00 AM [facility] EDT Care) Loestrin Fe Loestr 1.0 active Loestri n Fe eCW3 07/26 in 2018 {tabl 07/26 ([facility] 07/26 12:00: et} [facility] 07-26 00 AM [facility] EDT Care) Loestrin Fe Loestr 1.0 suspend Loestr in Fe eCW3 07/26 in 2018 {tabl ed 07/26- ([facility] 07/26 12:00: et} [facility] 07-26 00 AM Health [facility] EDT Care) Loestrin Fe Loestr 1.0 active Loestri n Fe eCW3 07/26 in 2018 {tabl 07/26 ([facility] 07/26 12:00: et} [facility] 07-26 00 AM [facility]-MCG EDT Care) Loestrin Fe Loestr 1.0 active Loestri n Fe eCW3 07/26 in 2018 {tabl 07/26 ([facility] 07/26 12:00: et} [facility] 07-26 00 AM [facility]-MC[facility] EDT Care) Loestrin Fe Loestr 1.0 active Loestri n Fe eCW3 07/26 in 2018 {tabl 07/26 ([facility] 07/26 12:00: et} [facility] 07-26 00 AM [facility] EDT Care) Loestrin Fe Loestr .0 active Loestri n Fe eCW3 07/26 in 2018 {tabl 07/26 ([facility] 07/26 12:00: et} [facility] 07-26 00 AM [facility]-MCG EDT Care) DEPO-SECURITIES TELLER UNK 03/25/ suspend DEPO-PRO VERA eCW3 A 150 MG/ML 2013 ed 150 MG/ML ([facility] 12:00: [facility] 00 AM [facility] EDT Care) DEPO-SECURITIES TELLER UNK 03/25/ suspend DEPO-PRO VERA eCW3 A 2014 ed ([facility] 12:00: [facility] 00 AM [facility] EDT Care) DEPO-SECURITIES TELLER UNK 03/25/ suspend DEPO-PRO VERA eCW3 A 150 MG/ML 2013 ed 150 MG/ML ([facility] 12:00: [facility] 00 AM [facility] EDT Care) DEPO-SECURITIES TELLER UNK 03/25/ suspend DEPO-PRO VERA eCW3 A 150 MG/ML 2014 ed 150 MG/ML ([facility] 12:00: [facility] 00 AM [facility] EDT Care) DEPO-SECURITIES TELLER UNK 03/25/ suspend DEPO-PRO VERA eCW3 A 2013 ed ([facility] 12:00: [facility] 00 AM [facility] EDT Care) DEPO-SECURITIES TELLER UNK 03/25/ suspend DEPO-PRO VERA eCW3 A 2013 ed ([facility] 12:00: [facility] 00 AM [facility] EDT Care) DEPO-SECURITIES TELLER UNK 03/25/ suspend DEPO-PRO VERA eCW3 A 150 MG/ML 2013 ed 150 MG/ML ([facility] 12:00: [facility] 00 AM Health EDT Care) DEPO-SECURITIES TELLER UNK 03/25/ suspend DEPO-PRO VERA eCW3 A 2013 ed ([facility] 12:00: [facility] 00 AM [facility] EDT Care) DEPO-SECURITIES TELLER UNK 03/25/ suspend DEPO-PRO VERA eCW3 A 2013 ed ([facility] 12:00: [facility] 00 AM [facility] EDT Care) DEPO-SECURITIES TELLER UNK 03/25/ suspend DEPO-PRO VERA eCW3 A 150 MG/ML 2013 ed 150 MG/ML ([facility] 12:00: [facility] 00 AM [facility] EDT Care) DEPO-SECURITIES TELLER UNK 03/25/ suspend DEPO-PRO VERA eCW3 A 150 MG/ML 2014 ed 150 MG/ML ([facility] 12:00: [facility] 00 AM Health EDT Care) DEPO-SECURITIES TELLER UNK 03/25/ suspend DEPO-PRO VERA eCW3 A 150 MG/ML 2014 ed 150 MG/ML ([facility] 12:00: [facility] 00 AM Health EDT Care) DEPO-SECURITIES TELLER UNK 03/25/ suspend DEPO-PRO VERA eCW3 A 2013 ed ([facility] 12:00: [facility] 00 AM [facility] EDT Care) DEPO-SECURITIES TELLER UNK 03/25/ suspend DEPO-PRO VERA eCW3 A 2013 ed ([facility] 12:00: [facility] 00 AM [facility] EDT Care) DEPO-SECURITIES TELLER UNK 03/25/ suspend DEPO-PRO VERA eCW3 A 150 MG/ML 2014 ed 150 MG/ML ([facility] 12:00: [facility] 00 AM Health EDT Care) DEPO-SECURITIES TELLER UNK 03/25/ suspend DEPO-PRO VERA eCW3 A 2013 ed ([facility] 12:00: [facility] 00 AM [facility] EDT Care) DEPO-SECURITIES TELLER UNK 03/25/ suspend DEPO-PRO VERA eCW3 A 2013 ed ([facility] 12:00: [facility] 00 AM [facility] EDT Care) DEPO-SECURITIES TELLER UNK 03/25/ suspend DEPO-PRO VERA eCW3 A 2013 ed (Car 12:00: [facility] 00 AM [facility] EDT Care) DEPO-SECURITIES TELLER UNK 03/25/ suspend DEPO-PRO VERA eCW3 A 2013 ed (Car 12:00: [facility] 00 AM Health EDT Care) DEPO-SECURITIES TELLER UNK 03/25/ suspend DEPO-PRO VERA eCW3 A 150 MG/ML 2013 ed 150 MG/ML ([facility] 12:00: [facility] 00 AM [facility] EDT Care) DEPO-SECURITIES TELLER UNK 03/25/ suspend DEPO-PRO VERA eCW3 A 150 MG/ML 2013 ed 150 MG/ML ([facility] 12:00: [facility] 00 AM Health EDT Care) DEPO-SECURITIES TELLER UNK 03/25/ suspend DEPO-PRO VERA eCW3 A 150 MG/ML 2013 ed 150 MG/ML ([facility] 12:00: [facility] 00 AM Health EDT Care) Flonase 50 Flonas .0 suspend Flonase 50 eCW3 MCG/ACT e 50 2013 {puff ed MCG/ACT ([facility] MCG/AC 12:00: _in_e [facility] T 00 AM ach_n Health EST ostri Care) l} Flonase 50 Flonas .0 suspend Flonase 50 eCW3 MCG/ACT e 50 2013 {puff ed MCG/ACT ([facility] MCG/AC 12:00: _in_e [facility] T 00 AM ach_n Health EST ostri Care) l} Flonase 50 Flonas .0 suspend Flonase 50 eCW3 MCG/ACT e 50 2013 {puff ed MCG/ACT ([facility] MCG/AC 12:00: _in_e [facility] T 00 AM ach_n Health EST ostri Care) l} Flonase 50 Flonas .0 suspend Flonase 50 eCW3 MCG/ACT e 50 2013 {puff ed MCG/ACT ([facility] MCG/AC 12:00: _in_e [facility] T 00 AM ach_n Health EST ostri Care) l} Flonase 50 Flonas .0 suspend Flonase 50 eCW3 MCG/ACT e 50 2013 {puff ed MCG/ACT (Car MCG/AC 12:00: _in_e [facility] T 00 AM ach_n Health EST ostri Care) l} Flonase 50 Flonas .0 suspend Flonase 50 eCW3 MCG/ACT e 50 2013 {puff ed MCG/ACT ([facility] MCG/AC 12:00: _in_e [facility] T 00 AM ach_n Health EST ostri Care) l} Flonase 50 Flonas .0 suspend Flonase 50 eCW3 MCG/ACT e 50 2013 {puff ed MCG/ACT (Car MCG/AC 12:00: _in_e [facility] T 00 AM ach_n Health EST ostri Care) l} Flonase 50 Flonas .0 suspend Flonase 50 eCW3 MCG/ACT e 50 2013 {puff ed MCG/ACT (Car MCG/AC 12:00: _in_e [facility] T 00 AM ach_n Health EST ostri Care) l} Flonase 50 Flonas .0 suspend Flonase 50 eCW3 MCG/ACT e 50 2013 {puff ed MCG/ACT (Car MCG/AC 12:00: _in_e [facility] T 00 AM ach_n Health EST ostri Care) l} Flonase 50 Flonas .0 suspend Flonase 50 eCW3 MCG/ACT e 50 2013 {puff ed MCG/ACT (Car MCG/AC 12:00: _in_e [facility] T 00 AM ach_n Health EST ostri Care) l} Flonase 50 Flonas .0 suspend Flonase 50 eCW3 MCG/ACT e 50 2013 {puff ed MCG/ACT (Car MCG/AC 12:00: _in_e [facility] T 00 AM ach_n Health EST ostri Care) l} UNK 12/17/ active Vit eCW3 Vit 2010 w/Fe-Methylf ([facility] w/Fe-Methyl 12:00: ol-FA [facility] fol-FA 00 AM 27-0.6-0.4 Health 27-0.6-0.4 EDT MG Care) MG UNK 12/17/ active Vit eCW3 Vit 2010 w/Fe-Methylf ([facility] w/Fe-Methyl 12:00: ol-FA [facility] fol-FA 00 AM 27-0.6-0.4 Health 27-0.6-0.4 EDT MG Care) MG UNK 12/17/ active Vit eCW3 Vit 2010 w/Fe-Methylf ([facility] w/Fe-Methyl 12:00: ol-FA [facility] fol-FA 00 AM 27-0.6-0.4 Health 27-0.6-0.4 EDT MG Care) MG UNK 12/17/ active Vit eCW3 Vit 2010 w/Fe-Methylf ([facility] w/Fe-Methyl 12:00: ol-FA [facility] fol-FA 00 AM 27-0.6-0.4 Health 27-0.6-0.4 EDT MG Care) MG UNK 12/17/ active Vit eCW3 Vit 2010 w/Fe-Methylf ([facility] w/Fe-Methyl 12:00: ol-FA [facility] fol-FA 00 AM 27-0.6-0.4 Health 27-0.6-0.4 EDT MG Care) MG UNK 12/17/ active Vit eCW3 Vit 2010 w/Fe-Methylf ([facility] w/Fe-Methyl 12:00: ol-FA [facility] fol-FA 00 AM 27-0.6-0.4 Health 27-0.6-0.4 EDT MG Care) MG UNK 12/17/ suspend Vi t eCW3 Vit 2010 ed w/Fe-Methylf ([facility] w/Fe-Methyl 12:00: ol-FA [facility] fol-FA 00 AM 27-0.6-0.4 Health 27-0.6-0.4 EDT MG Care) MG UNK 12/17/ active Vit eCW3 Vit 2010 w/Fe-Methylf (Car w/Fe-Methyl 12:00: ol-FA [facility] fol-FA 00 AM 27-0.6-0.4 Health 27-0.6-0.4 EDT MG Care) MG UNK 12/17/ active Vit eCW3 Vit 2010 w/Fe-Methylf (Car w/Fe-Methyl 12:00: ol-FA [facility] fol-FA 00 AM 27-0.6-0.4 Health 27-0.6-0.4 EDT MG Care) MG UNK 12/17/ active Vit eCW3 Vit 2010 w/Fe-Methylf (Car w/Fe-Methyl 12:00: ol-FA [facility] fol-FA 00 AM 27-0.6-0.4 Health 27-0.6-0.4 EDT MG Care) MG UNK 12/17/ active Vit eCW3 Vit 2010 w/Fe-Methylf (Car w/Fe-Methyl 12:00: ol-FA [facility] fol-FA 00 AM 27-0.6-0.4 Health 27-0.6-0.4 EDT MG Care) MG Insurance Providers Payer name Policy type Policy ID Covered Covered constitution party's Policy P aamir / Coverage constitution party ID relationship to Lopze Inf ormation type lopez [facility] MEDICAID [id number] SP [id number] [facility] [id number] SP [id number] CARE [facility] MEDICAID [id number] SP [id number] [facility] MEDICAID [id number] SP [id number] Problems, Conditions, and Diagnoses Code Display Name Description Problem Type Effective Dates Data Source(s) 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 Care) V22.1 Supervision of , NORMAL Problem eCW 3 ([facility]) V22.1 Supervision of , NORMAL Problem eCW 3 ([facility] Care) Z33.1 Problem eCW3 ([facility]) Results ID Date Data Source [id number] 03/07/2020 07:51:00 PM EDT [place] Name Value Range Interpretation Description Data Sup porting Code Source(s) Document(s ) 2019 Novel [place] Coronavirus RNA Interpretation Unspecified Specimen Qualitative HOMERO Probe Detection This lab was ordered by [id number] and reported by [facility]. ID Date Data Source [id number] 03/01/2020 03:01:00 AM EDT [facility] Name Value Range Interpretation Description Data Sup porting Code Source(s) Document(s ) SARS [facility] coronavirus 2 RNA This lab was ordered by [facility] and reported by [facility]. ID Date Data Source [id number] 10/23/2019 12:00:00 AM EDT [facility] Name Value Range Interpretation Code Description Data Mariza rce(s) Supporting Document(s ) 2018-nCoV [place] RNA XXX HOMERO+probe- Imp This lab was ordered by [facility]DONEZ and reported by [facility]. Procedure Social History Code Duration Value Status Description Data Source(s ) Smoking 12/02/2019 12:00:00 Never Smoker completed Never Smoker e CW3 ([facility]) Smoking 12/02/2019 12:00:00 Never Smoker completed Never Smoker e CW3 ([facility]) Smoking 10/18/2019 12:00:00 Never Smoker completed Never Smoker e CW3 ([facility]) Smoking 10/18/2019 12:00:00 Never Smoker completed Never Smoker e CW3 ([facility]) Smoking 10/18/2019 12:00:00 Never Smoker completed Never Smoker e CW3 ([facility]) Smoking 10/18/2019 12:00:00 Never Smoker completed Never Smoker e CW3 ([facility]) Smoking 04/30/2019 12:00:00 Never Smoker completed Never Smoker e CW3 ([facility]) Smoking 04/30/2019 12:00:00 Never Smoker completed Never Smoker e CW3 ([facility]) Smoking 04/30/2019 12:00:00 Never Smoker completed Never Smoker e CW3 ([facility]) Smoking 04/30/2019 12:00:00 Never Smoker completed Never Smoker e CW3 ([facility]) Smoking 04/30/2019 12:00:00 Never Smoker completed Never Smoker e CW3 ([facility]) Smoking 04/30/2019 12:00:00 Never Smoker completed Never Smoker e CW3 ([facility]) Smoking 04/30/2019 12:00:00 Never Smoker completed Never Smoker e CW3 ([facility]) Never Smoker completed Never Smoker eCW3 ([facility]) Never Smoker completed Never Smoker eCW3 ([facility]) Never Smoker completed Never Smoker eCW3 ([facility]) Never Smoker completed Never Smoker eCW3 ([facility]) Never Smoker completed Never Smoker eCW3 ([facility]) Never Smoker completed Never Smoker eCW3 ([facility]) Never Smoker completed Never Smoker eCW3 ([facility]) Never Smoker completed Never Smoker eCW3 ([facility]) Never Smoker completed Never Smoker eCW3 ([facility]) Never Smoker completed Never Smoker eCW3 ([facility]) Never Smoker completed Never Smoker eCW3 ([facility] Never Smoker completed Never Smoker eCW3 ([facility]) Never Smoker completed Never Smoker eCW3 ([facility]) Vital Signs ID Date Data Source UNK Name Value Range Interpretation Code Description Data Source(s) Diastolic blood 73 mm[Hg] 73 mm[Hg] eCW3 ([facility]) Systolic blood 114 mm[Hg] 114 mm[Hg] eCW3 ([facility]) Body temperature 99.7 [degF] 99.7 [degF] eCW3 ( [facility]) Heart rate 20 /min 20 /min eCW3 ([facility]) Body mass index 25.81 kg/m2 25.81 kg/m2 eCW3 ([facility] (BMI) [Ratio] [facility]) Body weight 127.8 127.8 [lb_av] eCW3 ([facility] [lb_av] [facility]) Body height 59 [in_i] 59 [in_i] eCW3 ([facility]) Diastolic blood 70 mm[Hg] 70 mm[Hg] eCW3 ([facility]) Systolic blood 112 mm[Hg] 112 mm[Hg] eCW3 ([facility]) Body temperature 98.9 [degF] 98.9 [degF] eCW3 ( [facility]) Heart rate 20 /min 20 /min eCW3 ([facility]) Body mass index 25.53 kg/m2 25.53 kg/m2 eCW3 ([facility] (BMI) [Ratio] [facility]) Body weight 126.4 126.4 [lb_av] eCW3 ([facility] [lb_av] [facility]) Body height 59 [in_i] 59 [in_i] eCW3 ([facility]) Diastolic blood 81 mm[Hg] 81 mm[Hg] eCW3 ([facility]) Systolic blood 114 mm[Hg] 114 mm[Hg] eCW3 ([facility]) Body temperature 98.5 [degF] 98.5 [degF] eCW3 ( [facility]) Heart rate 20 /min 20 /min eCW3 ([facility]) Body mass index 25.24 kg/m2 25.24 kg/m2 eCW3 ([facility] (BMI) [Ratio] [facility]) Body weight 125 [lb_av] 125 [lb_av] eCW3 ([facility]) Body height 59 [in_i] 59 [in_i] eCW3 ([facility]) Diastolic blood 60 mm[Hg] 60 mm[Hg] eCW3 ([facility]) Systolic blood 96 mm[Hg] 96 mm[Hg] eCW3 ([facility]) Body temperature 98.5 [degF] 98.5 [degF] eCW3 ( [facility]) Heart rate 20 /min 20 /min eCW3 ([facility]) Body mass index 24.84 kg/m2 24.84 kg/m2 eCW3 ([facility] (BMI) [Ratio] [facility]) Body weight 123 [lb_av] 123 [lb_av] eCW3 ([facility]) Body height 59 [in_i] 59 [in_i] eCW3 ([facility]) Diastolic blood 73 mm[Hg] 73 mm[Hg] eCW3 ([facility]) Systolic blood 119 mm[Hg] 119 mm[Hg] eCW3 ([facility]) Body temperature 98.5 [degF] 98.5 [degF] eCW3 ( [facility]) Heart rate 20 /min 20 /min eCW3 ([facility]) Body mass index 25.08 kg/m2 25.08 kg/m2 eCW3 (Shoaib arreola (BMI) [Ratio] [facility]) Body weight 124.2 124.2 [lb_av] eCW3 ([facility] [lb_av] [facility]) Body height 59 [in_i] 59 [in_i] eCW3 ([facility]) Diastolic blood 79 mm[Hg] 79 mm[Hg] eCW3 ([facility]) Systolic blood 120 mm[Hg] 120 mm[Hg] eCW3 ([facility]) Body temperature 98.0 [degF] 98.0 [degF] eCW3 ( [facility]) Heart rate 20 /min 20 /min eCW3 ([facility]) Body mass index 24.44 kg/m2 24.44 kg/m2 eCW3 (Shoaib arreola (BMI) [Ratio] [facility]) Body weight 121 [lb_av] 121 [lb_av] eCW3 ([facility]) Body height 59 [in_i] 59 [in_i] eCW3 ([facility]) Diastolic blood 63 mm[Hg] 63 mm[Hg] eCW3 ([facility]) Systolic blood 102 mm[Hg] 102 mm[Hg] eCW3 ([facility]) Body temperature 99.3 [degF] 99.3 [degF] eCW3 ( [facility]) Heart rate 20 /min 20 /min eCW3 ([facility]) Body mass index 24.56 kg/m2 24.56 kg/m2 eCW3 (Shoaib arreola (BMI) [Ratio] [facility]) Body weight 121.6 121.6 [lb_av] eCW3 ([facility] [lb_av] [facility]) Body height 59 [in_i] 59 [in_i] eCW3 ([facility]) Diastolic blood 73 mm[Hg] 73 mm[Hg] eCW3 ([facility]) Systolic blood 106 mm[Hg] 106 mm[Hg] eCW3 ([facility]) Body temperature 98.9 [degF] 98.9 [degF] eCW3 ( [facility]) Heart rate 20 /min 20 /min eCW3 ([facility]) Body mass index 24.23 kg/m2 24.23 kg/m2 eCW3 (Shoaib arreola (BMI) [Ratio] [facility]) Body weight 120 [lb_av] 120 [lb_av] eCW3 ([facility]) Body height 59 [in_i] 59 [in_i] eCW3 ([facility]) Diastolic blood 65 mm[Hg] 65 mm[Hg] eCW3 ([facility]) Systolic blood 97 mm[Hg] 97 mm[Hg] eCW3 ([facility]) Body temperature 98.7 [degF] 98.7 [degF] eCW3 ( [facility]) Heart rate 20 /min 20 /min eCW3 ([facility]) Body mass index 25.247 kg/m2 25.247 kg/m2 eCW3 ([place] (BMI) [Ratio] [facility]) Body weight 125 [lb_av] 125 [lb_av] eCW3 ([facility]) Body height 59 [in_i] 59 [in_i] eCW3 ([facility]) Diastolic blood 65 mm[Hg] 65 mm[Hg] eCW3 ([facility]) Systolic blood 102 mm[Hg] 102 mm[Hg] eCW3 ([facility]) Body temperature 98.3 [degF] 98.3 [degF] eCW3 ( [facility]) Heart rate 20 /min 20 /min eCW3 ([facility]) Body mass index 24.96 kg/m2 24.96 kg/m2 eCW3 ( [facility]son (BMI) [Ratio] [facility]) Body weight 123.6 123.6 [lb_av] eCW3 ([facility] on [lb_av] [facility]) Body height 59 [in_i] 59 [in_i] eCW3 ([facility])
[2020-04-10] MEDS ORDERED: IRON SUCROSE INJECTION 200 MG in SODIUM CHLORIDE 100 ML IVPB ONE (11:00)
[2020-04-10 17:49] VITALS: TEMP 98.3
[2020-04-10 17:52] VITALS: BP 117/59; PULSE 69
== END 2020-04-10 16:00 | disposition home or self-care (01) ==
LOC: JONCNONCHE 06:43
PROVIDERS: ATTEND Internal Medicine Hematology & Oncology
PROC: 3E013GC Introduction of Other Therapeutic Substance into Subcutaneous Tissue, Percutaneous Approach (ICD-10-PCS; principal; 2020-04-10)
DX: D50.9 Iron deficiency anemia, unspecified (principal)
CPT/HCPCS: J1756

== ENCOUNTER 2020-04-12 13:49 | Emergency (ER) | payer OTHER ==
[2020-04-12 14:00] VITALS: BMI 26.2
--- OUTSIDE RECORDS SUMMARY | 2020-04-12 14:43 | XMS ---
:1980 Author Organization [facility] Support Name Relationship Address Phone UE, UNEMPLOYED Unavailable Unavailable FAROOQ FARAH PARTNER [address] [phone] [place] [address] UE Unavailable Unavailable TAL BARBOSA [place] [address] FAROOQ FARAH Unavailable [address] [place] [address] Re-disclosure Warning The records that you are [...] is protected by Article 27-F of the [facility] Public Health law. If you continue you may haveaccess to information: Regarding HIV / AIDS; Provided by facilities licensed or operated by the [facility] Office of Mental Health; or Provided by the [facility] Office for People With Developmental Disabilities. If such information is present, then the following [facility] mandated warning applies: This information has been [...] law may result in a fine or correction sentence or both. A general authorization for the release of medical or other information is NOT sufficient authorization for further disclosure. Allergies and Adverse Reactions Type Description Substance Reaction Status Data Source(s ) Drug allergy Penicillin Drug allergy itchy/hives Active eCW3 ([facility]) Drug allergy Penicillin Drug allergy itchy/hives Active eCW3 ([facility]) Drug allergy Penicillin Drug allergy itchy/hives Active eCW3 ([facility]) Drug allergy Penicillin Drug allergy itchy/hives Active eCW3 ([facility]) Drug allergy Penicillin Drug allergy itchy/hives Active eCW3 ([facility]) Drug allergy Penicillin Drug allergy itchy/hives Active eCW3 ([facility]) Drug allergy Penicillin Drug allergy itchy/hives Active eCW3 ([facility]) Drug allergy Penicillin Drug allergy itchy/hives Active eCW3 ([facility]) Drug allergy Penicillin Drug allergy itchy/hives Active eCW3 ([facility]) Drug allergy Penicillin Drug allergy itchy/hives Active eCW3 ([facility]) Drug allergy Penicillin Drug allergy itchy/hives Active eCW3 ([facility]) Drug allergy Penicillin Drug allergy itchy/hives Active eCW3 ([facility]) Drug allergy Penicillin Drug allergy itchy/hives Active eCW3 ([facility]) Encounters Encounter Providers Location Date Indications Data Source(s ) Outpatient [facility] 04/30/2019 eCW3 ([facility] A28 12:00:00 AM Health Care) EDT - 04/30/2019 12:00:00 AM EDT [facility] 04/06/2019 eCW3 ([facility] A28 12:00:00 AM Health Care) EDT - 04/06/2019 12:00:00 AM EDT Outpatient [facility] 12/08/2018 eCW3 ([facility] A28 12:00:00 AM Health Care) EDT - 12/08/2018 12:00:00 AM EDT Outpatient [facility] 12/01/2018 eCW3 ([facility] A28 12:00:00 AM Health Care) EDT - 12/01/2018 12:00:00 AM EDT Outpatient [facility] 11/26/2018 eCW3 ([facility] A28 12:00:00 AM Health Care) EDT - 11/26/2018 12:00:00 AM EDT Outpatient [facility] 11/23/2018 eCW3 ([facility] A28 12:00:00 AM Health Care) EDT - 11/23/2018 12:00:00 AM EDT Outpatient [facility] 11/19/2018 eCW3 ([facility] A28 12:00:00 AM Health Care) EDT - 11/19/2018 12:00:00 AM EDT Outpatient [facility] 11/17/2018 eCW3 ([facility] A28 12:00:00 AM Health Care) EDT - 11/17/2018 12:00:00 AM EDT Outpatient [facility] 11/16/2018 eCW3 ([facility] A28 12:00:00 AM Health Care) EDT - 11/16/2018 12:00:00 AM EDT Outpatient [facility] 10/29/2018 eCW3 ([facility] A28 12:00:00 AM Health Care) EDT - 10/29/2018 12:00:00 AM EDT Outpatient [facility] 10/16/2018 eCW3 ([facility] A28 12:00:00 AM Health Care) EDT - 10/16/2018 12:00:00 AM EDT Outpatient [facility] 10/15/2018 eCW3 ([facility] A28 12:00:00 AM Health Care) EDT - 10/15/2018 12:00:00 AM EDT Outpatient [facility] 10/15/2018 eCW3 ([facility] A28 12:00:00 AM Health Care) EDT - 10/15/2018 12:00:00 AM EDT Immunizations Vaccine Date Status Description Data Source(s) Tdap 12/17/2010 02:00:40 PM completed eCW3 ([facility]) Tdap 12/17/2010 02:00:40 PM completed eCW3 [...] 07-26 00 AM Health [facility] EDT Care) 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 DEPO-PRO VERA eCW3 A 150 MG/ML 2013 ed 150 MG/ML ([facility] 12:00: [facility] 00 AM Health EDT Care) 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 DEPO-PRO VERA eCW3 A 2014 ed (Car 12:00: [place] 00 AM Health EDT Care) 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 DEPO-PRO VERA eCW3 A 150 MG/ML 2013 ed 150 MG/ML ([facility] 12:00: [place] 00 AM Health EDT Care) 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 DEPO-PRO VERA eCW3 A 150 MG/ML 2014 ed 150 MG/ML ([facility] 12:00: [place] 00 AM Health EDT Care) 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 DEPO-PRO VERA eCW3 A 2013 ed (Car 12:00: [place] 00 AM Health EDT Care) 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 DEPO-PRO VERA eCW3 A 2013 ed (Car 12:00: [place] 00 AM Health EDT Care) 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 DEPO-PRO VERA eCW3 A 150 MG/ML 2013 ed 150 MG/ML ([facility] 12:00: [place] 00 AM Health EDT Care) 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 DEPO-PRO VERA eCW3 A 2013 ed (Car 12:00: [place] 00 AM Health EDT Care) 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 DEPO-PRO VERA eCW3 A 2013 ed (Car 12:00: [place] 00 AM Health EDT Care) 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 DEPO-PRO VERA eCW3 A 150 MG/ML 2013 ed 150 MG/ML ([facility] 12:00: [place] 00 AM Health EDT Care) 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 DEPO-PRO VERA eCW3 A 150 MG/ML 2014 ed 150 MG/ML ([facility] 12:00: [place] 00 AM Health EDT Care) 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 DEPO-PRO VERA eCW3 A 150 MG/ML 2014 ed 150 MG/ML ([facility] 12:00: [place] 00 AM Health EDT Care) 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 DEPO-PRO VERA eCW3 A 2013 ed (Car 12:00: [place] 00 AM Health EDT Care) 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 DEPO-PRO VERA eCW3 A 2013 ed (Car 12:00: [place] 00 AM Health EDT Care) 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 DEPO-PRO VERA eCW3 A 150 MG/ML 2014 ed 150 MG/ML ([facility] 12:00: [place] 00 AM Health EDT Care) 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 DEPO-PRO VERA eCW3 A 2013 ed (Car 12:00: [place] 00 AM Health EDT Care) 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 DEPO-PRO VERA eCW3 A 2013 ed (Car 12:00: [place] 00 AM Health EDT Care) 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 DEPO-PRO VERA eCW3 A 2013 ed (Car 12:00: [place] 00 AM Health EDT Care) 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 DEPO-PRO VERA eCW3 A 2013 ed (Car 12:00: [place] 00 AM Health EDT Care) 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 DEPO-PRO VERA eCW3 A 150 MG/ML 2013 ed 150 MG/ML ([facility] 12:00: [place] 00 AM Health EDT Care) 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 DEPO-PRO VERA eCW3 A 150 MG/ML 2013 ed 150 MG/ML ([facility] 12:00: [place] 00 AM Health EDT Care) 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 DEPO-PRO VERA eCW3 A [...] name Policy type Policy ID Covered Covered libertarian's Policy P aamir / Coverage libertarian ID relationship to Lopez Inf ormation type lopez [facility] MEDICAID [id number] SP [id number] [facility] [id number] SP [id number] CARE [facility] MEDICAID [id number] SP [id number] [facility] MEDICAID [id number] SP [id number] Problems, Conditions, and Diagnoses Code Display Name Description Problem Type Effective Dates Data Source(s) 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 Care) Z33.1 Problem eCW3 ([facility]) Results ID Date Data Source [id number] 03/07/2020 07:51:00 PM EDT [facility] Name Value Range Interpretation Description Data Sup porting Code Source(s) Document(s ) 2019 Novel [facility] Coronavirus RNA Interpretation Unspecified Specimen Qualitative HOMERO Probe Detection This lab was ordered by [id number] and reported by [facility]. ID Date Data Source [id number] 03/01/2020 03:01:00 AM EDT [facility] Name Value Range Interpretation Description Data Sup porting Code Source(s) Document(s ) SARS [facility] coronavirus 2 RNA This lab was ordered by [facility] and reported by [facility]. ID Date Data Source [id number] 10/23/2019 12:00:00 AM EDT [facility] Name Value Range Interpretation Code Description Data Mariza rce(s) Supporting Document(s ) 2018-nCoV [facility] RNA XXX HOMERO+probe- Imp This lab was ordered by [facility]Priyanka ORDONEZ and reported by [facility]. Procedure Social History Code Duration Value Status Description Data Source(s ) Smoking 12/02/2019 12:00:00 Never Smoker completed Never Smoker e CW3 ([facility]) Smoking 12/02/2019 12:00:00 Never Smoker completed Never Smoker e CW3 ([facility]) Smoking 10/18/2019 12:00:00 Never Smoker completed Never Smoker e CW3 ([facility]) Smoking 10/18/2019 12:00:00 Never Smoker completed Never Smoker e CW3 ([facility]) Smoking 10/18/2019 12:00:00 Never Smoker completed Never Smoker e CW3 ([facility]) Smoking 10/18/2019 12:00:00 Never Smoker completed Never Smoker e CW3 ([facility]) Smoking 04/30/2019 12:00:00 Never Smoker completed Never Smoker e CW3 ([facility]) Smoking 04/30/2019 12:00:00 Never Smoker completed Never Smoker e CW3 ([facility]) Smoking 04/30/2019 12:00:00 Never Smoker completed Never Smoker e CW3 ([facility]) Smoking 04/30/2019 12:00:00 Never Smoker completed Never Smoker e CW3 ([facility]) Smoking 04/30/2019 12:00:00 Never Smoker completed Never Smoker e CW3 ([facility]) Smoking 04/30/2019 12:00:00 Never Smoker completed Never Smoker e CW3 ([facility]) Smoking 04/30/2019 12:00:00 Never Smoker completed Never Smoker e CW3 ([facility]) Never Smoker completed Never Smoker eCW3 ([facility]) Never Smoker completed Never Smoker eCW3 ([facility]) Never Smoker completed Never Smoker eCW3 ([facility]) Never Smoker completed Never Smoker eCW3 ([facility]) Never Smoker completed Never Smoker eCW3 ([facility]) Never Smoker completed Never Smoker eCW3 ([facility]) Never Smoker completed Never Smoker eCW3 ([facility]) Never Smoker completed Never Smoker eCW3 ([facility]) Never Smoker completed Never Smoker eCW3 ([facility]) Never Smoker completed Never Smoker eCW3 ([facility]) Never Smoker completed Never Smoker eCW3 ([facility]) Never Smoker completed Never Smoker eCW3 ([facility]) Never Smoker completed Never Smoker eCW3 ([facility]) Vital Signs ID Date Data Source UNK Name Value Range Interpretation Code Description Data Source(s) Diastolic blood 73 mm[Hg] 73 mm[Hg] eCW3 ([facility]) Systolic blood 114 mm[Hg] 114 mm[Hg] eCW3 ([facility]) Body temperature 99.7 [degF] 99.7 [degF] eCW3 ( [facility]) Heart rate 20 /min 20 /min eCW3 ([facility]) Body mass index 25.81 kg/m2 25.81 kg/m2 eCW3 ([facility] (BMI) [Ratio] [facility]) Body weight 127.8 127.8 [lb_av] eCW3 ([facility] [lb_av[facility]) Body height 59 [in_i] 59 [in_i] eCW3 ([facility]) Diastolic blood 70 mm[Hg] 70 mm[Hg] eCW3 ([facility]) Systolic blood 112 mm[Hg] 112 mm[Hg] eCW3 ([facility]) Body temperature 98.9 [degF] 98.9 [degF] eCW3 ( [facility]) Heart rate 20 /min 20 /min eCW3 ([facility]) Body mass index 25.53 kg/m2 25.53 kg/m2 eCW3 ([facility] (BMI) [Ratio] [facility]) Body weight 126.4 126.4 [lb_av] eCW3 ([facility]lb_av[facility]) Body height 59 [in_i] 59 [in_i] eCW3 ([facility]) Diastolic blood 81 mm[Hg] 81 mm[Hg] eCW3 ([facility]) Systolic blood 114 mm[Hg] 114 mm[Hg] eCW3 ([facility]) Body temperature 98.5 [degF] 98.5 [degF] eCW3 ( [facility]) Heart rate 20 /min 20 /min eCW3 ([facility]) Body mass index 25.24 kg/m2 25.24 kg/m2 eCW3 ([facility] (BMI) [Ratio] [facility]) Body weight 125 [lb_av] 125 [lb_av] eCW3 ([facility]) Body height 59 [in_i] 59 [in_i] eCW3 ([facility]) Diastolic blood 60 mm[Hg] 60 mm[Hg] eCW3 ([facility]) Systolic blood 96 mm[Hg] 96 mm[Hg] eCW3 ([facility]) Body temperature 98.5 [degF] 98.5 [degF] eCW3 ( [facility]) Heart rate 20 /min 20 /min eCW3 ([facility]) Body mass index 24.84 kg/m2 24.84 kg/m2 eCW3 ([facility] (BMI) [Ratio] [facility]) Body weight 123 [lb_av] 123 [lb_av] eCW3 ([facility]) Body height 59 [in_i] 59 [in_i] eCW3 ([facility]) Diastolic blood 73 mm[Hg] 73 mm[Hg] eCW3 ([facility]) Systolic blood 119 mm[Hg] 119 mm[Hg] eCW3 ([facility]) Body temperature 98.5 [degF] 98.5 [degF] eCW3 ( [facility]) Heart rate 20 /min 20 /min eCW3 ([facility]) Body mass index 25.08 kg/m2 25.08 kg/m2 eCW3 (Shoaib arreola (BMI) [Ratio] [facility]) Body weight 124.2 124.2 [lb_av] eCW3 ([facility]lb_av[facility]) Body height 59 [in_i] 59 [in_i] eCW3 ([facility]) Diastolic blood 79 mm[Hg] 79 mm[Hg] eCW3 ([facility]) Systolic blood 120 mm[Hg] 120 mm[Hg] eCW3 ([facility]) Body temperature 98.0 [degF] 98.0 [degF] eCW3 ( [facility]) Heart rate 20 /min 20 /min eCW3 ([facility]) Body mass index 24.44 kg/m2 24.44 kg/m2 eCW3 (Shoaib arreola (BMI) [Ratio] [facility]) Body weight 121 [lb_av] 121 [lb_av] eCW3 ([facility]) Body height 59 [in_i] 59 [in_i] eCW3 ([facility]) Diastolic blood 63 mm[Hg] 63 mm[Hg] eCW3 ([facility]) Systolic blood 102 mm[Hg] 102 mm[Hg] eCW3 ([facility]) Body temperature 99.3 [degF] 99.3 [degF] eCW3 ( [facility]) Heart rate 20 /min 20 /min eCW3 ([facility]) Body mass index 24.56 kg/m2 24.56 kg/m2 eCW3 (Shoaib arreola (BMI) [Ratio] [facility]) Body weight 121.6 121.6 [lb_av] eCW3 ([facility]lb_av[facility]) Body height 59 [in_i] 59 [in_i] eCW3 ([facility]) Diastolic blood 73 mm[Hg] 73 mm[Hg] eCW3 ([facility]) Systolic blood 106 mm[Hg] 106 mm[Hg] eCW3 ([facility]) Body temperature 98.9 [degF] 98.9 [degF] eCW3 ( [facility]) Heart rate 20 /min 20 /min eCW3 ([facility]) Body mass index 24.23 kg/m2 24.23 kg/m2 eCW3 (Shoaib arreola (BMI) [Ratio] [facility]) Body weight 120 [lb_av] 120 [lb_av] eCW3 ([facility]) Body height 59 [in_i] 59 [in_i] eCW3 ([facility]) Diastolic blood 65 mm[Hg] 65 mm[Hg] eCW3 ([facility]) Systolic blood 97 mm[Hg] 97 mm[Hg] eCW3 ([facility]) Body temperature 98.7 [degF] 98.7 [degF] eCW3 ( [facility]) Heart rate 20 /min 20 /min eCW3 ([facility]) Body mass index 25.247 kg/m2 25.247 kg/m2 eCW3 ([facility] (BMI) [Ratio] [facility]) Body weight 125 [lb_av] 125 [lb_av] eCW3 ([facility]) Body height 59 [in_i] 59 [in_i] eCW3 ([facility]) Diastolic blood 65 mm[Hg] 65 mm[Hg] eCW3 ([facility]) Systolic blood 102 mm[Hg] 102 mm[Hg] eCW3 ([facility]) Body temperature 98.3 [degF] 98.3 [degF] eCW3 ( [facility]) Heart rate 20 /min 20 /min eCW3 ([facility]) Body mass index 24.96 kg/m2 24.96 kg/m2 eCW3 ( [facility] (BMI) [Ratio] [facility]) Body weight 123.6 123.6 [lb_av] eCW3 ([facility]lb_av[facility]) Body height 59 [in_i] 59 [in_i] eCW3 ([facility])
--- NOTE | 2020-04-12 15:18 | PDOC ---
History of Present Illness - General Chief Complaint: Palpitations Stated Complaint: PALPITATIONS Time Seen by Provider: 04/12/20 14:36 History Source: Patient Exam Limitations: No Limitations - History of Present Illness Initial Comments: 04/12/20 15:01 39F PMH TIA, PFO on 03/07/20 TTE, anemia presenting with 3 days of exertional SOB and occasional runs of palpitations and anxiety lasting for minutes. states butterflies in stomach. Endorses migraine headache. Denies n/v/d, cp, diarrhea, bloody stool; vaginal bleeding or discharge. Not on OCPs. No recent travel or prolonged immobilization. PCN allergy. Sx started after initiation of iron therapy for anemia 3 days ago; patient is concerned that this is a reaction. Past History - Medical History Allergies/Adverse Reactions: Allergies Allergy/AdvReac Type Severity Reaction Status Date / Time shrimp Allergy Severe Difficulty Verified 04/12/20 14:00 Breathing Penicillins Allergy Mild Swelling/it Verified 04/12/20 14:00 miguel mushroom Allergy Unknown Unverified 04/12/20 14:00 Home Medications: Ambulatory Orders Omeprazole 40 mg PO DAILY 01/17/19 Acetaminophen [Tylenol .Regular Strength -] 650 mg PO Q6H PRN #30 tablet 03/03/20 Aspirin [ASA -] 81 mg PO DAILY #30 tab.chew 03/03/20 Atorvastatin Ca [Lipitor] 20 mg PO HS #30 tablet 03/03/20 Ibuprofen 600 mg PO Q8H PRN #20 tablet 03/23/20 Anemia: No Asthma: Yes Cancer: No Cardiac Disorders: No CVA: (MINI STROKE 03/2020) COPD: No CHF: No Dementia: No Diabetes: No GI Disorders: No Disorders: No HTN: No Hypercholesterolemia: No Liver Disease: No Seizures: No Thyroid Disease: No Other medical history: Migranes - Surgical History Abdominal Surgery: Yes (gastric sleeve, lap choly) Orthopedic Surgery: Yes (LT KNEE SX) - Reproductive History Is Patient Now?: No (#): 5 Para: 3 Cervical CA: No Dysfunctional Uterine Bleeding: No Ectopic : No Endometrial CA: No Polycystic Ovaries: No Therapeutic (s) & number: No Tubal Ligation: No Spontaneous : 0 - Immunization History Td Vaccination: Yes TDAP Vaccination: Yes Immunization Up to Date: Yes - Psycho-Social/Smoking History Smoking Status: No Smoking History: Never smoked Have you smoked in the past 12 months: No Number of Cigarettes Smoked Daily: 0 Cigars Per Day: 0 Information on smoking cessation initiated: Yes - Substance Abuse Hx (Audit-C & DAST Scrn) How often the patient has a drink containing alcohol: Never Score: In Men: 4 or > Positive; In Women: 3 or > Positive: 0 Screen Result (Pos requires Nsg. Audit-10AR): Negative In the last yr the pt used illegal drug/Rx for NonMed reason: No Score: Yes response is considered Positive: 0 Screen Result (Positive result requires Nsg. DAST-10): Negative Review of Systems - Review of Systems Comments:: CONSTITUTIONAL: Denies F / C. endorses feeling cold. HEENT: + headache. Denies sore throat, rhinorrhea RESP: + exertional sob CARD: + palpitations. neg cp. GI: Denies N / V / D, abdominal pain, bloody stool, inability to tolerate PO : Denies dysuria. Denies vaginal bleeding or discharge. NEURO: Denies numbness, tingling, weakness MSK: Denies back pain SKIN: Denies rashes *Physical Exam - Vital Signs Last Vital Signs Temp Pulse Resp BP Pulse Ox 98.6 F 69 19 132/81 100 04/12/20 13:57 04/12/20 13:57 04/12/20 13:57 04/12/20 13:57 04/12/20 13:57 - Physical Exam GEN: NAD, comfortable. AAOx3. HEENT: NC/AT, EOMI, PERRL. Conjunctival pallor. No facial asymmetry. Moist mucous membranes, no pallor beneath the tongue. Normal voice. Supple neck w/ FROM. CV: S1/S2, RRR, no m/r/g LUNG: CTAB, no wheezes, crackles, rales, rhonchi. GI: Soft, ndnt, +BS, no guarding, no rebound. No masses. MSK: No obvious deformities of all extremities. No LE edema. No calf TTP. SKIN: Warm, dry, no rashes appreciated. PSYCH: mildly anxious o/w appropriate NEURO: Moving all extremities well. ambulates steady ED Treatment Course - LABORATORY CBC & Chemistry Diagram: 04/12/20 16:10 04/12/20 16:10 Medical Decision Making - Medical Decision Making 39F w/ 3 days of exertional SOB, episodic runs of palpitations, butterflies in stomach, and "anxiety" lasting a few minutes. Reassuring exam. DDX - anemia, thyroid; unlikely cardiac etiology. Unlikely VTE, PERC neg. - CBC, CMP, cardiac, TSH - EKG - CXR 04/12/20 16:58 Dr. Danielle requesting iron studies. EKG 16:22 HR 60, NSR, interval and axis nl, no TWI, no JOSÉ MIGUEL/D 04/12/20 18:00 CXR appears w/o obvious pathology labs reviewed; anemic. discussed discharge with patient; offered reassurance but advised close follow up with Dr. 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 Return precautions provided, questions and concerns addressed. Discharge - Discharge Information Problems reviewed: Yes Clinical Impression/Diagnosis: Palpitations, Anemia Condition: Stable Disposition: HOME - Admission No - Follow up/Referral Referrals: Kranthi Guzmán MD [Primary Care Provider] - Lolis Velasquez MD [Staff Physician] - Ebenezer Meraz MD [Staff Physician] - - Patient Discharge Instructions Patient Printed Discharge Instructions: DI for Palpitations Additional Instructions: Your lab work and Chest x-ray were reassuring from the Emergency Department. You do have an anemia but this is already being followed by Dr. Danielle. Follow up with your Primary Care Doctor regarding this ED visit in the next 5-10 days. Follow up with Dr. Morton as scheduled. We are referring you to Cardiology, follow up in the next 10 days. Please call to schedule an appointment. Return to the nearest Emergency Department if you experience new or worsening symptoms - Post Discharge Activity
--- NOTE | 2020-04-12 16:19 | PDOC ---
Documentation entered by Verena Ch SCRIBE, acting as scribe for Robert Guillen MD. Robert Guillen MD: This documentation has been prepared by the Jing nunez Xhesika, SCRIBE, under my direction and personally reviewed by me in its entirety. I confirm that the documentation accurately reflects all work, treatment, procedures, and medical decision making performed by me. Attending Attestation - Resident Resident Name: ParsonsJeremi - ED Attending Attestation I have performed the following: I have examined & evaluated the patient, The case was reviewed & discussed with the resident, I agree w/resident's findings & plan, Exceptions are as noted - HPI HPI: 04/12/20 15:39 The patient is a 39y/o F with a PMH of TIA, PFO, anemia who presents to the ED with 3 days of SOB on exertion and intermittent palpitations. Pt also reports migraine headache. Allergies: PCN. mushroom. shrimp - Physicial Exam PE: 04/12/20 16:17 EXAMINATION CONSTITUTIONAL: Well-appearing; well-nourished; in no apparent distress HEAD: Normocephalic; atraumatic EYES: PERRL; EOM intact ENMT: External appears normal; normal oropharynx NECK: Supple; non-tender; no cervical lymphadenopathy CARD: Normal S1, S2; no murmurs, rubs, or gallops RESP: Normal chest excursion with respiration; breath sounds clear and equal bilaterally; no wheezes, rhonchi, or rales ABD: Soft, non-distended; non-tender; no palpable organomegaly, no palpable hernias EXT: Normal ROM in all four extremities; non-tender to palpation; distal pulses intact SKIN: Warm, dry, no rash NEURO: No focal neurological deficiencies. - Medical Decision Making 04/12/20 16:17 39-year-old female with history of patent foramen ovale presents with several, intermittent, spontaneously resolving episodes of shortness of breath associated with hot sensation. In the ER, patient is awake and alert, nontoxic-appearing with normal vital signs. EKG shows no evidence of acute dysrhythmia or arrhythmia. I do not suspect PE or ACS at this time. Will obtain CBC/CMP to evaluate for electrolyte abnormalities and anemia. Likely discharge. Discharge - Discharge Information Problems reviewed: Yes Clinical Impression/Diagnosis: Palpitations - Follow up/Referral Referrals: Kranthi Guzmán MD [Primary Care Provider] - - Patient Discharge Instructions - Post Discharge Activity
[2020-04-12 16:26] LABS: BASO % 0.9 % (0-2.0); EOS % 1.8 % (0-4.5); HEMATOCRIT 29.9 % (32.4-45.2); HEMOGLOBIN 9.8 GM/dL (10.7-15.3); LYMPH % 38.7 % (8-40); MCH 25.6 pg (25.7-33.7); MCHC 32.8 g/dl (32.0-36.0); MEAN CELL VOLUME 78.2 fl (80-96); MONO % 7.1 % (3.8-10.2); NEUT % 51.5 % (42.8-82.8); PLATELET COUNT 245 K/MM3 (134-434); RBC 3.83 M/mm3 (3.60-5.2); RDW 13.5 % (11.6-15.6); WHITE BLOOD COUNT 4.5 K/mm3 (4.0-10.0)
[2020-04-12 16:56] LABS: ALBUMIN 4.1 g/dl (3.4-5.0); BILIRUBIN,TOTAL 0.2 mg/dL (0.2-1); BLOOD UREA NITROGEN 11.7 mg/dL (7-18); CALCIUM 8.7 mg/dL (8.5-10.1); CREATININE 0.6 mg/dL (0.55-1.3); POTASSIUM 3.8 mmol/L (3.5-5.1); TOT PROT 7.4 g/dl (6.4-8.2)
[2020-04-12 19:50] VITALS: BP 108/73; PULSE 79; TEMP 98.1
--- NOTE | 2020-04-13 13:24 | EKG ---
Test Reason : Blood Pressure : / mmHG Vent. Rate : 060 BPM Atrial Rate : 060 BPM P-R Int : 180 ms QRS Dur : 092 ms QT Int : 442 ms P-R-T Axes : 057 020 047 degrees QTc Int : 442 ms NORMAL SINUS RHYTHM NORMAL ECG WHEN COMPARED WITH ECG OF 01-MAR-2020 02:27, NO SIGNIFICANT CHANGE WAS FOUND Confirmed by DAVID RAMOS MD ([id number]) on 04/13/2020 1:24:04 PM Referred By: Confirmed By:DAVID RAMOS MD
== END 2020-04-12 19:50 | disposition home or self-care (01) ==
LOC: JER 13:49
DX: R00.2 Palpitations (principal)
CPT/HCPCS: 36415; 71046-TC-FY; 80053; 82728; 83540; 83550; 84443; 84703; 85025; 86850; 86900; 86901; 93005; 93010; 99285-25

== ENCOUNTER 2020-07-27 04:50 | Day surgery (SDC) | payer OTHER ==
[2020-07-26 10:02] VITALS: BMI 25.9
[2020-07-27] MEDS ORDERED: BUPIVACAINE HCL/PF 0.25% (2.5MG/ML) 10 ML VIAL ONE (08:15)
[2020-07-27] MEDS ORDERED: PHENAZOPYRIDINE HCL 100 MG TABLET (FP) ONE ×2 (09:50→09:55)
[2020-07-27] MEDS ORDERED: MIDAZOLAM HCL 2 MG/2 ML SINGLE DOSE VIAL ONE ×2 (10:37)
[2020-07-27] MEDS ORDERED: PHENAZOPYRIDINE HCL 100 MG TABLET (FP) PO ONE (11:00)
[2020-07-27] MEDS ORDERED: fentaNYL CITRATE 250 MCG/5 ML VIAL ONE (11:01)
[2020-07-27] MEDS ORDERED: PROPOFOL 20 ML ONE (11:01)
[2020-07-27] MEDS ORDERED: CLINDAMYCIN PHOSPHATE 600 MG/4 ML VIAL IVPB ONE (11:15)
[2020-07-27] MEDS ORDERED: GENTAMICIN SO4 80 MG/2 ML VIAL ONE (11:16)
[2020-07-27] MEDS ORDERED: GENTAMICIN SO4 80 MG/2 ML VIAL IVPB ONE (11:17)
[2020-07-27] MEDS ORDERED: CLINDAMYCIN PHOSPHATE 600 MG/4 ML VIAL ONE (12:00)
[2020-07-27] MEDS ORDERED: DEXAMETHASONE SOD PHOSPHATE 4 MG/1 ML VIAL ONE (12:00)
[2020-07-27] MEDS ORDERED: NEOSTIGMINE METHYLSULFATE 0.5 MG/ML - 10 ML MDV ONE (12:01)
[2020-07-27] MEDS ORDERED: KETOROLAC TROMETHAMINE 30 MG/1 ML VIAL ONE (12:02)
[2020-07-27] MEDS ORDERED: ONDANSETRON 4 MG/2 ML VIAL IVPUSH PRN (12:47)
[2020-07-27] MEDS ORDERED: oxyCODONE HCL 5 MG TABLET PO PRN (12:47)
[2020-07-27] MEDS ORDERED: PROMETHAZINE HCL 25 MG/1 ML VIAL IVPUSH PRN (12:47)
[2020-07-27] MEDS ORDERED: ACETAMINOPHEN 1000 MG/100 ML VIAL (NON FORMULARY) IVPB ONE (12:54)
[2020-07-27] MEDS ORDERED: PATIENT'S OWN MEDICATION (NON-FORMULARY) (Butalbital/Acetaminophen [Butalbital-Acetaminoph PO SCH (13:00)
[2020-07-27] MEDS: ACETAMINOPHEN 500 MG TABLET (FP) PO SCH (18:57)
[2020-07-27] MEDS: CLINDAMYCIN 300 MG PREMIX IVPB 300 MG/50 ML BAG IVPB SCH (21:36)
[2020-07-27] MEDS: LACTATED RINGERS SOLUTION 1,000 ML IV SCH (21:37)
[2020-07-27] MEDS ORDERED: ATORVASTATIN CA 20 MG TABLET (FP) PO SCH (22:00)
[2020-07-28] MEDS: ACETAMINOPHEN 500 MG TABLET (FP) PO SCH ×3 (01:30→14:13)
[2020-07-28] MEDS: CLINDAMYCIN 300 MG PREMIX IVPB 300 MG/50 ML BAG IVPB SCH (02:56)
[2020-07-28] MEDS: LACTATED RINGERS SOLUTION 1,000 ML IV SCH ×2 (06:14→14:22)
[2020-07-28 09:40] VITALS: BP 93/45; PULSE 67; TEMP 98.2
[2020-07-28] MEDS ORDERED: MAGNESIUM OXIDE 400 MG TABLET (FP) PO SCH (10:00)
[2020-07-28] MEDS ORDERED: PANTOPRAZOLE 40 MG TABLET PO SCH (10:00)
[2020-07-28] MEDS ORDERED: ENOXAPARIN NA (PORCINE) 40 MG/0.4 ML DISP.SYRIN SQ SCH (10:00)
[2020-07-28 13:00] LABS: BASO % 0.9 % (0-2.0); EOS % 0.8 % (0-4.5); HEMATOCRIT 26.8 % (32.4-45.2); LYMPH % 33.6 % (8-40); MCH 27.3 pg (25.7-33.7); MCHC 33.5 g/dl (32.0-36.0); MEAN CELL VOLUME 81.4 fl (80-96); MEAN PLT VOLUME 9.2 fl (7.5-11.1); MONO % 8.5 % (3.8-10.2); NEUT % 56.2 % (42.8-82.8); PLATELET COUNT 229 K/MM3 (134-434); RBC 3.29 M/mm3 (3.60-5.2); RDW 14.8 % (11.6-15.6); WHITE BLOOD COUNT 6.2 K/mm3 (4.0-10.0)
[2020-07-28 13:26] LABS: POTASSIUM 3.9 mmol/L (3.5-5.1)
[2020-07-28 13:28] LABS: CALCIUM 8.5 mg/dL (8.5-10.1)
[2020-07-28 13:29] LABS: BLOOD UREA NITROGEN 7.3 mg/dL (7-18)
[2020-07-28 13:32] LABS: CREATININE 0.7 mg/dL (0.55-1.3)
[2020-07-28 13:33] LABS: BILIRUBIN,TOTAL 0.3 mg/dL (0.2-1); TOT PROT 5.6 g/dl (6.4-8.2)
[2020-07-28] MEDS ORDERED: TOPIRAMATE 25 MG TABLET PO SCH (22:00)
[2020-07-29] MEDS ORDERED: FE POLYSAC/CYANOCOBAL/FA COMBO CAPSULE PO SCH (10:00)
== END 2020-07-28 17:19 | disposition home or self-care (01) ==
LOC: JASUSAT 04:50 → JASU-SURG 04:50 → J5WEST-2 17:44 → JASUSAT 07-28 17:19
PROVIDERS: ATTEND Obstetrics & Gynecology
PROC: 0UT9FZZ Resection of Uterus, Via Natural or Artificial Opening With Percutaneous Endoscopic Assistance (ICD-10-PCS; principal; 2020-07-27 12:00)
PROC: 0UT7FZZ Resection of Bilateral Fallopian Tubes, Via Natural or Artificial Opening With Percutaneous Endoscopic Assistance (ICD-10-PCS; 2020-07-27 12:00)
DX: D25.1 Intramural leiomyoma of uterus (principal); N88.8 Other specified noninflammatory disorders of cervix uteri; N94.89 Other specified conditions associated with female genital organs and menstrual cycle
CPT/HCPCS: 36415; 80053; 84703; 85025; 86850; 86900; 86901; 88302-TC; 88307-TC; 94010; 94760; J0131

== ENCOUNTER → 2020-08-23 | Day surgery (SDC) | payer OTHER ==
[~2020-08-23] MED LIST: FERRIC CARBOXYMALTOSE 750 MG in SODIUM CHLORIDE 250 ML IVPB ONE; methylPREDNISolone NA SUCC 125 MG/2 ML VIAL IVPUSH ONE
[2020-08-23 19:01] VITALS: BP 110/58; PULSE 65; TEMP 97.7
== END | disposition home or self-care (01) ==
LOC: JONCNONCHE 07:25
PROVIDERS: ATTEND Internal Medicine Hematology & Oncology
PROC: 3E033GC Introduction of Other Therapeutic Substance into Peripheral Vein, Percutaneous Approach (ICD-10-PCS; principal; 2020-08-23)
DX: D50.9 Iron deficiency anemia, unspecified (principal)
CPT/HCPCS: 96365; J1439

== ENCOUNTER 2020-08-30 12:03 | Day surgery (SDC) | payer OTHER ==
[~2020-08-30 12:03] MED LIST changes: +methylPREDNISolone NA SUCC 125 MG/2 ML VIAL IVPB ONE; -methylPREDNISolone NA SUCC 125 MG/2 ML VIAL IVPUSH ONE
[2020-08-30 17:23] VITALS: TEMP 98.2
[2020-08-30 17:31] VITALS: BP 107/63; PULSE 60
== END 2020-08-30 17:33 | disposition home or self-care (01) ==
LOC: JONCNONCHE 12:03
PROVIDERS: ATTEND Internal Medicine Hematology & Oncology
PROC: 3E033GC Introduction of Other Therapeutic Substance into Peripheral Vein, Percutaneous Approach (ICD-10-PCS; principal; 2020-08-30)
DX: D50.9 Iron deficiency anemia, unspecified (principal)
CPT/HCPCS: 96365; J1439

== ENCOUNTER 2020-10-20 20:10 | Emergency (ER) | payer OTHER ==
[2020-10-20 20:29] VITALS: BP 146/73; PULSE 97; TEMP 97; BMI 26.4
[2020-10-20] MEDS ORDERED: SUMATRIPTAN SUCCINATE 6 MG/0.5 ML VIAL SQ ONE (21:19)
[2020-10-20] MEDS ORDERED: SUMATRIPTAN SUCCINATE 6 MG/0.5 ML VIAL ONE (21:23)
== END 2020-10-20 22:42 | disposition home or self-care (01) ==
LOC: JER 20:10
DX: G43.909 Migraine, unspecified, not intractable, without status migrainosus (principal)
CPT/HCPCS: 99283-25

== ENCOUNTER 2021-04-01 11:52 | Inpatient (IN) | payer OTHER ==
[2021-04-01 13:06] LABS: BASO % 0.5 % (0-2.0); EOS % 0.8 % (0-4.5); HEMATOCRIT 37.1 % (32.4-45.2); HEMOGLOBIN 13.1 GM/dL (10.7-15.3); LYMPH % 12.7 % (8-40); MCH 32.1 pg (25.7-33.7); MCHC 35.2 g/dl (32.0-36.0); MEAN CELL VOLUME 91.3 fl (80-96); MEAN PLT VOLUME 9.1 fl (7.5-11.1); MONO % 4.9 % (3.8-10.2); NEUT % 81.1 % (42.8-82.8); PLATELET COUNT 207 10^3/uL (134-434); RBC 4.07 M/mm3 (3.60-5.2); RDW 12.4 % (11.6-15.6); WHITE BLOOD COUNT 9.8 K/mm3 (4.0-10.0)
[2021-04-01 13:12] LABS: INR 0.95 (0.83-1.09); PROTHROMBIN TIME (PATIENT) 11.7 SEC (9.7-13.0)
[2021-04-01 13:14] LABS: ACTIVATED PTT 25.7 SECONDS (25.2-36.5)
[2021-04-01 13:26] LABS: CHLORIDE 108 mmol/L (98-107); SODIUM 140 mmol/L (136-145)
[2021-04-01 13:28] LABS: CALCIUM 8.6 mg/dL (8.5-10.1)
[2021-04-01 13:29] LABS: ALBUMIN 3.9 g/dl (3.4-5.0); ANION GAP 6 MMOL/L (8-16); BLOOD UREA NITROGEN 11.4 mg/dL (7-18); CO2 26 mmol/L (21-32); GLUCOSE,RANDOM 68 mg/dL (74-106)
[2021-04-01 13:32] LABS: CHOLESTEROL 124 mg/dL (50-200); CREATININE 0.7 mg/dL (0.55-1.3); SGOT/AST 26 U/L (15-37); SGPT/ALT 34 U/L (13-61)
[2021-04-01 13:33] LABS: LDL CHOLESTEROL (ONLY SJRH) 50 mg/dL (5-100); TRIGLYCERIDES 64 mg/dL (0-150)
[2021-04-01 13:34] LABS: BILIRUBIN,TOTAL 0.4 mg/dL (0.2-1); HDL CHOLESTEROL 59 mg/dL (40-60); TOT PROT 6.6 g/dl (6.4-8.2)
[2021-04-01 13:35] LABS: ALK PHOS 85 U/L (45-117)
[2021-04-01] MEDS ORDERED: ACETAMINOPHEN 325 MG TABLET (FP) PO ONE (13:40)
[2021-04-01] MEDS ORDERED: METOCLOPRAMIDE HCL INJECTION 10 MG/2 ML VIAL IVPUSH ONE (13:40)
[2021-04-01] MEDS ORDERED: SODIUM CHLORIDE 0.9% 500 ML INFUS.BAG IV ONE (13:43)
[2021-04-01] MEDS ORDERED: ACETAMINOPHEN 325 MG TABLET (FP) ONE (14:25)
[2021-04-01] MEDS ORDERED: METOCLOPRAMIDE HCL INJECTION 10 MG/2 ML VIAL ONE (14:25)
[2021-04-01 15:18] LABS: EPI CELLS >36 /uL (0-25.1); HYALINE CASTS 3 /uL (0-3.1); PH,URINE 6.5 (5.0-8.0); URINE APPEARANCE CLEAR; URINE BACTERIA 354 /uL (0-1359); URINE BILIRUBIN NEGATIVE (NEGATIVE); URINE COLOR YELLOW; URINE GLUCOSE (UA) NEGATIVE (NEGATIVE); URINE KETONE 1+ (NEGATIVE); URINE LEUK ESTERASE NEGATIVE (NEGATIVE); URINE NITRITE NEGATIVE (NEGATIVE); URINE PROTEIN NEGATIVE (NEGATIVE); URINE RBC 27 /uL (0-23.9); URINE UROBILINOGEN 0.2 mg/dL (0.2-1.0); URINE WBC 17 /uL (0-25.8)
[2021-04-01 17:12] VITALS: BMI 24.9
[2021-04-01] MEDS ORDERED: ACETAMINOPHEN/CAFFEINE/BUTALBITAL 1 TAB PO PRN (22:45)
[2021-04-01] MEDS: DEXTROSE 5%-0.45% SALINE 1,000 ML IV SCH (22:58)
[2021-04-01] MEDS: ATORVASTATIN CA 20 MG TABLET (FP) PO SCH (22:58)
[2021-04-02] MEDS: DEXTROSE 5%-0.45% SALINE 1,000 ML IV SCH ×2 (01:53→21:56)
[2021-04-02 10:27] LABS: BASO % 0.6 % (0-2.0); EOS % 3.1 % (0-4.5); HEMATOCRIT 33.8 % (32.4-45.2); HEMOGLOBIN 11.8 GM/dL (10.7-15.3); LYMPH % 42.5 % (8-40); MCH 31.7 pg (25.7-33.7); MEAN CELL VOLUME 90.4 fl (80-96); MEAN PLT VOLUME 9.3 fl (7.5-11.1); MONO % 6.2 % (3.8-10.2); NEUT % 47.6 % (42.8-82.8); PLATELET COUNT 187 10^3/uL (134-434); RBC 3.74 M/mm3 (3.60-5.2); RDW 12.9 % (11.6-15.6); WHITE BLOOD COUNT 3.7 K/mm3 (4.0-10.0)
[2021-04-02] MEDS: ENOXAPARIN NA (PORCINE) 40 MG/0.4 ML DISP.SYRIN SQ SCH (10:46)
[2021-04-02] MEDS: MAGNESIUM OXIDE 400 MG TABLET (FP) PO SCH (10:46)
[2021-04-02 11:09] LABS: ALBUMIN 3.2 g/dl (3.4-5.0); CALCIUM 8.1 mg/dL (8.5-10.1)
[2021-04-02 11:10] LABS: BLOOD UREA NITROGEN 7.6 mg/dL (7-18)
[2021-04-02 11:13] LABS: CREATININE 0.4 mg/dL (0.55-1.3)
[2021-04-02 11:14] LABS: BILIRUBIN,TOTAL 0.6 mg/dL (0.2-1); TOT PROT 5.7 g/dl (6.4-8.2)
[2021-04-02] MEDS: PANTOPRAZOLE 40 MG TABLET PO SCH (17:54)
[2021-04-02] MEDS: ATORVASTATIN CA 20 MG TABLET (FP) PO SCH (21:46)
[2021-04-02] MEDS ORDERED: ASPIRIN COATED 81 MG TABLET.EC PO SCH (22:00)
[2021-04-03] MEDS: MAGNESIUM OXIDE 400 MG TABLET (FP) PO SCH (09:31)
[2021-04-03] MEDS: ENOXAPARIN NA (PORCINE) 40 MG/0.4 ML DISP.SYRIN SQ SCH (09:31)
[2021-04-03] MEDS: PANTOPRAZOLE 40 MG TABLET PO SCH (09:31)
[2021-04-03] MEDS ORDERED: ACETAMINOPHEN/CAFFEINE/BUTALBITAL 1 TAB PO PRN (10:52)
[2021-04-03 14:36] VITALS: BP 125/74; PULSE 68; TEMP 98.7
[2021-04-03] MEDS ORDERED: ATORVASTATIN CA 20 MG TABLET (FP) PO SCH (22:00)
[2021-04-03] MEDS ORDERED: ASPIRIN COATED 81 MG TABLET.EC PO SCH (22:00)
[2021-04-04] MEDS ORDERED: MAGNESIUM OXIDE 400 MG TABLET (FP) PO SCH (10:00)
[2021-04-04] MEDS ORDERED: ENOXAPARIN NA (PORCINE) 40 MG/0.4 ML DISP.SYRIN SQ SCH (10:00)
== END 2021-04-03 19:23 | disposition home or self-care (01) | DRG 54 ==
LOC: JER 11:52 → JERBED 14:09 → J5S 16:50 → J4W 04-02 18:20
PROVIDERS: ADMIT Internal Medicine; ATTEND Internal Medicine
DX: G43.909 Migraine, unspecified, not intractable, without status migrainosus (principal); Q21.1 Atrial septal defect; R07.9 Chest pain, unspecified; R20.2 Paresthesia of skin
CPT/HCPCS: 36415; 70450-TC; 70551-TC; 80053; 80061; 81003; 82550; 82962; 83036; 84484; 85025; 85610; 85730; 86850; 86900; 86901; 93005; 93010; 93306-TC; 99285-25; C9803; U0003; U0005

== ENCOUNTER 2021-09-25 21:39 | Emergency (ER) | payer OTHER ==
[2021-09-25 21:53] VITALS: BP 112/72; PULSE 68; TEMP 97.8; BMI 25.4
[2021-09-25] MEDS ORDERED: METOCLOPRAMIDE HCL INJECTION 10 MG/2 ML VIAL IVPUSH ONE (22:57)
[2021-09-25] MEDS ORDERED: SODIUM CHLORIDE 1,000 ML IV STA (22:57)
[2021-09-25] MEDS ORDERED: ACETAMINOPHEN 1000 MG/100 ML BAG IVPB ONE (22:57)
[2021-09-25] MEDS ORDERED: METOCLOPRAMIDE HCL INJECTION 10 MG/2 ML VIAL ONE (23:46)
[2021-09-25] MEDS ORDERED: ACETAMINOPHEN INJECTION 100 ML IVPB ONE (23:46)
[2021-09-25 23:48] LABS: HEMATOCRIT 38.5 % (32.4-45.2); HEMOGLOBIN 13.1 GM/dL (10.7-15.3); MEAN CELL VOLUME 91.1 fl (80-96); MEAN PLT VOLUME 8.6 fl (7.5-11.1); PLATELET COUNT 206 10^3/uL (134-434); RBC 4.22 M/mm3 (3.60-5.2); RDW 13.7 % (11.6-15.6); WHITE BLOOD COUNT 11.6 K/mm3 (4.0-10.0)
[2021-09-26 00:08] LABS: ALBUMIN 3.9 g/dl (3.4-5.0); BLOOD UREA NITROGEN 7.6 mg/dL (7-18); CALCIUM 8.2 mg/dL (8.5-10.1)
[2021-09-26 00:11] LABS: CREATININE 0.6 mg/dL (0.55-1.3)
[2021-09-26 00:13] LABS: BILIRUBIN,TOTAL 0.4 mg/dL (0.2-1); TOT PROT 6.6 g/dl (6.4-8.2)
[2021-09-26 00:55] LABS: EPI CELLS 27 /uL (0-25.1); HYALINE CASTS 2 /uL (0-3.1); URINE APPEARANCE CLEAR; URINE BACTERIA 1854 /uL (0-1359); URINE BILIRUBIN NEGATIVE (NEGATIVE); URINE COLOR YELLOW; URINE GLUCOSE (UA) NEGATIVE (NEGATIVE); URINE KETONE TRACE (NEGATIVE); URINE LEUK ESTERASE NEGATIVE (NEGATIVE); URINE NITRITE NEGATIVE (NEGATIVE); URINE PROTEIN NEGATIVE (NEGATIVE); URINE RBC 49 /uL (0-23.9); URINE UROBILINOGEN 0.2 mg/dL (0.2-1.0); URINE WBC 8 /uL (0-25.8)
[2021-09-26 03:07] LABS: ANISOCYTOSIS 2+; MACROCYTOSIS 0; TEAR DROP CELLS 1+
== END 2021-09-26 02:07 | disposition home or self-care (01) ==
LOC: JER 21:39
PROC: 3E0333Z Introduction of Anti-inflammatory into Peripheral Vein, Percutaneous Approach (ICD-10-PCS; principal; 2021-09-25)
PROC: 3E0333Z Introduction of Anti-inflammatory into Peripheral Vein, Percutaneous Approach (ICD-10-PCS; 2021-09-25)
PROC: 3E0337Z Introduction of Electrolytic and Water Balance Substance into Peripheral Vein, Percutaneous Approach (ICD-10-PCS; 2021-09-25)
DX: R11.2 Nausea with vomiting, unspecified (principal); R19.7 Diarrhea, unspecified
CPT/HCPCS: 36415; 74177-TC; 80053; 81003; 83690; 84703; 85025; 99285-25; Q9967

== ENCOUNTER 2022-06-14 10:12 | Day surgery (SDC) | payer OTHER ==
[2022-06-14] MEDS ORDERED: methylPREDNISolone NA SUCC 125 MG/2 ML VIAL IVPUSH ONE (10:45)
[2022-06-14] MEDS ORDERED: FERRIC CARBOXYMALTOSE 750 MG in SODIUM CHLORIDE 250 ML IVPB ONE (11:00)
[2022-06-14 15:31] VITALS: BP 105/52; PULSE 59; RESP 20; TEMP 99.2
== END 2022-06-14 12:40 | disposition home or self-care (01) ==
LOC: JONCNONCHE 10:12
PROC: 3E033GC Introduction of Other Therapeutic Substance into Peripheral Vein, Percutaneous Approach (ICD-10-PCS; principal; 2022-06-14)
DX: D50.9 Iron deficiency anemia, unspecified (principal)
CPT/HCPCS: 96365; J1439

== ENCOUNTER 2022-06-21 08:10 | Day surgery (SDC) | payer OTHER ==
[2022-06-21] MEDS ORDERED: methylPREDNISolone NA SUCC 125 MG/2 ML VIAL IVPB ONE (09:45)
[2022-06-21] MEDS ORDERED: FERRIC CARBOXYMALTOSE 750 MG in SODIUM CHLORIDE 250 ML IVPB ONE (10:30)
[2022-06-21 17:25] VITALS: BP 112/72; PULSE 70; RESP 20; TEMP 98
== END 2022-06-21 11:50 | disposition home or self-care (01) ==
LOC: JONCNONCHE 08:10
PROC: 3E033GC Introduction of Other Therapeutic Substance into Peripheral Vein, Percutaneous Approach (ICD-10-PCS; principal; 2022-06-21)
DX: D50.9 Iron deficiency anemia, unspecified (principal)
CPT/HCPCS: 96365; J1439

== ENCOUNTER 2023-03-13 10:18 | Emergency (ER) | payer OTHER ==
[2023-03-13 10:29] VITALS: RESP 18; BMI 27.3
[2023-03-13] MEDS ORDERED: SODIUM CHLORIDE 1,000 ML IV STA (10:50)
[2023-03-13] MEDS ORDERED: ACETAMINOPHEN 1000 MG/100 ML BAG IVPB ONE (10:50)
[2023-03-13] MEDS ORDERED: ACETAMINOPHEN INJECTION 100 ML IVPB ONE (10:57)
[2023-03-13] MEDS ORDERED: FAMOTIDINE 20 MG/50 ML IVPB 20 MG/50 ML MG IVPB ONE (11:15)
[2023-03-13 12:00] LABS: EPI CELLS 35 /uL (0-25.1); HYALINE CASTS 1 /uL (0-3.1); URINE APPEARANCE CLEAR; URINE BACTERIA 2213 /uL (0-1359); URINE BILIRUBIN NEGATIVE (NEGATIVE); URINE COLOR YELLOW; URINE GLUCOSE (UA) NEGATIVE (NEGATIVE); URINE KETONE NEGATIVE (NEGATIVE); URINE LEUK ESTERASE NEGATIVE (NEGATIVE); URINE NITRITE NEGATIVE (NEGATIVE); URINE PROTEIN NEGATIVE (NEGATIVE); URINE RBC 106 /uL (0-23.9); URINE UROBILINOGEN 0.2 mg/dL (0.2-1.0); URINE WBC 17 /uL (0-25.8)
[2023-03-13 12:05] LABS: BASO % 0.2 % (0-2.0); EOS % 1.2 % (0-4.5); HEMATOCRIT 38.6 % (32.4-45.2); HEMOGLOBIN 12.7 GM/dL (10.7-15.3); LYMPH % 12.2 % (8-40); MCH 30.5 pg (25.7-33.7); MCHC 32.9 g/dl (32.0-36.0); MEAN CELL VOLUME 92.9 fl (80-96); MEAN PLT VOLUME 9.5 fl (7.5-11.1); MONO % 6.6 % (3.8-10.2); NEUT % 79.8 % (42.8-82.8); PLATELET COUNT 222 10^3/uL (134-434); RBC 4.15 M/mm3 (3.60-5.2); WHITE BLOOD COUNT 7.7 K/mm3 (4.0-10.0)
[2023-03-13 12:06] LABS: POTASSIUM 3.9 mmol/L (3.5-5.1)
[2023-03-13 12:08] LABS: CALCIUM 8.3 mg/dL (8.5-10.1)
[2023-03-13 12:09] LABS: ALBUMIN 3.4 g/dl (3.4-5.0); BLOOD UREA NITROGEN 5.8 mg/dL (7-18); MAGNESIUM 1.9 mg/dL (1.8-2.4)
[2023-03-13 12:12] LABS: CREATININE 0.5 mg/dL (0.55-1.3)
[2023-03-13 12:13] LABS: TOT PROT 6.3 g/dl (6.4-8.2)
[2023-03-13 12:14] LABS: BILIRUBIN,TOTAL 0.2 mg/dL (0.2-1)
[2023-03-13 16:43] VITALS: BP 123/76; PULSE 72; TEMP 98.5
== END 2023-03-13 16:43 | disposition home or self-care (01) ==
LOC: JER 10:18
PROC: 3E033GC Introduction of Other Therapeutic Substance into Peripheral Vein, Percutaneous Approach (ICD-10-PCS; principal; 2023-03-13)
PROC: 3E033NZ Introduction of Analgesics, Hypnotics, Sedatives into Peripheral Vein, Percutaneous Approach (ICD-10-PCS; 2023-03-13)
PROC: 3E0337Z Introduction of Electrolytic and Water Balance Substance into Peripheral Vein, Percutaneous Approach (ICD-10-PCS; 2023-03-13)
DX: R10.84 Generalized abdominal pain (principal); R19.7 Diarrhea, unspecified; W18.43XA Slipping, tripping and stumbling without falling due to stepping from one level to another, initial encounter; Z20.822 Contact with and (suspected) exposure to COVID-19
CPT/HCPCS: 0241U-QW; 36415; 74177-TC; 80053; 81003; 83690; 83735; 84703; 85025; 87086; 99285-25; Q9967

== ENCOUNTER 2023-10-15 17:47 | Emergency (ER) | payer OTHER ==
[2023-10-15 18:04] VITALS: RESP 18; TEMP 98; BMI 23.3
[2023-10-15] MEDS ORDERED: KETOROLAC TROMETHAMINE 30 MG/1 ML VIAL ONE (19:14)
[2023-10-15] MEDS ORDERED: FAMOTIDINE 20 MG/50 ML IVPB 20 MG/50 ML MG IVPB ONE (19:14)
[2023-10-15] MEDS ORDERED: ONDANSETRON 4 MG/2 ML VIAL ONE ×2 (19:14→23:48)
[2023-10-15 19:18] LABS: HEMOGLOBIN 13.9 GM/dL (10.7-15.3); MCH 30.8 pg (25.7-33.7); MCHC 33.1 g/dl (32.0-36.0); MEAN CELL VOLUME 92.9 fl (80-96); MEAN PLT VOLUME 8.6 fl (7.5-11.1); PLATELET COUNT 223 10^3/uL (134-434); RBC 4.52 M/mm3 (3.60-5.2); RDW 13.2 % (11.6-15.6); WHITE BLOOD COUNT 13.7 K/mm3 (4.0-10.0)
[2023-10-15] MEDS: ONDANSETRON 4 MG/2 ML VIAL IVPUSH ONE ×2 (19:28→23:53)
[2023-10-15] MEDS: FAMOTIDINE 20 MG/50 ML IVPB 20 MG/50 ML MG IVPB ONE (19:28)
[2023-10-15] MEDS: SODIUM CHLORIDE 0.9% 500 ML INFUS.BAG IV ONE (19:28)
[2023-10-15] MEDS: KETOROLAC TROMETHAMINE 30 MG/1 ML VIAL IVPUSH ONE (19:28)
[2023-10-15 19:56] LABS: POTASSIUM 4.2 mmol/L (3.5-5.1)
[2023-10-15 19:58] LABS: CALCIUM 8.9 mg/dL (8.5-10.1)
[2023-10-15 19:59] LABS: ALBUMIN 4.1 g/dl (3.4-5.0); BLOOD UREA NITROGEN 12.9 mg/dL (7-18)
[2023-10-15 20:02] LABS: CREATININE 0.7 mg/dL (0.55-1.3)
[2023-10-15 20:03] LABS: TOT PROT 7.2 g/dl (6.4-8.2)
[2023-10-15 20:04] LABS: BILIRUBIN,TOTAL 0.4 mg/dL (0.2-1)
[2023-10-15 20:30] LABS: ANISOCYTOSIS 1+; MACROCYTOSIS 0
[2023-10-15] MEDS ORDERED: DICYCLOMINE HCL 10 MG CAPSULE ONE (21:57)
[2023-10-15] MEDS: DICYCLOMINE HCL 20 MG TABLET PO ONE (22:01)
[2023-10-15 23:10] LABS: EPI CELLS 10 /uL (0-25.1); HYALINE CASTS 0 /uL (0-3.1); PH,URINE 5.5 (5.0-8.0); URINE APPEARANCE CLEAR; URINE BACTERIA 287 /uL (0-1359); URINE BILIRUBIN NEGATIVE (NEGATIVE); URINE COLOR YELLOW; URINE GLUCOSE (UA) NEGATIVE (NEGATIVE); URINE KETONE NEGATIVE (NEGATIVE); URINE LEUK ESTERASE NEGATIVE (NEGATIVE); URINE NITRITE NEGATIVE (NEGATIVE); URINE PROTEIN NEGATIVE (NEGATIVE); URINE RBC 14 /uL (0-23.9); URINE UROBILINOGEN 0.2 mg/dL (0.2-1.0); URINE WBC 4 /uL (0-25.8)
[2023-10-16 00:03] VITALS: BP 117/71; PULSE 90
== END 2023-10-16 00:11 | disposition home or self-care (01) ==
LOC: JER 17:47
PROC: 3E033GC Introduction of Other Therapeutic Substance into Peripheral Vein, Percutaneous Approach (ICD-10-PCS; principal; 2023-10-15)
PROC: 3E033GC Introduction of Other Therapeutic Substance into Peripheral Vein, Percutaneous Approach (ICD-10-PCS; 2023-10-15)
PROC: 3E0333Z Introduction of Anti-inflammatory into Peripheral Vein, Percutaneous Approach (ICD-10-PCS; 2023-10-15)
PROC: 3E033GC Introduction of Other Therapeutic Substance into Peripheral Vein, Percutaneous Approach (ICD-10-PCS; 2023-10-15)
DX: R11.2 Nausea with vomiting, unspecified (principal); R19.7 Diarrhea, unspecified; R10.13 Epigastric pain; Z20.822 Contact with and (suspected) exposure to COVID-19
CPT/HCPCS: 0241U-QW; 36415; 80053; 81003; 84703; 85025; 99284-25

== ENCOUNTER 2024-02-04 15:45 | Emergency (ER) | payer OTHER ==
[2024-02-04 15:55] VITALS: BP 134/68; PULSE 68; RESP 18; TEMP 98.6; BMI 27.3
[2024-02-04 18:08] LABS: URINE APPEARANCE CLOUDY; URINE BILIRUBIN 1+ (NEGATIVE); URINE COLOR DK YELLOW; URINE GLUCOSE (UA) NEGATIVE (NEGATIVE); URINE KETONE TRACE (NEGATIVE); URINE LEUK ESTERASE NEGATIVE (NEGATIVE); URINE NITRITE NEGATIVE (NEGATIVE); URINE PROTEIN TRACE (NEGATIVE); URINE UROBILINOGEN 0.2 mg/dL (0.2-1.0)
[2024-02-04 18:11] LABS: HCG,QUALITATIVE URINE Negative
[2024-02-04] MEDS ORDERED: ACETAMINOPHEN INJECTION 100 ML IVPB ONE (18:22)
[2024-02-04] MEDS ORDERED: KETOROLAC TROMETHAMINE 30 MG/1 ML VIAL ONE (18:22)
[2024-02-04 18:27] LABS: BASO % 0.8 % (0-2.0); HEMATOCRIT 38.6 % (32.4-45.2); LYMPH % 28.8 % (8-40); MCH 31.6 pg (25.7-33.7); MCHC 33.8 g/dl (32.0-36.0); MEAN CELL VOLUME 93.6 fl (80-96); MEAN PLT VOLUME 8.8 fl (7.5-11.1); MONO % 6.1 % (3.8-10.2); NEUT % 62.3 % (42.8-82.8); PLATELET COUNT 243 10^3/uL (134-434); RBC 4.12 M/mm3 (3.60-5.2); RDW 12.6 % (11.6-15.6); WHITE BLOOD COUNT 6.9 K/mm3 (4.0-10.0)
[2024-02-04] MEDS: KETOROLAC TROMETHAMINE 30 MG/1 ML VIAL IVPUSH ONE (18:31)
[2024-02-04] MEDS: SODIUM CHLORIDE 0.9% 500 ML INFUS.BAG IV ONE (18:31)
[2024-02-04] MEDS: ACETAMINOPHEN 1000 MG/100 ML BAG IVPB ONE (18:31)
[2024-02-04 18:40] LABS: POTASSIUM 3.9 mmol/L (3.5-5.1)
[2024-02-04 18:42] LABS: ALBUMIN 3.7 g/dl (3.4-5.0); BLOOD UREA NITROGEN 10.4 mg/dL (7-18); CALCIUM 8.6 mg/dL (8.5-10.1)
[2024-02-04 18:45] LABS: CREATININE 0.7 mg/dL (0.55-1.3)
[2024-02-04 18:47] LABS: BILIRUBIN,TOTAL 0.6 mg/dL (0.2-1); TOT PROT 6.4 g/dl (6.4-8.2)
== END 2024-02-04 21:41 | disposition home or self-care (01) ==
LOC: JER 15:45
PROC: 3E033NZ Introduction of Analgesics, Hypnotics, Sedatives into Peripheral Vein, Percutaneous Approach (ICD-10-PCS; principal; 2024-02-04)
PROC: 3E0333Z Introduction of Anti-inflammatory into Peripheral Vein, Percutaneous Approach (ICD-10-PCS; 2024-02-04)
DX: R10.32 Left lower quadrant pain (principal); M54.50 Low back pain, unspecified; M16.11 Unilateral primary osteoarthritis, right hip
CPT/HCPCS: 36415; 74177-TC; 80053; 81003; 84703; 85025; 87086; 99285-25; J0131; Q9967

== ENCOUNTER 2024-02-23 10:43 | Emergency (ER) | payer OTHER ==
[2024-02-23 10:55] VITALS: BP 117/79; PULSE 79; RESP 16; TEMP 97.7; BMI 27.3
[2024-02-23] MEDS ORDERED: IBUPROFEN 600 MG TABLET (FP) PO ONE (11:16)
[2024-02-23] MEDS: IBUPROFEN 600 MG TABLET (FP) PO ONE (11:21)
== END 2024-02-23 12:00 | disposition home or self-care (01) ==
LOC: JER 10:43 → JERFT 10:43
DX: S60.012A Contusion of left thumb without damage to nail, initial encounter (principal); S69.92XA Unspecified injury of left wrist, hand and finger(s), initial encounter; W19.XXXA Unspecified fall, initial encounter; Y92.009 Unspecified place in unspecified non-institutional (private) residence as the place of occurrence of the external cause
CPT/HCPCS: 73110-TC-LT-FY; 73130-TC-LT-FY; 99283-25

== ENCOUNTER 2024-03-05 04:34 | Day surgery (SDC) | payer OTHER ==
[2024-03-04 12:11] VITALS: BMI 27.9
[2024-03-05] MEDS ORDERED: TRIAMCINOLONE ACET 40MG/1ML VIAL ONE (08:44)
[2024-03-05] MEDS ORDERED: BUPIVACAINE HCL/PF 0.25% (2.5MG/ML) 10 ML VIAL ONE ×2 (08:44→12:20)
[2024-03-05] MEDS ORDERED: BUPIVACAINE HCL/PF 0.5% (5MG/ML) 10 ML VIAL ONE (08:45)
[2024-03-05] MEDS ORDERED: LIDOCAINE HCL/PF 1% SDV 5ML VIAL ONE (08:45)
[2024-03-05 09:24] VITALS: RESP 18
[2024-03-05] MEDS: IOHEXOL 180 MG/1 ML ML IJ ONE ×2 (12:34)
[2024-03-05] MEDS: LIDOCAINE HCL 1%, 10 MG/ML (50 mL VIAL) INF ONE (12:34)
[2024-03-05] MEDS: BUPIVACAINE HCL/PF 0.25% (2.5MG/ML) 10 ML VIAL IJ ONE (12:34)
[2024-03-05] MEDS: TRIAMCINOLONE ACET 40MG/1ML VIAL IJ ONE (12:35)
[2024-03-05] MEDS: TRIAMCINOLONE ACETONIDE 40 MG/ML 10 ML VIAL IJ ONE (12:35)
[2024-03-05 13:01] VITALS: PULSE 70; TEMP 97.3
[2024-03-05 13:22] VITALS: BP 120/70
== END 2024-03-05 13:22 | disposition home or self-care (01) ==
LOC: JASU-SURG 04:34
PROVIDERS: ATTEND Pain Medicine Pain Medicine
PROC: 3E0U3BZ Introduction of Anesthetic Agent into Joints, Percutaneous Approach (ICD-10-PCS; 2024-03-05)
PROC: 3E0U33Z Introduction of Anti-inflammatory into Joints, Percutaneous Approach (ICD-10-PCS; principal; 2024-03-05 12:30)
DX: M16.11 Unilateral primary osteoarthritis, right hip (principal)
CPT/HCPCS: 76000-TC-FY

== ENCOUNTER 2024-04-05 01:25 | Emergency (ER) | payer OTHER ==
[2024-04-05 01:31] VITALS: BMI 27.3
[2024-04-05] MEDS ORDERED: morphine SULFATE 4 MG/ML VIAL ONE (02:08)
[2024-04-05] MEDS ORDERED: ONDANSETRON 4 MG/2 ML VIAL ONE (02:08)
[2024-04-05] MEDS: morphine CARPU-JECT 4 MG/1 ML DISP.SYRIN IVPUSH ONE (02:23)
[2024-04-05] MEDS: ONDANSETRON 4 MG/2 ML VIAL IVPUSH ONE (02:23)
[2024-04-05] MEDS: SODIUM CHLORIDE 1,000 ML IV STA (02:23)
[2024-04-05 02:36] LABS: BASO % 0.4 % (0-2.0); HEMATOCRIT 35.3 % (32.4-45.2); LYMPH % 17.9 % (8-40); MCH 31.2 pg (25.7-33.7); MCHC 34.1 g/dl (32.0-36.0); MEAN CELL VOLUME 91.6 fl (80-96); MEAN PLT VOLUME 8.3 fl (7.5-11.1); MONO % 8.3 % (3.8-10.2); NEUT % 72.4 % (42.8-82.8); PLATELET COUNT 220 10^3/uL (134-434); RBC 3.85 M/mm3 (3.60-5.2); WHITE BLOOD COUNT 4.6 K/mm3 (4.0-10.0)
[2024-04-05 02:45] LABS: PROTHROMBIN TIME (PATIENT) 11.3 SEC (9.7-13.0)
[2024-04-05 02:56] LABS: POTASSIUM 3.4 mmol/L (3.5-5.1)
[2024-04-05 02:59] LABS: ALBUMIN 3.2 g/dl (3.4-5.0); BLOOD UREA NITROGEN 6.6 mg/dL (7-18); CALCIUM 8.5 mg/dL (8.5-10.1)
[2024-04-05 03:02] LABS: CREATININE 0.5 mg/dL (0.55-1.3)
[2024-04-05 03:03] LABS: BILIRUBIN,TOTAL 0.3 mg/dL (0.2-1)
[2024-04-05 03:04] LABS: TOT PROT 5.8 g/dl (6.4-8.2)
[2024-04-05 03:55] LABS: HIV INTERPRETATION NEGATIVE (NEGATIVE)
[2024-04-05 08:29] LABS: PH,URINE 5.5 (5.0-8.0); URINE APPEARANCE CLEAR; URINE BILIRUBIN NEGATIVE (NEGATIVE); URINE COLOR YELLOW; URINE GLUCOSE (UA) NEGATIVE (NEGATIVE); URINE KETONE NEGATIVE (NEGATIVE)
[2024-04-05 08:30] LABS: EPI CELLS 14.3 /uL (0-25.1); HYALINE CASTS 0.58 /uL (0-3.1); URINE BACTERIA 458.7 /uL (0-1359); URINE LEUK ESTERASE NEGATIVE (NEGATIVE); URINE NITRITE NEGATIVE (NEGATIVE); URINE PROTEIN NEGATIVE (NEGATIVE); URINE RBC 68.6 /uL (0-23.9); URINE UROBILINOGEN 0.2 mg/dL (0.2-1.0); URINE WBC 5.8 /uL (0-25.8)
[2024-04-05] MEDS ORDERED: ACETAMINOPHEN INJECTION 100 ML ONE (10:01)
[2024-04-05] MEDS ORDERED: FAMOTIDINE 10 MG/ML VIAL IVPB ONE (10:02)
[2024-04-05] MEDS ORDERED: MAG HYDROX/AL HYDROX/SIMETH 30 ML UNIT-DOSE CUP ONE (10:02)
[2024-04-05] MEDS: MAG HYDROX/AL HYDROX/SIMETH 30 ML UNIT-DOSE CUP PO ONE (10:16)
[2024-04-05] MEDS: ACETAMINOPHEN 1000 MG/100 ML BAG IVPB ONE (10:16)
[2024-04-05] MEDS: FAMOTIDINE 20 MG/50 ML IVPB 20 MG/50 ML MG IVPB ONE (10:17)
[2024-04-05] MEDS ORDERED: METOCLOPRAMIDE HCL INJECTION 10 MG/2 ML VIAL ONE (11:37)
[2024-04-05] MEDS ORDERED: NITROFURANTOIN MACROCRYSTAL 50 MG CAPSULE (FP) ONE ×2 (11:44→11:45)
[2024-04-05] MEDS: METOCLOPRAMIDE HCL INJECTION 10 MG/2 ML VIAL IVPB ONE (11:53)
[2024-04-05] MEDS: NITROFURANTOIN MONOHYD/M-CRYST 100 MG CAPSULE PO ONE (11:53)
[2024-04-05 12:08] VITALS: BP 108/65; PULSE 66; RESP 18; TEMP 98.6
== END 2024-04-05 12:26 | disposition home or self-care (01) ==
LOC: JER 01:25
PROC: 3E033GC Introduction of Other Therapeutic Substance into Peripheral Vein, Percutaneous Approach (ICD-10-PCS; principal; 2024-04-05)
PROC: 3E033GC Introduction of Other Therapeutic Substance into Peripheral Vein, Percutaneous Approach (ICD-10-PCS; 2024-04-05)
PROC: 3E033GC Introduction of Other Therapeutic Substance into Peripheral Vein, Percutaneous Approach (ICD-10-PCS; 2024-04-05)
PROC: 3E033NZ Introduction of Analgesics, Hypnotics, Sedatives into Peripheral Vein, Percutaneous Approach (ICD-10-PCS; 2024-04-05)
PROC: 3E033NZ Introduction of Analgesics, Hypnotics, Sedatives into Peripheral Vein, Percutaneous Approach (ICD-10-PCS; 2024-04-05)
PROC: 3E0337Z Introduction of Electrolytic and Water Balance Substance into Peripheral Vein, Percutaneous Approach (ICD-10-PCS; 2024-04-05)
DX: R10.2 Pelvic and perineal pain (principal); R31.9 Hematuria, unspecified; N39.0 Urinary tract infection, site not specified; R19.00 Intra-abdominal and pelvic swelling, mass and lump, unspecified site; R10.13 Epigastric pain; R19.7 Diarrhea, unspecified; R35.0 Frequency of micturition; R30.0 Dysuria; R10.31 Right lower quadrant pain
CPT/HCPCS: 36415; 74177-TC; 76830-TC; 80053; 81003; 83605; 83690; 85025; 85610; 85730; 86803; 86850; 86900; 86901; 87389; 93005; 93010; 96361; 96365; 96375; 99283-25; J0131; Q9967

== ENCOUNTER 2024-04-08 04:19 | Day surgery (SDC) | payer OTHER ==
[2024-04-07 13:05] VITALS: BMI 27.3
[2024-04-08] MEDS ORDERED: TRIAMCINOLONE ACET 40MG/1ML VIAL ONE (07:54)
[2024-04-08] MEDS ORDERED: LIDOCAINE HCL/PF 1% SDV 5ML VIAL ONE (07:55)
[2024-04-08] MEDS ORDERED: BUPIVACAINE HCL/PF 0.5% (5MG/ML) 10 ML VIAL ONE (07:55)
[2024-04-08 10:21] VITALS: RESP 16
[2024-04-08] MEDS ORDERED: ACETAMINOPHEN 500 MG TABLET (FP) PO PRN (10:29)
[2024-04-08] MEDS: LIDOCAINE HCL 1% PRESERVATIVE FREE - 30ML VIAL IJ ONE (12:55)
[2024-04-08] MEDS: IOHEXOL 180 MG/1 ML ML IJ ONE (12:56)
[2024-04-08] MEDS: BUPIVACAINE HCL/PF 0.5% (5MG/ML) 10 ML VIAL IJ ONE (12:57)
[2024-04-08] MEDS: TRIAMCINOLONE ACET 40MG/1ML VIAL IJ ONE (12:57)
[2024-04-08 13:09] VITALS: BP 128/57; PULSE 56; TEMP 98
== END 2024-04-08 13:33 | disposition home or self-care (01) ==
LOC: JASU-SURG 04:19
PROVIDERS: ATTEND Pain Medicine Pain Medicine
PROC: 3E0U3BZ Introduction of Anesthetic Agent into Joints, Percutaneous Approach (ICD-10-PCS; 2024-04-08)
PROC: 3E0U33Z Introduction of Anti-inflammatory into Joints, Percutaneous Approach (ICD-10-PCS; principal; 2024-04-08 12:30)
DX: M53.3 Sacrococcygeal disorders, not elsewhere classified (principal)
CPT/HCPCS: 76000-TC-FY; 81025